=== PATIENT | male | born 1950 | race Caucasian/White ===

== ENCOUNTER 2019-07-18 22:46 | Emergency (ER) | payer MEDICARE, OTHER, SELFPAY ==
[2019-07-18 22:50] VITALS: BP 107/69; PULSE 90; RESP 16; TEMP 36.6; O2SAT 100; BMI 41.8
--- NOTE | 2019-07-18 22:51 | CTR_ITS ---
PROCEDURE INFORMATION: Exam: CT Abdomen And Pelvis With Contrast Exam date and time: 07/18/2019 11:11 PM Age: 69 years old Clinical indication: Other: Gi bleed TECHNIQUE: Imaging protocol: Computed tomography of the abdomen and pelvis with intravenous contrast. Total DLP: 2040.36 mGy-cm Radiation optimization: All CT scans at this facility use at least one of these dose optimization techniques: automated exposure control; mA and/or kV adjustment per patient size (includes targeted exams where dose is matched to clinical indication); or iterative reconstruction. Contrast material: OMNI 300; Contrast volume: 95 ml; Contrast route: IV; COMPARISON: No relevant prior studies available. FINDINGS: Visualized portions of the lung bases are clear. Status post cholecystectomy. The liver, spleen, pancreas, left adrenal gland, and kidneys are unremarkable. There is a 2 cm x 1.4 cm nodule in the right adrenal gland on series 2 image 24 with density 59 Hounsfield units. A normal-appearing appendix is seen in the right lower quadrant. Status post gastric bypass. No evidence of bowel obstruction. Scattered colonic diverticula without evidence of diverticulitis. No free intraperitoneal air or fluid identified. There is a 2.3 cm x 1.6 cm fluid collection in the subcutaneous fat of the right upper quadrant anterior abdominal wall on series 2 image 46. Hyperdense rim is present. This is concerning for abscess. Small ventral abdominal hernia in the right upper quadrant (series 2 image 43). This contains only fat. The bladder is unremarkable. Marked atherosclerotic aortoiliac calcification. No abdominal aortic aneurysm. Mild degenerative disc disease throughout the lower thoracic spine and the lumbar spine. Spinal canal stenosis at T9-T10 (mild), T10-T11 (mild), T12-L1 (mild), and L2-L3 (marked) related to this. CT/CT abdomen pelvis w con* [id number] IMPRESSION: 1. Small fluid collection in the subcutaneous fat of the right upper quadrant anterior abdominal wall. Hyperdense rim is present. This is concerning for abscess. 2. Small indeterminate nodule in the right adrenal gland. Consider 12 month follow-up adrenal CT. (Evelyn Epps, ACR White Paper, 2017) 3. Multiple areas of spinal canal stenosis in the lower thoracic spine and the lumbar spine, marked at L2-L3. Radiation Dose CTDIVOL = (mGy): DLP = 2040.36 (mGy-cm)
--- NOTE | 2019-07-18 22:52 | ED_ITS ---
Entered by Nevin Metzger, acting as scribe for Lenny Marie DO HPI - GI Bleed General: Chief complaint: GI Bleed Stated complaint: GI BLEED Time Seen by Provider: 07/18/19 22:51 Source: patient and EMS Mode of arrival: EMS Limitations: no limitations History of Present Illness: HPI Narrative: 69 yo m came to the er by ems for possile GI bleed. Onset was 10am this morning. Pts said that pt had a gastric bypass May 14. Pt states that he went to the bathroom and the blood filled up the toilet. Pts said that there was blood all over the toilet. Pt states that he has some mild abd pain at this time. Pt has some LLQ and RLQ pain. MD complaint: coffee ground emesis Onset (ago): day(s) (10AM ) Pain Consistency: intermittent Severity: moderate Relieving factors: none Exacerbating factors: none Associated symptoms: Reports abdominal pain, chills and nausea; Denies epistaxis, fever(s), headache(s), rash or vomiting Review of Systems Const: Reports: chills; Denies: fever Eyes: Denies: change in vision or blurry vision ENMT: Denies: nose bleeds Card: Denies: chest pain, palpitations, irregular heart rhythm, edema, swelling of feet/ankles, shortness of breath on exertion or shortness of breath when lying down Resp: Denies: shortness of breath, productive cough, non-productive cough or wheezing GI: Reports: abdominal pain and nausea; Denies: vomiting : Denies: difficulty urinating, painful urination, urinary frequency, urinary urgency or blood in urine Musc: Denies: neck pain, back pain, redness or joint warmth Skin/Breast: Denies: rash Neuro: Denies: headache Psych: Denies: anxiety PFSH ED PFSH: Statuses (acute, chronic, etc) shown below reflect problem list status as previously entered and may not be historically accurate Surgical History (Updated 07/19/19 @ 01:59 by Lenny Marie DO) Gastric bypass status for obesity (Acute) Social History Smoking and tobacco status: former smoker Physical Exam Const: COMMON NORMALS: alert GENERAL APPEARANCE: well developed ORIENTATION/CONSCIOUSNESS: Yes awake, Yes oriented to person, Yes oriented to place and Yes oriented to time HENMT: COMMON NORMALS: normocephalic, external ears normal, external nose normal and moist oral mucous membranes HEAD & SCALP: normocephalic; no scalp tenderness FACE & SINUS: normal facial exam NOSE: external nose normal and no nasal discharge EXTERNAL EAR: Yes external ears normal MOUTH: tongue normal TEETH & GINGIVA: no abnormal tooth and associated gingiva THROAT: posterior oropharynx normal; no peritonsillar mass Eye: COMMON NORMALS: PERRL, EOMs intact bilaterally and conjunctivae normal EYELID: eyelids normal CONJUNCTIVA: Yes conjunctivae normal PUPIL: Yes PERRL Neck/C-Spine: COMMON NORMALS: full ROM GENERAL: No anterior neck swelling and No tracheal deviation CERVICAL SPINE: Yes normal cervical lordosis, No cervical spine tenderness, No step off deformity, No paracervical muscle t enderness and No paracervical muscle spasm Chest: COMMONS NORMALS: inspection of chest normal CHEST: Yes symmetrical chest wall rise and No tenderness Resp: COMMON NORMALS: clear to auscultation bilaterally EFFORT & INSPECTION: No tachypneic, No respiratory distress, No retractions, No uses accessory muscles and No tracheal deviation AUSCULTATION: clear to auscultation bilaterally, no rhonchi, no wheezes and lung sounds not diminished Cardio: COMMON NORMALS: regular rate and regular rhythm RATE: regular rate RHYTHM: regular rhythm HEART SOUNDS: no murmurs PERIPHERAL PULSES: radial pulses present GI: INSPECTION: No abdominal distension AUSCULTATION: No hyperactive bowel sounds and No hypoactive bowel sounds PALPATION: Yes tender, No guarding and No rigid PERCUSSION: no dullness to percussion and no tympanic to percussion RECTAL EXAM: Yes heme positive stool gross blood (also black and clotted) : COMMON NORMALS: Yes no CVA tenderness BLADDER/KIDNEY EXAM: Yes no CVA tenderness Back/Pelvis: COMMON NORMALS: no CVA tenderness Neuro: SENSORIUM/ORIENTATION: Yes alert, Yes oriented to person, Yes oriented to place and Yes oriented to time Psych: COMMON NORMALS: mental status grossly normal and speech normal SPEECH: Yes normal speech Skin: COMMON NORMALS: no rashes or lesions noted GENERAL SKIN EXAM: no rashes or lesions noted Course Consultations: Consultation #1: [facility] LUCINA Musa Time: 01:52 Vital Signs: Vital signs: Vital Signs Temperature 97.8 F 07/18/19 22:50 Pulse Rate 88 07/18/19 23:29 Respiratory Rate 18 07/18/19 23:29 Blood Pressure 98/64 07/18/19 23:29 Pulse Oximetry 94 07/18/19 23:29 MDM - GI Bleed MDM Narrative: Medical decision making narrative: 69-year-old male with a history of gastric bypass surgery 2 months ago. He presents with black tarry stools since 10 AM. They became more loose, and more red as the day went on, culminating in significant old blood in the stool this evening. He was weak, pale, and sweaty. His blood pressure systolic was evidently in the 70s on scene when EMS arrived. He received a fluid bolus on arrival. He is now receiving 2 units of crossmatched packed RBCs. His blood pressures running around 100 systolic. His heart rates in the 70s/80s. His hemoglobin was 8.1. No acute ST changes on EKG. The patient is not complaining of chest pain. We have no ICU beds available at this facility. Since the patient did have a surgery at [facility], we spoke with their transfer team. CT here reveals no complication of the gastric bypass or other reason for bleed. Surgical team asked for him to be sent to their ER, which is in process currently. The patient is on a Protonix drip. Lab Data: Labs: Lab Results 07/18/19 07/18/19 07/18/19 Range/Units 23:03 23:03 23:03 WBC 9.3 (4.0-10.0) 10^3/ uL RBC 3.12 L (4.1-5.3) 10^6/u L Hgb 8.1 L (11.7-16.6) g/dL Hct 27.5 L (42.0-52.0) % MCV 88.1 (80-94) fL MCH 26.0 L (28.0-34.0) pg MCHC 29.5 L (30.0-36.0) g/dL RDW 14.3 (12.1-15.1) % Plt Count 388 (130-400) 10^3/c mm MPV 9.2 (7.4-10.4) fL Neut % (Auto) 76.0 % Lymph % (Auto) 18.3 % [place] % (Auto) 3.8 % Eos % (Auto) 1.1 % Baso % (Auto) 0.3 % Neut # (Auto) 7.1 (1.8-7.7) 10^3/u L Lymph # (Auto) 1.7 (0.8-4.8) 10^3/u L [place] # (Auto) 0.4 (0.2-0.9) 10^3/u L Eos # (Auto) 0.1 (0.0-0.8) 10^3/u L Baso # (Auto) 0.0 (0.0-0.1) 10^3/u L Nucleated RBC % (a uto) 0 % Nucleated RBCs # 0.0 /100WBC PT 15.20 H (10.5-13.3) SECO NDS INR 1.16 (0.8-1.2) APTT 24.8 (23.9-36.7) SECO NDS Sodium 136 (136-145) mmol/L Potassium 4.3 (3.5-5.1) mmol/L Chloride 100 (98-107) mmol/L Carbon Dioxide 18 L (22-29) mmol/L Anion Gap 22.3 H (5-19) BUN 27 H (8-23) mg/dL Creatinine 1.2 (0.7-1.2) mg/dL GFR Calculation 60.0 L (90-130) mL/min Glucose 236 H (74-106) mg/dL Calcium 9.3 (8.8-10.2) mg/Dl Phosphorus 5.3 H (2.5-4.5) mg/dL Magnesium 1.7 (1.7-2.3) mg/dL Total Bilirubin 0.3 (0.15-1.2) mg/dL AST 11 (0-40) U/L ALT 6 (0-41) U/L Alkaline Phosphata se 50 (40-130) IU/L Total Protein 5.7 L (6.6-8.7) g/dL Albumin 3.8 (3.5-5.2) g/dL Globulin 1.9 (1.3-4.6) g/dL Blood Type Antibody Screen Crossmatch 07/18/19 Range/Units 23:03 WBC (4.0-10.0) 10^3/ uL RBC (4.1-5.3) 10^6/u L Hgb (11.7-16.6) g/dL Hct (42.0-52.0) % MCV (80-94) fL MCH (28.0-34.0) pg MCHC (30.0-36.0) g/dL RDW (12.1-15.1) % Plt Count (130-400) 10^3/c mm MPV (7.4-10.4) fL Neut % (Auto) % Lymph % (Auto) % [place] % (Auto) % Eos % (Auto) % Baso % (Auto) % Neut # (Auto) (1.8-7.7) 10^3/u L Lymph # (Auto) (0.8-4.8) 10^3/u L [place] # (Auto) (0.2-0.9) 10^3/u L Eos # (Auto) (0.0-0.8) 10^3/u L Baso # (Auto) (0.0-0.1) 10^3/u L Nucleated RBC % (a uto) % Nucleated RBCs # /100WBC PT (10.5-13.3) SECO NDS INR (0.8-1.2) APTT (23.9-36.7) SECO NDS Sodium (136-145) mmol/L Potassium (3.5-5.1) mmol/L Chloride (98-107) mmol/L Carbon Dioxide (22-29) mmol/L Anion Gap (5-19) BUN (8-23) mg/dL Creatinine (0.7-1.2) mg/dL GFR Calculation (90-130) mL/min Glucose (74-106) mg/dL Calcium (8.8-10.2) mg/Dl Phosphorus (2.5-4.5) mg/dL Magnesium (1.7-2.3) mg/dL Total Bilirubin (0.15-1.2) mg/dL AST (0-40) U/L ALT (0-41) U/L Alkaline Phosphata se (40-130) IU/L Total Protein (6.6-8.7) g/dL Albumin (3.5-5.2) g/dL Globulin (1.3-4.6) g/dL Blood Type A Positive Antibody Screen Negative Crossmatch See Detail Critical Care Time Critical Care Time: Critical Care Time: Yes Total Critical Care Time: 45 Attestation: This case had a high probability of a clinically significant, sudden, or life threatening deterioration of this patient's condition which required my full and direct attention, intervention and personal management. Discharge Plan Discharge Prescriptions: No Action atorvastatin 40 mg tablet 40 mg PO DAILY RF: 0 clopidogrel 75 mg tablet 75 mg PO DAILY RF: 0 chlorthalidone 25 mg tablet 25 mg PO DAILY RF: 0 tamsulosin 0.4 mg capsule 0.4 mg PO DAILY RF: 0 gabapentin 100 mg capsule 100 mg PO TID RF: 0 duloxetine 30 mg capsule,delayed release(DR/EC) 30 mg PO BID RF: 0 Coding Level of Care Code ED Instrumentation Engineer for Chg Fwnathalie The documentation recorded by the Yassine espinoza Stephanie Lyn, accurately reflects the service I personally performed and the decisions made by Frank webb Jeremy John, DO Jul 18, 2019 22:46
[2019-07-18 22:59] VITALS: BP 102/61; PULSE 82; RESP 16; O2SAT 94
[2019-07-18] MEDS: sodium chloride 0.9% 1,000 ML 999 ML IV (23:00)
[2019-07-18 23:22] LABS: Basophils % 0.3 %; Eosinophils # 0.1 10^3/uL (0.0-0.8); Eosinophils % 1.1 %; Hematocrit 27.5 % (42.0-52.0); Hemoglobin 8.1 g/dL (11.7-16.6); Lymphocytes # 1.7 10^3/uL (0.8-4.8); Lymphocytes % 18.3 %; Mean Corpuscular HGB Conc 29.5 g/dL (30.0-36.0); Mean Corpuscular Volume 88.1 fL (80-94); Mean Platelet Volume 9.2 fL (7.4-10.4); Monocytes # 0.4 10^3/uL (0.2-0.9); Monocytes % 3.8 %; Neutrophils # 7.1 10^3/uL (1.8-7.7); Nucleated Red Blood Cells % 0 %; Platelet Count 388 10^3/cmm (130-400); Red Blood Count 3.12 10^6/uL (4.1-5.3); Red Cell Distribution Width 14.3 % (12.1-15.1); White Blood Count 9.3 10^3/uL (4.0-10.0)
[2019-07-18 23:29] VITALS: BP 98/64; PULSE 88; RESP 18; O2SAT 94
[2019-07-18 23:37] LABS: Alanine Aminotransferase 6 U/L (0-41); Albumin Level 3.8 g/dL (3.5-5.2); Alkaline Phosphatase 50 IU/L (40-130); Anion Gap 22.3 (5-19); Aspartate Amino Transferase 11 U/L (0-40); Blood Urea Nitrogen 27 mg/dL (8-23); Calcium 9.3 mg/Dl (8.8-10.2); Carbon Dioxide 18 mmol/L (22-29); Chloride 100 mmol/L (98-107); Globulin 1.9 g/dL (1.3-4.6); Glucose 236 mg/dL (74-106); Magnesium 1.7 mg/dL (1.7-2.3); Phosphorus 5.3 mg/dL (2.5-4.5); Potassium 4.3 mmol/L (3.5-5.1); Sodium 136 mmol/L (136-145); Total Bilirubin 0.3 mg/dL (0.15-1.2); Total Protein 5.7 g/dL (6.6-8.7)
[2019-07-18] MEDS: iohexol 300 mg/mL 100 mL Btl IV (23:43)
[2019-07-18 23:50] LABS: INR 1.16 (0.8-1.2); Partial Thromboplastin Time 24.8 SECONDS (23.9-36.7)
[2019-07-19] VITALS (7 sets, daily range): BP systolic 100–125; BP diastolic 65–100; PULSE 73–87; RESP 14–16; TEMP 36.5–37.2; O2SAT 97–99
[2019-07-19] MEDS: sodium chloride 0.9% 250 ML 999 ML ×2 (01:30→03:10)
[2019-07-19] MEDS: sodium chloride 0.9% 1,000 ML 999 ML IV (03:24)
== END 2019-07-19 03:41 | disposition short-term general hospital (02) ==
PROVIDERS: Emergency Provider Emergency Medicine; Family Provider Nurse Practitioner Family
DX: K92.2 Gastrointestinal hemorrhage, unspecified (principal); Z87.891 Personal history of nicotine dependence
CPT/HCPCS: 74177; 80053; 83735; 84100; 85025; 85610; 85730; 86850; 86900; 96360; 96361; 96365; 99282; C9113; J7030; J7050; P9016; Q9967

== ENCOUNTER → 2019-08-26 14:29 | Outpatient (BNVA) | payer MEDICARE, OTHER, SELFPAY | PROVIDERS: Family Provider Nurse Practitioner Family; Referring Provider Nurse Practitioner Family; Visit Provider Podiatrist Foot & Ankle Surgery | DX: M79.671 Pain in right foot (principal) | CPT/HCPCS: 73630 ==

== ENCOUNTER 2019-09-08 14:56 | Outpatient (CLI) | payer MEDICARE, OTHER, SELFPAY ==
--- NOTE | 2019-09-08 15:00 | USCV_ITS ---
Jorge Ventura Age: 69 Gender: M : 1950 Exam Date: 09/08/2019 15:02 Ordering Phys: Matt Storey DPM Technologist: Exam Location: [facility] [place]_ Indication: DIMINISHED PULSES RIGHT LEFT Brachial 140.00 mmHg Brachial 114.00 mmHg Pressure (mmHg) Waveform Pressure (mmHg) Waveform 108.00 Above Knee 123.00 132.00 Below Knee 124.00 129.00 VP OF PRODUCT 78.00 108.00 DPA 124.00 0.92 Ankle/Brachial Index 0.89 60.00 Pre-Exercise Toe Pressure 97.00 0.43 Pre-Exercise Toe/Brachial Index 0.69 FINDINGS Slightly diminished resting ABIs bilaterally Moderately diminished resting TBI on the right side Minimally diminished resting TBI on the left side CONCLUSIONS Abnormal RAZIA and TBIs bilaterally, suggestive of mild peripheral arterial disease on the left side and mild to moderate peripheral arterial disease on the right side Dr Anabelle Chirinos MD [facility] (Electronically Signed) Final Date: 08 September 2019 17:20 S
== END 2019-09-08 14:57 | disposition home or self-care (01) ==
LOC: RAD 15:03
PROVIDERS: Family Provider Nurse Practitioner Family; PCP Nurse Practitioner Family; Visit Provider Podiatrist Foot & Ankle Surgery
DX: I73.9 Peripheral vascular disease, unspecified (principal)
CPT/HCPCS: 93923

== ENCOUNTER → 2019-12-09 11:41 | Outpatient (BNVA) | payer MEDICARE, OTHER, SELFPAY | PROVIDERS: Family Provider Nurse Practitioner Family; PCP Nurse Practitioner Family; Visit Provider Podiatrist Foot & Ankle Surgery | DX: S99.921A Unspecified injury of right foot, initial encounter (principal); X58.XXXA Exposure to other specified factors, initial encounter | CPT/HCPCS: 73630 ==

== ENCOUNTER 2019-12-15 13:16 | Outpatient (CLI) | payer MEDICARE, OTHER, SELFPAY | END 2019-12-15 13:17 | disposition home or self-care (01) | LOC: WOUND 13:17 | PROVIDERS: Family Provider Nurse Practitioner Family; PCP Nurse Practitioner Family; Visit Provider Thoracic Surgery (Cardiothoracic Vascular Surgery) | DX: E11.621 Type 2 diabetes mellitus with foot ulcer (principal); L97.512 Non-pressure chronic ulcer of other part of right foot with fat layer exposed | CPT/HCPCS: 97597; G0463 ==

== ENCOUNTER 2019-12-22 14:22 | Outpatient (CLI) | payer MEDICARE, OTHER, SELFPAY | END 2019-12-22 14:23 | disposition home or self-care (01) | LOC: WOUND 14:25 | PROVIDERS: Family Provider Nurse Practitioner Family; PCP Nurse Practitioner Family; Visit Provider Thoracic Surgery (Cardiothoracic Vascular Surgery) | DX: E11.621 Type 2 diabetes mellitus with foot ulcer (principal); L97.512 Non-pressure chronic ulcer of other part of right foot with fat layer exposed | CPT/HCPCS: 99212 ==

== ENCOUNTER 2019-12-29 13:57 | Outpatient (CLI) | payer MEDICARE, OTHER, SELFPAY | END 2019-12-29 13:58 | disposition home or self-care (01) | LOC: WOUND 13:59 | PROVIDERS: Family Provider Nurse Practitioner Family; PCP Nurse Practitioner Family; Visit Provider Nurse Practitioner Family | DX: E11.621 Type 2 diabetes mellitus with foot ulcer (principal); L97.512 Non-pressure chronic ulcer of other part of right foot with fat layer exposed | CPT/HCPCS: 11042 ==

== ENCOUNTER 2020-01-05 14:13 | Outpatient (CLI) | payer MEDICARE, OTHER, SELFPAY | END 2020-01-05 14:14 | disposition home or self-care (01) | LOC: WOUND 14:16 | PROVIDERS: Family Provider Nurse Practitioner Family; PCP Nurse Practitioner Family; Visit Provider Thoracic Surgery (Cardiothoracic Vascular Surgery) | DX: E11.621 Type 2 diabetes mellitus with foot ulcer (principal); L97.512 Non-pressure chronic ulcer of other part of right foot with fat layer exposed | CPT/HCPCS: 99212; A6446 ==

== ENCOUNTER 2020-01-06 20:00 | Outpatient (CLI) | payer MEDICARE, OTHER, SELFPAY | END 2020-01-06 20:01 | disposition home or self-care (01) | LOC: SLEEP 01-07 09:20 | PROVIDERS: Family Provider Nurse Practitioner Family; PCP Nurse Practitioner Family; Visit Provider Nurse Practitioner Family | DX: G47.33 Obstructive sleep apnea (adult) (pediatric) | CPT/HCPCS: 95811 ==

== ENCOUNTER → 2020-01-10 12:14 | Outpatient (BNVA) | payer MEDICARE, OTHER, MEDICAID, SELFPAY | PROVIDERS: Family Provider Nurse Practitioner Family; PCP Nurse Practitioner Family; Visit Provider Podiatrist Foot & Ankle Surgery | DX: S99.921A Unspecified injury of right foot, initial encounter (principal) | CPT/HCPCS: 73630 ==

== ENCOUNTER 2020-01-21 06:45 | Day surgery (SDC) | payer MEDICARE, OTHER, SELFPAY ==
[2020-01-20 12:35] VITALS: BMI 38.9
[2020-01-21 07:03] VITALS: BP 131/62; PULSE 47; RESP 18; TEMP 36.3; O2SAT 98
[2020-01-21] MEDS: sodium chloride 0.9% 1,000 ML 30 ML IV (07:13)
[2020-01-21 07:17] LABS: Glucose Point of Care 108 mg/dL (70-110)
--- NOTE | 2020-01-21 07:23 | ANES.PREANE2 ---
Pre-Anesthetic Assessment Pre-Anesthetic Assessment: Height/Weight: Height 1.73 m Weight 116.12 kg Temp Pulse Resp BP Pulse Ox 97.4 F L 47 L 18 131/62 98 01/21/20 07:03 01/21/20 07:03 01/21/20 07:03 01/21/20 07:03 01/21/20 07:03 Preop Diagnosis: Infected hardware with osteomyelitis right foot Proposed Procedure: Operation Date: 01/21/20 08:10 Proposed Procedures p Incision And Debridement non invasive tissue down to bone 82422 [id number] 91161 L97.514(Right) - Matt Storey DPM s Deep Hardware removal insertion of antibiotic impregnated cement spacer(Right) - Matt Storey DPM Last intake: Intake Last Liquid Date 01/20/20 Last Liquid Time 21:00 Last Solid Date 01/20/20 Last Solid Time 21:00 Social: Social History: Tobacco (quit) and No alcohol Exam: Pre-Anes Outpt Exam: alert, oriented x 3, clear to auscultation bilaterally and regular rate & rhythm Airway: Submandibular: Other (small) Cervical ROM: WNL MP: 3 Dentition: False (upper and lower) History/ROS: No significant history except as noted Pulmonary: Pulmonary: KNIGHT and Sleep apnea CV/HEM: CV/HEM: CAD (stent 2007) and HTN : : None reported Hepatic: Hepatic: None reported GI: GI: None reported Metabolic: Metabolic: DM, Hyperlipidemia, Morbid obesity and Thyroid Musc/skel: Musc/skel: OA/DJD Neuropsych: Neuropsych: Neuropathy (bilat LE) and TIA Anesthetic Plan: ASA status: 3 Anesthesia: Anesthesia Evaluation and MAC Risk of > 500 ml blood loss (7ml/kg in children): No Meds/Allergies Current Medications: Current Medications Generic Name Dose Route Start Last Admin Trade Name Freq PRN Reason Stop Dose Admin Sodium Chloride 1,000 mls @ 30 ml s/hr 01/21/20 06:00 01/21/20 07:13 Sodium Chloride 0.9% IV 01/22/20 05:59 30 mls/hr .Q24H OMAR Administration PFSH Anesthesia PFSH: Medical History (Updated 01/21/20 @ 07:24 by Roc Salas MD) Diabetic peripheral neuropathy associated with type 2 diabetes mellitus Surgical History Gastric bypass status for obesity H/O gastric bypass H/O heart artery stent Family History Other Diabetes Denies family history of Cancer Social History Smoking and tobacco status: former smoker Alcohol intake: never Household members: spouse Marital status: Current occupational status: disabled Data Anesthesia Other Labs: Laboratory Results - last 48 hr 01/21/20 07:12 POC Glucose 108 Cardiac Studies: No Data to Display
[2020-01-21] MEDS: vancomycin 1,000 MG SDV 1000 MG XX (09:23)
--- NOTE | 2020-01-21 09:32 | P.HPUD_ITS ---
Surgery/Procedure H&P Update DATE OF PROCEDURE: January 21, 2020 DATE H&P PERFORMED: 01/10/20 H&P UPDATE INFORMATION: I have reviewed H&P completed within last 30 days, I have examined patient prior to procedure, No changes to prior documentation and H&P is in [facility] [place] on date indicated PREOP DIAGNOSIS: Infected hardware with osteomyelitis right foot PLANNED PROCEDURE: Operation Date: 01/21/20 08:10 Proposed Procedures p Incision And Debridement non invasive tissue down to bone 45052 [id number] 16497 L97.514(Right) - Matt Storey DPM s Deep Hardware removal insertion of antibiotic impregnated cement spacer(Right) - Matt Storey DPM
[2020-01-21 09:37] VITALS: BP 105/60; PULSE 46; RESP 16; TEMP 36.1; O2SAT 100
--- NOTE | 2020-01-21 09:49 | XRR_ITS ---
PROCEDURE INFORMATION: Exam: XR Right Foot Complete Exam date and time: 01/21/2020 10:13 AM Age: 69 years old Clinical indication: Condition or disease; Other: Post op hardware removal; Prior surgery; Surgery date: Post-operative (0-2 days); Surgery type: Infected hardware and implant removed from right foot due to wound. Osteomyelitis right first metatarsal TECHNIQUE: Imaging protocol: XR Right foot. Views: 3 or more views. COMPARISON: CR (LOW EXM, ) 01/10/2020 12:19 PM FINDINGS: Bones/joints: Severe degenerative changes midfoot forefoot articulation. Prior amputation distal aspect 2nd, 3rd, 4th, 5th metatarsals. Prior osteotomy and synthetic joint placement 1st metatarsophalangeal joint. Placement of spent between the above. Spur formation at the insertion of the Achilles' tendon and plantar aponeurosis. Soft tissues: Soft tissue swelling dorsally and volarly. XR/XR foot RT min 3V* [id number] IMPRESSION: Removal of the hardware previously placed at the 1st metatarsophalangeal joint. See above.
--- NOTE | 2020-01-21 09:50 | PM.OP ---
Operative Report Date of procedure: January 21, 2020 Pre-op Diagnosis: Infected hardware with osteomyelitis right foot. Osteomyelitis right first metatarsal Post-op diagnosis: same Post-op Findings: Same Procedure Done: Incision and debridement down to bone right foot. Removal of deep implant and hardware right foot. Bone biopsy right foot. Insertion of antibiotic impregnated cement spacer right foot. Implants: 2-0 Vicryl. 4-0 Vicryl. 4-0 nylon. Antibiotic impregnated cement spacer with vancomycin and tobramycin Specimens removed/disposition: Infected hardware right foot sent to microbiology for Gram stain and culture. Right first metatarsal bone sent to microbiology for Gram stain and culture. Pathology: none sent Surgeon: Matt Storey D.P.M. Garbage Collection Supervisor: Mikal Anesthesia: MAC Estimated blood loss: 5 mL Tourniquet time: Approximately 38 minutes IV fluids: None Urine output: None Complications: None Findings: Failed implant to the right first metatarsal phalangeal joint. Devitalized soft tissue and bone to the first metatarsal head. Condition: stable Disposition: PACU Brief History: Patient is a pleasant 69-year-old diabetic male with history of implant to the first metatarsal phalangeal joint of the right foot which had a recurrence of deformity and created a prominence, wound was formed and hardware exposed. He was referred to wound care, wound was plateaued and recommended hardware removal once signs of osteomyelitis were visualized on x-ray. Recommended debridement down to bone of nonviable tissue, hardware removal, impregnation of cement spacer and PICC line for 6 weeks minimum. Once infection is resolved will do more definitive staged procedure. Risks include pain, bleeding, numbness, persistent infection, need for amputation, need for antibiotics, further surgical debridement. Transfer pressure, recurrence of deformity, overcorrection of deformity, adverse reactions to antibiotics and need for further surgical intervention. Patient is agreeable wishes to proceed. Procedure: Under mild sedation the patient was brought to the operating room and placed on the operating table in supine position. A timeout was performed. Anesthesia was administered by the anesthesia service. Local anesthesia was injected by myself right Guzman block consisting of 30 cc of 0.5% Marcaine plain. Well-padded pneumatic tourniquet applied high calf. Right lower extremity was scrubbed, prepped and draped utilizing normal aseptic technique. Right foot was elevated and tourniquet inflated to 250 mmHg. Attention was directed to the right first metatarsal phalangeal joint where previous cicatrix was utilized directly over the previous incision and #15 blade was utilized to perform an incision through skin. Dissection carried down through subcutaneous tissue down the level of the joint capsule and periosteum utilizing care to retract to preserve neurovascular tendinous structures. All bleeders were ligated and cauterized as necessary. Implant was identified was failed medially especially with cortical blowout at the medial wall of the first metatarsal head. This was removed and passed from the operative field the implant was removed in toto and was sent to microbiology for Gram stain, culture and sensitivity. Irrigation was performed of the incision with saline and a bone sample of the head of the first metatarsal medially was also sent for Gram stain and culture. Debridement of nonviable epidermis, dermis, subcutaneous tissue, muscle tendon and bone was performed no further devitalized tissue was appreciated irrigation performed. Polymethylmethacrylate cement bone spacer impregnated with tobramycin and vancomycin fashion and approximately 1.5 cm x 1.5 cm cylindrical shaped to act as a interpositional spacer. This was well fitting. Incision was then closed with periosteum and capsular structure closed with 2-0 Vicryl. Subcutaneous tissue closed with 4-0 Vicryl. Skin closed with 4-0 nylon. Incision site was dressed with Adaptic, sterile 4 x 4's, Kerlix, ABD pad and Satya wrap. Cam boot was applied. Tourniquet was deflated and a prompt hyperemic response was noted to the distal digits of the right lower extremity. Patient tolerated the procedure well was transferred to the PACU vital signs stable and vascular status intact. Following a period of postoperative monitoring he will be discharged home. Was provided my cell phone number to contact with any postoperative questions or concerns. Recommend PICC line insertion today will begin ceftriaxone/Rocephin 2 g to be infused over 30 minutes daily will have this set up through home health. Diagnosis includes osteomyelitis to the right first metatarsal secondary to failed hardware with deep hardware infection. I will be trending patient's lab work weekly this will include BMP and CBC. Every 3 weeks will trend ESR and CRP. Will also follow-up with serial x-rays. Planning on 6 weeks of IV antibiotics. Recommending ceftriaxone 2 g to be infused daily for the next 5 days may extend versus making adjustments once bone culture is finalized.
[2020-01-21 10:11] VITALS: BP 122/60; PULSE 45; RESP 18; O2SAT 98
--- NOTE | 2020-01-21 10:54 | XR_ITS ---
WS: [id number] CHEST, 1 view. HISTORY: POST PICC PLACE COMPARISON: 12/13/2017 Interval placement of a RIGHT PICC line with tip terminating in the proximal SVC. No complications. Chronic emphysema with no pneumonia. No pleural effusion or pneumothorax. Cardiac size: Normal. Mediastinum/Aorta: Mild atherosclerosis aorta. Advanced degenerative changes at the glenohumeral joints. XR/XR chest 1V [id number] IMPRESSION: RIGHT PICC line terminates in the proximal SVC.
--- NOTE | 2020-01-23 10:30 | PC.NURSE ---
This nurse changed the patient's PICC line dressing on 01/23/20 at approximately 1030 according to our policy.
== END 2020-01-21 10:30 | disposition home or self-care (01) ==
PROVIDERS: PCP Nurse Practitioner Family; Visit Provider Podiatrist Foot & Ankle Surgery
PROC: (CPT 20240; principal; 2020-01-21 08:10)
PROC: (CPT 20240; 2020-01-21 08:10)
PROC: (CPT 20704; 2020-01-21 08:10)
DX: T84.84XA Pain due to internal orthopedic prosthetic devices, implants and grafts, initial encounter (principal); G47.30 Sleep apnea, unspecified; I25.10 Atherosclerotic heart disease of native coronary artery without angina pectoris; Z95.5 Presence of coronary angioplasty implant and graft; I10 Essential (primary) hypertension; E78.5 Hyperlipidemia, unspecified; E66.01 Morbid (severe) obesity due to excess calories; Z68.38 Body mass index [BMI] 38.0-38.9, adult; M19.90 Unspecified osteoarthritis, unspecified site; E11.40 Type 2 diabetes mellitus with diabetic neuropathy, unspecified; Z86.73 Personal history of transient ischemic attack (TIA), and cerebral infarction without residual deficits; Z98.84 Bariatric surgery status; Z87.891 Personal history of nicotine dependence
CPT/HCPCS: 20240; 20680; 12345; 36416; 36569; 71045; 71046; 73630; 82962; 87070; 87077; 87176; 87186; 87205; J0690; J2704; J3010; J3370; J3490; J7030

== ENCOUNTER 2020-01-27 12:22 | Outpatient (RCR) | payer MEDICARE, OTHER, SELFPAY ==
[2020-01-27] MEDS: cefTRIAXone 2,000 MG in sodium chloride 0.9% (plus) 50 ML 100 MG IV (12:54)
[2020-01-27 12:59] VITALS: BP 112/58; PULSE 47; RESP 18; TEMP 36.2; O2SAT 97
== END 2020-02-11 23:59 | disposition home or self-care (01) ==
LOC: OPS 12:22
PROVIDERS: PCP Nurse Practitioner Family; Visit Provider Podiatrist Foot & Ankle Surgery
DX: M86.171 Other acute osteomyelitis, right ankle and foot (principal)
CPT/HCPCS: 96365; J0696

== ENCOUNTER → 2020-02-03 10:55 | Outpatient (BNVA) | payer MEDICARE, OTHER, SELFPAY | PROVIDERS: PCP Nurse Practitioner Family; Visit Provider Podiatrist Foot & Ankle Surgery | DX: M21.41 Flat foot [pes planus] (acquired), right foot (principal); M86.9 Osteomyelitis, unspecified; M00.9 Pyogenic arthritis, unspecified; M20.41 Other hammer toe(s) (acquired), right foot; M21.42 Flat foot [pes planus] (acquired), left foot; M21.611 Bunion of right foot; M20.42 Other hammer toe(s) (acquired), left foot; M21.612 Bunion of left foot; E11.42 Type 2 diabetes mellitus with diabetic polyneuropathy | CPT/HCPCS: 73630 ==

== ENCOUNTER 2020-02-10 06:00 | Outpatient (RCR) | payer OTHER, MEDICARE, SELFPAY | END 2020-02-11 23:59 | disposition home or self-care (01) | LOC: SOT 06:00 | PROVIDERS: PCP Nurse Practitioner Family; Referring Provider Podiatrist Foot & Ankle Surgery; Visit Provider Podiatrist Foot & Ankle Surgery | DX: E11.42 Type 2 diabetes mellitus with diabetic polyneuropathy (principal); M00.879 Arthritis due to other bacteria, unspecified ankle and foot; E66.9 Obesity, unspecified; L97.514 Non-pressure chronic ulcer of other part of right foot with necrosis of bone | CPT/HCPCS: 97167; 97530 ==

== ENCOUNTER → 2020-02-17 13:11 | Outpatient (BNVA) | payer MEDICARE, OTHER, SELFPAY | PROVIDERS: PCP Nurse Practitioner Family; Visit Provider Podiatrist Foot & Ankle Surgery | DX: M21.41 Flat foot [pes planus] (acquired), right foot (principal); M21.42 Flat foot [pes planus] (acquired), left foot; M20.41 Other hammer toe(s) (acquired), right foot; M20.42 Other hammer toe(s) (acquired), left foot; M21.611 Bunion of right foot; M21.612 Bunion of left foot; E11.42 Type 2 diabetes mellitus with diabetic polyneuropathy; S99.929A Unspecified injury of unspecified foot, initial encounter; M86.9 Osteomyelitis, unspecified; M00.9 Pyogenic arthritis, unspecified | CPT/HCPCS: 73630 ==

== ENCOUNTER → 2020-03-02 14:49 | Outpatient (BNVA) | payer MEDICARE, OTHER, SELFPAY | PROVIDERS: PCP Nurse Practitioner Family; Visit Provider Podiatrist Foot & Ankle Surgery | DX: M21.41 Flat foot [pes planus] (acquired), right foot (principal); M21.42 Flat foot [pes planus] (acquired), left foot; M20.41 Other hammer toe(s) (acquired), right foot; M20.42 Other hammer toe(s) (acquired), left foot; M21.611 Bunion of right foot; M21.612 Bunion of left foot; E11.42 Type 2 diabetes mellitus with diabetic polyneuropathy; S99.929A Unspecified injury of unspecified foot, initial encounter; M86.9 Osteomyelitis, unspecified; Z48.89 Encounter for other specified surgical aftercare; M00.9 Pyogenic arthritis, unspecified | CPT/HCPCS: 73630 ==

== ENCOUNTER 2020-03-08 15:28 | Outpatient (CLI) | payer MEDICARE, OTHER, SELFPAY ==
--- NOTE | 2020-03-08 15:44 | XR_ITS ---
WS: [id number] LEFT SHOULDER: 3 VIEW(S) TECHNIQUE: Internal and external rotation with Y view. HISTORY: PAIN IN LEFT SHOULDER COMPARISON: None available. Mild narrowing of the AC joint with small osteophytes. Hypertrophic osteophyte extends inferiorly fro m the clavicle towards the rotator cuff. Marked narrowing of the glenohumeral joint. Sclerosis with cortical surface irregularity. Small osteo phyte from the medial inferior humeral head. XR/XR shoulder LT min 2V* [id number] IMPRESSION: 1. Moderate to severe glenohumeral joint arthritis. 2. Mild AC joint arthritis with osteophyte extending towards the rotator cuff.
== END 2020-03-08 15:29 | disposition home or self-care (01) ==
LOC: RADWPI 15:33
PROVIDERS: Family Provider Nurse Practitioner Family; PCP Nurse Practitioner Family; Visit Provider Nurse Practitioner
DX: M25.712 Osteophyte, left shoulder (principal); M19.012 Primary osteoarthritis, left shoulder
CPT/HCPCS: 73030

== ENCOUNTER 2020-03-09 06:30 | Day surgery (SDC) | payer MEDICARE, OTHER, SELFPAY ==
[2020-03-08 11:15] VITALS: BMI 38.5
[2020-03-09] VITALS (9 sets, daily range): BP systolic 121–163; BP diastolic 52–99; PULSE 48–56; RESP 16–18; TEMP 36.3–36.4; O2SAT 95–100
--- NOTE | 2020-03-09 | SCC_ITS ---
Procedure Done: Right first metatarsal phalangeal joint arthrodesis CPT 53021 9 seconds of fluoroscopic guidance, for a cumulative dose of 0.135 mGy, was provided to Dr. Storey by the radiology department. C-arm images of the RIGHT foot were saved for the patient's permanent record. [facility]
[2020-03-09] MEDS: sodium chloride 0.9% 1,000 ML 30 ML IV (06:58)
--- NOTE | 2020-03-09 07:26 | P.HPUD_ITS ---
Surgery/Procedure H&P Update DATE OF PROCEDURE: March 09, 2020 DATE H&P PERFORMED: 03/02/20 H&P UPDATE INFORMATION: I have reviewed H&P completed within last 30 days, I have examined patient prior to procedure, No changes to prior documentation and H&P is in [facility] [place] on date indicated PREOP DIAGNOSIS: Hallux abductovalgus deformity, right, failed joint implant, right first metatarsal phalangeal joint PLANNED PROCEDURE: Operation Date: 03/09/20 08:00 Proposed Procedures p Right first metatarsal phalangeal joint arthrodesis 62340(Right) - Matt Storey DPM
--- NOTE | 2020-03-09 07:45 | ANES.PREANE2 ---
Pre-Anesthetic Assessment Pre-Anesthetic Assessment: Height/Weight: Height 1.73 m Weight 114.759 kg Temp Pulse Resp BP Pulse Ox 97.3 F L 48 L 18 121/66 98 03/09/20 06:45 03/09/20 06:45 03/09/20 06:45 03/09/20 06:45 03/09/20 06:45 Preop Diagnosis: Hallux abductovalgus deformity, right, failed joint implant, right first metatarsal phalangeal joint Proposed Procedure: Operation Date: 03/09/20 08:00 Proposed Procedures p Right first metatarsal phalangeal joint arthrodesis 08310(Right) - Matt Storey DPM Was Beta Alyssa taken within 24 hours: N/A Last intake: Intake Last Liquid Date 03/08/20 Last Liquid Time 22:00 Last Solid Date 03/08/20 Last Solid Time 17:00 Social: Social History: No alcohol and No tobacco Exam: Pre-Anes Outpt Exam: alert, oriented x 3, clear to auscultation bilaterally and regular rate & rhythm Airway: Submandibular: Other (Receeding mandible with limited TMD) Cervical ROM: Other (Limited CROM) MP: 3 Pulmonary: Pulmonary: Sleep apnea CV/HEM: CV/HEM: CHF and HTN : : None reported Hepatic: Hepatic: None reported GI: GI: None reported Metabolic: Metabolic: DM Musc/skel: Musc/skel: OA/DJD Neuropsych: Neuropsych: None reported Anesthetic Plan: ASA status: 3 Anesthesia: MAC Meds/Allergies Current Medications: Current Medications Generic Name Dose Route Start Last Admin Trade Name Freq PRN Reason Stop Dose Admin Sodium Chloride 1,000 mls @ 30 ml s/hr 03/09/20 06:30 03/09/20 06:58 Sodium Chloride 0.9% IV 03/10/20 06:29 30 mls/hr .Q24H OMAR Administration PFSH Anesthesia PFSH: Medical History (Updated 03/08/20 @ 11:19 by Melani Pope RN) Diabetic peripheral neuropathy associated with type 2 diabetes mellitus Surgical History (Updated 03/08/20 @ 11:20 by Melani Pope RN) Gastric bypass status for obesity H/O gastric bypass H/O heart artery stent Family History Other Diabetes Denies family history of Cancer Social History Smoking and tobacco status: former smoker Alcohol intake: never Household members: spouse Marital status: Current occupational status: disabled Data Anesthesia Cardiac Studies: No Data to Display
--- NOTE | 2020-03-09 09:48 | XR_ITS ---
WS: [id number] Right foot, 3 views, 03/09/2020 Clinical Data: post op Comparison: Right foot, 03/02/2020. Findings: The patient has undergone a fusion of the right first MP joint with a small orthopedic plate fixed wi th at least 5 orthopedic screws. The extensive findings involving the rest the foot remain unchanged. There is been resection of the heads of the second through fifth metatarsals. There is osteoarthriti c change at the articulations between the bases of the second through fifth metatarsals and the tarsa l bones. There is osteoarthritic change of the medial aspect of the ankle joint. There is a Achilles spur and a small plantar spur. There is a small spur on the lateral aspect of the calcaneus XR/XR foot RT min 3V* [id number] Impression: 1. Internal fixation of right first MP joint. 2. Extensive bony changes throughout the right foot remain unchanged.
--- NOTE | 2020-03-09 12:55 | P.OP_ITS ---
Operative Report Date of procedure: March 09, 2020 Pre-op Diagnosis: Hallux abductovalgus deformity, right, failed joint implant, right first metatarsal phalangeal joint Post-op diagnosis: same Post-op Findings: None Procedure Done: Right first metatarsal phalangeal joint arthrodesis CPT 53783 Implants: [place] 28 length spanning first metatarsal phalangeal joint arthrodesis plate. Combination of locking and nonlocking screws 3.5 mm provided by [place] [employer]. Length restoring graft, allograft provided by [place] [employer]. Demineralized bone matrix 5 cc utilized at the arthrodesis site provided by [place] [employer]. 3-0 Vicryl, 4-0 Vicryl, 3-0 nylon. Pathology: none sent Surgeon: Matt Storey D.P.M. Industrial Cleaning Technician: Burton Anesthesia: MAC Estimated blood loss: 5 mL Tourniquet time: See intraoperative documentation IV fluids: None Urine output: None Complications: None Findings: No obvious signs of osteomyelitis, first metatarsal and proximal phalanx base at the right foot or above normal bone density in color. Condition: stable Disposition: PACU Procedure: Under mild sedation the patient was brought to the operating room and placed on the operating table in supine position. A timeout was performed. Anesthesia was then administered by the anesthesia service. Local anesthesia was injected by myself consisting of 30 cc of 0.5% Marcaine plainRight Guzman block fashion. Well-padded pneumatic tourniquet was applied to the right ankle. The right lower extremity was scrubbed, prepped and draped utilizing normal aseptic technique. Attention was directed to the dorsum of the right foot where a linear lo ngitudinal incision was made medial and parallel to the extensor hallucis longus tendon over the previous well-healed cicatrix. Incision was carried down through skin and subcutaneous tissue utilizing a combination of blunt and sharp technique. Care was taken to retract and preserve neurovascular and tendinous structures. All bleeders were ligated and cauterized as necessary. New 15 blade and pickups utilized to perform sharp dissection through subcutaneous tissue followed by a linear periosteal incision on the dorsum of the first metatarsal and base of the proximal phalanx which were reflected and released of the soft tissue and periosteal attachments. Cement bone spacer impregnated with antibiotics was excised and removed from the right foot this was passed from the operative field to the back table. The distal aspect of the first metatarsal appeared viable with excellent bone density and normal color. Incision site was flushed with copious amounts of sterile saline solution. A conical reamer was utilized to denude the cartilage of the proximal phalanx base of the right hallux down to bleeding bone. Incision site was flushed with copious amounts of sterile saline solution. Subchondral drilling performed with a K wire both at the distal aspect of the first metatarsal as well as the base of the proximal phalanx. Allograft bone utilized as a length restoring graft with a flush flat surface at the base facing proximally at the first metatarsal head with excellent bony apposition and compression noted and clinical distal surface to have excellent bone to bone contact at the proximal phalanx base. Next a graft spanning plate was placed dorsally at the arthrodesis site and temporarily fixated. Patient had significant metatarsus adductus on metatarsals 1 through 5. The first metatarsal was able to be semi-reduced however to maintain a rectus hallux the plate had to be positioned in the most correctly aligned position as as possible given the scenario of his anatomic deformity of metatarsus adductus. Next utilizing standard AO technique a combination of locking and nonlocking 3.5 millimeter screws were inserted from dorsal to plantar with excellent bony apposition and compression noted at the arthrodesis site. Temporary fixation was removed. Positioning confirmed with intraoperative fluoroscopy. The incision site was flushed with saline solution. Any bony voids or deficits or Areas were packed with demineralized bone matrix provided by [place] [employer]. Fluoroscopy utilized to confirm placement of hardware in all 3 cardinal planes. After final saline flush the incision was closed. Periosteal and subcutaneous tissue closed utilizing 3-0 Vicryl. Subcutaneous tissue further closed with 4-0 Vicryl and skin closed with 3-0 nylon. Incision site was dressed with Adaptic, sterile 4 x 4's, Kerlix and Satya wrap followed by application of cam boot. Tourniquet was released and a prompt hyperemic response was noted to the distal digits of the right foot. Patient tolerated the procedure well and was transferred to PACU with vital signs stable and vascular status intact. Following a period of postoperative monitoring he will be discharged home he has a PICC line in place will continue with IV antibiotics 2 g of ceftriaxone infused once daily for the next 2 weeks. He is fully aware to remain strict nonweightbearing and elevate his right foot while at rest. He is to keep his postoperative dressings clean, dry and intact until follow-up visit Friday next week 10 AM in podiatry clinic. He was provided a prescription for hydrocodone 7.5/325 to be taken every 4 hours as needed for pain. He will resume his clopidogrel starting tomorrow. He is provided my cell phone number and will contact me with any postoperative questions or concerns.
== END 2020-03-09 11:05 | disposition home or self-care (01) ==
PROVIDERS: Family Provider Nurse Practitioner Family; PCP Nurse Practitioner Family; Visit Provider Podiatrist Foot & Ankle Surgery
PROC: (CPT 28740; principal; 2020-03-09 08:00)
DX: M20.5X1 Other deformities of toe(s) (acquired), right foot (principal); G47.30 Sleep apnea, unspecified; I11.0 Hypertensive heart disease with heart failure; I50.9 Heart failure, unspecified; E11.42 Type 2 diabetes mellitus with diabetic polyneuropathy; Z87.891 Personal history of nicotine dependence
CPT/HCPCS: 28750; 12345; 73630; 76000; C1713; J0690; J2001; J2704; J3010; J3490; J7030

== ENCOUNTER 2020-03-21 17:06 | Outpatient (CLI) | payer MEDICARE, OTHER, MEDICAID, SELFPAY ==
--- NOTE | 2020-03-21 | MR_ITS ---
WS: [id number] MRI LEFT SHOULDER NONCONTRAST TECHNIQUE: Sagittal T2, coronal T1, T2 and proton density imaging. Axial gradient PDE imaging. CLINICAL INFORMATION: CHRONIC PAIN LT SHOULDER COMPARISON: None. FINDINGS: Moderate degenerative arthritis at the AC joint with narrowing of the subacromial space. Degenerative arthritis glenohumeral joint with hypertrophic spurring along the medial humeral head. Edema at the AC joint with a small amount of subacromial/subdeltoid fluid. A few calcified loose bodies in the gle nohumeral joint. Near complete loss of subacromial space with chronic thinning and atrophy of the sup raspinatus. Chronic appearing high-grade full-thickness tear involving the supraspinatus with retract ion to the glenohumeral joint. Chronic thinning of the infraspinatus with intrasubstance tear. Teres minor appears intact. Chronic appearing high-grade tear involving the subscapularis with T2 sig nal abnormality and atrophy. Biceps tendon is not visualized in the proximal bicipital groove and is chronically torn. Tiny biceps tendon visualized distally. Chronic degenerative fraying of the glenoid labrum. Subdeltoid fluid and edema extending into the overlying deltoid musculature. MR/MR shoulder LT wo con* [id number] IMPRESSION: 1. Advanced arthritis AC joint with loss of the subacromial space. Subacromial and subdeltoid fluid extending into the deltoid muscle. 2. High-grade full-thickness tear involving the supraspinatus with retraction of the tendon to the glenohumeral joint. 3. Intrasubstance tear with atrophy involving the infraspinatus. Full-thicknes s tear involving the subscapularis with no normal tendon visualized. 4. Chronic tear of the proximal biceps tendon. 5. Advanced hypertrophic glenohumeral joint with hypertrophic spurring. A few loose bodies in the glenohumeral joint.
== END 2020-03-21 17:07 | disposition home or self-care (01) ==
LOC: RADSHAW 17:15
PROVIDERS: PCP Nurse Practitioner Family; Visit Provider Nurse Practitioner
DX: G89.29 Other chronic pain (principal); M13.812 Other specified arthritis, left shoulder; M75.102 Unspecified rotator cuff tear or rupture of left shoulder, not specified as traumatic; S46.912A Strain of unspecified muscle, fascia and tendon at shoulder and upper arm level, left arm, initial encounter; S46.212A Strain of muscle, fascia and tendon of other parts of biceps, left arm, initial encounter; X58.XXXA Exposure to other specified factors, initial encounter
CPT/HCPCS: 73221

== ENCOUNTER 2020-03-26 13:46 | Emergency (ER) | payer MEDICARE, OTHER, MEDICAID, SELFPAY ==
[2020-03-26 13:58] VITALS: BP 133/64; PULSE 68; RESP 17; TEMP 36.8; O2SAT 99; BMI 36.8
[2020-03-26 14:24] LABS: Basophils # 0.1 10^3/uL (0.0-0.1); Basophils % 0.7 %; Eosinophils # 0.1 10^3/uL (0.0-0.8); Eosinophils % 1.8 %; Hematocrit 33.3 % (42.0-52.0); Hemoglobin 9.9 g/dL (11.7-16.6); Lymphocytes # 2.6 10^3/uL (0.8-4.8); Lymphocytes % 35.8 %; Mean Corpuscular HGB Conc 29.7 g/dL (30.0-36.0); Mean Corpuscular Hemoglobin 23.1 pg (28.0-34.0); Mean Corpuscular Volume 77.8 fL (80-94); Mean Platelet Volume 8.1 fL (7.4-10.4); Monocytes # 0.6 10^3/uL (0.2-0.9); Monocytes % 8.4 %; Nucleated Red Blood Cells % 0 %; Platelet Count 395 10^3/cmm (130-400); Red Blood Count 4.28 10^6/uL (4.1-5.3); Red Cell Distribution Width 17.8 % (12.1-15.1); White Blood Count 7.2 10^3/uL (4.0-10.0)
[2020-03-26 14:38] LABS: INR 0.99 (0.8-1.2)
--- NOTE | 2020-03-26 14:50 | W.ED.GIBLEED ---
HPI - GI Bleed General: Chief complaint: GI Bleed Stated complaint: BLOODY STOOL Time Seen by Provider: 03/26/20 14:12 History of Present Illness: HPI Narrative: This patient is a 69-year-old male who presents today with GI bleeding. He has had 3 episodes of maroon stools starting last night. He has had this happen one time before, in July. He had a gastric bypass in May of last year. The bleeding in July was caused by an ulcer that had formed at the anastomosis. The procedure and follow-up procedures were done at [facility] by Dr. Gant. He required 8 units of blood to be transfused at that time. He is on Plavix due to a history of heart disease. The gastric bypass was done for weight loss purposes and he is lost to 140 pounds. MD complaint: melena Onset (ago): hour(s) (18) Severity: mild Context: history of GI bleed Associated symptoms: Reports abdominal pain (Some mild tenderness on the left side of his abdomen, worse when he bends over) and malaise; Denies chills, easy bruising, fever(s), headache(s) or rash Review of Systems General: Reports: 10 or more systems reviewed and unremarkable except in HPI and below Const: Reports: malaise; Denies: fever(s), chills or fatigue Eyes: Denies: change in vision ENMT: Denies: odynophagia Card: Denies: chest pain or swelling of feet/ankles Resp: Reports: dyspnea (Slightly); Denies: productive cough or non-productive cough GI: Reports: abdominal pain (Some mild tenderness on the left side of his abdomen, worse when he bends over) and hematochezia : Denies: flank pain Musc: Denies: neck pain or back pain Skin/Breast: Denies: rash Neuro: Denies: headache(s), numbness in extremities or weakness in extremities Tone/Lymph: Denies: easy bruising or easy bleeding PFSH ED PFSH: Medical History Diabetic peripheral neuropathy associated with type 2 diabetes mellitus Surgical History Gastric bypass status for obesity H/O gastric bypass H/O heart artery stent Family History Other Diabetes Denies family history of Cancer Social History Smoking and tobacco status: former smoker Alcohol intake: never Household members: spouse Marital status: Current occupational status: disabled Physical Exam Const: COMMON NORMALS: no acute distress, patient oriented x3, no limitations and alert GENERAL APPEARANCE: cooperative and comfortable HENMT: HEAD & SCALP: normal to inspection FACE & SINUS: normal facial exam Eye: GENERAL EYE: appearance normal, both eyes and all related structures Neck/C-Spine: COMMON NORMALS: supple, no meningeal signs and no JVD Chest: COMMONS NORMALS: normal inspection of the chest Resp: COMMON NORMALS: normal respiratory effort, No use of accessory muscles and clear to auscultation bilaterally AUSCULTATION: clear to auscultation bilaterally Cardio: COMMON NORMALS: no JVD, regular rate, regular rhythm and No murmurs present (Cardio) RATE: regular rate RHYTHM: regular rhythm GI: COMMON NORMALS: Normal to inspection, nondistended, normoactive bowel sounds present and Soft to palpation INSPECTION: Yes normal to inspection AUSCULTATION: Yes normoactive bowel sounds PALPATION: Yes Soft to palpation and Yes Tenderness to palpation present (GI) (Mild in the right upper quadrant and left lateral flank) Back/Pelvis: COMMON NORMALS: thoracic and lumbar spine normal to inspection Extremity: COMMON NORMALS: normal to inspection Neuro: COMMON NORMALS: patient oriented x3, moves all extremities, no focal motor deficits and no sensory deficits noted SENSORIUM/ORIENTATION: Yes alert MENINGEAL SIGNS: Yes no meningeal signs Psych: COMMON NORMALS: mental status grossly normal, cooperative and normal affect Skin: COMMON NORMALS: no rashes or lesions noted and turgor normal GENERAL SKIN EXAM: no rashes or lesions noted and turgor normal Course ED course: Patient with stable vital signs. Hemoglobin is 9.9. BUN is elevated at 25 with a normal creatinine of 1.0. The last time he had the symptoms it was a significant bleeding ulcer related to his gastric bypass surgery. He and his have already spoken with Dr. Gant's nurse practitioner and they were told to come to the ER here and get the preliminary things done. I spoke to Dr. Gant he asked me to transfer the patient to [facility] through the ER. Dr. Case accepted to the ER. Vital Signs: Vital signs: Vital Signs Temperature 98.3 F 03/26/20 13:58 Pulse Rate 56 L 03/26/20 16:27 Respiratory Rate 16 03/26/20 16:27 Blood Pressure 133/98 03/26/20 16:27 Pulse Oximetry 92 03/26/20 16:27 MDM - GI Bleed Lab Data: Labs: Lab Results 03/26/20 03/26/20 03/26/20 Range/Units 14:17 14:17 14:17 WBC 7.2 (4.0-10.0) 10^3/ uL RBC 4.28 (4.1-5.3) 10^6/u L Hgb 9.9 L (11.7-16.6) g/dL Hct 33.3 L (42.0-52.0) % MCV 77.8 L (80-94) fL MCH 23.1 L (28.0-34.0) pg MCHC 29.7 L (30.0-36.0) g/dL RDW 17.8 H (12.1-15.1) % Plt Count 395 (130-400) 10^3/c mm MPV 8.1 (7.4-10.4) fL Neut % (Auto) 53.0 % Lymph % (Auto) 35.8 % [place] % (Auto) 8.4 % Eos % (Auto) 1.8 % Baso % (Auto) 0.7 % Neut # (Auto) 3.80 (1.8-7.7) 10^3/u L Lymph # (Auto) 2.6 (0.8-4.8) 10^3/u L [place] # (Auto) 0.6 (0.2-0.9) 10^3/u L Eos # (Auto) 0.1 (0.0-0.8) 10^3/u L Baso # (Auto) 0.1 (0.0-0.1) 10^3/u L Nucleated RBC % (a uto) 0 % Nucleated RBCs # 0.0 /100WBC PT 13.40 (12.1-14.9) SECO NDS INR 0.99 (0.8-1.2) Sodium 141 (136-145) mmol/L Potassium 4.0 (3.5-5.1) mmol/L Chloride 104 (98-107) mmol/L Carbon Dioxide 25 (22-29) mmol/L Anion Gap 16.0 (5-19) BUN 25 H (8-23) mg/dL Creatinine 1.0 (0.7-1.2) mg/dL GFR Calculation 74.1 L (90-130) mL/min Glucose 119 H (65-115) mg/dL Calculated Osmolal ity 290 (285-295) mOsm/k g Calcium 9.0 (8.5-10.5) mg/dL Total Bilirubin 0.2 (0.15-1.2) mg/dL AST 12 (0-40) U/L ALT 7 (0-41) U/L Alkaline Phosphata se 60 (40-130) IU/L Total Protein 7.0 (6.6-8.7) g/dL Albumin 3.7 (3.5-5.2) g/dL Globulin 3.3 (1.3-4.6) g/dL Discharge Plan Discharge Patient Disposition: Xfer Other Referrals: Licha Victor FNP [Primary Care Provider] - Discharge Date/Time: 03/26/20 16:28 Coding Level of Care Code ED Devops Engineer for Stefanog Fwd Exam Comprehensive
[2020-03-26 15:13] LABS: Alanine Aminotransferase 7 U/L (0-41); Albumin Level 3.7 g/dL (3.5-5.2); Alkaline Phosphatase 60 IU/L (40-130); Aspartate Amino Transferase 12 U/L (0-40); Blood Urea Nitrogen 25 mg/dL (8-23); Carbon Dioxide 25 mmol/L (22-29); Chloride 104 mmol/L (98-107); Globulin 3.3 g/dL (1.3-4.6); Glomerular Filtration Rate 74.1 mL/min (90-130); Glucose 119 mg/dL (65-115); Osmolality Calculated 290 mOsm/kg (285-295); Sodium 141 mmol/L (136-145); Total Bilirubin 0.2 mg/dL (0.15-1.2)
[2020-03-26 16:27] VITALS: BP 133/98; PULSE 56; RESP 16; O2SAT 92
== END 2020-03-26 16:28 | disposition other institution (70) ==
PROVIDERS: Emergency Medicine; Emergency Provider Emergency Medicine; PCP Nurse Practitioner Family
DX: K92.1 Melena (principal); E11.42 Type 2 diabetes mellitus with diabetic polyneuropathy; Z87.891 Personal history of nicotine dependence
CPT/HCPCS: 12345; 36415; 80053; 85025; 85610; 99283

== ENCOUNTER → 2020-03-30 10:20 | Outpatient (BNVA) | payer MEDICARE, OTHER, MEDICAID, SELFPAY | PROVIDERS: PCP Nurse Practitioner Family; Referring Provider Nurse Practitioner; Visit Provider Specialist | DX: M25.512 Pain in left shoulder (principal) | CPT/HCPCS: 73030 ==

== ENCOUNTER → 2020-04-10 16:27 | Outpatient (BNVA) | payer MEDICARE, OTHER, MEDICAID, SELFPAY | PROVIDERS: PCP Nurse Practitioner Family; Visit Provider Podiatrist Foot & Ankle Surgery | DX: Z98.890 Other specified postprocedural states (principal) | CPT/HCPCS: 73630 ==

== ENCOUNTER → 2020-04-28 08:36 | Outpatient (BNVA) | payer MEDICARE, OTHER, SELFPAY | PROVIDERS: PCP Nurse Practitioner Family; Referring Provider Specialist; Visit Provider Anesthesiology Pain Medicine | DX: M47.812 Spondylosis without myelopathy or radiculopathy, cervical region (principal); M54.12 Radiculopathy, cervical region; Z79.899 Other long term (current) drug therapy | CPT/HCPCS: 99204 ==

== ENCOUNTER 2020-05-01 15:46 | Outpatient (CLI) | payer MEDICARE, OTHER, MEDICAID, SELFPAY ==
--- NOTE | 2020-05-01 16:00 | XRR_ITS ---
PROCEDURE INFORMATION: Exam: XR Cervical Spine, 2 or 3 Views Exam date and time: 05/01/2020 4:01 PM Age: 70 years old Clinical indication: Patient HX: Neck pain radiating to back /headache TECHNIQUE: Imaging protocol: XR of the cervical spine, 2 or 3 views. COMPARISON: No relevant prior studies available. FINDINGS: Vertebrae: Normal. No acute fracture. There is loss of cervical lordosis consistent with muscle spasm. Moderate osteoarthritis is seen with intervertebral disc space narrowing and bone bridging at multiple levels. Soft tissues: Unremarkable. XR/XR cervical spine fl/ex [id number] IMPRESSION: 1. No acute bone abnormality. 2. Loss of cervical lordosis 3. Osteoarthritis
== END 2020-05-01 15:47 | disposition home or self-care (01) ==
PROVIDERS: PCP Nurse Practitioner Family; Visit Provider Anesthesiology Pain Medicine
DX: R51.9 Headache, unspecified (principal); M47.812 Spondylosis without myelopathy or radiculopathy, cervical region
CPT/HCPCS: 72040

== ENCOUNTER 2020-05-01 17:20 | Outpatient (CLI) | payer MEDICARE, OTHER, MEDICAID, SELFPAY ==
--- NOTE | 2020-05-01 17:30 | MR_ITS ---
WS: [id number] MRI CERVICAL SPINE NONCONTRAST TECHNIQUE: Sagittal T1, T2 and STIR imaging. Axial T2, gradient, and fiesta imaging. CLINICAL INFORMATION: M54.12 Radiculopathy, cervical region COMPARISON: None. FINDINGS: Straightening of the normal cervical lordosis. Mild disc bulging mid cervical spine at C4-C6. Cord si gnal is normal. C2-C3: Mild bilateral bony foraminal narrowing. Mild facet arthropathy. C3-C4: Small central disc protrusion with mild central canal stenosis. Slight contact of the cervical cord. Mild to moderate left and no significant right foraminal narrowing. Moderate left facet arthro nova. C4-C5: Disc osteophyte complex with mild central canal stenosis. Slight contact of the cervical cord. Mild bilateral foraminal narrowing. Mild facet arthropathy. C5-C6: Small central disc osteophyte protrusion with slight contact of the cervical cord. Moderate ce ntral canal stenosis. Moderate bilateral bony foraminal narrowing with mild facet arthropathy. C6-C7: Disc osteophyte complex with endplate ridging. Moderate central canal stenosis. Mild bilateral bony foraminal narrowing. C7-T1: Tiny shallow central protrusion. Mild to moderate left and no significant right foraminal narr owing. Mild facet arthropathy. Tiny central protrusions in the upper thoracic spine at T1-2 and T2-3. Moderate right T1-2 and T2-3 f oraminal narrowing. Visualized brain stem structures: Normal. Prevertebral soft tissues: Normal. Left thyroid nodule measuring 12.5 mm. MR/MR cervical spin wo con* [id number] IMPRESSION: 1. Straightening with reversal normal cervical lordosis. 2. Mild to moderate central canal stenosis with small central disc osteophyte protrusions worse at C4-C5 C5-C6 and C6-C7. Slight contact indentation on cervi ismba cord. Moderate central canal stenosis C5-6 3. Multilevel moderate bony foraminal narrowing worse at bilateral C5-C6, righ t C6-C7 and left C7-T1.
== END 2020-05-01 17:21 | disposition home or self-care (01) ==
PROVIDERS: PCP Nurse Practitioner Family; Visit Provider Anesthesiology Pain Medicine
DX: M54.12 Radiculopathy, cervical region (principal); M48.02 Spinal stenosis, cervical region; M50.221 Other cervical disc displacement at C4-C5 level; R51.9 Headache, unspecified; M47.812 Spondylosis without myelopathy or radiculopathy, cervical region
CPT/HCPCS: 72040; 72141; 73630

== ENCOUNTER → 2020-05-12 09:39 | Outpatient (BNVA) | payer MEDICARE, OTHER, SELFPAY | PROVIDERS: PCP Nurse Practitioner Family; Visit Provider Anesthesiology Pain Medicine | DX: M47.812 Spondylosis without myelopathy or radiculopathy, cervical region (principal); M50.90 Cervical disc disorder, unspecified, unspecified cervical region | CPT/HCPCS: 99214 ==

== ENCOUNTER → 2020-05-17 11:25 | Outpatient (BNVA) | payer MEDICARE, OTHER, SELFPAY | PROVIDERS: PCP Nurse Practitioner Family; Visit Provider Podiatrist Foot & Ankle Surgery | DX: Z98.890 Other specified postprocedural states (principal); S99.921A Unspecified injury of right foot, initial encounter | CPT/HCPCS: 73630 ==

== ENCOUNTER 2020-05-17 15:30 | Outpatient (CLI) | payer MEDICARE, OTHER, SELFPAY | END 2020-05-17 15:31 | disposition home or self-care (01) | LOC: SPT 15:31 | PROVIDERS: PCP Nurse Practitioner Family; Visit Provider Podiatrist Foot & Ankle Surgery | DX: Z46.89 Encounter for fitting and adjustment of other specified devices (principal) | CPT/HCPCS: 97760; L4361 ==

== ENCOUNTER → 2020-06-05 12:53 | Outpatient (BNVA) | payer MEDICARE, OTHER, SELFPAY | PROVIDERS: PCP Nurse Practitioner Family; Visit Provider Anesthesiology Pain Medicine | DX: M50.90 Cervical disc disorder, unspecified, unspecified cervical region (principal) | CPT/HCPCS: 62321; J1100 ==

== ENCOUNTER → 2020-06-06 15:28 | Outpatient (BNVA) | payer MEDICARE, OTHER, SELFPAY | PROVIDERS: PCP Nurse Practitioner Family; Visit Provider Podiatrist Foot & Ankle Surgery | DX: Z98.890 Other specified postprocedural states (principal); E11.42 Type 2 diabetes mellitus with diabetic polyneuropathy; S99.921A Unspecified injury of right foot, initial encounter | CPT/HCPCS: 73630 ==

== ENCOUNTER → 2020-06-21 09:35 | Outpatient (BNVA) | payer MEDICARE, OTHER, SELFPAY | PROVIDERS: PCP Nurse Practitioner Family; Visit Provider Anesthesiology Pain Medicine | DX: M47.812 Spondylosis without myelopathy or radiculopathy, cervical region (principal); M50.90 Cervical disc disorder, unspecified, unspecified cervical region | CPT/HCPCS: 99213; 99214 ==

== ENCOUNTER → 2020-06-27 14:22 | Outpatient (BNVA) | payer MEDICARE, OTHER, MEDICAID, SELFPAY | PROVIDERS: PCP Nurse Practitioner Family; Visit Provider Anesthesiology Pain Medicine | DX: M47.812 Spondylosis without myelopathy or radiculopathy, cervical region (principal) | CPT/HCPCS: 64490; 64491; 64492; J3490 ==

== ENCOUNTER → 2020-07-03 14:35 | Outpatient (BNVA) | payer MEDICARE, OTHER, MEDICAID, SELFPAY | PROVIDERS: PCP Nurse Practitioner Family; Visit Provider Specialist | DX: M25.519 Pain in unspecified shoulder (principal); R20.0 Anesthesia of skin; R20.2 Paresthesia of skin; G56.03 Carpal tunnel syndrome, bilateral upper limbs; Z87.891 Personal history of nicotine dependence | CPT/HCPCS: 95886; 95910; G0463 ==

== ENCOUNTER → 2020-07-04 13:59 | Outpatient (BNVA) | payer MEDICARE, OTHER, SELFPAY | PROVIDERS: PCP Nurse Practitioner Family; Visit Provider Anesthesiology Pain Medicine | DX: M47.812 Spondylosis without myelopathy or radiculopathy, cervical region (principal) | CPT/HCPCS: 64490; 64491; 64492; J3490 ==

== ENCOUNTER → 2020-07-18 09:32 | Outpatient (BNVA) | payer OTHER, SELFPAY | PROVIDERS: PCP Nurse Practitioner Family; Visit Provider Anesthesiology Pain Medicine | DX: M47.812 Spondylosis without myelopathy or radiculopathy, cervical region (principal); M50.90 Cervical disc disorder, unspecified, unspecified cervical region | CPT/HCPCS: 99213; 99214 ==

== ENCOUNTER 2020-07-19 15:07 | Outpatient (CLI) | payer OTHER, SELFPAY | END 2020-07-19 15:08 | disposition home or self-care (01) | LOC: SPT 15:08 | PROVIDERS: PCP Nurse Practitioner Family; Visit Provider Specialist | DX: Z46.89 Encounter for fitting and adjustment of other specified devices (principal); G56.03 Carpal tunnel syndrome, bilateral upper limbs | CPT/HCPCS: 97760; L3908 ==

== ENCOUNTER → 2020-08-01 12:30 | Outpatient (BNVA) | payer OTHER, SELFPAY | PROVIDERS: PCP Nurse Practitioner Family; Visit Provider Anesthesiology Pain Medicine | DX: M47.812 Spondylosis without myelopathy or radiculopathy, cervical region (principal) | CPT/HCPCS: 64633; 64634; J1030 ==

== ENCOUNTER → 2020-08-06 12:21 | Outpatient (BNVA) | payer OTHER, SELFPAY | PROVIDERS: PCP Nurse Practitioner Family; Visit Provider Specialist | DX: Z01.812 Encounter for preprocedural laboratory examination (principal); Z20.828 Contact with and (suspected) exposure to other viral communicable diseases | CPT/HCPCS: 87635 ==

== ENCOUNTER 2020-08-11 05:55 | Day surgery (SDC) | payer OTHER, SELFPAY ==
[2020-08-10 13:52] VITALS: BMI 39.5
[2020-08-11] MEDS: CELEcoxib 200 mg Capsule 400 MG PO (06:27)
[2020-08-11] MEDS: sodium chloride 0.9% 1,000 ML 30 ML IV (06:28)
[2020-08-11 06:37] LABS: Basophils # 0.1 10^3/uL (0.0-0.1); Basophils % 0.8 %; Eosinophils # 0.2 10^3/uL (0.0-0.8); Eosinophils % 3.3 %; Hematocrit 31.9 % (42.0-52.0); Hemoglobin 8.8 g/dL (11.7-16.6); Lymphocytes # 2.7 10^3/uL (0.8-4.8); Lymphocytes % 37.2 %; Mean Corpuscular HGB Conc 27.6 g/dL (30.0-36.0); Mean Corpuscular Hemoglobin 18.4 pg (28.0-34.0); Mean Corpuscular Volume 66.9 fL (80-94); Mean Platelet Volume 9.1 fL (7.4-10.4); Monocytes # 0.7 10^3/uL (0.2-0.9); Monocytes % 9.9 %; Neutrophils # 3.57 10^3/uL (1.8-7.7); Neutrophils % 48.7 %; Nucleated Red Blood Cells % 0 %; Platelet Count 302 10^3/cmm (130-400); Red Blood Count 4.77 10^6/uL (4.1-5.3); Red Cell Distribution Width 18.8 % (12.1-15.1); White Blood Count 7.3 10^3/uL (4.0-10.0)
--- NOTE | 2020-08-11 06:41 | ANES.PREANE2 ---
Pre-Anesthetic Assessment Pre-Anesthetic Assessment: Height/Weight: Height 1.73 m Weight 117.934 kg Preop Diagnosis: Right carpal tunnel syndrome Proposed Procedure: Operation Date: 08/11/20 07:00 Proposed Procedures p right Carpal Tunnel Release [id number] G56.00(Right) - Becca Naranjo MD Was Beta Alyssa taken within 24 hours: N/A Last intake: Intake Last Liquid Date 08/10/20 Last Solid Date 08/10/20 Social: Social History: No alcohol and No tobacco Exam: Pre-Anes Outpt Exam: alert, oriented x 3, clear to auscultation bilaterally and regular rate & rhythm Airway: Submandibular: WNL Cervical ROM: WNL MP: 2 Dentition: False CV/HEM: CV/HEM: CAD, HTN and CA Metabolic: Metabolic: DM, Morbid obesity and Thyroid Neuropsych: Neuropsych: TIA Anesthetic Plan: ASA status: 3 Anesthesia: MAC and Regional (specify below) (Nagi block) Risk of > 500 ml blood loss (7ml/kg in children): No Meds/Allergies Current Medications: Current Medications Generic Name Dose Route Start Last Admin Trade Name Freq PRN Reason Stop Dose Admin Sodium Chloride 1,000 mls @ 30 ml s/hr 08/11/20 06:15 08/11/20 06:28 Sodium Chloride 0.9% IV 08/12/20 06:14 30 mls/hr .Q24H OMAR Administration PFSH Anesthesia PFSH: Medical History Diabetic peripheral neuropathy associated with type 2 diabetes mellitus History of hypothyroidism History of prediabetes Hx of myocardial infarction Hx of primary hypertension Hx of sleep apnea Hx-TIA (transient ischemic attack) Surgical History Gastric bypass status for obesity H/O gastric bypass H/O heart artery stent Hx of cholecystectomy Hx of tonsillectomy Hx of vasectomy Family History Other Diabetes Denies family history of Cancer Social History Smoking and tobacco status: former smoker Alcohol intake: current Alcohol intake frequency: few times a month Caregiver/support person: Yes Lives independently: Yes Household members: spouse Marital status: Current occupational status: disabled History of recent travel: No Data Anesthesia CBC & Chem 7: 08/11/20 06:25 08/11/20 06:25 Other Labs: Laboratory Results - last 48 hr 08/11/20 06:25 WBC 7.3 RBC 4.77 Hgb 8.8 L Hct 31.9 L MCV 66.9 L MCH 18.4 L MCHC 27.6 L RDW 18.8 H Plt Count 302 MPV 9.1 Neut % (Auto) 48.7 Lymph % (Auto) 37.2 [place] % (Auto) 9.9 Eos % (Auto) 3.3 Baso % (Auto) 0.8 Neut # (Auto) 3.57 Lymph # (Auto) 2.7 [place] # (Auto) 0.7 Eos # (Auto) 0.2 Baso # (Auto) 0.1 Nucleated RBC % (auto) 0 Nucleated RBCs # 0.0 Cardiac Studies: No Data to Display
[2020-08-11 06:54] LABS: Alanine Aminotransferase 6 U/L (0-41); Albumin Level 3.8 g/dL (3.5-5.2); Alkaline Phosphatase 61 IU/L (40-130); Aspartate Amino Transferase 13 U/L (0-40); Blood Urea Nitrogen 18 mg/dL (8-23); Calcium 8.9 mg/dL (8.5-10.5); Carbon Dioxide 25 mmol/L (22-29); Chloride 105 mmol/L (98-107); Creatinine Clr Calc Pharmacy 95.2925; Globulin 2.9 g/dL (1.3-4.6); Glomerular Filtration Rate 83.4 mL/min (90-130); Glucose 106 mg/dL (65-115); Osmolality Calculated 292 mOsm/kg (285-295); Sodium 140 mmol/L (136-145); Total Bilirubin 0.6 mg/dL (0.15-1.2); Total Protein 6.7 g/dL (6.6-8.7)
--- NOTE | 2020-08-11 06:55 | W.PM.OPSUD ---
Surgery/Procedure H&P Update DATE OF PROCEDURE: August 11, 2020 DATE H&P PERFORMED: 07/19/20 H&P UPDATE INFORMATION: I have reviewed H&P completed within last 30 days, I have examined patient prior to procedure, No changes to prior documentation and H&P is in [facility] EMR on date indicated PREOP DIAGNOSIS: Right carpal tunnel syndrome PLANNED PROCEDURE: Operation Date: 08/11/20 07:00 Proposed Procedures p right Carpal Tunnel Release [id number] G56.00(Right) - Becca Naranjo MD Related Problem List Diagnoses (1) Carpal tunnel syndrome of right wrist:
[2020-08-11 08:02] VITALS: BP 107/71; PULSE 66; RESP 18; TEMP 36.2; O2SAT 94
[2020-08-11 08:18] VITALS: BP 118/78; PULSE 66; RESP 18; O2SAT 94
--- NOTE | 2020-08-11 08:18 | P.OP_ITS ---
Operative Report Date of procedure: August 11, 2020 Pre-op Diagnosis: Right carpal tunnel syndrome Post-op diagnosis: same Post-op Findings: Compressed median nerve with discoloration Procedure Done: Right carpal tunnel release Implants: None Specimens removed/disposition: None Pathology: none sent Surgeon: Becca Naranjo Ophthalmology Surgical Technician: None Anesthesia: MAC (With Nagi block, ASA 3) Estimated blood loss (mL): 3 Tourniquet time (min): 37 Tourniquet time: At 250 mmHg (Petronila block) IV fluids (mL): 700 Urine output (mL): 0 Urine output: No Mas Complications: None Findings: Significant median nerve compression with hypertrophic synovium in the carpal canal Condition: stable Disposition: same day Brief History: This 70-year-old gentleman presented with complaints of severe right hand pain consistent with carpal tunnel syndrome. Evaluation demonstrated that he did indeed have carpal tunnel syndrome and after discussion, he wished to proceed with carpal tunnel release. Therefore, the patient was scheduled for the above procedure. Risks and complications were discussed with him. Consent was signed preoperatively. Procedure: The patient was brought to the operating theater. The patient had a Petronila block with MAC. The tourniquet was elevated to 250 mmHg for a total tourniquet time of 37 minutes. The patient was also given Ancef 2 g preoperatively. The arm was then prepped and draped with DuraPrep in usual fashion with the arm draped free. A surgical pause was performed. At the time, the surgical pause, we confirmed the site and side of surgery. We also confirmed the patient's identity, appropriate and timely administration of preoperative antibiotics and preoperative surgical markings. An incision was then made along the thenar crease. The incision crossed the wrist joint in a curvilinear fashion. Dissection continued through skin and soft tissues using a scalpel. The palmaris longus was identified along with the trans verse carpal ligament. Each of these was released carefully to avoid injury to the median nerve. We were able to dissect gently into the carpal canal which was noted to be quite tight with significant compression across the median nerve. The nerve was visualized and was an hourglass shape with purplish discoloration. The canal was subsequently palpated to assure there was no bony encroachment upon the canal. There was a quite thickened fibrous tissue within the canal, and this was opened longitudinally as well. The canal was then palpated distally and proximally to assure that my small finger was passed easily without impingement. Finding this to be so, attention was directed to closure. The wound was irrigated with ropivacaine plain. It was then closed with 3-0 nylon in an interrupted mattress fashion. Sterile dressing was then placed consisting of Xeroform gauze, fluffed fluffs, sterile soft roll, a volar splint, and an Satya wrap. The tourniquet was released after 37 minutes. There were no complications. There were no specimens. The procedure was well tolerated. Plan is the patient will be discharged home. Associated Problem List Diagnoses (1) Carpal tunnel syndrome of right wrist:
--- NOTE | 2020-08-11 09:32 | ANE.PACU2 ---
Inpatient post-anesthesia follow up: Airway intact: Yes Vital signs: Temperature 97.1 F Pulse Rate 66 Respiratory Rate 18 Blood Pressure 118/78 Pulse Oximetry 94 Oxygen Delivery Me thod Room Air Oxygen Flow Rate Fraction of Inspir ed Oxygen Hydration adequate: Yes Nausea and vomiting: No Pain level: 1 Mental status: Baseline
== END 2020-08-11 09:00 | disposition home or self-care (01) ==
PROVIDERS: PCP Nurse Practitioner Family; Visit Provider Specialist
PROC: (CPT 64721; principal; 2020-08-11 07:00)
DX: G56.01 Carpal tunnel syndrome, right upper limb (principal); I25.10 Atherosclerotic heart disease of native coronary artery without angina pectoris; I10 Essential (primary) hypertension; I25.2 Old myocardial infarction; E11.9 Type 2 diabetes mellitus without complications; E66.01 Morbid (severe) obesity due to excess calories; Z68.39 Body mass index [BMI] 39.0-39.9, adult; Z86.73 Personal history of transient ischemic attack (TIA), and cerebral infarction without residual deficits; E03.9 Hypothyroidism, unspecified; G47.30 Sleep apnea, unspecified; Z95.5 Presence of coronary angioplasty implant and graft; Z87.891 Personal history of nicotine dependence
CPT/HCPCS: 64721; 12345; 36415; 80053; 85025; 96365; J0131; J0690; J2704; J3010; J3490; J7030

== ENCOUNTER → 2020-08-17 13:42 | Outpatient (BNVA) | payer OTHER, SELFPAY | PROVIDERS: PCP Nurse Practitioner Family; Referring Provider Nurse Practitioner Family; Visit Provider Internal Medicine | DX: E03.9 Hypothyroidism, unspecified (principal); E11.42 Type 2 diabetes mellitus with diabetic polyneuropathy; E11.59 Type 2 diabetes mellitus with other circulatory complications; I25.10 Atherosclerotic heart disease of native coronary artery without angina pectoris; E66.01 Morbid (severe) obesity due to excess calories; Z68.41 Body mass index [BMI] 40.0-44.9, adult; E78.2 Mixed hyperlipidemia; I10 Essential (primary) hypertension | CPT/HCPCS: 99205 ==

== ENCOUNTER 2020-08-17 14:41 | Outpatient (CLI) | payer OTHER, MEDICAID, SELFPAY ==
[2020-08-17 15:49] LABS: Chol HDL Ratio 2.62 mg/dL (1.0-5.00); Cholesterol 123 mg/dL (0-200); Free T4 Free Thyroxine 1.24 ng/dL (0.82-1.77); HDL Cholesterol 47 mg/dL (60-100); LDL Cholesterol Calculated 52 mg/dL (50-129); LDL HDL Ratio 1.11 RATIO (0.00-3.22); Triglycerides 118 mg/dL (0-150)
[2020-08-17 17:14] LABS: Estmated Average Glucose 117; Hemoglobin A1C 5.7 % (4.0-6.0)
== END 2020-08-17 14:42 | disposition home or self-care (01) ==
PROVIDERS: PCP Nurse Practitioner Family; Visit Provider Internal Medicine
DX: E11.42 Type 2 diabetes mellitus with diabetic polyneuropathy (principal); E03.9 Hypothyroidism, unspecified; E78.5 Hyperlipidemia, unspecified
CPT/HCPCS: 36415; 80061; 83036; 84439; 84443

== ENCOUNTER → 2020-09-04 10:19 | Outpatient (BNVA) | payer OTHER, SELFPAY | PROVIDERS: PCP Nurse Practitioner Family; Visit Provider Specialist | DX: Z20.822 Contact with and (suspected) exposure to COVID-19 (principal); G56.02 Carpal tunnel syndrome, left upper limb | CPT/HCPCS: 87635 ==

== ENCOUNTER → 2020-09-05 14:55 | Outpatient (BNVA) | payer OTHER, SELFPAY | PROVIDERS: PCP Nurse Practitioner Family; Visit Provider Podiatrist Foot & Ankle Surgery | DX: Z47.89 Encounter for other orthopedic aftercare (principal); M20.41 Other hammer toe(s) (acquired), right foot; M20.42 Other hammer toe(s) (acquired), left foot; M21.41 Flat foot [pes planus] (acquired), right foot; M21.42 Flat foot [pes planus] (acquired), left foot; M21.611 Bunion of right foot; M21.612 Bunion of left foot | CPT/HCPCS: 73630 ==

== ENCOUNTER 2020-09-08 05:44 | Day surgery (SDC) | payer OTHER, SELFPAY ==
[2020-09-07 16:58] VITALS: BMI 38.4
[2020-09-08 05:58] VITALS: BP 135/77; PULSE 55; RESP 18; TEMP 36.2; O2SAT 97
--- NOTE | 2020-09-08 06:29 | ANES.PREANE2 ---
Pre-Anesthetic Assessment Pre-Anesthetic Assessment: Height/Weight: Height 1.75 m Weight 117.934 kg Temp Pulse Resp BP Pulse Ox 97.2 F L 55 L 18 135/77 97 09/08/20 05:58 09/08/20 05:58 09/08/20 05:58 09/08/20 05:58 09/08/20 05:58 Preop Diagnosis: Left carpal tunnel syndrome Proposed Procedure: Operation Date: 09/08/20 07:00 Proposed Procedures p Left Carpal Tunnel Release 48852 G56.00(Left) - Becca Naranjo MD Was Beta Alyssa taken within 24 hours: N/A Last intake: Intake Last Liquid Date 09/07/20 Last Solid Date 09/07/20 Social: Social History: No alcohol and No tobacco Exam: Pre-Anes Outpt Exam: alert, oriented x 3, clear to auscultation bilaterally and regular rate & rhythm Airway: Submandibular: WNL Cervical ROM: WNL MP: 2 Dentition: False CV/HEM: CV/HEM: CAD, HTN and CT Metabolic: Metabolic: DM, Morbid obesity and Thyroid Musc/skel: Musc/skel: OA/DJD Neuropsych: Neuropsych: Neuropathy and TIA Anesthetic Plan: ASA status: 3 Anesthesia: MAC and Regional (specify below) (Nagi g[place]) Risk of > 500 ml blood loss (7ml/kg in children): No PFSH Anesthesia PFSH: Medical History Coronary artery disease Diabetic peripheral neuropathy associated with type 2 diabetes mellitus History of hypothyroidism History of prediabetes HTN (hypertension) with goal to be determined Hx of myocardial infarction Hx of primary hypertension Hx of sleep apnea Hx-TIA (transient ischemic attack) Hyperlipidemia LDL goal <100 Surgical History (Updated 08/26/20 @ 16:16 by Ofelia James MD) Gastric bypass status for obesity H/O gastric bypass H/O heart artery stent Hx of cholecystectomy Hx of tonsillectomy Hx of vasectomy Family History Mother No problems noted. Father CAD (coronary artery disease) Other Diabetes Denies family history of Cancer Social History Smoking and tobacco status: former smoker Alcohol intake: current Alcohol intake frequency: few times a month Caregiver/support person: Yes Lives independently: Yes Household members: spouse Marital status: Current occupational status: disabled History of recent travel: No Data Anesthesia Cardiac Studies: No Data to Display
[2020-09-08] MEDS: sodium chloride 0.9% 1,000 ML 30 ML IV (06:45)
[2020-09-08] MEDS: CELEcoxib 200 mg Capsule 400 MG PO (06:45)
--- NOTE | 2020-09-08 06:55 | P.HPUD_ITS ---
Surgery/Procedure H&P Update DATE OF PROCEDURE: September 08, 2020 DATE H&P PERFORMED: 08/24/20 H&P UPDATE INFORMATION: I have reviewed H&P completed within last 30 days, I have examined patient prior to procedure, No changes to prior documentation and H&P is in [facility] EMR on date indicated PREOP DIAGNOSIS: Left carpal tunnel syndrome PLANNED PROCEDURE: Operation Date: 09/08/20 07:00 Proposed Procedures p Left Carpal Tunnel Release 38674 G56.00(Left) - Becca Naranjo MD Related Problem List Diagnoses (1) Carpal tunnel syndrome of left wrist:
[2020-09-08 08:04] VITALS: BP 104/74; PULSE 54; RESP 16; TEMP 36.1; O2SAT 97
[2020-09-08 08:19] VITALS: BP 114/74; PULSE 52; RESP 16; TEMP 36.4; O2SAT 97
--- NOTE | 2020-09-08 08:26 | P.OP_ITS ---
Operative Report Date of procedure: September 08, 2020 Pre-op Diagnosis: Left carpal tunnel syndrome Post-op diagnosis: same Post-op Findings: Severe compression across the carpal canal Procedure Done: Left carpal tunnel release Pathology: none sent Surgeon: Becca Naranjo Team Physician: None Anesthesia: MAC (With [place] block) Estimated blood loss (mL): 3 Tourniquet time (min): 36 Tourniquet time: At 250 mmHg IV fluids (mL): 300 Complications: None Findings: Severe compression across the carpal canal. Brief History: This 70-year-old gentleman presented with complaints of severe left hand pain consistent with carpal tunnel syndrome. He was diagnosed with bilateral carpal tunnel syndrome, and he is S/P Right carpal tunnel release. He wishs to now proceed with left carpal tunnel release. Therefore, the patient was scheduled for the above procedure. Risks and complications were discussed with him. Consent was signed preoperatively. Procedure: The patient was brought to the operating theater. The patient had a [place] block with MAC. The tourniquet was elevated to 250 mmHg for a total tourniquet time of 36 minutes. The patient was also given Ancef 2 g preoperatively. The arm was then prepped and draped with DuraPrep in usual fashion with the arm draped free. A surgical pause was performed. At the time, the surgical pause, we confirmed the site and side of surgery. We also confirmed the patient's identity, appropriate and timely administration of preoperative antibiotics and preoperative surgical markings. An incision was then made along the thenar crease. The incision crossed the wrist joint in a curvilinear fashion. Dissection continued through skin and soft tissues using a scalpel. The palmaris longus was identified along with the trans verse carpal ligament. Each of these was released carefully to avoid injury to the median nerve. We were able to dissect gently into the carpal canal which was noted to be quite tight with significant compression across the median nerve. The nerve was visualized and was an hourglass shape with purplish discoloration. The canal was subsequently palpated to assure there was no bony encroachment upon the canal. There was a quite thickened fibrous tissue within the canal, and this was opened longitudinally as well. The canal was then palpated distally and proximally to assure that my small finger was passed easily without impingement. Finding this to be so, attention was directed to closure. The wound was irrigated with ropivacaine plain. It was then closed with 3-0 nylon in an interrupted mattress fashion. Sterile dressing was then placed consisting of Xeroform gauze, fluffed fluffs, sterile soft roll, a volar splint, and an Satya wrap. The tourniquet was released after 37 minutes. There were no complications. There were no specimens. The procedure was well tolerated. Plan is the patient will be discharged home. Associated Problem List Diagnoses (1) Carpal tunnel syndrome of left wrist:
--- NOTE | 2020-09-08 08:38 | ANE.PACU2 ---
Inpatient post-anesthesia follow up: Airway intact: Yes Vital signs: Temperature 97.5 F Pulse Rate 52 Respiratory Rate 16 Blood Pressure 114/74 Pulse Oximetry 97 Oxygen Delivery Me thod Room Air Oxygen Flow Rate Fraction of Inspir ed Oxygen Hydration adequate: Yes Nausea and vomiting: No Pain level: 1 Mental status: Baseline
== END 2020-09-08 08:50 | disposition home or self-care (01) ==
PROVIDERS: PCP Nurse Practitioner Family; Visit Provider Specialist
PROC: (CPT 64721; principal; 2020-09-08 07:00)
DX: G56.02 Carpal tunnel syndrome, left upper limb (principal); I25.10 Atherosclerotic heart disease of native coronary artery without angina pectoris; I10 Essential (primary) hypertension; I25.2 Old myocardial infarction; M19.90 Unspecified osteoarthritis, unspecified site; E11.40 Type 2 diabetes mellitus with diabetic neuropathy, unspecified; Z86.73 Personal history of transient ischemic attack (TIA), and cerebral infarction without residual deficits; Z87.891 Personal history of nicotine dependence
CPT/HCPCS: 64721; 96365; J0131; J0690; J3010; J3490; J7030

== ENCOUNTER → 2020-09-27 12:51 | Outpatient (BNVA) | payer OTHER, MEDICAID, SELFPAY | PROVIDERS: PCP Nurse Practitioner Family; Visit Provider Anesthesiology Pain Medicine | DX: M47.812 Spondylosis without myelopathy or radiculopathy, cervical region (principal) | CPT/HCPCS: 64490; 64491; 64492; J3490 ==

== ENCOUNTER → 2020-10-12 13:14 | Outpatient (BNVA) | payer OTHER, SELFPAY | PROVIDERS: PCP Nurse Practitioner Family; Visit Provider Anesthesiology Pain Medicine | DX: G89.29 Other chronic pain (principal); M47.812 Spondylosis without myelopathy or radiculopathy, cervical region; M50.90 Cervical disc disorder, unspecified, unspecified cervical region; Z79.891 Long term (current) use of opiate analgesic | CPT/HCPCS: 99214 ==

== ENCOUNTER → 2020-10-24 12:50 | Outpatient (BNVA) | payer OTHER, SELFPAY | PROVIDERS: PCP Nurse Practitioner Family; Visit Provider Anesthesiology Pain Medicine | DX: M47.812 Spondylosis without myelopathy or radiculopathy, cervical region (principal); Z79.891 Long term (current) use of opiate analgesic | CPT/HCPCS: 64633; 64634; J1030 ==

== ENCOUNTER → 2020-11-07 09:52 | Outpatient (BNVA) | payer OTHER, MEDICAID, SELFPAY | PROVIDERS: PCP Nurse Practitioner Family; Visit Provider Anesthesiology Pain Medicine | DX: M54.9 Dorsalgia, unspecified (principal); M47.812 Spondylosis without myelopathy or radiculopathy, cervical region; M50.90 Cervical disc disorder, unspecified, unspecified cervical region; M19.012 Primary osteoarthritis, left shoulder; Z79.891 Long term (current) use of opiate analgesic | CPT/HCPCS: 99213; 99214 ==

== ENCOUNTER → 2020-11-14 12:39 | Outpatient (BNVA) | payer OTHER, SELFPAY | PROVIDERS: PCP Nurse Practitioner Family; Visit Provider Anesthesiology Pain Medicine | DX: M19.012 Primary osteoarthritis, left shoulder (principal); M54.2 Cervicalgia; Z79.891 Long term (current) use of opiate analgesic | CPT/HCPCS: 20610; J1030; J3490 ==

== ENCOUNTER → 2020-11-27 09:39 | Outpatient (BNVA) | payer OTHER, SELFPAY | PROVIDERS: PCP Nurse Practitioner Family; Visit Provider Anesthesiology Pain Medicine | DX: M54.9 Dorsalgia, unspecified (principal); M47.812 Spondylosis without myelopathy or radiculopathy, cervical region; M50.90 Cervical disc disorder, unspecified, unspecified cervical region; M19.012 Primary osteoarthritis, left shoulder; Z79.891 Long term (current) use of opiate analgesic | CPT/HCPCS: 99214 ==

== ENCOUNTER → 2020-12-05 08:28 | Outpatient (BNVA) | payer OTHER, MEDICAID, SELFPAY | PROVIDERS: PCP Nurse Practitioner Family; Referring Provider Nurse Practitioner Family; Visit Provider Urology | DX: Z12.5 Encounter for screening for malignant neoplasm of prostate (principal); N40.1 Benign prostatic hyperplasia with lower urinary tract symptoms | CPT/HCPCS: 81003; G0103 ==

== ENCOUNTER → 2021-02-15 13:08 | Outpatient (BNVA) | payer MEDICARE, MEDICAID, SELFPAY | PROVIDERS: PCP Nurse Practitioner Family; Visit Provider Orthopaedic Surgery | DX: M54.9 Dorsalgia, unspecified (principal) | CPT/HCPCS: 72100 ==

== ENCOUNTER → 2021-02-21 12:47 | Outpatient (BNVA) | payer MEDICARE, MEDICAID, SELFPAY | PROVIDERS: PCP Nurse Practitioner Family; Visit Provider Anesthesiology Pain Medicine | DX: M47.812 Spondylosis without myelopathy or radiculopathy, cervical region (principal); M50.90 Cervical disc disorder, unspecified, unspecified cervical region; M19.012 Primary osteoarthritis, left shoulder | CPT/HCPCS: 99214 ==

== ENCOUNTER 2021-02-28 15:45 | Outpatient (CLI) | payer MEDICARE, MEDICAID, SELFPAY ==
--- NOTE | 2021-02-28 16:00 | MR_ITS ---
WS: [id number] MRI LUMBAR SPINE NONCONTRAST HISTORY: M48.061 - Spinal stenosis, lumbar region without neurogenic claudication COMPARISON: Radiograph 02/15/2021 TECHNIQUE: Sagittal and axial multisequence imaging is submitted. Straightening reversal the cervical lordosis centered at C5-6. Multiple disc bulges and protrusions t hroughout the thoracic spine. No high-grade stenosis evident. Straightening of the normal lumbar lordosis. L4 anterolisthesis by 4 mm. No fractures within the lumb ar spine. Moderate degenerative disc disease and disc space narrowing throughout the lumbar spine. Conus terminates normally at L1. T12-L1: Annular disc bulge with central disc protrusion. Mild narrowing of the central canal. L1-L2: Mild diffuse annular disc bulging with moderate ligamentum flavum hypertrophy and facet arthri tis. Mild central, bilateral subarticular recess and foraminal stenosis. L2-L3: Diffuse annular disc bulging and osteophytic ridging with moderate to severe ligamentum flavum hypertrophy and facet arthritis. LEFT foraminal disc protrusion with significant contact on the LEFT L3 nerve root. There is moderate central, bilateral subarticular recess and foraminal stenosis. Grea test stenosis in the LEFT foramen. L3-L4: Diffuse annular disc bulging and mild osteophytic ridging. Moderate ligamentum flavum hypertro phy and facet arthritis. Moderate to severe central and bilateral subarticular recess and foraminal s tenosis. There is significant contact and deformity of the L4 nerve roots bilaterally. L4-L5: Diffuse annular disc bulging and osteophytic ridging. Marked ligamentum flavum hypertrophy and facet arthritis. Severe central and bilateral subarticular recess stenosis and mild foraminal stenos is. Significant contact upon the L5 nerve roots bilaterally in the subarticular recesses. L5-S1: Mild LEFT foraminal stenosis predominantly due to facet hypertrophy. Very mild asymmetric disc bulging. No protrusion identified. Paravertebral soft tissues are normal. MR/MR lumbar spine wo con* [id number] IMPRESSION: 1. Advanced multilevel degenerative disc disease and facet arthritis throughou t the lumbar spine. 2. Severe central and bilateral subarticular recess and mild foraminal stenosi s L4-5 with significant contact on the L5 nerve roots. 3. Moderate to severe central and bilateral subarticular recess and foraminal stenosis at L3-4 with significant contact on the L4 nerve roots bilaterally. 4. Moderate central, bilateral subarticular recess and foraminal stenosis at L 2-3, greatest on the LEFT. 5. Mild central, bilateral subarticular recess and foraminal stenosis at L1-2.
== END 2021-02-28 15:46 | disposition home or self-care (01) ==
LOC: RADSHAW 15:52
PROVIDERS: PCP Nurse Practitioner Family; Visit Provider Orthopaedic Surgery
DX: M48.061 Spinal stenosis, lumbar region without neurogenic claudication (principal); M51.36 Other intervertebral disc degeneration, lumbar region; M47.816 Spondylosis without myelopathy or radiculopathy, lumbar region
CPT/HCPCS: 72148

== ENCOUNTER → 2021-03-05 14:27 | Outpatient (BNVA) | payer MEDICARE, MEDICAID, SELFPAY | PROVIDERS: PCP Nurse Practitioner Family; Visit Provider Specialist | DX: M25.512 Pain in left shoulder (principal) | CPT/HCPCS: 73030 ==

== ENCOUNTER → 2021-03-21 10:42 | Outpatient (BNVA) | payer MEDICARE, MEDICAID, SELFPAY | PROVIDERS: PCP Nurse Practitioner Family; Visit Provider Family Medicine | DX: I10 Essential (primary) hypertension (principal); E78.5 Hyperlipidemia, unspecified; E61.1 Iron deficiency; K29.70 Gastritis, unspecified, without bleeding; E11.9 Type 2 diabetes mellitus without complications; E03.9 Hypothyroidism, unspecified | CPT/HCPCS: 80053; 80061; 83036; 83540; 83735; 84439; 84443; 85025 ==

== ENCOUNTER → 2021-03-26 13:15 | Outpatient (BNVA) | payer MEDICARE, SELFPAY | PROVIDERS: PCP Nurse Practitioner Family; Visit Provider Orthopaedic Surgery | DX: Z01.812 Encounter for preprocedural laboratory examination (principal); Z20.822 Contact with and (suspected) exposure to COVID-19 | CPT/HCPCS: 87635 ==

== ENCOUNTER 2021-03-30 05:45 | Day surgery (SDC) | payer MEDICARE, MEDICAID, SELFPAY ==
[2021-03-27 09:38] VITALS: BMI 39.5
--- NOTE | 2021-03-27 09:44 | ECG_ITS ---
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 Measurements Intervals [place] Rate: 48 P: 11 DC: 227 QRS: -2 QRSD: 100 T: 29 QT: 502 QTc: 452 Interpretive Statements SINUS BRADYCARDIA WITH FIRST DEGREE AV BLOCK LOW QRS VOLTAGE IN PRECORDIAL LEADS [QRS DEFLECTION < 1.0 mV IN CHEST LEADS] POSSIBLE LATERAL MYOCARDIAL INFARCTION , PROBABLY OLD [30 ms Q WAVE IN I/aVL/V5/V6] Compared to ECG 12/13/2017 13:57:00 Low QRS voltage now present Myocardial infarct finding now present Electronically Signed On 03-27-2021 23:49:59 CDT by Anabelle Chirinos M.D. [id number]
--- NOTE | 2021-03-27 12:01 | ANES.PREANE2 ---
Pre-Anesthetic Assessment Pre-Anesthetic Assessment: Height/Weight: Height 1.75 m Weight 121.563 kg Preop Diagnosis: Left carpal tunnel syndrome Proposed Procedure: Operation Date: 03/30/21 11:45 Proposed Procedures p ACDF 5 56 with allograt [id number] 14752(x2) 27527 Y07.12(Not Applicable) - Williams H Sushma, DO Was Beta Alyssa taken within 24 hours: Yes Was Clonidine taken within 24 hours: N/A Social: Social History: No alcohol and No tobacco Exam: Pre-Anes Outpt Exam: alert, oriented x 3, clear to auscultation bilaterally and regular rate & rhythm Airway: Submandibular: WNL Cervical ROM: Other (Some limitation with pain) MP: 2 Dentition: False (upper) Pulmonary: Pulmonary: Sleep apnea CV/HEM: CV/HEM: CAD and HTN GI: GI: GERD Metabolic: Metabolic: Morbid obesity and Thyroid Musc/skel: Musc/skel: OA/DJD Anesthetic Plan: ASA status: 3 Anesthesia: General Risk of > 500 ml blood loss (7ml/kg in children): No PFSH Anesthesia PFSH: Medical History (Updated 03/24/21 @ 22:41 by Arlette Singleton MD) BPH loc w urin obs/LUTS Mild lower urinary tract symptoms with good response to TAMSULOSIN. Low objective risk. No evidence of prostate cancer. Coronary artery disease Diabetic peripheral neuropathy associated with type 2 diabetes mellitus History of hypothyroidism History of prediabetes HTN (hypertension) with goal to be determined Hx of myocardial infarction Hx of primary hypertension Hx of sleep apnea Hx-TIA (transient ischemic attack) Hyperlipidemia LDL goal <100 Surgical History Gastric bypass status for obesity H/O gastric bypass H/O heart artery stent Hx of cholecystectomy Hx of tonsillectomy Hx of vasectomy Family History Mother No problems noted. Father CAD (coronary artery disease) Other Diabetes Social History Smoking and tobacco status: former smoker Alcohol intake: current Alcohol intake frequency: few times a month Marital status: Current occupational status: disabled History of recent travel: No Data Anesthesia Cardiac Studies: No Data to Display
[2021-03-30] VITALS (8 sets, daily range): BP systolic 118–173; BP diastolic 62–90; PULSE 46–66; RESP 17–22; TEMP 36.2–36.6; O2SAT 92–97
--- NOTE | 2021-03-30 | SCC_ITS ---
Procedure Done: 1. Anterior diskectomy C5/6 2. Anterior discectomy C6/7 3. Insertion of cage C5/6 4. Insertion of Cage C6/7 5. Instrumentation with anterior plate from C5-C7 6. Use of allograft 33.2 seconds of fluoroscopic guidance, for a cumulative dose of 6.89 mGy, was provided to Dr. Ordaz by the radiology department. C-arm images of the cervical spine were saved for the patient's permanent record. LÓPEZD
--- NOTE | 2021-03-30 | XR_ITS ---
WS: [id number] XR cervical spine 3V* [id number] REASON FOR EXAM: acdf FINDINGS: Multiple films during cervical surgery. Anterior discectomy with anterior plate and screw fixation C4, C5, C6 with interbody fusion devices a t C4-C5 and C5-C6. Surgical appliances are in proper position and alignment. XR/XR cervical spine 3V* [id number] IMPRESSION: Anterior fusion and discectomy as above.
--- NOTE | 2021-03-30 06:28 | W.PM.OPSUD ---
Surgery/Procedure H&P Update DATE OF PROCEDURE: March 30, 2021 DATE H&P PERFORMED: 03/15/21 H&P UPDATE INFORMATION: I have reviewed H&P completed within last 30 days, I have examined patient prior to procedure and No changes to prior documentation PREOP DIAGNOSIS: cervical spondylosis with myelopathy PLANNED PROCEDURE: Operation Date: 03/30/21 07:00 Proposed Procedures p ACDF 10/16 11/16 with allograt [id number] 32482(x2) 47961 G17.12(Not Applicable) - Williams Ordaz DO
[2021-03-30 06:32] LABS: Glucose Point of Care 105 mg/dL (70-110)
[2021-03-30] MEDS: sodium chloride 0.9% 1,000 ML 30 ML IV (06:34)
--- NOTE | 2021-03-30 07:09 | P.ANESUD_ITS ---
Pre-Anesthetic Update Pre-Anesthetic Assessment: Date of Surgery/Procedure: 03/30/21 Preop Lissette gnosis: cervical spondylosis with myelopathy Proposed Procedure: Operation Date: 03/30/21 07:00 Proposed Procedures p ACDF 4/5 5/6 with allograt [id number] 13194(s2) 44796 Y97.12(Not Applicable) - Williams Ordaz DO Last Intake: Intake Last Liquid Date 03/29/21 Last Liquid Time 22:00 Last Solid Date 03/29/21 Last Solid Time 20:00 Labs Last 48hrs: Laboratory Results - last 48 hr 03/30/21 06:30 POC Glucose 105 Vitals: Temperature 97.2 F L 03/30/21 06:10 Temperature Source Temporal Artery S can 03/30/21 06:10 Pulse Rate 51 L 03/30/21 06:10 Respiratory Rate 17 03/30/21 06:10 Blood Pressure 118/62 03/30/21 06:10 Blood Pressure Brittany n 80 03/30/21 06:10 Pulse Oximetry 96 03/30/21 06:10 Oxygen Delivery Me thod 03/30/21 06:17 Cardiac Studies: No Data to Display
--- NOTE | 2021-03-30 07:45 | SUR.OPER ---
family updated of surgical status
--- NOTE | 2021-03-30 08:44 | SUR.OPER ---
family updated of surgical status
--- NOTE | 2021-03-30 09:29 | P.OP_ITS ---
Operative Report Date of procedure: March 30, 2021 Pre-op Diagnosis: cervical spondylosis with myelopathy Post-op diagnosis: same Procedure Done: 1. Anterior diskectomy C5/6 2. Anterior discectomy C6/7 3. Insertion of cage C5/6 4. Insertion of Cage C6/7 5. Instrumentation with anterior plate from C5-C7 6. Use of allograft Surgeon: Williams Ordaz Technologist Development: Dion Kaba Technologist Development: TENZIN Ashley assisted with the pertinent parts of procedure. He helped position. He helped close. He helped with retraction and suction. As well as placing the cage at each level in the plate at each level. Anesthesia: General Estimated blood loss (mL): 20 Condition: stable Disposition: PACU Procedure: 1. Anterior diskectomy C5/6 2. Anterior discectomy C6/7 3. Insertion of cage C5/6 4. Insertion of Cage C6/7 5. Instrumentation with anterior plate from C5-C7 6. Use of allograft The patient was taken to the operating room, where he underwent general endotracheal anesthesia without complications. He was then positioned supine on the operating table, and all areas of impingement were well padded. The arms were carefully padded and tucked at his sides. A roll was placed between the shoulder blades.. An x-ray was done to determine the appropriate level for the skin incision. The entire neck was then sterilely prepped and draped in the usual fashion. Neuromonitoring was attached prior to prepping. A transverse skin incision was made and carried down to the platysma muscle. This was then split in line with its fibers. Blunt dissection was carried down medial to the carotid sheath and lateral to the trachea and esophagus until the anterior cervical spine was visualized. A needle was placed into a disc and an x-ray was done to determine its location. The longus colli muscles were then el evated bilaterally with the electrocautery unit. Self-retaining retractors were placed deep to the longus colli muscle. Attention was brought to the C4/5 level that was confirmed on x-ray. A caspar p in was placed into the C4 vertebrae and the C5 vertebrae. The disk space was then distracted. The microscope was then brought in. A radical anterior discectomies were performed at C4/5. This included complete removal of the anterior annulus, nucleus, and posterior annulus. The posterior longitudinal ligament was removed as were the posterior osteophytes. Foraminotomies were then accomplished bilaterally. This was done using a high speed jorge, kerrison rongeurs and curretes Once all of this was accomplished, the curved currette was used to check for any residual compression. The central canal was wide open as were the foramen. A high-speed bur was used to remove the cartilaginous endplates above and below the interspace. Bleeding cancellous bone was exposed. The disc space were measured and appropriate size cage were placed sterilely onto the field. Allograft graft was packed into the cages. The cage was then placed and there was good juxtaposition against the bleeding decorticated surfaces and good distraction of each interspace. Attention was brought to the next interspace. The Pearson pins were removed. Bone wax was used to prevent any bleeding from occurring at the pin sites. Attention was brought to the C5/6 level that was confirmed on x-ray. A caspar pin was placed into the C5 vertebrae and the C6 vertebrae. The disk space was then distracted. The microscope was then brought in. A radical anterior discectomies were performed at C5/6. This included complete removal of the anterior annulus, nucleus, and posterior annulus. The posterior longitudinal ligament was removed as were the posterior osteophytes. Foraminotomies were then accomplished bilaterally. This was done using a high speed jorge, kerrison rongeurs and curretes Once all of this was accomplished, the curved currette was used to check for any residual compression. The central canal was wide open as were the foramen. A high-speed bur was used to remove the cartilaginous endplates above and below the interspace. Bleeding cancellous bone was exposed. The disc space were measured and appropriate size cage were placed sterilely onto the field. Allograft graft was packed into the cages. The cage was then placed and there was good juxtaposition against the bleeding decorticated surfaces and good distraction of each interspace. Attention was brought to the next interspace. The Pearson pins were removed. Bone wax was used to prevent any bleeding from occurring at the pin sites. The appropriate size anterior cervical locking plate was chosen and bent into gentle lordosis. One screws were then placed into each of the vertebral bodies at C4, C5 and C6. There was excellent purchase. A final x-ray was done confirming good position of the hardware and Cages. The locking screws were then applied, also with excellent purchase. Following a final copious irrigation, there was good hemostasis and no dural leaks. The carotid pulse was strong. The wounds were then closed in layers using 2-0 Vicryl suture for the platysma muscle, 2-0 Vicryl suture for the subcutaneous tissue, and 4-0 monocryl suture in a subcuticular skin closure. Glue was placed followed by application of a sterile dressing. The drain was hooked to bulb suction. A soft collar was applied. The patient was then carefully returned to the supine position on his hospital bed where he was reversed and extubated and taken to the recovery room having tolerated the procedure well.
[2021-03-30] MEDS: HYDROcodone-acetaminophen 5-325 mg Tablet 1 TAB PO (10:30)
--- NOTE | 2021-03-30 13:39 | ANE.PACU2 ---
Inpatient post-anesthesia follow up: Airway intact: Yes Vital signs: Temperature 97.9 F Pulse Rate 46 Respiratory Rate 17 Blood Pressure 132/78 Pulse Oximetry 96 Oxygen Delivery Me thod Room Air Oxygen Flow Rate 8 Fraction of Inspir ed Oxygen Hydration adequate: Yes Nausea and vomiting: No Pain level: 3 Mental status: Baseline
== END 2021-03-30 11:20 | disposition home or self-care (01) ==
PROVIDERS: PCP Family Medicine; Visit Provider Orthopaedic Surgery
PROC: 0RB30ZZ Excision of Cervical Vertebral Disc, Open Approach (ICD-10-PCS; CPT 22551; principal; 2021-03-30 07:00)
DX: M47.12 Other spondylosis with myelopathy, cervical region (principal); Z79.82 Long term (current) use of aspirin; N40.1 Benign prostatic hyperplasia with lower urinary tract symptoms; N13.8 Other obstructive and reflux uropathy; I10 Essential (primary) hypertension; I25.2 Old myocardial infarction; G47.30 Sleep apnea, unspecified; E78.5 Hyperlipidemia, unspecified; Z87.891 Personal history of nicotine dependence; I25.10 Atherosclerotic heart disease of native coronary artery without angina pectoris; E66.01 Morbid (severe) obesity due to excess calories; Z68.39 Body mass index [BMI] 39.0-39.9, adult; M19.90 Unspecified osteoarthritis, unspecified site
CPT/HCPCS: 20930; 22551; 22552; 22845; 22853 ×2; 36416; 72040; 76000; 82962; 93005; 96365; C1713; C9359; J0330; J0690; J1100; J2405; J2704; J3010; J3490; J7030

== ENCOUNTER → 2021-04-30 10:01 | Outpatient (BNVA) | payer MEDICARE, MEDICAID, SELFPAY | PROVIDERS: PCP Family Medicine; Visit Provider Nurse Practitioner | DX: R41.3 Other amnesia (principal); R47.01 Aphasia; Z86.73 Personal history of transient ischemic attack (TIA), and cerebral infarction without residual deficits; Z87.891 Personal history of nicotine dependence | CPT/HCPCS: 82607; 86592; 96116; 99204 ==

== ENCOUNTER 2021-04-30 11:28 | Outpatient (CLI) | payer MEDICARE, MEDICAID, SELFPAY ==
[2021-04-30 12:49] LABS: Rapid Plasma Reagin Syphilis Nonreactive (Nonreactive)
[2021-04-30 12:50] LABS: Vitamin B12 262 pg/mL (232-1245)
== END 2021-04-30 11:29 | disposition home or self-care (01) ==
PROVIDERS: PCP Family Medicine; Visit Provider Nurse Practitioner
DX: R41.3 Other amnesia (principal)
CPT/HCPCS: 82607; 86592

== ENCOUNTER → 2021-05-17 13:50 | Outpatient (BNVA) | payer MEDICARE, MEDICAID, SELFPAY | PROVIDERS: PCP Family Medicine; Visit Provider Orthopaedic Surgery | DX: Z98.1 Arthrodesis status (principal) | CPT/HCPCS: 72040 ==

== ENCOUNTER 2021-06-25 11:21 | Outpatient (CLI) | payer MEDICARE, MEDICAID, SELFPAY ==
--- NOTE | 2021-06-25 11:29 | MR_ITS ---
WS: [id number] MRI HEAD WITH CONTRAST TECHNIQUE: Sagittal T1, T2 axial, T2 axial, axial susceptibility weighted imaging, axial diffusion we ighted images, and coronal T2 images were obtained. Pre and post-T1 axial and post T1 coronal images. ADC and FSPGR images. CLINICAL INFORMATION: R41.3 - Other amnesia COMPARISON: None. FINDINGS: No evidence of restricted diffusion to suggest acute ischemia. Ventricular system and basal cisterns are patent. Mild to moderate small vessel changes. Moderate parenchymal volume loss. Normal posterior fossa. Normal vascular flow voids at the skull base. No extra axial fluid collections. Moderate to a dvanced symmetric atrophy temporal lobes and hippocampal formations. Normal optic chiasm and pituitar y infundibulum. No hemosiderin on the susceptibly weighted images. No abnormal gadolinium enhancement. Normal dural v enous sinuses. MR/MR head wo/w con [id number] IMPRESSION: 1. No evidence of restricted diffusion to suggest acute ischemia. 2. [id number] small vessel changes with moderate parenchymal volume loss . 3. Moderate to advanced symmetric atrophy temporal lobes and hippocampal forma tions. 4. Normal optic chiasm and pituitary infundibulum. 5. No abnormal gadolinium enhancement.
[2021-06-25] MEDS: gadobenate dimeglumine 20 mL vial IV (12:46)
== END 2021-06-25 11:22 | disposition home or self-care (01) ==
LOC: RADSHAW 11:28
PROVIDERS: PCP Family Medicine; Visit Provider Nurse Practitioner
DX: R41.3 Other amnesia (principal); R41.89 Other symptoms and signs involving cognitive functions and awareness; R47.01 Aphasia; Z86.73 Personal history of transient ischemic attack (TIA), and cerebral infarction without residual deficits
CPT/HCPCS: 70553; A9577

== ENCOUNTER → 2021-06-26 12:59 | Outpatient (BNVA) | payer MEDICARE, MEDICAID, SELFPAY | PROVIDERS: PCP Family Medicine; Visit Provider Physician Assistant | DX: Z98.1 Arthrodesis status (principal) | CPT/HCPCS: 72040 ==

== ENCOUNTER → 2021-08-06 08:20 | Outpatient (BNVA) | payer MEDICARE, MEDICAID, SELFPAY | PROVIDERS: PCP Family Medicine; Visit Provider Specialist | DX: G31.84 Mild cognitive impairment of uncertain or unknown etiology (principal); G56.03 Carpal tunnel syndrome, bilateral upper limbs; R48.2 Apraxia; Z87.891 Personal history of nicotine dependence; F03.91 Unspecified dementia, unspecified severity, with behavioral disturbance | CPT/HCPCS: 36415; 82607; 83540; 96116; 99214; 99215 ==

== ENCOUNTER 2021-08-06 10:28 | Outpatient (CLI) | payer MEDICARE, MEDICAID, SELFPAY ==
[2021-08-06 11:42] LABS: Iron 50 ug/dL (59-158)
[2021-08-06 11:58] LABS: Vitamin B12 1052 pg/mL (232-1245)
== END 2021-08-06 10:29 | disposition home or self-care (01) ==
LOC: LAB 10:35
PROVIDERS: PCP Family Medicine; Visit Provider Specialist
DX: F03.91 Unspecified dementia, unspecified severity, with behavioral disturbance (principal)
CPT/HCPCS: 36415; 82607; 83540

== ENCOUNTER → 2021-08-23 08:25 | Outpatient (BNVA) | payer MEDICARE, MEDICAID, SELFPAY | PROVIDERS: PCP Family Medicine; Visit Provider Internal Medicine | DX: E11.42 Type 2 diabetes mellitus with diabetic polyneuropathy (principal); E11.59 Type 2 diabetes mellitus with other circulatory complications; E03.9 Hypothyroidism, unspecified; E78.2 Mixed hyperlipidemia; I25.10 Atherosclerotic heart disease of native coronary artery without angina pectoris; E66.01 Morbid (severe) obesity due to excess calories; Z68.41 Body mass index [BMI] 40.0-44.9, adult; Z87.891 Personal history of nicotine dependence; E11.9 Type 2 diabetes mellitus without complications | CPT/HCPCS: 36415; 80061; 83036; 84439; 84443; 99214 ==

== ENCOUNTER 2021-08-23 09:55 | Outpatient (CLI) | payer MEDICARE, MEDICAID, SELFPAY ==
[2021-08-23 10:51] LABS: Estmated Average Glucose 120; Hemoglobin A1C 5.8 % (4.0-6.0)
[2021-08-23 11:07] LABS: Chol HDL Ratio 2.86 mg/dL (1.0-5.00); Cholesterol 160 mg/dL (0-200); Free T4 Free Thyroxine 1.16 ng/dL (0.82-1.77); HDL Cholesterol 56 mg/dL (60-100); LDL Cholesterol Calculated 85 mg/dL (50-129); LDL HDL Ratio 1.52 RATIO (0.00-3.22); Thyroid Stimulating Hormone 2.85 uIU/mL (0.27-4.20); Triglycerides 94 mg/dL (0-150)
== END 2021-08-23 09:56 | disposition home or self-care (01) ==
PROVIDERS: PCP Family Medicine; Visit Provider Internal Medicine
DX: E03.9 Hypothyroidism, unspecified (principal); E11.9 Type 2 diabetes mellitus without complications; E78.2 Mixed hyperlipidemia
CPT/HCPCS: 36415; 80061; 83036; 84439; 84443

== ENCOUNTER 2022-01-15 12:24 | Outpatient (CLI) | payer MEDICARE, MEDICAID, SELFPAY ==
[2022-01-15 13:12] LABS: Prostate Specific Antigen 0.332 ng/mL (0-4)
== END 2022-01-15 12:25 | disposition home or self-care (01) ==
PROVIDERS: PCP Family Medicine; Visit Provider Urology
DX: Z12.5 Encounter for screening for malignant neoplasm of prostate (principal); N40.1 Benign prostatic hyperplasia with lower urinary tract symptoms
CPT/HCPCS: 51741; 51798; 81003; 84153; 99213

== ENCOUNTER → 2022-02-20 08:27 | Outpatient (BNVA) | payer MEDICARE, MEDICAID, SELFPAY | PROVIDERS: PCP Family Medicine; Visit Provider Internal Medicine | DX: E11.42 Type 2 diabetes mellitus with diabetic polyneuropathy (principal); E11.59 Type 2 diabetes mellitus with other circulatory complications; E03.9 Hypothyroidism, unspecified; E78.2 Mixed hyperlipidemia; I25.10 Atherosclerotic heart disease of native coronary artery without angina pectoris; E66.01 Morbid (severe) obesity due to excess calories; Z68.41 Body mass index [BMI] 40.0-44.9, adult; Z87.891 Personal history of nicotine dependence | CPT/HCPCS: 83036; 84439; 84443; 99214 ==

== ENCOUNTER → 2022-03-12 10:46 | Outpatient (BNVA) | payer MEDICARE, SELFPAY | PROVIDERS: PCP Family Medicine; Visit Provider Internal Medicine Cardiovascular Disease | DX: I25.10 Atherosclerotic heart disease of native coronary artery without angina pectoris (principal); E78.2 Mixed hyperlipidemia; Z98.84 Bariatric surgery status; I10 Essential (primary) hypertension; E66.01 Morbid (severe) obesity due to excess calories; Z68.41 Body mass index [BMI] 40.0-44.9, adult; E11.9 Type 2 diabetes mellitus without complications; Z79.84 Long term (current) use of oral hypoglycemic drugs; Z95.5 Presence of coronary angioplasty implant and graft; Z87.891 Personal history of nicotine dependence | CPT/HCPCS: 99213; 99214 ==

== ENCOUNTER → 2022-03-19 09:04 | Outpatient (BNVA) | payer MEDICARE, SELFPAY | PROVIDERS: PCP Family Medicine; Visit Provider Surgery | DX: Z12.11 Encounter for screening for malignant neoplasm of colon (principal) | CPT/HCPCS: 99213 ==

== ENCOUNTER → 2022-04-02 13:35 | Outpatient (BNVA) | payer MEDICARE, SELFPAY | PROVIDERS: PCP Family Medicine; Visit Provider Physician Assistant | DX: M47.812 Spondylosis without myelopathy or radiculopathy, cervical region (principal); Z47.89 Encounter for other orthopedic aftercare; Z98.1 Arthrodesis status | CPT/HCPCS: 72040; 99213; 99214 ==

== ENCOUNTER → 2022-04-08 09:40 | Outpatient (BNVA) | payer MEDICARE, SELFPAY | PROVIDERS: PCP Family Medicine; Visit Provider Anesthesiology Pain Medicine | DX: M79.18 Myalgia, other site (principal); M47.812 Spondylosis without myelopathy or radiculopathy, cervical region; M50.90 Cervical disc disorder, unspecified, unspecified cervical region; M19.012 Primary osteoarthritis, left shoulder | CPT/HCPCS: 20553; 99214 ==

== ENCOUNTER → 2022-05-07 10:40 | Outpatient (BNVA) | payer MEDICARE, SELFPAY | PROVIDERS: PCP Family Medicine; Visit Provider Anesthesiology Pain Medicine | DX: M47.812 Spondylosis without myelopathy or radiculopathy, cervical region (principal); M50.90 Cervical disc disorder, unspecified, unspecified cervical region; M19.012 Primary osteoarthritis, left shoulder; M54.9 Dorsalgia, unspecified; Z87.891 Personal history of nicotine dependence | CPT/HCPCS: 99214 ==

== ENCOUNTER 2022-05-07 19:53 | Emergency (ER) | payer MEDICARE, SELFPAY ==
[2022-05-07 20:04] VITALS: BP 113/57; PULSE 54; RESP 18; TEMP 36.6; O2SAT 95; BMI 40.3
--- NOTE | 2022-05-07 20:04 | CTR_ITS ---
PROCEDURE INFORMATION: Exam: CT Cervical Spine Without Contrast Exam date and time: 05/07/2022 8:15 PM Age: 72 years old Clinical indication: Injury or trauma; Fall; Blunt trauma; Prior surgery; Surgery date: 6+ months; Surgery type: Cervical fusion TECHNIQUE: Imaging protocol: Computed tomography of the cervical spine without contrast. Radiation optimization: All CT scans at this facility use at least one of these dose optimization techniques: automated exposure control; mA and/or kV adjustment per patient size (includes targeted exams where dose is matched to clinical indication); or iterative reconstruction. COMPARISON: MR cervical spin wo con* [id number] 05/01/2020 5:50 PM RADIATION DOSE METRICS: Total DLP (mGy-cm): 293.47 FINDINGS: Bones/joints: Intact ACDF hardware involving the C4-C6 segment with intervertebral disc spacers. No acute fracture. No malalignment. No significant disc protrusion. No severe spinal canal stenosis. Lungs: Lung apices are normal. Soft tissues: Unremarkable. CT/CT cervical spin wo con* [id number] IMPRESSION: No acute findings.
--- NOTE | 2022-05-07 20:04 | CTR_ITS ---
PROCEDURE INFORMATION: Exam: CT Head Without Contrast Exam date and time: 05/07/2022 8:12 PM Age: 72 years old Clinical indication: Injury or trauma; Fall; Blunt trauma (contusions or hematomas) TECHNIQUE: Imaging protocol: Computed tomography of the head without contrast. Radiation optimization: All CT scans at this facility use at least one of these dose optimization techniques: automated exposure control; mA and/or kV adjustment per patient size (includes targeted exams where dose is matched to clinical indication); or iterative reconstruction. COMPARISON: MR head wo/w con [id number] 06/25/2021 11:44 AM RADIATION DOSE METRICS: Total DLP (mGy-cm): 1192.58 FINDINGS: Brain: No hemorrhage. No edema. Moderate diffuse cerebral atrophy. No significant white matter disease. No mass effect. Cerebral ventricles: No ventriculomegaly. Paranasal sinuses: Visualized sinuses are unremarkable. No fluid levels. Mastoid air cells: Visualized mastoid air cells are well aerated. Bones/joints: Unremarkable. No acute fracture. Soft tissues: Unremarkable. CT/CT head wo con* [id number] IMPRESSION: No acute intracranial abnormality.
[2022-05-07 20:30] VITALS: BP 118/61; PULSE 54; RESP 16; O2SAT 96
--- NOTE | 2022-05-07 20:39 | XRR_ITS ---
PROCEDURE INFORMATION: Exam: XR Right Hip Exam date and time: 05/07/2022 8:45 PM Age: 72 years old Clinical indication: Hip pain; Right hip; Patient HX: Fall TECHNIQUE: Imaging protocol: Radiologic exam of the Right hip. Views: 1 view hip with pelvis when performed. COMPARISON: CT abdomen pelvis w con* [id number] 07/19/2019 12:12 AM FINDINGS: Bones/joints: Osseous structures are intact. No acute fracture. Soft tissues: Unremarkable. XR/XR hip RT 2-3V wo/w pel* [id number] IMPRESSION: No acute findings.
--- NOTE | 2022-05-07 20:39 | W.ED.FALL ---
HPI - Fall General: Chief Complaint: Fall Stated Complaint: Injury Fell Hit Head Time Seen by Provider: 05/07/22 20:07 Source: patient Mode of arrival: ambulatory Limitations: no limitations History of Present Illness: 72-year-old male states an hour ago he was taking trash down a set of stairs he states that he tripped and fell roughly 8 stairs states he has had neck pain along with some right hip pain he denies any worsening improving factors rates pain 8 out of 10 he is unsure if he had a loss of consciousness he is on Plavix denies any chest or abdominal pain. Associated symptoms-after fall: Reports headache(s) and neck pain; Denies abdominal pain or chest pain Review of Systems Const: Denies: fever(s), chills, body aches or change in appetite Eyes: Denies: blurry vision or eye discomfort ENMT: Denies: throat pain or dental pain Card: Denies: chest pain Resp: Denies: dyspnea GI: Denies: abdominal pain, nausea, vomiting or diarrhea : Denies: dysuria Musc: Reports: neck pain and extremity pain; Denies: back pain Skin/Breast: Denies: rash Neuro: Reports: headache(s) Psych: Denies: depression Tone/Lymph: Denies: easy bruising All/Imm: Denies: urticaria PFSH ED PFSH: Medical History BPH loc w urin obs/LUTS Mild lower urinary tract symptoms with good response to TAMSULOSIN. Low objective risk. No evidence of prostate cancer. Chronic neck pain Coronary artery disease Diabetic peripheral neuropathy associated with type 2 diabetes mellitus History of hypothyroidism History of prediabetes History of umbilical hernia HTN (hypertension) with goal to be determined Hx of myocardial infarction Hx of primary hypertension Hx of sleep apnea Hx-TIA (transient ischemic attack) Hyperlipidemia LDL goal <100 Surgical History Gastric bypass status for obesity H/O gastric bypass H/O heart artery stent History of left knee surgery Hx of cholecystectomy Hx of tonsillectomy Hx of vasectomy S/P cataract surgery Family History Mother No problems noted. Father CAD (coronary artery disease) Other Diabetes Social History Smoking and tobacco status: former smoker Second hand smoke exposure: No Alcohol intake: current Alcohol intake frequency: few times a month Alcohol type: beer Marital status: Current occupational status: disabled History of recent travel: Yes Details: [place] Out of state: Yes Physical Exam Const: COMMON NORMALS: no acute distress, patient oriented x3 and healthy appearing HENMT: COMMON NORMALS: normocephalic and atraumatic HEAD & SCALP: normocephalic and atraumatic Eye: COMMON NORMALS: Equal, round and reactive pupils present and EOMs intact bilaterally PUPIL: Yes Equal, round and reactive pupils present Neck/C-Spine: COMMON NORMALS: full ROM and supple Chest: COMMONS NORMALS: normal inspection of the chest and normal palpation of entire chest wall Resp: COMMON NORMALS: normal respiratory effort, No retractions, No use of accessory muscles and clear to auscultation bilaterally AUSCULTATION: clear to auscultation bilaterally Cardio: COMMON NORMALS: regular rate, regular rhythm and No murmurs present (Cardio) RATE: regular rate RHYTHM: regular rhythm GI: COMMON NORMALS: Normal to inspection, nondistended, normoactive bowel sounds present, Soft to palpation, non-tender and no masses PALPATION: Yes Soft to palpation Extremity: NARRATIVE EXTREMITY EXAM: tenderness over right hip with no obvious deformity Neuro: COMMON NORMALS: patient oriented x3, moves all extremities and no focal motor deficits Psych: COMMON NORMALS: mental status grossly normal, Normal thought process present and cooperative THOUGHT PROCESS: Normal thought process present Skin: COMMON NORMALS: no rashes or lesions noted and no wounds GENERAL SKIN EXAM: no rashes or lesions noted Course Vital Signs: Vital signs: Vital Signs Temperature 97.9 F 05/07/22 20:04 Pulse Rate 60 05/07/22 22:05 Respiratory Rate 18 05/07/22 22:05 Blood Pressure 123/66 05/07/22 22:05 Pulse Oximetry 97 05/07/22 22:05 Oxygen Delivery Me thod 05/07/22 22:05 MDM - Fall Medical Decision Making Patient presents with a closed head injury along with right hip contusion from a fall his x-ray of his hip is negative CT head and C-spine are negative he is able ambulate here without any difficulty he stable for discharge he is to follow-up his PCP and return if worsening. Lab Data Radiology Impressions Cervical Spine CT 05/07/22 20:04 IMPRESSION: No acute findings. Head CT 05/07/22 20:04 IMPRESSION: No acute intracranial abnormality. Hip/Pelvis X-Ray 05/07/22 20:39 IMPRESSION: No acute findings. Discharge Plan Discharge Patient Disposition: Home Clinical Impression: Contusion of hip Fall Qualifiers: Encounter type: initial encounter Qualified Code(s): W19.XXXA - Unspecified fall, initial encounter Closed head injury Qualifiers: Encounter type: initial encounter Qualified Code(s): S09.90XA - Unspecified injury of head, initial encounter Condition: Stable Prescriptions: New hydrocodone-acetaminophen 5-325 mg tablet 1 tab PO Q6H PRN (Reason: pain) Qty: 14 0RF No Action Adult 50 Plus Probiotic 4 billion cell capsule 4,000 mmu cells PO DAILY Rx Instructions: administer with a meal (DME) Bone growth stimulator E0748 See Rx Instructions .Route .MEDSUPPLY Qty: 1 0RF Rx Instructions: As directed (DME) Diabetic shoes See Rx Instructions .ROUTE .MEDSUPPLY Qty: 1 0RF Rx Instructions: With 3 pairs inserts tizanidine 2 mg tablet 2 mg PO BID PRN (Reason: muscle spasticity) 30 Days Qty: 60 2RF diclofenac sodium 75 mg tablet,delayed release (DR/EC) 75 mg PO BID Qty: 90 0RF carvedilol 6.25 mg tablet 6.25 mg PO BID Qty: 180 1RF Rx Instructions: must administer with a meal/food chlorthalidone 25 mg tablet 25 mg PO DAILY 90 Days Qty: 90 1RF duloxetine 30 mg capsule,delayed release(DR/EC) 30 mg PO BID 90 Days Qty: 180 1RF gabapentin 300 mg capsule 300 mg PO BID 90 Days Qty: 180 1RF pantoprazole [Protonix] 40 mg tablet,delayed release (DR/EC) 40 mg PO BID 90 Days Qty: 180 1RF levothyroxine 150 mcg tablet 150 mcg PO DAILY Qty: 90 3RF Rx Instructions: Take one tablet by mouth every AM. peg 3350-electrolytes [Golytely] 236-22.74-6.74 -5.86 gram recon soln 240 ml PO Q10M Qty: 4000 0RF Rx Instructions: until fecal effluent is clear (DME) Diabetic shoes with 3 inserts See Rx Instructions .ROUTE .MEDSUPPLY Qty: 1 0RF Rx Instructions: As directed RISA&O methylprednisolone acetate [Depo-Medrol] 80 mg/mL suspension 80 mg intra-articular ONCE Qty: 1 0RF methylprednisolone acetate [Depo-Medrol] 40 mg/mL suspension 40 mg intra-articular ONCE Qty: 1 0RF bupivacaine (PF) 0.25 % (2.5 mg/mL) solution 1 ml intra-articular ONCE Qty: 1 0RF galantamine 4 mg tablet 4 mg PO BID Qty: 60 3RF Rx Instructions: administer with AM and PM meals tamsulosin 0.4 mg capsule 0.4 mg PO DAILY 90 Days Qty: 90 1RF atorvastatin 40 mg tablet 40 mg PO DAILY Qty: 90 1RF clopidogrel 75 mg tablet 75 mg PO DAILY Qty: 90 1RF aspirin 81 mg Tablet 81 mg PO DAILY Discharge Orders: Discharge ED (Routine); Ordered 05/07/22 Ordered By: Ernie Verdin Referrals: Arlette Singleton MD [Primary Care Provider] - Discharge Diet: Advance as tolerated Discharge Activity: Resume usual activity Patient Instructions: Head Injury (ED), Opioid Safety Coding Level of Care Code ED Rubber Tubing Backer for Chg Fwd Exam Comprehensive
[2022-05-07] MEDS: HYDROcodone-acetaminophen 5-325 mg Tablet 1 TAB PO (20:53)
[2022-05-07 22:05] VITALS: BP 123/66; PULSE 60; RESP 18; O2SAT 97
== END 2022-05-07 22:11 | disposition home or self-care (01) ==
PROVIDERS: Emergency Provider Emergency Medicine; PCP Family Medicine
DX: S09.8XXA Other specified injuries of head, initial encounter (principal); S70.01XA Contusion of right hip, initial encounter; Z79.82 Long term (current) use of aspirin; Z79.02 Long term (current) use of antithrombotics/antiplatelets; Z87.891 Personal history of nicotine dependence; I25.10 Atherosclerotic heart disease of native coronary artery without angina pectoris; E11.40 Type 2 diabetes mellitus with diabetic neuropathy, unspecified; I10 Essential (primary) hypertension; I25.2 Old myocardial infarction; Z86.73 Personal history of transient ischemic attack (TIA), and cerebral infarction without residual deficits; E78.5 Hyperlipidemia, unspecified; W10.8XXA Fall (on) (from) other stairs and steps, initial encounter; M47.812 Spondylosis without myelopathy or radiculopathy, cervical region; M50.90 Cervical disc disorder, unspecified, unspecified cervical region; M19.012 Primary osteoarthritis, left shoulder; M54.9 Dorsalgia, unspecified
CPT/HCPCS: 70450; 72125; 73502; 99214; 99284

== ENCOUNTER → 2022-06-10 07:50 | Outpatient (BNVA) | payer MEDICARE, SELFPAY | PROVIDERS: PCP Family Medicine; Visit Provider Specialist | DX: R41.1 Anterograde amnesia (principal); R26.89 Other abnormalities of gait and mobility; R45.4 Irritability and anger; G44.321 Chronic post-traumatic headache, intractable; G43.711 Chronic migraine without aura, intractable, with status migrainosus; M47.812 Spondylosis without myelopathy or radiculopathy, cervical region; E11.40 Type 2 diabetes mellitus with diabetic neuropathy, unspecified; Z79.899 Other long term (current) drug therapy; Z91.81 History of falling | CPT/HCPCS: 96116; 99214 ==

== ENCOUNTER 2022-06-12 08:57 | Day surgery (SDC) | payer MEDICARE, SELFPAY ==
[2022-06-11 09:14] VITALS: BMI 41.5
[2022-06-12 10:13] VITALS: BP 134/68; PULSE 50; RESP 16; TEMP 36.5; O2SAT 94
[2022-06-12] MEDS: sodium chloride 0.9% 1,000 ML 30 ML IV (10:15)
--- NOTE | 2022-06-12 12:16 | P.ANESASSM_ITS ---
Pre-Anesthetic Assessment Height/Weight: Height 1.75 m Weight 127.459 kg Temp Pulse Resp BP Pulse Ox O2 Del Method 97.7 F 50 L 16 134/68 94 06/12/22 10:13 06/12/22 10:13 06/12/22 10:13 06/12/22 10:13 06/12/22 10:13 06/12/22 10:13 Preop Diagnosis: Screening Operation Date: 06/12/22 10:30 Proposed Procedures p Colonoscopy 24074,Z12.11(Not Applicable) - Ronal Chapman DO Familial anesthetic complications: None Was Beta Alyssa taken within 24 hours: Yes Was Clonidine taken within 24 hours: N/A Last intake: Intake Last Liquid Date 06/11/22 Last Liquid Time 22:30 Last Solid Date 06/10/22 Last Solid Time 18:00 Social No alcohol and No tobacco Exam alert, oriented x 3, clear to auscultation bilaterally and regular rate & rhythm Airway Submandibular: within normal limits Cervical ROM: within normal limits (Decreased ROM) Mallampati: Class III Dentition: false History/ROS No significant history except as noted and No significant complaints Pulmonary Sleep Apnea (Wears CPAP) Allergies CV/HEM Arrythmia (Bradycardia), Coronary Artery Disease, Hypertension and Myocardial Infarction (1 stent in 2007, 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.) None reported Hepatic None reported GI Gastroesophageal Reflux Disease Gastric bypass 2017, gastric bleeding postop required 9 units of blood Metabolic Hyperlipidemia, Morbid Obesity and Thyroid Disease Musc/skel Lower Back Pain, Osteoarthritis/DJD and Weakness Neuropsych Transient Ischemic Attack (8 years ago, memory loss, muscle weakness) Anesthetic Plan ASA status: 4 Anesthesia: General and MAC Risk of > 500 ml blood loss (7ml/kg in children): No Medications/Allergies Home Medications Medication Instructions Recorded Confirmed Last Taken Type Diabetic shoes #1 ea 06/06/20 06/11/22 Unknown Rx aspirin 81 mg tablet 81 mg PO DAILY 08/11/20 06/12/22 06/02/22 History lactobacillus combination no.9 4 4,000 mmu cells PO DAILY 08/22/20 06/12/22 06/02/22 History billion cell capsule (Adult 50 Plus Probiotic) Bone growth stimulator E0748 #1 ea 04/17/21 06/11/22 Unknown Rx tizanidine 2 mg tablet 2 mg PO BID PRN muscle spasticity 09/19/21 06/12/22 06/02/22 Rx 30 days #60 tabs Diabetic shoes with 3 inserts #1 ea 01/01/22 06/11/22 Unknown Rx atorvastatin 40 mg tablet 40 mg PO DAILY #90 tabs 03/01/22 06/12/22 06/02/22 Rx tamsulosin 0.4 mg capsule 0.4 mg PO DAILY 90 days #90 caps 03/01/22 06/12/22 06/02/22 Rx peg 3350-electrolytes 236 240 ml PO Q10M #4,000 mL 03/19/22 06/12/22 06/11/22 Rx gram-22.74 gram-6.74 gram-5.86 gram solution (Golytely) carvedilol 6.25 mg tablet 6.25 mg PO BID #180 tabs 03/20/22 06/12/22 06/12/22 Rx chlorthalidone 25 mg tablet 25 mg PO DAILY 90 days #90 tabs 03/20/22 06/12/22 06/02/22 Rx duloxetine 30 mg capsule,delayed 30 mg PO BID 90 days #180 caps 03/20/22 06/12/22 06/02/22 Rx release gabapentin 300 mg capsule 300 mg PO BID pain 90 days #180 03/20/22 06/12/22 06/02/22 Rx caps pantoprazole 40 mg tablet,delayed 40 mg PO BID 90 days #180 tabs 03/20/22 06/12/22 06/02/22 Rx release (Protonix) diclofenac sodium 75 mg 75 mg PO BID Arthritis pain #90 04/02/22 06/12/22 06/02/22 Rx tablet,delayed release tabs clopidogrel 75 mg tablet 75 mg PO DAILY #90 tabs 04/25/22 06/12/22 06/02/22 Rx hydrocodone 5 mg-acetaminophen 325 1 tab PO Q6H PRN pain #14 tabs 05/07/22 06/12/22 06/02/22 Rx mg tablet galantamine 8 mg tablet 8 mg PO BID #60 tabs 06/10/22 06/12/22 06/02/22 Rx venlafaxine 150 mg 150 mg PO DAILY #30 caps 06/10/22 06/12/22 06/02/22 Rx capsule,extended release 24 hr (Effexor XR) levothyroxine 150 mcg tablet 150 mcg PO DAILY 06/11/22 06/12/22 06/12/22 History Allergies Allergy/AdvReac Type Severity Reaction Status Date / Time No Known Allergies Allergy Verified 06/12/22 10:16 [facility] Anesthesia Medical History BPH loc w urin obs/LUTS Mild lower urinary tract symptoms with good response to TAMSULOSIN. Low objective risk. No evidence of prostate cancer. Chronic neck pain Coronary artery disease Diabetic peripheral neuropathy associated with type 2 diabetes mellitus History of hypothyroidism History of prediabetes History of umbilical hernia HTN (hypertension) with goal to be determined Hx of myocardial infarction Hx of primary hypertension Hx of sleep apnea Hx-TIA (transient ischemic attack) Hyperlipidemia LDL goal <100 Surgical History Gastric bypass status for obesity H/O gastric bypass H/O heart artery stent History of left knee surgery Hx of cholecystectomy Hx of tonsillectomy Hx of vasectomy S/P cataract surgery Family History Mother No problems noted. Father CAD (coronary artery disease) Other Diabetes Social History Smoking and tobacco status: former smoker Second hand smoke exposure: No Alcohol intake: current Alcohol intake frequency: few times a month Alcohol type: beer Marital status: Current occupational status: disabled History of recent travel: Yes Details: [place] Out of state: Yes Data Anesthesia Cardiac Studies: No Data to Display
[2022-06-12 12:53] VITALS: BP 91/60; PULSE 53; RESP 12; TEMP 36.1; O2SAT 93
[2022-06-12 13:01] VITALS: BP 122/69; PULSE 47; RESP 16; O2SAT 95
--- NOTE | 2022-06-12 14:57 | ANE.PACU2 ---
Inpatient post-anesthesia follow up: Airway intact: Yes Vital signs: Temperature 97.0 F Pulse Rate 47 Respiratory Rate 16 Blood Pressure 122/69 Pulse Oximetry 95 Oxygen Delivery Me thod Room Air Oxygen Flow Rate Fraction of Inspir ed Oxygen Hydration adequate: Yes Nausea and vomiting: No Pain level: 1 Mental status: Baseline
== END 2022-06-12 13:21 | disposition home or self-care (01) ==
PROVIDERS: PCP Family Medicine; Visit Provider Surgery
PROC: 0DJD8ZZ Inspection of Lower Intestinal Tract, Via Natural or Artificial Opening Endoscopic (ICD-10-PCS; CPT 45378; principal; 2022-06-12 10:30)
DX: Z12.11 Encounter for screening for malignant neoplasm of colon (principal); K57.30 Diverticulosis of large intestine without perforation or abscess without bleeding; N40.1 Benign prostatic hyperplasia with lower urinary tract symptoms; N13.8 Other obstructive and reflux uropathy; I25.10 Atherosclerotic heart disease of native coronary artery without angina pectoris; E03.9 Hypothyroidism, unspecified; I10 Essential (primary) hypertension; I25.2 Old myocardial infarction; G47.30 Sleep apnea, unspecified; Z86.73 Personal history of transient ischemic attack (TIA), and cerebral infarction without residual deficits; E78.5 Hyperlipidemia, unspecified; Z98.84 Bariatric surgery status; Z95.5 Presence of coronary angioplasty implant and graft; Z87.891 Personal history of nicotine dependence; K21.9 Gastro-esophageal reflux disease without esophagitis
CPT/HCPCS: G0121; J2704; J3490; J7030

== ENCOUNTER → 2022-07-25 12:23 | Outpatient (BNVA) | payer MEDICARE, MEDICAID, SELFPAY | PROVIDERS: PCP Family Medicine; Visit Provider Specialist | DX: G30.9 Alzheimer's disease, unspecified (principal); F02.80 Dementia in other diseases classified elsewhere, unspecified severity, without behavioral disturbance, psychotic disturbance, mood disturbance, and anxiety; G43.711 Chronic migraine without aura, intractable, with status migrainosus; R48.2 Apraxia; E11.42 Type 2 diabetes mellitus with diabetic polyneuropathy | CPT/HCPCS: 99214 ==

== ENCOUNTER → 2022-08-05 11:24 | Outpatient (BNVA) | payer MEDICARE, MEDICAID, SELFPAY | PROVIDERS: PCP Family Medicine; Visit Provider Family Medicine | DX: E11.42 Type 2 diabetes mellitus with diabetic polyneuropathy (principal); I10 Essential (primary) hypertension | CPT/HCPCS: 80053; 80061; 83036; 84439; 84443 ==

== ENCOUNTER → 2022-08-21 10:53 | Outpatient (BNVA) | payer MEDICARE, MEDICAID, SELFPAY | PROVIDERS: PCP Family Medicine; Visit Provider Anesthesiology Pain Medicine | DX: M47.812 Spondylosis without myelopathy or radiculopathy, cervical region (principal); M50.90 Cervical disc disorder, unspecified, unspecified cervical region; M19.012 Primary osteoarthritis, left shoulder; M54.9 Dorsalgia, unspecified; Z91.81 History of falling | CPT/HCPCS: 99214 ==

== ENCOUNTER → 2022-09-09 13:56 | Outpatient (BNVA) | payer MEDICARE, MEDICAID, SELFPAY | PROVIDERS: PCP Family Medicine; Visit Provider Anesthesiology Pain Medicine | DX: M54.12 Radiculopathy, cervical region (principal) | CPT/HCPCS: 64490; 64491; 64492; J3490 ==

== ENCOUNTER → 2022-10-01 11:18 | Outpatient (BNVA) | payer MEDICARE, MEDICAID, SELFPAY | PROVIDERS: PCP Family Medicine; Visit Provider Internal Medicine | DX: E11.59 Type 2 diabetes mellitus with other circulatory complications (principal); E78.2 Mixed hyperlipidemia; E78.5 Hyperlipidemia, unspecified; E03.9 Hypothyroidism, unspecified; I25.10 Atherosclerotic heart disease of native coronary artery without angina pectoris; E66.01 Morbid (severe) obesity due to excess calories; Z68.41 Body mass index [BMI] 40.0-44.9, adult; Z79.890 Hormone replacement therapy | CPT/HCPCS: 36415; 80053; 80061; 82044; 83036; 84439; 84443; 84480; 99214 ==

== ENCOUNTER → 2022-10-16 12:14 | Outpatient (BNVA) | payer MEDICARE, MEDICAID, SELFPAY | PROVIDERS: PCP Family Medicine; Visit Provider Podiatrist Foot & Ankle Surgery | DX: E11.42 Type 2 diabetes mellitus with diabetic polyneuropathy (principal); M20.41 Other hammer toe(s) (acquired), right foot; M20.42 Other hammer toe(s) (acquired), left foot; M21.611 Bunion of right foot; M21.612 Bunion of left foot; M21.6X1 Other acquired deformities of right foot; M21.6X2 Other acquired deformities of left foot; M21.41 Flat foot [pes planus] (acquired), right foot; M21.42 Flat foot [pes planus] (acquired), left foot | CPT/HCPCS: 99214 ==

== ENCOUNTER → 2022-10-21 14:12 | Outpatient (BNVA) | payer MEDICARE, MEDICAID, SELFPAY | PROVIDERS: PCP Family Medicine; Visit Provider Anesthesiology Pain Medicine | DX: M47.812 Spondylosis without myelopathy or radiculopathy, cervical region (principal) | CPT/HCPCS: 64490; 64491; 64492; J3490 ==

== ENCOUNTER → 2022-11-04 11:32 | Outpatient (BNVA) | payer MEDICARE, MEDICAID, SELFPAY | PROVIDERS: PCP Family Medicine; Visit Provider Anesthesiology Pain Medicine | DX: M47.812 Spondylosis without myelopathy or radiculopathy, cervical region (principal); M50.90 Cervical disc disorder, unspecified, unspecified cervical region; M19.012 Primary osteoarthritis, left shoulder | CPT/HCPCS: 99214 ==

== ENCOUNTER → 2022-11-12 09:39 | Outpatient (BNVA) | payer MEDICARE, MEDICAID, SELFPAY | PROVIDERS: PCP Family Medicine; Visit Provider Family Medicine | DX: J22 Unspecified acute lower respiratory infection (principal); B96.89 Other specified bacterial agents as the cause of diseases classified elsewhere; R60.0 Localized edema | CPT/HCPCS: 71046 ==

== ENCOUNTER → 2022-11-14 13:19 | Outpatient (BNVA) | payer MEDICARE, MEDICAID, SELFPAY | PROVIDERS: PCP Family Medicine; Visit Provider Internal Medicine | DX: E78.2 Mixed hyperlipidemia (principal); I25.10 Atherosclerotic heart disease of native coronary artery without angina pectoris; Z98.84 Bariatric surgery status; I10 Essential (primary) hypertension; E66.01 Morbid (severe) obesity due to excess calories; Z68.41 Body mass index [BMI] 40.0-44.9, adult; E11.9 Type 2 diabetes mellitus without complications; Z95.5 Presence of coronary angioplasty implant and graft; Z87.891 Personal history of nicotine dependence; Z79.84 Long term (current) use of oral hypoglycemic drugs | CPT/HCPCS: 99214 ==

== ENCOUNTER 2022-11-15 13:07 | Inpatient (IN) | payer MEDICARE, MEDICAID, SELFPAY ==
[2022-11-15] VITALS (13 sets, daily range): BP systolic 118–158; BP diastolic 69–96; PULSE 0–63; RESP 12–20; TEMP 36.6; O2SAT 96–100
--- NOTE | 2022-11-15 13:36 | CTR_ITS ---
PROCEDURE INFORMATION: Exam: CT Head Without Contrast Exam date and time: 11/15/2022 2:34 PM Age: 72 years old Clinical indication: Altered mental status/memory loss; Additional info: AMS TECHNIQUE: Imaging protocol: Computed tomography of the head without contrast. Radiation optimization: All CT scans at this facility use at least one of these dose optimization techniques: automated exposure control; mA and/or kV adjustment per patient size (includes targeted exams where dose is matched to clinical indication); or iterative reconstruction. REPORTING DATA: Count of CT and Cardiac NM exams in prior 12 months: This patient has received 2 known CTs and 0 known cardiac nuclear medicine studies in the 12 months prior to the current study. COMPARISON: CT head wo con* [id number] 05/07/2022 8:12 PM RADIATION DOSE METRICS: Total DLP (mGy-cm): 1206.31 FINDINGS: Brain: Normal. No hemorrhage. No space-occupying masses or areas of mass effect. No edema or midline shift. Cortical sulci are unremarkable for age. Cerebral ventricles: No ventriculomegaly. Paranasal sinuses: Visualized sinuses are unremarkable. No fluid levels. Mastoid air cells: Visualized mastoid air cells are well aerated. Bones/joints: Hyperostosis frontalis interna, unchanged, often incidental. No acute bony abnormalities. Soft tissues: Unremarkable. CT/CT head wo con* [id number] IMPRESSION: Negative CT examination of the head. No acute intracranial abnormalities.
--- NOTE | 2022-11-15 13:36 | XR_ITS ---
WS: [id number] Portable AP upright chest, 11/15/2022 Clinical Data: dyspnea/cough Comparison: Two-view chest, 11/12/2022 Findings: No nodules, masses or effusions are seen. The heart is normal. The pulmonary vascularity is not increased. No pneumonia or pneumothorax is seen. The aortic arch and descending thoracic aorta s how tortuosity. There are monitor leads on the chest wall. XR/XR chest 1V portable [id number] Impression: Atherosclerosis.
--- NOTE | 2022-11-15 13:38 | W.ED.AMS ---
HPI - Altered Mental Status General: Chief Complaint: Altered Mental Status Stated Complaint: weakness Time Seen by Provider: 11/15/22 13:24 Source: patient and family Mode of arrival: ambulatory History of Present Illness: 72-year-old male who presents to the emergency room with complaints of memory loss. He is chronically memory loss over the last couple of years but 3 days ago suddenly seemed to significantly worsen. He was recently seen for allergies and was started on an orsx-rke-gdaavil antihistamine. PFSH ED PFSH: Medical History BPH loc w urin obs/LUTS Mild lower urinary tract symptoms with good response to TAMSULOSIN. Low objective risk. No evidence of prostate cancer. Chronic neck pain Coronary artery disease Diabetic peripheral neuropathy associated with type 2 diabetes mellitus History of hypothyroidism History of prediabetes History of umbilical hernia HTN (hypertension) with goal to be determined Hx of myocardial infarction Hx of primary hypertension Hx of sleep apnea Hx-TIA (transient ischemic attack) Hyperlipidemia LDL goal <100 Psychiatric care Surgical History Gastric bypass status for obesity H/O gastric bypass H/O heart artery stent History of left knee surgery Hx of cholecystectomy Hx of tonsillectomy Hx of vasectomy S/P cataract surgery Family History Mother No problems noted. Father CAD (coronary artery disease) Other Diabetes Social History Smoking and tobacco status: former smoker Second hand smoke exposure: No Alcohol intake: current Alcohol intake frequency: few times a month Alcohol type: beer Substance/Drug Use: never Marital status: Current occupational status: disabled Course Vital Signs: Vital signs: Vital Signs Pulse Rate 47 L 11/15/22 13:23 Respiratory Rate 20 H 11/15/22 13:23 Blood Pressure 137/96 11/15/22 13:23 Pulse Oximetry 98 11/15/22 13:23 Oxygen Delivery Me thod Room Air 11/15/22 13:23 Discharge Plan Discharge Condition: Stable Prescriptions: No Action Adult 50 Plus Probiotic 4 billion cell capsule 4,000 mmu cells PO DAILY Rx Instructions: administer with a meal (DME) Bone growth stimulator E0748 See Rx Instructions .Route .MEDSUPPLY Qty: 1 0RF Rx Instructions: As directed [place] shoes See Rx Instructions .ROUTE .MEDSUPPLY Qty: 1 0RF Rx Instructions: With 3 pairs inserts albuterol sulfate 90 mcg/actuation HFA aerosol inhaler 2 puff inhalation Q6H PRN Rx Instructions: 2 puffs inhaled every 6 hours as needed fluticasone propionate 50 mcg/actuation spray,suspension 1 spray intranasal Q12H PRN Rx Instructions: administer into each nostril loratadine 10 mg tablet 10 mg PO DAILY PRN (Reason: allergy symptoms) 30 Days Qty: 30 1RF (DME) Diabetic shoes with 3 inserts See Rx Instructions .ROUTE .MEDSUPPLY Qty: 1 0RF Rx Instructions: As directed RISA&O atorvastatin 40 mg tablet 40 mg PO DAILY Qty: 90 1RF carvedilol 6.25 mg tablet 6.25 mg PO BID Qty: 180 1RF Rx Instructions: must administer with a meal/food chlorthalidone 25 mg tablet 25 mg PO DAILY 90 Days Qty: 90 1RF gabapentin 300 mg capsule 300 mg PO BID 90 Days Qty: 180 1RF tamsulosin 0.4 mg capsule 0.4 mg PO DAILY 90 Days Qty: 90 1RF pantoprazole [Protonix] 40 mg tablet,delayed release (DR/EC) 40 mg PO BID 90 Days Qty: 180 1RF tizanidine 2 mg tablet 2 mg PO BID PRN (Reason: muscle spasticity) 30 Days Qty: 60 2RF clopidogrel 75 mg tablet 75 mg PO DAILY Qty: 90 1RF Hold Instructions: Resume on 06/14/22. [place] Diabetic Shoes with 3 sets of Custom Molded Inserts See Rx Instructions .Route .MEDSUPPLY Qty: 1 0RF Rx Instructions: As directed HOME galantamine 8 mg tablet See Rx Instructions .ROUTE .COMPLEX Qty: 180 0RF Dose Instruction: TAKE 1 TABLET TWICE A DAY WITH MORNING AND EVENING MEALS Rx Instructions: TAKE 1 TABLET TWICE A DAY WITH MORNING AND EVENING MEALS bupivacaine (PF) 0.25 % (2.5 mg/mL) solution 1 ml intra-articular ONCE Qty: 1 0RF venlafaxine 150 mg capsule,extended release 24hr See Rx Instructions .ROUTE .COMPLEX Qty: 30 0RF Dose Instruction: TAKE 1 CAPSULE BY MOUTH EVERY DAY Rx Instructions: TAKE 1 CAPSULE BY MOUTH EVERY DAY aspirin 81 mg Tablet 81 mg PO DAILY levothyroxine 150 mcg tablet 150 mcg PO DAILY Rx Instructions: TAKE 1 TABLET BY MOUTH EVERY DAY EVERY MORNING Referrals: Arlette Singleton MD [Primary Care Provider] - Patient Instructions: Altered Mental Status (ED), Alcohol Intoxication (ED), Benzodiazepine Use Disorder (ED), Concussion (ED), Dementia (ED), Subarachnoid Hemorrhage (GEN), Hyponatremia (ED), Non-diabetic Hypoglycemia (ED), Hypoglycemia in a Person with Diabetes (ED) Coding Level of Care Code ED Hall Manager for Duran Perez
--- NOTE | 2022-11-15 13:53 | W.ED.NEUROSD ---
HPI - Neuro Symptoms/Deficit General: Chief Complaint: Altered Mental Status Stated Complaint: weakness Time Seen by Provider: 11/15/22 13:24 History of Present Illness: 72-year-old male who presents to the emergency room with complaints of memory loss. He is chronically memory loss over the last couple of years but 3 days ago suddenly seemed to significantly worsen. He was recently seen for allergies and was started on an [id number] antihistamine. He was seen today in with a walk-in clinic there is abnormal finger-nose testing concern he may have had a stroke recently in combination with his altered mental status. Onset (ago): day(s) Timing confirmed by: spouse Location: other (Recall, gait) Severity: mild Relieving factors: none Exacerbating factors: none Associated symptoms: Deny chest pain, cough, diaphoresis, fevers/chills, headache(s), anorexia, malaise, nausea, seizures, short of breath, syncope, tingling, vertigo, vomiting or weakness Treatments Prior to Arrival: none Review of Systems Const: Denies: fever(s), chills, fatigue, malaise or diaphoresis Card: Denies: chest pain, palpitations, irregular heart rhythm, edema or syncope Resp: Denies: dyspnea, productive cough or non-productive cough GI: Denies: abdominal pain, nausea or vomiting : Denies: flank pain, dysuria, urinary frequency or urinary urgency Musc: Denies: neck pain or back pain Skin/Breast: Denies: rash or pruritus Neuro: Denies: headache(s) or vertigo PFS ED PFSH: Medical History BPH loc w urin obs/LUTS Mild lower urinary tract symptoms with good response to TAMSULOSIN. Low objective risk. No evidence of prostate cancer. Chronic neck pain Coronary artery disease Diabetic peripheral neuropathy associated with type 2 diabetes mellitus History of hypothyroidism History of prediabetes History of umbilical hernia HTN (hypertension) with goal to be determined Hx of myocardial infarction Hx of primary hypertension Hx of sleep apnea Hx-TIA (transient ischemic attack) Hyperlipidemia LDL goal <100 Psychiatric care Surgical History Gastric bypass status for obesity H/O gastric bypass H/O heart artery stent History of left knee surgery Hx of cholecystectomy Hx of tonsillectomy Hx of vasectomy S/P cataract surgery Family History Mother No problems noted. Father CAD (coronary artery disease) Other Diabetes Social History Smoking and tobacco status: former smoker Second hand smoke exposure: No Alcohol intake: current Alcohol intake frequency: few times a month Alcohol type: beer Substance/Drug Use: never Marital status: Current occupational status: disabled NIH stroke score NIHSS: Level Of Consciousness - 1a: 0 Level Of Consciousness Questions - 1b: Both Correct Level Of Consciousness Commands - 1c: Both Correct Best Gaze - 2: Normal Visual [place] - 3: No Visual Loss Facial Palsy - 4: Normal Motor Arm Right - 5: No Drift Motor Arm Left - 5: No Drift Motor Leg Right - 6: No Drift Motor Leg Left - 6: No Drift Limb Ataxia - 7: Absent Sensory - 8: Normal Best Language - 9: No Aphasia Dysarthia - 10: Normal Extinction And Inattention - 11: 0 Score: Total Score: 0 Physical Exam Const: GENERAL APPEARANCE: cooperative and comfortable ORIENTATION/CONSCIOUSNESS: Yes awake, Yes oriented to person, Yes oriented to place and Yes oriented to time HENMT: COMMON NORMALS: normocephalic, atraumatic and hearing grossly normal bilaterally HEAD & SCALP: normocephalic and atraumatic Resp: COMMON NORMALS: normal respiratory effort, No retractions, No use of accessory muscles and clear to auscultation bilaterally AUSCULTATION: clear to auscultation bilaterally Cardio: COMMON NORMALS: regular rate, regular rhythm and No murmurs present (Cardio) RATE: regular rate RHYTHM: regular rhythm GI: COMMON NORMALS: Soft to palpation and No hepatosplenomegaly present AUSCULTATION: Yes normoactive bowel sounds PALPATION: Yes Soft to palpation, No Tenderness to palpation present (GI), No Guarding due to palpation present (GI) and Yes No hepatosplenomegaly present Extremity: COMMON NORMALS: normal to inspection, capillary refill normal, no clubbing, cyanosis or edema, no calf tenderness and no pedal edema Neuro: SENSORIUM/ORIENTATION: Yes oriented to person, Yes oriented to place and Yes oriented to time Skin: COMMON NORMALS: no rashes or lesions noted GENERAL SKIN EXAM: no rashes or lesions noted Course Vital Signs: Vital signs: Vital Signs Pulse Rate 49 L 11/15/22 15:27 Respiratory Rate 16 11/15/22 15:27 Blood Pressure 121/73 11/15/22 15:27 Pulse Oximetry 99 11/15/22 15:27 Oxygen Delivery Me thod Room Air 11/15/22 13:23 MDM - Neuro Symptoms/Deficit Medical Decision Making Patient reporting increased memory loss and weakness last few days. He is significantly bradycardic at times radiating down into the 30s. He has had a few arrhythmias as well. Some that looks like self terminating V. tach. He was asymptomatic with all these episodes since others were obviously artifactual. We will place patient on observation discussed Dr. Balderrama orders written he currently is on carvedilol dose may need to be adjusted. CT of the head did not show any acute bleed or subacute stroke. He has no focal neurologic deficits noted at this time. Medical Records I reviewed the patient's medical records. Lab Data I reviewed the patient's lab results. 11/15/22 13:45 11/15/22 13:45 Radiology Impressions Chest X-Ray 11/15/22 13:36 Impression: Atherosclerosis. Head CT 11/15/22 13:36 IMPRESSION: Negative CT examination of the head. No acute intracranial abnormalities. Laboratory Results WBC 7.9 10^3/uL (4.0-10.0) 11/15/22 13:45 RBC 5.15 10^6/uL (4.1-5.3) 11/15/22 13:45 Hgb 12.3 g/dL (11.7-16.6) 11/15/22 13:45 Hct 42.4 % (42.0-52.0) 11/15/22 13:45 MCV 82.3 fl (80-94) 11/15/22 13:45 MCH 23.9 pg (28.0-34.0) L 11/15/22 13:45 MCHC 29.0 g/dL (30.0-36.0) L 11/15/22 13:45 RDW 15.2 % (12.1-15.1) H 11/15/22 13:45 Plt Count 262 10^3/cmm (130-400) 11/15/22 13:45 MPV 9.6 fL (7.4-10.4) 11/15/22 13:45 Neut % (Auto) 53.6 % 11/15/22 13:45 Lymph % (Auto) 30.6 % 11/15/22 13:45 [place] % (Auto) 9.9 % 11/15/22 13:45 Eos % (Auto) 4.7 % 11/15/22 13:45 Baso % (Auto) 0.9 % 11/15/22 13:45 Neut # (Auto) 4.25 10^3/uL (1.8-7.7) 11/15/22 13:45 Lymph # (Auto) 2.4 10^3/uL (0.8-4.8) 11/15/22 13:45 [place] # (Auto) 0.8 10^3/uL (0.2-0.9) 11/15/22 13:45 Eos # (Auto) 0.4 10^3/uL (0.0-0.8) 11/15/22 13:45 Baso # (Auto) 0.1 10^3/uL (0.0-0.1) 11/15/22 13:45 Nucleated RBC % (auto) 0 % 11/15/22 13:45 Nucleated RBCs # 0.0 /100WBC 11/15/22 13:45 Sodium 144 mmol/L (136-145) 11/15/22 13:45 Potassium 3.5 mmol/L (3.5-5.1) 11/15/22 13:45 Chloride 108 mmol/L (98-107) H 11/15/22 13:45 Carbon Dioxide 26 mmol/L (22-29) 11/15/22 13:45 Anion Gap 13.5 (5-19) 11/15/22 13:45 BUN 13 mg/dL (8-23) 11/15/22 13:45 Creatinine 1.0 mg/dL (0.7-1.2) 11/15/22 13:45 GFR Calculation Not Reportable 11/15/22 13:45 Glucose 85 mg/dL (65-115) 11/15/22 13:45 Calculated Osmolality 297 mOsm/kg (285-295) H 11/15/22 13:45 Calcium 8.8 mg/dL (8.5-10.5) 11/15/22 13:45 Magnesium 1.8 mg/dL (1.7-2.3) 11/15/22 13:45 Total Bilirubin 0.5 mg/dL (0.15-1.2) 11/15/22 13:45 AST 13 U/L (0-40) 11/15/22 13:45 ALT 8 U/L (0-41) 11/15/22 13:45 Alkaline Phosphatase 75 U/L (40-130) 11/15/22 13:45 Troponin T Baseline 26 ng/L (0-15) H 11/15/22 13:45 Troponin T 120 Minute 26.99 ng/L (0-15) H 11/15/22 15:30 Delta Troponin T 0.99 ABS# (0-10) 11/15/22 15:30 Total Protein 6.7 g/dL (6.6-8.7) 11/15/22 13:45 Albumin 3.8 g/dL (3.5-5.2) 11/15/22 13:45 Globulin 2.9 g/dL (1.3-4.6) 11/15/22 13:45 Urine Color Yellow (Yellow) 11/15/22 13:56 Urine Appearance Clear (CLEAR) 11/15/22 13:56 Urine pH 5 (5-7) 11/15/22 13:56 Ur Specific [place] 1.020 (1.005-1.030) 11/15/22 13:56 Urine Protein Trace (Negative) 11/15/22 13:56 Urine Glucose (UA) Norm (Normal) 11/15/22 13:56 Urine Ketones Negative (Negative) 11/15/22 13:56 Urine Blood Neg (Negative) 11/15/22 13:56 Urine Nitrate Negative (Negative) 11/15/22 13:56 Urine Bilirubin 1+ (Negative) H 11/15/22 13:56 Urine Urobilinogen 1 mg/dL (Negative) H 11/15/22 13:56 Ur Leukocyte Esterase Negative (Negative) 11/15/22 13:56 Urine RBC 0-4 /hpf (0-2) H 11/15/22 13:56 Urine WBC 0-4 /hpf (0-5) H 11/15/22 13:56 Ur Squamous Epith Cells 0-4 /hpf (0-5) H 11/15/22 13:56 Amorphous Sediment Not Reportable 11/15/22 13:56 Urine Bacteria Trace /hpf (NONE) 11/15/22 13:56 Urine Mucus Trace /hpf 11/15/22 13:56 Discharge Plan Discharge Patient Disposition: Placed in Observation Clinical Impression: Bradycardia, Alzheimer disease, Generalized weakness Coding Level of Care Code ED Bottom Cementer for Duran Perez
[2022-11-15 13:54] LABS: Basophils # 0.1 10^3/uL (0.0-0.1); Basophils % 0.9 %; Eosinophils # 0.4 10^3/uL (0.0-0.8); Eosinophils % 4.7 %; Hematocrit 42.4 % (42.0-52.0); Hemoglobin 12.3 g/dL (11.7-16.6); Lymphocytes # 2.4 10^3/uL (0.8-4.8); Lymphocytes % 30.6 %; Mean Corpuscular Hemoglobin 23.9 pg (28.0-34.0); Mean Corpuscular Volume 82.3 fl (80-94); Mean Platelet Volume 9.6 fL (7.4-10.4); Monocytes # 0.8 10^3/uL (0.2-0.9); Monocytes % 9.9 %; Neutrophils # 4.25 10^3/uL (1.8-7.7); Neutrophils % 53.6 %; Nucleated Red Blood Cells % 0 %; Platelet Count 262 10^3/cmm (130-400); Red Blood Count 5.15 10^6/uL (4.1-5.3); Red Cell Distribution Width 15.2 % (12.1-15.1); White Blood Count 7.9 10^3/uL (4.0-10.0)
--- NOTE | 2022-11-15 14:08 | ECG_ITS ---
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 Measurements Intervals [place] Rate: 41 P: 59 DE: 258 QRS: 0 QRSD: 97 T: 44 QT: 504 QTc: 417 Interpretive Statements SINUS BRADYCARDIA WITH SINUS ARRHYTHMIA WITH FIRST DEGREE AV BLOCK Compared to ECG 03/27/2021 10:21:02 Myocardial infarct finding no longer present Electronically Signed On 11-15-2022 23:04:13 CDT by Johnnie Painter M.D. [id number]
[2022-11-15 14:12] LABS: Alanine Aminotransferase 8 U/L (0-41); Albumin Level 3.8 g/dL (3.5-5.2); Alkaline Phosphatase 75 U/L (40-130); Anion Gap 13.5 (5-19); Aspartate Amino Transferase 13 U/L (0-40); Blood Urea Nitrogen 13 mg/dL (8-23); Calcium 8.8 mg/dL (8.5-10.5); Carbon Dioxide 26 mmol/L (22-29); Chloride 108 mmol/L (98-107); Creatinine Clr Calc Pharmacy 87.0151; Globulin 2.9 g/dL (1.3-4.6); Glucose 85 mg/dL (65-115); Magnesium 1.8 mg/dL (1.7-2.3); Osmolality Calculated 297 mOsm/kg (285-295); Potassium 3.5 mmol/L (3.5-5.1); Sodium 144 mmol/L (136-145); Total Bilirubin 0.5 mg/dL (0.15-1.2); Total Protein 6.7 g/dL (6.6-8.7)
[2022-11-15 14:18] LABS: Add Urine Microscopic? YES; Bilirubin Urine 1+ (Negative); Blood Urine Neg (Negative); Glucose Urine UA Norm (Normal); Ketones Urine Negative (Negative); Leukocyte Esterase Urine Negative (Negative); Nitrate Urine Negative (Negative); Protein Urine Trace (Negative); Urine Appearance Clear (CLEAR); Urine Color Yellow (Yellow); Urobilinogen Urine 1 mg/dL (Negative); pH Urine 5 (5-7)
[2022-11-15 14:19] LABS: Add Urine Culture? No; Bacteria Urine TRACE /hpf; Mucus Urine TRACE /hpf; RBC Urine 0-4 /hpf (0-2); Squamous Epithelial Cell Urine 0-4 /hpf (0-5); WBC Urine 0-4 /hpf (0-5)
[2022-11-15 14:26] LABS: Troponin(5th) Baseline 26 ng/L (0-15)
--- NOTE | 2022-11-15 15:36 | ECG_ITS ---
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 Measurements Intervals [place] Rate: 49 P: -47 MS: 265 QRS: 7 QRSD: 102 T: 54 QT: 503 QTc: 458 Interpretive Statements SINUS BRADYCARDIA WITH FIRST DEGREE AV BLOCK PROBABLE LATERAL MYOCARDIAL INFARCTION , PROBABLY OLD [35 ms Q WAVE IN I/aVL/V5/V6] Compared to ECG 11/15/2022 14:08:15 Myocardial infarct finding now present Sinus arrhythmia no longer present Electronically Signed On 11-15-2022 23:06:08 CDT by Johnnie Painter M.D. [id number]
[2022-11-15 15:59] LABS: Troponin 5 2HR 26.99 ng/L (0-15)
[2022-11-15 16:00] LABS: Troponin 5 2HR Delta 0.99 ABS# (0-10)
--- NOTE | 2022-11-15 17:06 | P.HP_ITS ---
Providers/Chief Complaint Admitting Physician: Chaparrita Balderrama MD Primary Care Provider: Arlette Singleton MD Chief Complaint: weakness History of Present Illness Jorge Ventura is a 72 year old male with PMH CAD with stenting procedure several years ago, Alzheimer's dementia who is presenting today wth c/o pre syncopal episodes and intermittent confusion. States his symptoms started on Friday (today is Friday). He started to feel as if he is having increasing word finding diffculty, increased memory impairment and gait instability. He feels as if he becomes blank in mid conversation before relaizing he is talking to someone. States that he feels wobbly while walking, uses a cane at baseline however the gait unsteadiness is worse than usual. States that he is dizzy partularly when standing up from lying down position. States that his HR has recently been in the 40-50, on recent outpatient cardiology appt his HR was noted to be 78. There have been no recent changes in his medication. EKG shows slow A fib. Trop baseline 26 and at 2 hrs 26.99, no significant delta. Denies chest pain or dyspnea. Denies swelling or overy weight gain. ROS positive for diarrhea this week, currently frequency reduced to twice per day. Daniel any abdominal pain, nausea, diarhea or fever. Review of Systems General: Reports: 10 or more systems reviewed and unremarkable except in HPI and below Const: Denies: fever(s), chills or body aches Eyes: Denies: change in vision, blurry vision or photophobia ENMT: Reports: hoarseness; Denies: throat pain, enlarged tonsils, odynophagia or nasal congestion Card: Denies: chest pain, palpitations, irregular heart rhythm, edema, swelling of feet/ankles, lightheadedness, pre-syncope, dyspnea on exertion or orthopnea Resp: Denies: dyspnea, productive cough, non-productive cough, wheezing, stridor, pain on inspiration, change in phlegm color, hemoptysis or chest congestion GI: Denies: abdominal pain, nausea, vomiting, hematemesis, coffee ground emesis, dysphagia, heartburn, diarrhea, constipation, GI cramping, change in stool character, hematochezia or melena : Denies: flank pain, dysuria, urinary frequency, urinary urgency, urinary hesitancy or hematuria Musc: Denies: neck pain, back pain, extremity pain, joint swelling, joint warmth or deformity Neuro: Denies: headache(s), numbness in extremities, weakness in extremities, sensory changes, difficulty walking, frequent falls, dizziness, vertigo, behavioral changes, Slurred speech present or seizure-like activity Psych: Denies: anxiety, depression, suicidal ideation or homicidal ideation Endo: Denies: polyuria, polydipsia, tired all the time, cold intolerance or h ot flashes Tone/Lymph: Denies: easy bruising or easy bleeding Medications/Allergies Home Medications Medication Instructions Recorded Confirmed Last Taken Type Diabetic shoes #1 ea 06/06/20 11/15/22 Unknown Rx Bone growth stimulator [id number] #1 ea 04/17/21 11/15/22 Unknown Rx Diabetic shoes with 3 inserts #1 ea 01/01/22 11/15/22 Unknown Rx levothyroxine 150 mcg tablet 150 mcg PO DAILY 06/11/22 11/15/22 11/15/22 History atorvastatin 40 mg tablet 40 mg PO DAILY #90 tabs 08/05/22 11/15/22 11/15/22 Rx carvedilol 6.25 mg tablet 6.25 mg PO BID #180 tabs 08/05/22 11/15/22 11/15/22 Rx chlorthalidone 25 mg tablet 25 mg PO DAILY 90 days #90 tabs 08/05/22 11/15/22 11/15/22 Rx clopidogrel 75 mg tablet 75 mg PO DAILY #90 tabs 08/05/22 11/15/22 11/15/22 Rx gabapentin 300 mg capsule 300 mg PO BID pain 90 days #180 08/05/22 11/15/22 11/15/22 Rx caps pantoprazole 40 mg tablet,delayed 40 mg PO BID 90 days #180 tabs 08/05/22 11/15/22 11/15/22 Rx release (Protonix) tamsulosin 0.4 mg capsule 0.4 mg PO DAILY 90 days #90 caps 08/05/22 11/15/22 11/15/22 Rx tizanidine 2 mg tablet 2 mg PO BID PRN muscle spasticity 08/05/22 11/15/22 11/15/22 Rx 30 days #60 tabs galantamine 8 mg tablet See Rx Instructions .Route 09/02/22 11/15/22 11/15/22 Rx .COMPLEX #180 tabs Diabetic Shoes with 3 sets of #1 ea 10/16/22 11/15/22 Unknown Rx Custom Molded Insets loratadine 10 mg tablet 10 mg PO DAILY PRN allergy 11/12/22 11/15/22 Unknown Rx symptoms 30 days #30 tabs aspirin 81 mg tablet,delayed 81 mg PO DAILY 11/15/22 11/15/22 11/15/22 History release venlafaxine 150 mg 150 mg PO DAILY 11/15/22 11/15/22 11/15/22 History capsule,extended release 24 hr Allergies Allergy/AdvReac Type Severity Reaction Status Date / Time No Known Allergies Allergy Verified 11/15/22 11:02 PFSH Acute PFSH: Medical History BPH loc w urin obs/LUTS Mild lower urinary tract symptoms with good response to TAMSULOSIN. Low objective risk. No evidence of prostate cancer. Chronic neck pain Coronary artery disease Diabetic peripheral neuropathy associated with type 2 diabetes mellitus History of hypothyroidism History of prediabetes History of umbilical hernia HTN (hypertension) with goal to be determined Hx of myocardial infarction Hx of primary hypertension Hx of sleep apnea Hx-TIA (transient ischemic attack) Hyperlipidemia LDL goal <100 Psychiatric care Surgical History Gastric bypass status for obesity H/O gastric bypass H/O heart artery stent History of left knee surgery Hx of cholecystectomy Hx of tonsillectomy Hx of vasectomy S/P cataract surgery Family History Mother No problems noted. Father CAD (coronary artery disease) Other Diabetes Social History Smoking and tobacco status: former smoker Second hand smoke exposure: No Alcohol intake: current Alcohol intake frequency: few times a month Alcohol type: beer Substance/Drug Use: never Marital status: Current occupational status: disabled Vitals/I&O/Wt Last Vital Signs Pulse 48 L 11/15/22 16:40 Resp 14 11/15/22 16:40 BP 158/86 11/15/22 16:40 Pulse Ox 100 11/15/22 16:40 O2 Del Method Room Air 11/15/22 13:23 Weight last 48 hrs Weight 124.284 kg Physical Exam Narrative: General: No acute distress, AO x3 HEENT: PERRLA, pupils bilaterally equal and reactive, pallors not present Chest: Normal vesicular breath sounds, no added sounds, equal good air entry bilaterally CVS: S1-S2 regular, no murmurs, no tachycardia, no gallops, no rubs Abdomen: Soft, nontender, no organomegaly, bowel sounds present Neuro: No focal deficits, no facial deformity, AO x3, power 5/5 in all limbs EXT: no edema, clubbing, cyanosis Data 11/16/22 06:34 11/16/22 06:34 A&P Assessment and plan (1) Bradycardia: (2) Pre-syncope: (3) Alzheimer disease: (4) H/O heart artery stent: Plan Patient presenting with c/o dizziness, gait instability, memory disturbances worsened over the past week CT head upon admission negative for acute intracranial abnormalities He has no current focal deficits, low suspicion for CVA ; if symptoms persist after imprvement in HR, may need MR to assess posterior circulation CVA Symptoms appear to be pre syncopal with reported dizziness Bradycardia noted on EKG, admitted to [facility] on telemtery monitoring rhythm appears to be slow a fib Will hold carvedilol and await improvement in heart rate Started on IVF 100 cc/hr given ongoing diarrhea over the past week , will continue clinically currently euvolemic EKG without acute st-t wave changes, baseline trop 26, 2 hr 26.99, no sinifcnat delta, pending 6 hr trop screen for Pe with d dimer, low probability overall check TSH K within range check orthostatics Attestations Medical Necessity Statement*: anticipate less than 2 midnight stay currently Coding Level of Care Code Acute Code for Chg Fwd Diagnoses Bradycardia R00.1 Pre-syncope R55 Alzheimer disease G30.9; F02.80 H/O heart artery stent Z95.5
[2022-11-15] MEDS: gabapentin 300 mg Capsule PO (17:39)
[2022-11-15] MEDS: sodium chloride 0.9% 1,000 ML 100 ML IV (17:39)
--- NOTE | 2022-11-15 19:36 | ECG_ITS ---
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 Measurements Intervals [place] Rate: 40 P: 0 MA: 0 QRS: -3 QRSD: 103 T: 64 QT: 506 QTc: 416 Interpretive Statements ATRIAL FIBRILLATION WITH SLOW VENTRICULAR RESPONSE POSSIBLE LATERAL MYOCARDIAL INFARCTION , PROBABLY OLD [30 ms Q WAVE IN I/aVL/V5/V6] Compared to ECG 11/15/2022 15:24:05 Sinus bradycardia no longer present First degree AV block no longer present Myocardial infarct finding still present Electronically Signed On 11-15-2022 23:05:48 CDT by Johnnie Painter M.D. [id number]
[2022-11-15 20:37] LABS: Troponin 5 6HR 25.47 ng/L (0-15); Troponin 5 6HR Delta -0.53 ng/L (0-12)
[2022-11-15 20:42] LABS: D Dimer 0.43 ug/mIFEU (0-0.59)
[2022-11-15 21:18] LABS: Thyroid Stimulating Hormone 0.82 uIU/mL (0.27-4.20)
[2022-11-16] VITALS (62 sets, daily range): BP systolic 112–138; BP diastolic 62–75; PULSE 37–83; RESP 0–27; TEMP 36.6–37.2; O2SAT 92–99
[2022-11-16] MEDS: sodium chloride 0.9% 1,000 ML 100 ML IV ×3 (02:34→22:00)
[2022-11-16] MEDS: acetaminophen 325 mg Tablet 650 MG PO ×2 (02:37→20:06)
--- NOTE | 2022-11-16 06:00 | USCV_ITS ---
Jorge Ventura Age: 72 Gender: M : 1950 Exam Date: 11/16/2022 09:39 Ordering Phys: Chaparrita Balderrama MD Technologist: JEFF [place]am [place] [facility] [place]: syncope BP: / HR: 75 Rhythm: Other Technical Quality: Suboptimal MEASUREMENTS (Male / Female) Normal Values 2D ECHO LV Diastolic Diameter PLAX 5.4 cm 4.2 - 5.9 / 3.9 - 5.3 cm LV Systolic Diameter PLAX 3.8 cm IVS Diastolic Thickness 1.0 cm 0.6 - 1.0 / 0.6 - 0.9 cm IVS Systolic Thickness 1.3 cm LVPW Diastolic Thickness 1.1 cm 0.6 - 1.0 / 0.6 - 0.9 cm LVPW Systolic Thickness 1.3 cm LVOT Diameter 2.3 cm LV Ejection Fraction 2D Teich 57.2 % LV Ejection Fraction MOD 2C 53.2 % LV Ejection Fraction 2C AL 53.1 % LA Diameter 4.9 cm IVC Diameter 2.0 cm M-MODE Aortic Annulus Diameter 2.4 cm LA Ao Ratio MM 2.1 MV E Point Septal Separation 0.6 cm DOPPLER AV Peak Velocity 149.0 cm/s LVOT Peak Velocity 145.0 cm/s AV Area Cont Eq vti 3.8 cm squared AV Area Cont Eq pk 4.2 cm squared MV Area PHT 3.3 cm squared Mitral E to A Ratio 1.1 MV E' Velocity 66.0 cm/s Mitral E to MV E' Ratio 16.7 Mitral E to LV E' Lateral Ratio 14.5 Mitral E to LV E' Septal Ratio 19.9 TV Peak E Velocity 64.0 cm/s PV Peak Velocity 104.0 cm/s FINDINGS Left Ventricle Normal left ventricular size, systolic function and wall thickness, with no regional wall motion abnormalities. Grade I/IV diastolic dysfunction (abnormal relaxation filling pattern), normal to mildly elevated filling pressures. Left ventricular ejection fraction is estimated at 60 %. Right Ventricle Normal right ventricular size and systolic function. Right Atrium The right atrium is normal in size. Left Atrium Mildly increased left atrial size. Mitral Valve Structurally normal mitral valve. Trace mitral valve regurgitation. Aortic Valve Structurally normal trileaflet aortic valve. No aortic valve stenosis. Trace aortic valve regurgitation. Tricuspid Valve Structurally normal tricuspid valve. Trace tricuspid valve regurgitation. Pulmonic Valve Pulmonic valve not well visualized. Pericardium Normal pericardium without effusion. Aorta Normal ascending aorta dimension. IVC The inferior vena cava appears normal. CONCLUSIONS Normal left ventricular size, systolic function and wall thickness, with no regional wall motion abnormalities. Grade I/IV diastolic dysfunction (abnormal relaxation filling pattern), normal to mildly elevated filling pressures. Left ventricular ejection fraction is estimated at 60 %. Mildly increased left atrial size. Structurally normal mitral valve. Trace mitral valve regurgitation. Structurally normal trileaflet aortic valve. No aortic valve stenosis. Trace aortic valve regurgitation. There are no prior echocardiogram studies to compare. Dr. John Rizo MD (Electronically Signed) Final Date: 16 Nov 2022 14:44 S
[2022-11-16 07:57] LABS: Basophils % 0.6 %; Eosinophils # 0.4 10^3/uL (0.0-0.8); Eosinophils % 5.8 %; Hemoglobin 10.8 g/dL (11.7-16.6); Mean Corpuscular Hemoglobin 24.2 pg (28.0-34.0); Mean Corpuscular Volume 80.5 fl (80-94); Mean Platelet Volume 9.8 fL (7.4-10.4); Monocytes # 0.6 10^3/uL (0.2-0.9); Monocytes % 8.8 %; Neutrophils # 3.27 10^3/uL (1.8-7.7); Neutrophils % 52.6 %; Nucleated Red Blood Cells % 0 %; Platelet Count 246 10^3/cmm (130-400); Red Blood Count 4.47 10^6/uL (4.1-5.3); Red Cell Distribution Width 15.2 % (12.1-15.1); White Blood Count 6.2 10^3/uL (4.0-10.0)
[2022-11-16 08:18] LABS: Alanine Aminotransferase 7 U/L (0-41); Albumin Level 3.2 g/dL (3.5-5.2); Alkaline Phosphatase 65 U/L (40-130); Anion Gap 13.1 (5-19); Aspartate Amino Transferase 12 U/L (0-40); Blood Urea Nitrogen 14 mg/dL (8-23); Calcium 8.2 mg/dL (8.5-10.5); Carbon Dioxide 24 mmol/L (22-29); Chloride 106 mmol/L (98-107); Creatinine Clr Calc Pharmacy 87.0151; Globulin 2.6 g/dL (1.3-4.6); Glucose 89 mg/dL (65-115); Osmolality Calculated 290 mOsm/kg (285-295); Potassium 3.1 mmol/L (3.5-5.1); Sodium 140 mmol/L (136-145); Total Bilirubin 0.5 mg/dL (0.15-1.2); Total Protein 5.8 g/dL (6.6-8.7)
[2022-11-16] MEDS: tamsulosin 0.4 mg Capsule PO (10:11)
[2022-11-16] MEDS: levothyroxine 150 mcg Tablet PO (10:11)
[2022-11-16] MEDS: venlafaxine ER (24HR) 150 mg Capsule PO (10:12)
[2022-11-16] MEDS: gabapentin 300 mg Capsule PO ×2 (10:12→17:20)
[2022-11-16] MEDS: pantoprazole DR 40 mg Tablet PO (10:12)
[2022-11-16] MEDS: atorvastatin 40 mg Tablet PO (10:12)
[2022-11-16] MEDS: clopidogrel 75 mg Tablet PO (10:12)
[2022-11-16] MEDS: aspirin 81 mg EC Tablet PO (10:13)
--- NOTE | 2022-11-16 10:43 | ECG_ITS ---
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 Measurements Intervals [place] Rate: 39 P: 0 [place]: 0 QRS: -21 QRSD: 104 T: 0 QT: 508 QTc: 411 Interpretive Statements Sinus rhythm with likely second-degree AV block type II LOW QRS VOLTAGE IN PRECORDIAL LEADS [QRS DEFLECTION < 1.0 mV IN CHEST LEADS] PROBABLE LATERAL MYOCARDIAL INFARCTION , PROBABLY OLD [35 ms Q WAVE IN I/aVL/V5/V6] CRITICAL TEST RESULT Compared to ECG 11/15/2022 21:14:44 Low QRS voltage now present Myocardial infarct finding still present Electronically Signed On 11-17-2022 10:17:18 CDT by John Rizo M.D. [id number]
--- NOTE | 2022-11-16 11:59 | PM.PN ---
Subjective Subjective: HR 38-39 today, appear to have high degree AV blcok intermittently on tele. K at 3.1 today. No orthostatic drop in BP Medications: Reviewed: Yes Vitals/I&O/Wt Last Vital Signs Temp 98.2 F 11/16/22 08:00 Pulse 83 11/16/22 08:00 Resp 16 11/16/22 08:00 BP 119/62 11/16/22 08:00 Pulse Ox 95 11/16/22 04:00 O2 Del Method Nasal Cannula 11/16/22 04:00 11/15/22 11/16/22 11/16/22 22:59 06:59 14:59 Intake Total 532 / 532 991.667 / 1523.667 120 / 120 Balance 532 / 532 991.667 / 1523.667 120 / 120 Weight last 48 hrs Weight 124.284 kg Physical Exam Narrative: General: No acute distress, AO x3 HEENT: PERRLA, pupils bilaterally equal and reactive, pallors not present Chest: Normal vesicular breath sounds, no added sounds, equal good air entry bilaterally CVS: S1-S2 regular, no murmurs, no tachycardia, no gallops, no rubs Abdomen: Soft, nontender, no organomegaly, bowel sounds present Neuro: No focal deficits, no facial deformity, AO x3, power 5/5 in all limbs Data 11/16/22 06:34 11/16/22 06:34 A&P Assessment and plan (1) Bradycardia: (2) Pre-syncope: (3) Alzheimer disease: (4) H/O heart artery stent: Plan Patient presenting with c/o dizziness, gait instability, memory disturbances worsened over the past week CT head upon admission negative for acute intracranial abnormalities He has no current focal deficits, low suspicion for CVA ; if symptoms persist after imprvement in HR, may need MR to assess posterior circulation CVA Symptoms appear to be pre syncopal with reported dizziness Bradycardia noted on EKG, appears to have intermittent high degree AV block Consult cardiology continue to hold beta blockers additionally hold galantamine, bradyacrdia could be potential side effect echo pending EKG without acute st-t wave changes, baseline trop 26, 2 hr 26.99, 6 hr 25 negative d dimer, low probability PE TSH within range K at 3.1, replete orthostatics without significant drop in BP Attestations Medical Necessity Statement*: persisting bradyacrdia, herat block, cardiology consult, continued monitoring needed, change to inpatient Coding Level of Care Code Acute Code for Chg Fwd Diagnoses Bradycardia R00.1 Pre-syncope R55 Alzheimer disease G30.9; F02.80 H/O heart artery stent Z95.5
[2022-11-16] MEDS: potassium chloride ER 20 mEq Tablet 40 MEQ PO (12:16)
--- NOTE | 2022-11-16 16:21 | PM.CONSULT ---
Providers/Reason For Consult Consulting Physician/Specialty*: Cardiaovascular medicine Reason for Consult*: Bradycardia Requesting Physician: Hospitalist Attending Physician: Chaparrita Balderrama MD Primary Care Provider: Arlette Singleton MD History of Present Illness History of Present Illness Jorge Ventura is a 72 year old male who has a history of coronary disease with previous stenting, diabetes with peripheral neuropathy, thyroid disease, hypertension, prior myocardial infarction, sleep apnea, obesity, TIAs, dyslipidemia, status post bariatric surgery, prior tobacco abuse, chronic migraines and some mild cognitive difficulties. He and his are trying to raise a very small child who is probably less than a-year-old. This is a grandchild. He saw his primary seat cover maker Dr. Painter 2 days ago. He describes some wobbliness while walking. I do not think he was quite upfront in the office as he has been here. He was brought to the emergency room yesterday with weakness, presyncope, dizziness and some worsening confusion. The symptoms have been there for several weeks but they have worsened in the last 3 days. He describes an unsteadiness of his gait, some confusion and forgetfulness. He will describe having a conversation and suddenly going black during the conversation and recognizing that he goes away for a few seconds after he comes back. He has a hemoglobin of 10.8, potassium of 3.1 which has been replaced and troponins of 25 and 26. His chest x-ray has been negative. Head CT was negative. His EKG shows sinus rhythm with very brief episodes of second-degree AV block type II. The EKGs are difficult to interpret because of the low voltage however his telemetry monitoring strips show clear evidence of second-degree AV block type II and probably some rare episodes of third-degree heart block. Review of Systems Narrative: Review of systems is negative other than what is described in the history of present illness Medications/Allergies Home Medications Medication Instructions Recorded Confirmed Last Taken Type Diabetic shoes #1 ea 06/06/20 11/15/22 Unknown Rx Bone growth stimulator [id number] #1 ea 04/17/21 11/15/22 Unknown Rx Diabetic shoes with 3 inserts #1 ea 01/01/22 11/15/22 Unknown Rx levothyroxine 150 mcg tablet 150 mcg PO DAILY 06/11/22 11/15/22 11/15/22 History atorvastatin 40 mg tablet 40 mg PO DAILY #90 tabs 01/23/23 05/05/23 05/05/23 Rx carvedilol 6.25 mg tablet 6.25 mg PO BID #180 tabs 08/05/22 11/15/22 11/15/22 Rx chlorthalidone 25 mg tablet 25 mg PO DAILY 90 days #90 tabs 08/05/22 11/15/22 11/15/22 Rx clopidogrel 75 mg tablet 75 mg PO DAILY #90 tabs 08/05/22 11/15/22 11/15/22 Rx gabapentin 300 mg capsule 300 mg PO BID pain 90 days #180 08/05/22 11/15/22 11/15/22 Rx caps pantoprazole 40 mg tablet,delayed 40 mg PO BID 90 days #180 tabs 08/05/22 11/15/22 11/15/22 Rx release (Protonix) tamsulosin 0.4 mg capsule 0.4 mg PO DAILY 90 days #90 caps 08/05/22 11/15/22 11/15/22 Rx tizanidine 2 mg tablet 2 mg PO BID PRN muscle spasticity 08/05/22 11/15/22 11/15/22 Rx 30 days #60 tabs galantamine 8 mg tablet See Rx Instructions .Route 09/02/22 11/15/22 11/15/22 Rx .COMPLEX #180 tabs Diabetic Shoes with 3 sets of #1 ea 10/16/22 11/15/22 Unknown Rx Custom Molded Insets loratadine 10 mg tablet 10 mg PO DAILY PRN allergy 11/12/22 11/15/22 Unknown Rx symptoms 30 days #30 tabs aspirin 81 mg tablet,delayed 81 mg PO DAILY 11/15/22 11/15/22 11/15/22 History release venlafaxine 150 mg 150 mg PO DAILY 11/15/22 11/15/22 11/15/22 History capsule,extended release 24 hr Allergies Allergy/AdvReac Type Severity Reaction Status Date / Time No Known Allergies Allergy Verified 11/15/22 11:02 Current Medications Generic Name Dose Route Start Last Admin Trade Name Freq PRN Reason Stop Dose Admin Acetaminophen 650 mg 11/15/22 16:57 11/16/22 02:37 Acetaminophen 325 Mg Tablet PO 650 mg Q6H PRN Administration Mild/Mod Pain Or Temp >/= 101 Aspirin 81 mg 11/16/22 09:00 11/16/22 10:13 Aspirin 81 Mg Ec Tablet PO 81 mg DAILY OMAR Administration Atorvastatin Calcium 40 mg 11/16/22 09:00 11/16/22 10:12 Atorvastatin 40 Mg Tablet PO 40 mg DAILY OMAR Administration Clopidogrel Bisulfate 75 mg 11/16/22 09:00 11/16/22 10:12 Clopidogrel 75 Mg Tablet PO 75 mg DAILY OMAR Administration Gabapentin 300 mg 11/15/22 18:00 11/16/22 10:12 Gabapentin 300 Mg Capsule PO 300 mg BID OMAR Administration Sodium Chloride 1,000 mls @ 100 mls/hr 11/15/22 16:46 11/16/22 13:07 Sodium Chloride 0.9% IV 100 mls/hr .Q10H OMAR Administration Levothyroxine Sodium 150 mcg 11/16/22 09:00 11/16/22 10:11 Levothyroxine 150 Mcg Tablet PO 150 mcg DAILY OMAR Administration Non-Formulary Medication 8 mg 11/16/22 09:00 11/16/22 10:13 Galantamine PO 8 mg BID OMAR Administration Pantoprazole Sodium 40 mg 11/16/22 09:00 11/16/22 10:[address] 40 Mg Tablet PO 40 mg DAILY OMAR Administration Tamsulosin HCl 0.4 mg 11/16/22 09:00 11/16/22 10:11 Tamsulosin 0.4 Mg Capsule PO 0.4 mg DAILY OMAR Administration Venlafaxine HCl 150 mg 11/16/22 09:00 11/16/22 10:12 Venlafaxine Er (24hr) 150 Mg Capsule PO 150 mg DAILY OMAR Administration PFSH Acute PFSH: Medical History (Updated 11/16/22 @ 16:27 by John Rizo MD) BPH loc w urin obs/LUTS Mild lower urinary tract symptoms with good response to TAMSULOSIN. Low objective risk. No evidence of prostate cancer. Chronic neck pain Coronary artery disease Diabetic peripheral neuropathy associated with type 2 diabetes mellitus High degree atrioventricular block History of hypothyroidism History of prediabetes History of umbilical hernia HTN (hypertension) with goal to be determined Hx of myocardial infarction Hx of primary hypertension Hx of sleep apnea Hx-TIA (transient ischemic attack) Hyperlipidemia LDL goal <100 Psychiatric care Surgical History Gastric bypass status for obesity H/O gastric bypass H/O heart artery stent History of left knee surgery Hx of cholecystectomy Hx of tonsillectomy Hx of vasectomy S/P cataract surgery Family History Mother No problems noted. Father CAD (coronary artery disease) Other Diabetes Social History Smoking and tobacco status: former smoker Second hand smoke exposure: No Alcohol intake: current Alcohol intake frequency: few times a month Alcohol type: beer Substance/Drug Use: never Marital status: Current occupational status: disabled Vitals/I&O/Wt Last Vital Signs Temp 98.2 F 11/16/22 08:00 Pulse 43 L 11/16/22 14:00 Resp 16 11/16/22 08:00 BP 119/62 11/16/22 08:00 Pulse Ox 95 11/16/22 04:00 O2 Del Method Nasal Cannula 11/16/22 04:00 11/16/22 11/16/22 11/16/22 06:59 14:59 22:59 Intake Total 991.667 / 3378.067 0291 / 1120 Balance 991.667 / 5696.459 7965 / 1120 Weight last 48 hrs Weight 274 lb Physical Exam Narrative: GENERAL: In general he is awake and alert and conversant now. HEENT: Exam within normal limits. NECK: Supple without jugular vein distention. The carotid upstroke is normal without bruits. BACK: Exam normal. LUNGS: Clear. HEART: Regular rate and rhythm. ABDOMEN: Benign without organomegaly or tenderness. EXTREMITIES: No edema. NEUROLOGIC: Exam normal. SKIN: Unremarkable. Data 11/16/22 06:34 11/16/22 06:34 A&P Assessment and plan (1) Pre-syncope: (2) Bradycardia: (3) Chronic migraine without aura, intractable, with status migrainosus: (4) H/O heart artery stent: (5) Hyperlipemia, mixed: (6) Mild cognitive impairment with memory loss: (7) Hyperlipidemia LDL goal <100: (8) Coronary artery disease: Qualifiers: Coronary Disease-Associated Artery/Lesion type: [place] artery [place] vs. transplanted heart: [place] heart Associated angina: without angina Qualified Code(s): I25.10 - Atherosclerotic heart disease of [place] coronary artery without angina pectoris (9) H/O gastric bypass: (10) Hypertension: Qualifiers: Hypertension type: essential hypertension Qualified Code(s): I10 - Essential (primary) hypertension (11) Obesity: Qualifiers: Obesity type: unspecified obesity type Obesity classification: adult class 3 (BMI >= 40) Serious obesity comorbidity presence: with serious comorbidity Body mass index: BMI 40.0-44.9 Qualified Code(s): E66.01 - Morbid (severe) obesity due to excess calories; Z68.41 - Body mass index [BMI]40.0-44.9, adult (12) Diet-controlled type 2 diabetes mellitus: (13) High degree atrioventricular block: Plan He needs a permanent pacemaker. He is on no medications which will cause heart block or bradycardia. He previously was on carvedilol but that has been discontinued. We will try to get this done the first part of next week. Consult Attestations Medical Necessity Statement: Hospitalization for syncope and high degree AV block and Moderate Time for a total of 40 minutes, includes reviewing past or interval history, examining/interviewing patient, counseling patient/family/other support, updating patient/family/other support, discussing plan of care with staff, documenting encounter and coordinating care Diagnoses Pre-syncope R55 Bradycardia R00.1 Chronic migraine without aura, intractable, with status migrainosus G43.711 H/O heart artery stent Z95.5 Hyperlipemia, mixed E78.2 Mild cognitive impairment with memory loss G31.84 Hyperlipidemia LDL goal <100 E78.5 Coronary artery disease I25.10 Coronary Disease-Associated Artery/Lesion type: [place] artery [place] vs. transplanted heart: [place] heart Associated angina: without angina H/O gastric bypass Z98.84 Hypertension I10 Hypertension type: essential hypertension Obesity E66.01; Z68.41 Obesity type: unspecified obesity type Obesity classification: adult class 3 (BMI >= 40) Serious obesity comorbidity presence: with serious comorbidity Body mass index: BMI 40.0-44.9 Diet-controlled type 2 diabetes mellitus E11.9 High degree atrioventricular block I44.39
[2022-11-17] VITALS (23 sets, daily range): BP systolic 105–138; BP diastolic 51–76; PULSE 37–61; RESP 4–20; TEMP 36.5–36.7; O2SAT 91–98
[2022-11-17 05:48] LABS: Anion Gap 12.6 (5-19); Blood Urea Nitrogen 11 mg/dL (8-23); Calcium 8.3 mg/dL (8.5-10.5); Carbon Dioxide 23 mmol/L (22-29); Chloride 109 mmol/L (98-107); Glucose 89 mg/dL (65-115); Magnesium 1.8 mg/dL (1.7-2.3); Osmolality Calculated 291 mOsm/kg (285-295); Potassium 3.6 mmol/L (3.5-5.1); Sodium 141 mmol/L (136-145)
--- NOTE | 2022-11-17 08:40 | P.PN_ITS ---
Subjective Subjective: Jorge is had an uneventful night. He is asymptomatic. His blood pressure has been stable. His heart rate drops into the 20s and 30s at night. He has intermittent high degree AV block. Hemodynamically he has been completely stable. Vitals/I&O/Wt Last Vital Signs Temp 97.7 F 11/17/22 07:55 Pulse 53 L 11/17/22 07:55 Resp 18 11/17/22 07:55 BP 130/74 11/17/22 07:55 Pulse Ox 98 11/17/22 07:55 O2 Del Method CPAP 11/17/22 07:55 11/16/22 11/17/22 11/17/22 22:59 06:59 14:59 Intake Total 1128.333 / 2248.333 100 / 2348.333 Balance 1128.333 / 2248.333 100 / 2348.333 Weight last 48 hrs Weight 274 lb Physical Exam Narrative: GENERAL: In general he looks and feels well HEENT: Exam within normal limits. NECK: Supple without jugular vein distention. The carotid upstroke is normal without bruits. BACK: Exam normal. LUNGS: Clear. HEART: Regular rate and rhythm. ABDOMEN: Benign without organomegaly or tenderness. EXTREMITIES: No edema. NEUROLOGIC: Exam normal. SKIN: Unremarkable. Data 11/16/22 06:34 11/17/22 04:48 A&P Assessment and plan (1) High degree atrioventricular block: (2) Pre-syncope: (3) Bradycardia: (4) Generalized weakness: (5) H/O heart artery stent: (6) Hyperlipemia, mixed: (7) Mild cognitive impairment with memory loss: (8) Coronary artery disease: Qualifiers: Coronary Disease-Associated Artery/Lesion type: [place] artery [place] vs. transplanted heart: [place] heart Associated angina: without angina Qualified Code(s): I25.10 - Atherosclerotic heart disease of [place] coronary artery without angina pectoris (9) H/O gastric bypass: (10) Hypertension: Qualifiers: Hypertension type: essential hypertension Qualified Code(s): I10 - Essential (primary) hypertension (11) Obesity: Qualifiers: Obesity type: unspecified obesity type Obesity classification: adult class 3 (BMI >= 40) Serious obesity comorbidity presence: with serious comorbidity Body mass index: BMI 40.0-44.9 Qualified Code(s): E66.01 - Morbid (severe) obesity due to excess calories; Z68.41 - Body mass index [BMI]40.0- 44.9, adult (12) Diet-controlled type 2 diabetes mellitus: Plan He is stable. Pacemaker is soon as possible Attestations Medical Necessity Statement*: Hospitalization for management of high grade AV block which is symptomatic. and Moderate Time for a total of 20 minutes, includes reviewing past or interval history, examining/interviewing patient, counseling patient/family/other support, updating patient/family/other support, discussing plan of care with staff and documenting encounter Diagnoses High degree atrioventricular block I44.39 Pre-syncope R55 Bradycardia R00.1 Generalized weakness R53.1 H/O heart artery stent Z95.5 Hyperlipemia, mixed E78.2 Mild cognitive impairment with memory loss G31.84 Coronary artery disease I25.10 Coronary Disease-Associated Artery/Lesion type: [place] artery [place] vs. transplanted heart: [place] heart Associated angina: without angina H/O gastric bypass Z98.84 Hypertension I10 Hypertension type: essential hypertension Obesity E66.01; Z68.41 Obesity type: unspecified obesity type Obesity classification: adult class 3 (BMI >= 40) Serious obesity comorbidity presence: with serious comorbidity Body mass index: BMI 40.0-44.9 Diet-controlled type 2 diabetes mellitus E11.9
[2022-11-17] MEDS: levothyroxine 150 mcg Tablet PO (09:21)
[2022-11-17] MEDS: tamsulosin 0.4 mg Capsule PO (09:21)
[2022-11-17] MEDS: gabapentin 300 mg Capsule PO ×2 (09:21→17:15)
[2022-11-17] MEDS: pantoprazole DR 40 mg Tablet PO (09:21)
[2022-11-17] MEDS: aspirin 81 mg EC Tablet PO (09:22)
[2022-11-17] MEDS: venlafaxine ER (24HR) 150 mg Capsule PO (09:22)
[2022-11-17] MEDS: atorvastatin 40 mg Tablet PO (09:22)
[2022-11-17] MEDS: clopidogrel 75 mg Tablet PO (09:22)
[2022-11-17] MEDS: acetaminophen 325 mg Tablet 650 MG PO ×2 (09:52→17:17)
[2022-11-17] MEDS: sodium chloride 0.9% 1,000 ML 100 ML IV (09:52)
--- NOTE | 2022-11-17 16:25 | PC.NURSE ---
Patient asked to take a shower this morning but I told him I would feel more comfortable if he waited until after pacemaker was put in due to his episodes of bradycardia (HR in the 30s) and the inability to get the mobile telemetry wet. Did offer the patient some warm bath wipes. This afternoon rewriter asked the patient if he would like to get up and walk the halls, which would be permissable with the mobile telemetry and he declined but said he might like to later .
--- NOTE | 2022-11-17 16:43 | PM.PN ---
Subjective Subjective: c/o headache today, otherwise no acute complaints. c/o diarrhea today Medications: Reviewed: Yes Vitals/I&O/Wt Last Vital Signs Temp 97.7 F 11/17/22 07:55 Pulse 47 L 11/17/22 14:17 Resp 19 H 11/17/22 13:00 BP 118/51 11/17/22 13:51 Pulse Ox 95 11/17/22 13:00 O2 Del Method Room Air 11/17/22 13:47 11/17/22 11/17/22 11/17/22 06:59 14:59 22:59 Intake Total 100 / 2348.333 2585 / 2585 Output Total 300 / 300 Balance 100 / 2348.333 2285 / 2285 Physical Exam Narrative: General: No acute distress, AO x3 HEENT: PERRLA, pupils bilaterally equal and reactive, pallors not present Chest: Normal vesicular breath sounds, no added sounds, equal good air entry bilaterally CVS: S1-S2 regular, no murmurs, no tachycardia, no gallops, no rubs Abdomen: Soft, nontender, no organomegaly, bowel sounds present Neuro: No focal deficits, no facial deformity, AO x3, power 5/5 in all limbs Data 11/16/22 06:34 11/17/22 04:48 A&P Assessment and plan (1) Bradycardia: (2) Pre-syncope: (3) Alzheimer disease: (4) H/O heart artery stent: Plan Patient presenting with c/o dizziness, gait instability, memory disturbances worsened over the past week CT head upon admission negative for acute intracranial abnormalities He has no current focal deficits, low suspicion for CVA ; if symptoms persist after imprvement in HR, may need MR to assess posterior circulation CVA Symptoms appear to be pre syncopal with reported dizziness Bradycardia noted on EKG, telemetry shows intermittent high degree AV block appreciate cardiology recommendations planned for PPM continue to hold beta blockers hold plavix anticipating procedure, last cath 2007 additionally hold galantamine, bradyacrdia could be potential side effect echo pending EKG without acute st-t wave changes, baseline trop 26, 2 hr 26.99, 6 hr 25 negative d dimer, low probability PE TSH within range K within range today orthostatics without significant drop in BP Attestations Medical Necessity Statement*: planned PPM placement Coding Level of Care Code Acute Code for Chg Fwd Diagnoses Bradycardia R00.1 Pre-syncope R55 Alzheimer disease G30.9; F02.80 H/O heart artery stent Z95.5
[2022-11-18] VITALS (12 sets, daily range): BP systolic 110–150; BP diastolic 58–93; PULSE 38–54; RESP 13–19; TEMP 36.4–37.1; O2SAT 94–98
[2022-11-18 04:00] LABS: Basophils # 0.1 10^3/uL (0.0-0.1); Basophils % 0.9 %; Eosinophils # 0.3 10^3/uL (0.0-0.8); Eosinophils % 5.6 %; Hematocrit 36.4 % (42.0-52.0); Hemoglobin 10.8 g/dL (11.7-16.6); Lymphocytes # 2.4 10^3/uL (0.8-4.8); Mean Corpuscular HGB Conc 29.7 g/dL (30.0-36.0); Mean Corpuscular Hemoglobin 23.8 pg (28.0-34.0); Mean Corpuscular Volume 80.2 fl (80-94); Mean Platelet Volume 9.4 fL (7.4-10.4); Monocytes # 0.5 10^3/uL (0.2-0.9); Monocytes % 8.3 %; Neutrophils # 2.59 10^3/uL (1.8-7.7); Nucleated Red Blood Cells % 0 %; Platelet Count 219 10^3/cmm (130-400); Red Blood Count 4.54 10^6/uL (4.1-5.3); Red Cell Distribution Width 15.3 % (12.1-15.1); White Blood Count 5.9 10^3/uL (4.0-10.0)
[2022-11-18 04:26] LABS: Alanine Aminotransferase 6 U/L (0-41); Albumin Level 3.4 g/dL (3.5-5.2); Alkaline Phosphatase 59 U/L (40-130); Anion Gap 13.3 (5-19); Aspartate Amino Transferase 10 U/L (0-40); Blood Urea Nitrogen 11 mg/dL (8-23); Calcium 8.1 mg/dL (8.5-10.5); Carbon Dioxide 25 mmol/L (22-29); Chloride 108 mmol/L (98-107); Globulin 2.2 g/dL (1.3-4.6); Glucose 79 mg/dL (65-115); Magnesium 1.5 mg/dL (1.7-2.3); Osmolality Calculated 294 mOsm/kg (285-295); Potassium 3.3 mmol/L (3.5-5.1); Sodium 143 mmol/L (136-145); Total Bilirubin 0.4 mg/dL (0.15-1.2); Total Protein 5.6 g/dL (6.6-8.7)
--- NOTE | 2022-11-18 08:59 | P.PN_ITS ---
Subjective Subjective: Patient has intermittent high degree AV block. Currently asymptomatic. No chest pain. Vitals/I&O/Wt Last Vital Signs Temp 98.5 F 11/18/22 07:35 Pulse 38 L 11/18/22 07:35 Resp 13 11/18/22 07:35 BP 147/71 11/18/22 07:35 Pulse Ox 98 11/18/22 07:35 O2 Del Method CPAP 11/18/22 06:11 11/17/22 11/18/22 11/18/22 22:59 06:59 14:59 Intake Total 476 / 3061 Balance 476 / 2761 Physical Exam Narrative: GENERAL: Patient is alert, awake and oriented x3. [] NECK: No jugular vein distension. [] HEENT: No cyanosis. No icterus. No pallor. [] HEART: Regular S1 and S2. LUNGS: Clear to auscultate bilaterally. [] CENTRAL NERVOUS SYSTEM: Grossly nonfocal. [] EXTREMITIES: Lower extremities with 1+ edema bilaterally. Pulses palpable in the lower extremities, both dorsalis pedis and posterior tibial. [] Data 11/18/22 03:13 11/18/22 03:13 A&P Assessment and plan (1) High degree atrioventricular block: (2) Pre-syncope: (3) Bradycardia: (4) Generalized weakness: (5) H/O heart artery stent: (6) Hyperlipemia, mixed: (7) Mild cognitive impairment with memory loss: (8) Coronary artery disease: Qualifiers: Coronary Disease-Associated Artery/Lesion type: [place] artery [place] vs. transplanted heart: [place] heart Associated angina: without angina Qualified Code(s): I25.10 - Atherosclerotic heart disease of [place] coronary artery without angina pectoris (9) H/O gastric bypass: (10) Hypertension: Qualifiers: Hypertension type: essential hypertension Qualified Code(s): I10 - Essential (primary) hypertension (11) Obesity: Qualifiers: Obesity type: unspecified obesity type Obesity classification: adult class 3 (BMI >= 40) Serious obesity comorbidity presence: with serious comorbidity Body mass index: BMI 40.0-44.9 Qualified Code(s): E66.01 - Morbid (severe) obesity due to excess calories; Z68.41 - Body mass index [BMI]40.0- 44.9, adult (12) Diet-controlled type 2 diabetes mellitus: Plan Patient is hemodynamically stable. His beta-anthony has been held. He has intermittent high degree AV block. Plan for pacemaker placement. Dr. Chirinos has been consulted for pacemaker placement. Keep holding rate controlling agents. Tele monitoring Thank you for involving us with care of this patient. Please call with questions. Attestations Medical Necessity Statement*: Care expected to cross 2 midnights. Coding Level of Care Code Acute Code for [facility] Fwd Diagnoses High degree atrioventricular block I44.39 Pre-syncope R55 Bradycardia R00.1 Generalized weakness R53.1 H/O heart artery stent Z95.5 Hyperlipemia, mixed E78.2 Mild cognitive impairment with memory loss G31.84 Coronary artery disease I25.10 Coronary Disease-Associated Artery/Lesion type: [place] artery [place] vs. transplanted heart: [place] heart Associated angina: without angina H/O gastric bypass Z98.84 Hypertension I10 Hypertension type: essential hypertension Obesity E66.01; Z68.41 Obesity type: unspecified obesity type Obesity classification: adult class 3 (BMI >= 40) Serious obesity comorbidity presence: with serious comorbidity Body mass index: BMI 40.0-44.9 Diet-controlled type 2 diabetes mellitus E11.9
[2022-11-18] MEDS: lidocaine 1% 5 ML in potassium chloride premix 100 ML 26.25 ML IV (09:05)
[2022-11-18] MEDS: gabapentin 300 mg Capsule PO ×2 (09:05→17:42)
[2022-11-18] MEDS: aspirin 81 mg EC Tablet PO (09:05)
[2022-11-18] MEDS: pantoprazole DR 40 mg Tablet PO (09:05)
[2022-11-18] MEDS: venlafaxine ER (24HR) 150 mg Capsule PO (09:05)
[2022-11-18] MEDS: tamsulosin 0.4 mg Capsule PO (09:05)
[2022-11-18] MEDS: levothyroxine 150 mcg Tablet PO (09:05)
[2022-11-18] MEDS: atorvastatin 40 mg Tablet PO (09:05)
[2022-11-18] MEDS: magnesium sulfate premix 2 GM/50 ML PIGGYBACK IV (09:06)
--- NOTE | 2022-11-18 10:32 | PC.CHAP ---
Pastoral Care Encounter/Spiritual Assessment Type of Contact [] Declined email marketing assistant visit [] Patient/Family/Request visit [] Outpatient visit [] Follow-up visit [] Physician referral [] Code/Alert [x] Routine visit [] Staff referral [] Actively dying [] Patient sleeping [] Family support [] [] Out of room [] Palliative care [] [] Receiving care in room [] Pre-surgical visit [] Trauma [] Long length of stay [] ICU visit [] Other: Relational/Emotional Strength [x] Patient feels connected with others/family/visitors/staff [] Distress [] Loneliness/isolation [] Abandonment Spirituality of Patient [x] Person of Megha [] Attends Moravian of their Megha [x] Believes in Prayer [] Reads Bible or Jehovah'S Witness materials [] There are Spiritual issues to be addressed Director Of Field Sales Interventions [x] Prayer [] Active listening [] Non-anxious presence [] Spiritual/emotional support [] Crisis/trauma care [] Spiritual counseling [] Bereavement support [] Provided bereavement packet [] Provided Bible/devotional materials [] Provided toy/stuffed animal, coloring book to patient or family member [] Provided Communion [] Anointing/[place] [] Salvation [x] Completed spiritual assessment [] Other: Impact on Illness or Injury [] Angry [] Fearful [] Anxious [] Often cries [] Exhaustion [] Unable to work [] Unable to attend scientologist [] Unable to walk/stand [] Unable to read [] Unable to drive [] Unable to eat/drink [] Unable to sleep [] Unable to be with family [] Patient intubated [] Other: Summary Time spent with patient 10 min
--- NOTE | 2022-11-18 13:20 | P.CONIM_ITS ---
Providers/Reason For Consult Consulting Physician/Specialty*: BONNIE Chirinos MD/cardiology Reason for Consult*: Permanent pacemaker implantation Requesting Physician: Dr. Painter/Dr. Tran Attending Physician: Darius Fabian MD Primary Care Provider: Arlette Singleton MD History of Present Illness History of Present Illness Jorge Ventura is a 72 year old male is a 72-year-old white male, he is admitted to hospital with a diagnosis of symptomatic bradycardia. He is known to have atherosclerotic heart diseas, high blood pressure, dyslipidemia, sleep apnea, GERD and hypothyroidism. Patient was found to have intermittent high degree AV block on the monitor. The beta-anthony was held since hospital admission. Patient continued to be bradycardic with a heart rate dropping into the 30s and 40s. Dr. Painter evaluated this patient this morning. I was asked to consider a permanent pacer implantation on this patient for further management of his condition Patient denies any fever or chills. He has having a cough mostly dry for the last few days. He did not have any other signs of infection. The cough was thought to be allergic in nature. No unusual shortness of breath. He is known to have obstructive sleep apnea and is on CPAP. Patient known to have coronary disease and had PCI in 2007. Has not had any significant chest pain or any specific cardiac symptoms since then. He has been having episodes of dizziness/near syncopal episodes. He also has some worsening of his memory. He has underlying problems with dementia. According to his , there is a significant worsening of his memory for the last couple of weeks. Review of Systems Narrative: CONSTITUTIONAL: No fever or chills. EYES: No blurring of vision or other visual disturbances lately. ENT: No hoarseness of voice, auditory disturbances or sore throat. CARDIOVASCULAR: As mentioned above. RESPIRATORY: Sleep apnea and has some baseline shortness of breath. GASTROINTESTINAL: Had a gastric bypass surgery a year ago and lost 105 pounds, GENITOURINARY: No dysuria or hematuria. INTEGUMENTARY: No skin rashes or history of skin cancer. NEURO: History of dementia with worsening memory as mentioned above PSYCHIATRIC: No history of psychosis or major depression. HEMATOLOGIC: No bleeding disorders or significant anemia. ENDOCRINE: No history of polyuria or polydipsia. MUSCULOSKELETAL: No recent joint pain or swelling. ALLERGY/IMMUNOLOGY: As mentioned above. Medications/Allergies Home Medications Medication Instructions Recorded Confirmed Last Taken Type Diabetic shoes #1 ea 06/06/20 11/15/22 Unknown Rx Bone growth stimulator [id number] #1 ea 04/17/21 11/15/22 Unknown Rx Diabetic shoes with 3 inserts #1 ea 01/01/22 11/15/22 Unknown Rx levothyroxine 150 mcg tablet 150 mcg PO DAILY 06/11/22 11/15/22 11/15/22 History atorvastatin 40 mg tablet 40 mg PO DAILY #90 tabs 08/05/22 11/15/22 11/15/22 Rx carvedilol 6.25 mg tablet 6.25 mg PO BID #180 tabs 08/05/22 11/15/22 11/15/22 Rx chlorthalidone 25 mg tablet 25 mg PO DAILY 90 days #90 tabs 08/05/22 11/15/22 11/15/22 Rx clopidogrel 75 mg tablet 75 mg PO DAILY #90 tabs 08/05/22 11/15/22 11/15/22 Rx gabapentin 300 mg capsule 300 mg PO BID pain 90 days #180 08/05/22 11/15/22 11/15/22 Rx caps pantoprazole 40 mg tablet,delayed 40 mg PO BID 90 days #180 tabs 08/05/22 11/15/22 11/15/22 Rx release (Protonix) tamsulosin 0.4 mg capsule 0.4 mg PO DAILY 90 days #90 caps 08/05/22 11/15/22 11/15/22 Rx tizanidine 2 mg tablet 2 mg PO BID PRN muscle spasticity 08/05/22 11/15/22 11/15/22 Rx 30 days #60 tabs galantamine 8 mg tablet See Rx Instructions .Route 09/02/22 11/15/22 11/15/22 Rx .COMPLEX #180 tabs Diabetic Shoes with 3 sets of #1 ea 10/16/22 11/15/22 Unknown Rx Custom Molded Insets loratadine 10 mg tablet 10 mg PO DAILY PRN allergy 11/12/22 11/15/22 Unknown Rx symptoms 30 days #30 tabs aspirin 81 mg tablet,delayed 81 mg PO DAILY 11/15/22 11/15/22 11/15/22 History release venlafaxine 150 mg 150 mg PO DAILY 11/15/22 11/15/22 11/15/22 History capsule,extended release 24 hr Allergies Allergy/AdvReac Type Severity Reaction Status Date / Time No Known Allergies Allergy Verified 11/15/22 11:02 Current Medications Generic Name Dose Route Start Last Admin Trade Name Cayla PRN Reason Stop Dose Admin Acetaminophen 650 mg 11/15/22 16:57 11/17/22 17:17 Acetaminophen 325 Mg Tablet PO 650 mg Q6H PRN Administration Mild/Mod Pain Or Temp >/= 101 Aspirin 81 mg 11/16/22 09:00 11/18/22 09:05 Aspirin 81 Mg Ec Tablet PO 81 mg DAILY OMAR Administration Atorvastatin Calcium 40 mg 11/16/22 09:00 11/18/22 09:05 Atorvastatin 40 Mg Tablet PO 40 mg DAILY OMAR Administration Clopidogrel Bisulfate 75 mg 11/16/22 09:00 11/17/22 09:22 Clopidogrel 75 Mg Tablet PO 75 mg DAILY OMAR Administration Gabapentin 300 mg 11/15/22 18:00 11/18/22 09:05 Gabapentin 300 Mg Capsule PO 300 mg BID OMAR Administration Levothyroxine Sodium 150 mcg 11/16/22 09:00 11/18/22 09:05 Levothyroxine 150 Mcg Tablet PO 150 mcg DAILY OMAR Administration Non-Formulary Medication 8 mg 11/16/22 09:00 11/16/22 10:13 Galantamine PO 8 mg BID OMAR Administration Pantoprazole Sodium 40 mg 11/16/22 09:00 11/18/22 09:[address] 40 Mg Tablet PO 40 mg DAILY OMAR Administration Tamsulosin HCl 0.4 mg 11/16/22 09:00 11/18/22 09:05 Tamsulosin 0.4 Mg Capsule PO 0.4 mg DAILY OMAR Administration Venlafaxine HCl 150 mg 11/16/22 09:00 11/18/22 09:05 Venlafaxine Er (24hr) 150 Mg Capsule PO 150 mg DAILY OMAR Administration PFSH Acute PFSH: Medical History (Updated 11/18/22 @ 16:15 by Darius Fabian MD) BPH loc w urin obs/LUTS Mild lower urinary tract symptoms with good response to TAMSULOSIN. Low objective risk. No evidence of prostate cancer. Chronic neck pain Coronary artery disease Diabetic peripheral neuropathy associated with type 2 diabetes mellitus High degree atrioventricular block History of hypothyroidism History of prediabetes History of umbilical hernia HTN (hypertension) with goal to be determined Hx of myocardial infarction Hx of primary hypertension Hx of sleep apnea Hx-TIA (transient ischemic attack) Hyperlipidemia LDL goal <100 Psychiatric care Surgical History (Updated 11/18/22 @ 13:40 by Anabelle Chirinos MD) Gastric bypass status for obesity H/O gastric bypass H/O heart artery stent History of left knee surgery Hx of cholecystectomy Hx of tonsillectomy Hx of vasectomy S/P cataract surgery Family History Mother No problems noted. Father CAD (coronary artery disease) Other Diabetes Social History Smoking and tobacco status: former smoker Second hand smoke exposure: No Alcohol intake: current Alcohol intake frequency: few times a month Alcohol type: beer Substance/Drug Use: never Marital status: Current occupational status: disabled Vitals/I&O/Wt Last Vital Signs Temp 98.5 F 11/18/22 07:35 Pulse 38 L 11/18/22 07:35 Resp 13 11/18/22 07:35 BP 147/71 11/18/22 07:35 Pulse Ox 95 11/18/22 09:56 O2 Del Method Room Air 11/18/22 09:56 11/17/22 11/18/22 11/18/22 22:59 06:59 14:59 Intake Total 476 / 3061 50 / 50 Balance 476 / 2761 50 / 50 Physical Exam Narrative: GENERAL: The patient is alert and oriented times three. Not in any acute distress. Moderately obese HEENT: No significant pallor, icterus or lymphadenopathy.Oral cavity: There are no mucous membrane lesions. NECK: Trachea appears to be central. No masses noted. No JVD or thyromegaly appreciated. RESPIRATORY: Chest is symmetrical. No intercostals muscle retraction or any accessory muscle activation. There is no chest wall tenderness. Breath sounds are heard bilaterally. No rales or rhonchi heard. No evidence of any consolidation. BREASTS: Deferred. HEART: The heart sounds are normal. No S3 or S4. No significant murmurs. No pericardial rub ABDOMEN: No vessel pulsations or distention. No tenderness. No organomegaly appreciated. Bowel sounds are normally heard. : Deferred. RECTAL: Deferred. LYMPHATIC: No lymphadenopathy noted in the neck. EXTREMITIES: No edema or cyanosis. No clubbing. MUSCULOSKELETAL: No acute joint deformities or swelling SKIN: There are no significant rashes or ecchymosis NEUROPSYCHIATRIC: The patient is alert and oriented x3. Appears to be in a good mood. No tremors or rigidity noted. Data 11/18/22 03:13 11/18/22 03:13 Other Labs: Laboratory Last Values WBC 5.9 10^3/uL (4.0-10.0) 11/18/22 03:13 RBC 4.54 10^6/uL (4.1-5.3) 11/18/22 03:13 Hgb 10.8 g/dL (11.7-16.6) L 11/18/22 03:13 Hct 36.4 % (42.0-52.0) L 11/18/22 03:13 MCV 80.2 fl (80-94) 11/18/22 03:13 MCH 23.8 pg (28.0-34.0) L 11/18/22 03:13 MCHC 29.7 g/dL (30.0-36.0) L 11/18/22 03:13 RDW 15.3 % (12.1-15.1) H 11/18/22 03:13 Plt Count 219 10^3/cmm (130-400) 11/18/22 03:13 MPV 9.4 fL (7.4-10.4) 11/18/22 03:13 Neut % (Auto) 44.0 % 11/18/22 03:13 Lymph % (Auto) 41.0 % 11/18/22 03:13 [place] % (Auto) 8.3 % 11/18/22 03:13 Eos % (Auto) 5.6 % 11/18/22 03:13 Baso % (Auto) 0.9 % 11/18/22 03:13 Neut # (Auto) 2.59 10^3/uL (1.8-7.7) 11/18/22 03:13 Lymph # (Auto) 2.4 10^3/uL (0.8-4.8) 11/18/22 03:13 [place] # (Auto) 0.5 10^3/uL (0.2-0.9) 11/18/22 03:13 Eos # (Auto) 0.3 10^3/uL (0.0-0.8) 11/18/22 03:13 Baso # (Auto) 0.1 10^3/uL (0.0-0.1) 11/18/22 03:13 Nucleated RBC % (auto) 0 % 11/18/22 03:13 Nucleated RBCs # 0.0 /100WBC 11/18/22 03:13 D-Dimer 0.43 ug/mIFEU (0-0.59) 11/15/22 19:55 Sodium 143 mmol/L (136-145) 11/18/22 03:13 Potassium 3.3 mmol/L (3.5-5.1) L 11/18/22 03:13 Chloride 108 mmol/L (98-107) H 11/18/22 03:13 Carbon Dioxide 25 mmol/L (22-29) 11/18/22 03:13 Anion Gap 13.3 (5-19) 11/18/22 03:13 BUN 11 mg/dL (8-23) 11/18/22 03:13 Creatinine 0.8 mg/dL (0.7-1.2) 11/18/22 03:13 GFR Calculation Not Reportable 11/18/22 03:13 Glucose 79 mg/dL (65-115) 11/18/22 03:13 Calculated Osmolality 294 mOsm/kg (285-295) 11/18/22 03:13 Calcium 8.1 mg/dL (8.5-10.5) L 11/18/22 03:13 Magnesium 1.5 mg/dL (1.7-2.3) L 11/18/22 03:13 Total Bilirubin 0.4 mg/dL (0.15-1.2) 11/18/22 03:13 AST 10 U/L (0-40) 11/18/22 03:13 ALT 6 U/L (0-41) 11/18/22 03:13 Alkaline Phosphatase 59 U/L (40-130) 11/18/22 03:13 Troponin T Baseline 26 ng/L (0-15) H 11/15/22 13:45 Troponin T 120 Minute 26.99 ng/L (0-15) H 11/15/22 15:30 Delta Troponin T 0.99 ABS# (0-10) 11/15/22 15:30 Troponin T Hi Sens 6Hr 25.47 ng/L (0-15) H 11/15/22 19:55 Troponin T Hi Sens 6Hr Delta -0.53 ng/L (0-12) L 11/15/22 19:55 Total Protein 5.6 g/dL (6.6-8.7) L 11/18/22 03:13 Albumin 3.4 g/dL (3.5-5.2) L 11/18/22 03:13 Globulin 2.2 g/dL (1.3-4.6) 11/18/22 03:13 TSH 0.82 uIU/mL (0.27-4.20) 11/15/22 19:55 Urine Color Yellow (Yellow) 11/15/22 13:56 Urine Appearance Clear (CLEAR) 11/15/22 13:56 Urine pH 5 (5-7) 11/15/22 13:56 Ur Specific [place] 1.020 (1.005-1.030) 11/15/22 13:56 Urine Protein Trace (Negative) 11/15/22 13:56 Urine Glucose (UA) Norm (Normal) 11/15/22 13:56 Urine Ketones Negative (Negative) 11/15/22 13:56 Urine Blood Neg (Negative) 11/15/22 13:56 Urine Nitrate Negative (Negative) 11/15/22 13:56 Urine Bilirubin 1+ (Negative) H 11/15/22 13:56 Urine Urobilinogen 1 mg/dL (Negative) H 11/15/22 13:56 Ur Leukocyte Esterase Negative (Negative) 11/15/22 13:56 Urine RBC 0-4 /hpf (0-2) H 11/15/22 13:56 Urine WBC 0-4 /hpf (0-5) H 11/15/22 13:56 Ur Squamous Epith Cells 0-4 /hpf (0-5) H 11/15/22 13:56 Amorphous Sediment Not Reportable 11/15/22 13:56 Urine Bacteria Trace /hpf (NONE) 11/15/22 13:56 Urine Mucus Trace /hpf 11/15/22 13:56 Echo: My impression: Normal left ventricular size, systolic function and wall ?thickness, with no regional wall motion abnormalities. Grade ?I/IV diastolic dysfunction (abnormal relaxation filling ?pattern), normal to mildly elevated filling pressures. Left ?ventricular ejection fraction is estimated at 60 %. ?Mildly increased left atrial size. ?Structurally normal mitral valve. Trace mitral valve ?regurgitation. ?Structurally normal trileaflet aortic valve. No aortic valve ?stenosis. Trace aortic valve regurgitation. ?There are no prior echocardiogram studies to compare CXR: My impression: Normal cardiac silhouette. No lung infiltrate. No acute pathology noted EKG 1: My Interpretation: Sinus bradycardia with a sinus arrhythmia. First-degree AV block. Heart rate in the 40s. No acute ST-T changes. A&P Assessment and plan (1) Symptomatic bradycardia: Patient continues to have episodes of bradycardia with a heart rate in the 30s and 40s, even after stopping the beta-anthony for more than 48 hours. His clinical features are consistent with a sinus gauri dysfunction (2) High degree atrioventricular block: Patient has intermittent second-degree type II AV block. For further might have medical condition, a permanent pacer implantation would be appropriate. (3) Alzheimer disease: Continue on the current measures. (4) Hyperlipemia, mixed: Continue on the current measures. (5) Atherosclerosis of coronary artery of [place] heart without angina pectoris: Patient had a PCI in 2007. He has been taking Plavix. He is off Plavix for the last 2 days. May continue the baby aspirin. (6) Hypertension: The blood pressure is mostly under control. Qualifiers: Hypertension type: essential hypertension Qualified Code(s): I10 - Essential (primary) hypertension Plan The need for permanent pacemaker evaluation, risk and benefits were discussed with the patient and his in detail. The risk of bleeding, hematoma, vascular injury, myocardial perforation, pericardial tamponade pneumothorax, infection, renal failure and other concomitant complications were explained in detail. The patient and the understood this well and consented to proceed. We will make the arrangements to have it done as early as possible. Consult Attestations Medical Necessity Statement: Patient requires continued hospital stay for close monitoring and further management Coding Level of Care Code 45782 Diagnoses Symptomatic bradycardia R00.1 High degree atrioventricular block I44.39 Alzheimer disease G30.9; F02.80 Hyperlipemia, mixed E78.2 Atherosclerosis of coronary artery of [place] heart without angina pectoris I25.10 Hypertension I10 Hypertension type: essential hypertension
--- NOTE | 2022-11-18 14:51 | XRR_ITS ---
PROCEDURE INFORMATION: Exam: XR Chest Exam date and time: 11/18/2022 2:11 PM Age: 72 years old Clinical indication: Cough; Prior surgery; Surgery date: 6+ months; Surgery type: Heart stent TECHNIQUE: Imaging protocol: Radiologic exam of the chest. Views: 1 view. COMPARISON: CR XR chest 1V portable [id number] 11/15/2022 2:02 PM FINDINGS: Lungs: Unremarkable. No consolidation. Pleural spaces: Unremarkable. No pleural effusion. No pneumothorax. Heart/Mediastinum: Unremarkable. No cardiomegaly. Bones/joints: Unremarkable. XR/XR chest 1V portable [id number] IMPRESSION: No acute findings.
--- NOTE | 2022-11-18 14:52 | PM.PN ---
Subjective Subjective: Patient was seen and examined this morning, he has denied any chest pain shortness of breath, dizziness, maintaining a decent blood pressure.Patient is due for permanent pacemaker placement tomorrow afternoon.Hypokalemia and hypomagnesemia correction has been undertaken. Medications: Reviewed: Yes Medication Review Details: Generic Name Dose Route Start Last Admin Trade Name Simonq PRN Reason Stop Dose Admin Acetaminophen 650 mg 11/15/22 16:57 11/17/22 17:17 Acetaminophen 32 5 Mg Tablet PO 650 mg Q6H PRN Administration Mild/Mod Pain Or Temp >/= 101 Aspirin 81 mg 11/16/22 09:00 11/18/22 09:05 Aspirin 81 Mg Ec Tablet PO 81 mg DAILY OMAR Administration Atorvastatin Calci um 40 mg 11/16/22 09:00 11/18/22 09:05 Atorvastatin 40 Mg Tablet PO 40 mg DAILY OMAR Administration Clopidogrel Bisulf ate 75 mg 11/16/22 09:00 11/17/22 09:22 Clopidogrel 75 M g Tablet PO 75 mg DAILY OMAR Administration Gabapentin 300 mg 11/15/22 18:00 11/18/22 09:05 Gabapentin 300 M g Capsule PO 300 mg BID OMAR Administration Levothyroxine [place] um 150 mcg 11/16/22 09:00 11/18/22 09:05 Levothyroxine 15 0 Mcg Tablet PO 150 mcg DAILY OMAR Administration Non-Formulary Medi cation 8 mg 11/16/22 09:00 11/16/22 10:13 Galantamine PO 8 mg BID OMAR Administration Pantoprazole [place] m 40 mg 11/16/22 09:00 11/18/22 09:[address] 40 Mg Tablet PO 40 mg DAILY OMAR Administration Tamsulosin HCl 0.4 mg 11/16/22 09:00 11/18/22 09:05 Tamsulosin 0.4 M g Capsule PO 0.4 mg DAILY OMAR Administration Venlafaxine HCl 150 mg 11/16/22 09:00 11/18/22 09:05 Venlafaxine Er ( 24hr) 150 Mg Capsu le PO 150 mg DAILY OMAR Administration Vitals/I&O/Wt Last Vital Signs Temp 98.4 F 11/18/22 12:00 Pulse 54 L 11/18/22 12:00 Resp 16 11/18/22 12:00 BP 149/83 11/18/22 12:00 Pulse Ox 97 11/18/22 12:00 O2 Del Method Room Air 11/18/22 09:56 11/17/22 11/18/22 11/18/22 22:59 06:59 14:59 Intake Total 476 / 3061 395 / 395 Balance 476 / 2761 395 / 395 Physical Exam Const: COMMON NORMALS: patient oriented x3 HENMT: COMMON NORMALS: normocephalic and atraumatic HEAD & SCALP: normocephalic and atraumatic Resp: COMMON NORMALS: clear to auscultation bilaterally AUSCULTATION: clear to auscultation bilaterally Cardio: COMMON NORMALS: regular rate, S1 normal heart sound present and S2 normal heart sound present RATE: regular rate HEART SOUNDS: S1 normal heart sound present and S2 normal heart sound present GI: COMMON NORMALS: Normal to inspection, nondistended, normoactive bowel sounds present, Soft to palpation, non-tender, No hepatosplenomegaly present and no masses AUSCULTATION: Yes normoactive bowel sounds PALPATION: Yes Soft to palpation and Yes No hepatosplenomegaly present RECTAL EXAM: Yes deferred Extremity: COMMON NORMALS: no clubbing, cyanosis or edema and no pedal edema Neuro: COMMON NORMALS: patient oriented x3 Data 11/18/22 03:13 11/18/22 03:13 A&P Assessment and plan (1) Bradycardia: (2) Pre-syncope: (3) Alzheimer disease: (4) H/O heart artery stent: (5) Hypokalemia: (6) Hypomagnesemia: Plan Patient presenting with c/o dizziness, gait instability, memory disturbances worsened over the past week CT head upon admission negative for acute intracranial abnormalities He has no current focal deficits, low suspicion for CVA ; if symptoms persist after imprvement in HR, may need MR to assess posterior circulation CVA Symptoms appear to be pre syncopal with reported dizziness Bradycardia noted on EKG, telemetry shows intermittent high degree AV block appreciate cardiology recommendations planned for PPM continue to hold beta blockers hold plavix anticipating procedure, last cath 2007 additionally hold galantamine, bradyacrdia could be potential side effect echo pending EKG without acute st-t wave changes, baseline trop 26, 2 hr 26.99, 6 hr 25 negative d dimer, low probability PE TSH within range K within range today orthostatics without significant drop in BP Attestations Medical Necessity Statement*: Needs to be in hospital for placement of permanent pacemaker. Coding Level of Care Code Acute Code for Chg Fwd Diagnoses Bradycardia R00.1 Pre-syncope R55 Alzheimer disease G30.9; F02.80 H/O heart artery stent Z95.5 Hypokalemia E87.6 Hypomagnesemia E83.42
[2022-11-19] VITALS (14 sets, daily range): BP systolic 109–137; BP diastolic 61–83; PULSE 36–62; RESP 15–25; TEMP 36.7–37; O2SAT 94–99
[2022-11-19 04:44] LABS: Basophils # 0.1 10^3/uL (0.0-0.1); Basophils % 0.8 %; Eosinophils # 0.3 10^3/uL (0.0-0.8); Eosinophils % 5.2 %; Hematocrit 35.6 % (42.0-52.0); Hemoglobin 10.7 g/dL (11.7-16.6); Lymphocytes # 2.4 10^3/uL (0.8-4.8); Lymphocytes % 37.3 %; Mean Corpuscular HGB Conc 30.1 g/dL (30.0-36.0); Mean Corpuscular Hemoglobin 23.9 pg (28.0-34.0); Mean Corpuscular Volume 79.6 fl (80-94); Mean Platelet Volume 9.4 fL (7.4-10.4); Monocytes # 0.5 10^3/uL (0.2-0.9); Monocytes % 7.2 %; Neutrophils # 3.22 10^3/uL (1.8-7.7); Neutrophils % 49.3 %; Nucleated Red Blood Cells % 0 %; Platelet Count 209 10^3/cmm (130-400); Red Blood Count 4.47 10^6/uL (4.1-5.3); Red Cell Distribution Width 15.2 % (12.1-15.1); White Blood Count 6.5 10^3/uL (4.0-10.0)
[2022-11-19 05:10] LABS: Alanine Aminotransferase 7 U/L (0-41); Albumin Level 3.3 g/dL (3.5-5.2); Alkaline Phosphatase 60 U/L (40-130); Anion Gap 12.7 (5-19); Aspartate Amino Transferase 12 U/L (0-40); Blood Urea Nitrogen 12 mg/dL (8-23); Calcium 8.2 mg/dL (8.5-10.5); Carbon Dioxide 26 mmol/L (22-29); Chloride 107 mmol/L (98-107); Globulin 2.3 g/dL (1.3-4.6); Glucose 82 mg/dL (65-115); Magnesium 1.7 mg/dL (1.7-2.3); Osmolality Calculated 293 mOsm/kg (285-295); Potassium 3.7 mmol/L (3.5-5.1); Sodium 142 mmol/L (136-145); Total Bilirubin 0.4 mg/dL (0.15-1.2); Total Protein 5.6 g/dL (6.6-8.7)
[2022-11-19] MEDS: sodium chloride 0.9% 1,000 ML 75 ML IV (08:44)
--- NOTE | 2022-11-19 09:35 | P.PN_ITS ---
Subjective Subjective: Patient is feeling okay. He continues to have bradycardia, first-degree AV block and sinus pauses on the telemetry. Intermittent type II second-degree AV block. Denies any chest pain. No fever or chills. No unusual shortness of breath. Repeat chest x-ray from yesterday was unremarkable. Medications: Medication Review Details: Current Medications Acetaminophen (Acetaminophen 325 Mg Tablet) 650 mg PO Q6H PRN PRN Reason: Mild/Mod Pain Or Temp >/= 101 Last Admin: 11/17/22 17:17 Dose: 650 mg Aspirin (Aspirin 81 Mg Ec Tablet) 81 mg PO DAILY COUNT INCLUDES THE [facility] Last Admin: 11/18/22 09:05 Dose: 81 mg Atorvastatin Calcium (Atorvastatin 40 Mg Tablet) 40 mg PO DAILY COUNT INCLUDES THE [facility] Last Admin: 11/18/22 09:05 Dose: 40 mg Clopidogrel Bisulfate (Clopidogrel 75 Mg Tablet) 75 mg PO DAILY COUNT INCLUDES THE [facility] Last Admin: 11/17/22 09:22 Dose: 75 mg Gabapentin (Gabapentin 300 Mg Capsule) 300 mg PO BID COUNT INCLUDES THE [facility] Last Admin: 11/18/22 17:42 Dose: 300 mg Sodium Chloride (Sodium Chloride 0.9%) 1,000 mls @ 75 mls/hr IV .[id number] COUNT INCLUDES THE [facility] Last Admin: 11/19/22 08:44 Dose: 75 mls/hr Cefazolin Sodium 1,000 mg/ (Sodium Chloride) 50 mls @ 100 mls/hr IV [employer]; Protocol Stop: 11/19/22 12:29 Levothyroxine Sodium (Levothyroxine 150 Mcg Tablet) 150 mcg PO DAILY COUNT INCLUDES THE [facility] Last Admin: 11/18/22 09:05 Dose: 150 mcg Loratadine (Loratadine 10 Mg Tablet) 10 mg PO DAILY PRN PRN Reason: allergy symptoms Non-Formulary Medication (Galantamine) 8 mg PO BID COUNT INCLUDES THE [facility] Last Admin: 11/16/22 10:13 Dose: 8 mg Ondansetron HCl (Ondansetron 2 Mg/Ml Sdv 2 Ml) 4 mg IVP Q8H PRN PRN Reason: vomiting, or N/V if npo Pantoprazole Sodium (Pantoprazole Dr 40 Mg Tablet) 40 mg PO DAILY COUNT INCLUDES THE [facility] Last Admin: 11/18/22 09:05 Dose: 40 mg Tamsulosin HCl (Tamsulosin 0.4 Mg Capsule) 0.4 mg PO DAILY COUNT INCLUDES THE [facility] Last Admin: 11/18/22 09:05 Dose: 0.4 mg Tizanidine HCl (Tizanidine 4 Mg Tablet) 2 mg PO BID PRN PRN Reason: muscle spasticity Venlafaxine HCl (Venlafaxine Er (24hr) 150 Mg Capsule) 150 mg PO DAILY COUNT INCLUDES THE [facility] Last Admin: 11/18/22 09:05 Dose: 150 mg Vitals/I&O/Wt Last Vital Signs Temp 98.6 F 11/19/22 03:49 Pulse 52 L 11/19/22 08:00 Resp 16 11/19/22 08:00 BP 123/61 11/19/22 08:00 Pulse Ox 95 11/19/22 03:49 O2 Del Method CPAP 11/19/22 03:49 11/18/22 11/19/22 11/19/22 22:59 06:59 14:59 Intake Total 240 / 635 120 / 755 Balance 240 / 635 120 / 755 Physical Exam Narrative: GENERAL: The patient is alert and oriented times three. Not in any acute distress. Moderately obese HEENT: No significant pallor, icterus or lymphadenopathy.Oral cavity: There are no mucous membrane lesions. NECK: Trachea appears to be central. No masses noted. No JVD or thyromegaly appreciated. RESPIRATORY: Chest is symmetrical. No intercostals muscle retraction or any accessory muscle activation. There is no chest wall tenderness. Breath sounds are heard bilaterally. No rales or rhonchi heard. No evidence of any consolidation. BREASTS: Deferred. HEART: The heart sounds are normal. No S3 or S4. No significant murmurs. No pericardial rub ABDOMEN: No vessel pulsations or distention. No tenderness. No organomegaly appreciated. Bowel sounds are normally heard. : Deferred. RECTAL: Deferred. LYMPHATIC: No lymphadenopathy noted in the neck. EXTREMITIES: No edema or cyanosis. No clubbing. MUSCULOSKELETAL: No acute joint deformities or swelling SKIN: There are no significant rashes or ecchymosis NEUROPSYCHIATRIC: The patient is alert and oriented x3. Appears to be in a good mood. No tremors or rigidity noted. Data 11/19/22 04:22 11/19/22 04:22 Other Labs: Laboratory Last Values WBC 6.5 10^3/uL (4.0-10.0) 11/19/22 04:22 RBC 4.47 10^6/uL (4.1-5.3) 11/19/22 04:22 Hgb 10.7 g/dL (11.7-16.6) L 11/19/22 04:22 Hct 35.6 % (42.0-52.0) L 11/19/22 04:22 MCV 79.6 fl (80-94) L 11/19/22 04:22 MCH 23.9 pg (28.0-34.0) L 11/19/22 04:22 MCHC 30.1 g/dL (30.0-36.0) 11/19/22 04:22 RDW 15.2 % (12.1-15.1) H 11/19/22 04:22 Plt Count 209 10^3/cmm (130-400) 11/19/22 04:22 MPV 9.4 fL (7.4-10.4) 11/19/22 04:22 Neut % (Auto) 49.3 % 11/19/22 04:22 Lymph % (Auto) 37.3 % 11/19/22 04:22 [place] % (Auto) 7.2 % 11/19/22 04:22 Eos % (Auto) 5.2 % 11/19/22 04:22 Baso % (Auto) 0.8 % 11/19/22 04:22 Neut # (Auto) 3.22 10^3/uL (1.8-7.7) 11/19/22 04:22 Lymph # (Auto) 2.4 10^3/uL (0.8-4.8) 11/19/22 04:22 [place] # (Auto) 0.5 10^3/uL (0.2-0.9) 11/19/22 04:22 Eos # (Auto) 0.3 10^3/uL (0.0-0.8) 11/19/22 04:22 Baso # (Auto) 0.1 10^3/uL (0.0-0.1) 11/19/22 04:22 Nucleated RBC % (auto) 0 % 11/19/22 04:22 Nucleated RBCs # 0.0 /100WBC 11/19/22 04:22 D-Dimer 0.43 ug/mIFEU (0-0.59) 11/15/22 19:55 Sodium 142 mmol/L (136-145) 11/19/22 04:22 Potassium 3.7 mmol/L (3.5-5.1) 11/19/22 04:22 Chloride 107 mmol/L (98-107) 11/19/22 04:22 Carbon Dioxide 26 mmol/L (22-29) 11/19/22 04:22 Anion Gap 12.7 (5-19) 11/19/22 04:22 BUN 12 mg/dL (8-23) 11/19/22 04:22 Creatinine 0.9 mg/dL (0.7-1.2) 11/19/22 04:22 GFR Calculation Not Reportable 11/19/22 04:22 Glucose 82 mg/dL (65-115) 11/19/22 04:22 Calculated Osmolality 293 mOsm/kg (285-295) 11/19/22 04:22 Calcium 8.2 mg/dL (8.5-10.5) L 11/19/22 04:22 Magnesium 1.7 mg/dL (1.7-2.3) 11/19/22 04:22 Total Bilirubin 0.4 mg/dL (0.15-1.2) 11/19/22 04:22 AST 12 U/L (0-40) 11/19/22 04:22 ALT 7 U/L (0-41) 11/19/22 04:22 Alkaline Phosphatase 60 U/L (40-130) 11/19/22 04:22 Troponin T Baseline 26 ng/L (0-15) H 11/15/22 13:45 Troponin T 120 Minute 26.99 ng/L (0-15) H 11/15/22 15:30 Delta Troponin T 0.99 ABS# (0-10) 11/15/22 15:30 Troponin T Hi Sens 6Hr 25.47 ng/L (0-15) H 11/15/22 19:55 Troponin T Hi Sens 6Hr Delta -0.53 ng/L (0-12) L 11/15/22 19:55 Total Protein 5.6 g/dL (6.6-8.7) L 11/19/22 04:22 Albumin 3.3 g/dL (3.5-5.2) L 11/19/22 04:22 Globulin 2.3 g/dL (1.3-4.6) 11/19/22 04:22 TSH 0.82 uIU/mL (0.27-4.20) 11/15/22 19:55 Urine Color Yellow (Yellow) 11/15/22 13:56 Urine Appearance Clear (CLEAR) 11/15/22 13:56 Urine pH 5 (5-7) 11/15/22 13:56 Ur Specific [place] 1.020 (1.005-1.030) 11/15/22 13:56 Urine Protein Trace (Negative) 11/15/22 13:56 Urine Glucose (UA) Norm (Normal) 11/15/22 13:56 Urine Ketones Negative (Negative) 11/15/22 13:56 Urine Blood Neg (Negative) 11/15/22 13:56 Urine Nitrate Negative (Negative) 11/15/22 13:56 Urine Bilirubin 1+ (Negative) H 11/15/22 13:56 Urine Urobilinogen 1 mg/dL (Negative) H 11/15/22 13:56 Ur Leukocyte Esterase Negative (Negative) 11/15/22 13:56 Urine RBC 0-4 /hpf (0-2) H 11/15/22 13:56 Urine WBC 0-4 /hpf (0-5) H 11/15/22 13:56 Ur Squamous Epith Cells 0-4 /hpf (0-5) H 11/15/22 13:56 Amorphous Sediment Not Reportable 11/15/22 13:56 Urine Bacteria Trace /hpf (NONE) 11/15/22 13:56 Urine Mucus Trace /hpf 11/15/22 13:56 A&P Assessment and plan (1) Symptomatic bradycardia: Patient continues to have episodes of bradycardia with a heart rate in the 30s and 40s, even after stopping the beta-anthony for more than 48 hours. His clinical features are consistent with symptomatic bradycardia, sinus gauri dysfunction, intermittent second-degree type II AV block (2) Alzheimer disease: Continue on the current measures. (3) Hyperlipemia, mixed: Continue on the current measures. (4) Atherosclerosis of coronary artery of [place] heart without angina pectoris: Patient had a PCI in 2007. Currently is remaining asymptomatic he has been taking Plavix. He is off Plavix for the last 2 days. May continue the baby aspirin. (5) Hypertension: The blood pressure is mostly under control. Qualifiers: Hypertension type: essential hypertension Qualified Code(s): I10 - Essential (primary) hypertension Plan Patient is scheduled for the pacemaker implantation today. We will continue the n.p.o. Attestations Medical Necessity Statement*: Patient requires continued hospital stay for close monitoring and further management Coding Level of Care Code 60662 Diagnoses Symptomatic bradycardia R00.1 Alzheimer disease G30.9; F02.80 Hyperlipemia, mixed E78.2 Atherosclerosis of coronary artery of [place] heart without angina pectoris I25.10 Hypertension I10 Hypertension type: essential hypertension
[2022-11-19] MEDS: tamsulosin 0.4 mg Capsule PO (09:36)
[2022-11-19] MEDS: venlafaxine ER (24HR) 150 mg Capsule PO (09:36)
[2022-11-19] MEDS: pantoprazole DR 40 mg Tablet PO (09:36)
[2022-11-19] MEDS: atorvastatin 40 mg Tablet PO (09:36)
[2022-11-19] MEDS: levothyroxine 150 mcg Tablet PO (09:36)
[2022-11-19] MEDS: gabapentin 300 mg Capsule PO ×2 (09:36→17:35)
--- NOTE | 2022-11-19 09:39 | W.PM.OPSUD ---
Surgery/Procedure H&P Update DATE OF PROCEDURE: November 19, 2022 DATE H&P PERFORMED: 11/18/22 H&P UPDATE INFORMATION: I have reviewed H&P completed within last 30 days, I have examined patient prior to procedure and No changes to prior documentation PREOP DIAGNOSIS: Symptomatic bradycardia PRIMARY INDICATION FOR PROCEDURE: Dizziness /near syncopal episodes; sinus gauri dysfunction/sinus bradycardia/intermittent second-degree type II AV block PLANNED PROCEDURE: Transvenous permanent dual-chamber pacemaker [place] PATIENT REASSESSED PRIOR TO SEDATION, WITH NO CHANGE NOTED: Yes PHYSICAL EXAM: alert, oriented x 3, clear to auscultation bilaterally and regular rate & rhythm AIRWAY EVAL/ANESTHESIA PLAN: normal airway, see other exam findings, ASA III, Monitored Anesthesia, Local Anesthesia, Risks, benefits & alternatives of sedation and/or procedure discussed and Patient agrees to continue as planned
--- NOTE | 2022-11-19 11:21 | PC.SOCIAL ---
Pg 2 IMM Explained to pt Pg 2 IMM. No question voiced. Provided pt a copy. Initialed, dated, & timed a copy & placed in chart.
--- NOTE | 2022-11-19 11:54 | PC.NURSE ---
Patient left [facility] to go to research lab assistant.
--- NOTE | 2022-11-19 12:10 | PM.PN ---
Subjective Subjective: Patient was seen and examined this morning, currently he is feeling better. Medications: Reviewed: Yes Medication Review Details: Generic Name Dose Route Start Last Admin Trade Name Cayla PRN Reason Stop Dose Admin Acetaminophen 650 mg 11/15/22 16:57 11/17/22 17:17 Acetaminophen 32 5 Mg Tablet PO 650 mg Q6H PRN Administration Mild/Mod Pain Or Temp >/= 101 Aspirin 81 mg 11/16/22 09:00 11/18/22 09:05 Aspirin 81 Mg Ec Tablet PO 81 mg DAILY OMAR Administration Atorvastatin Calci um 40 mg 11/16/22 09:00 11/19/22 09:36 Atorvastatin 40 Mg Tablet PO 40 mg DAILY OMAR Administration Clopidogrel Bisulf ate 75 mg 11/16/22 09:00 11/17/22 09:22 Clopidogrel 75 M g Tablet PO 75 mg DAILY OMAR Administration Gabapentin 300 mg 11/15/22 18:00 11/19/22 09:36 Gabapentin 300 M g Capsule PO 300 mg BID OMAR Administration Sodium Chloride 1,000 mls @ 75 ml s/hr 11/18/22 13:30 11/19/22 08:44 Sodium Chloride 0.9% IV 75 mls/hr .[id number] OMAR Administration Levothyroxine Sodi um 150 mcg 11/16/22 09:00 11/19/22 09:36 Levothyroxine 15 0 Mcg Tablet PO 150 mcg DAILY OMAR Administration Non-Formulary Medi cation 8 mg 11/16/22 09:00 11/16/22 10:13 Galantamine PO 8 mg BID OMAR Administration Pantoprazole [place] m 40 mg 11/16/22 09:00 11/19/22 09:[address] 40 Mg Tablet PO 40 mg DAILY OMAR Administration Tamsulosin HCl 0.4 mg 11/16/22 09:00 11/19/22 09:36 Tamsulosin 0.4 M g Capsule PO 0.4 mg DAILY OMAR Administration Venlafaxine HCl 150 mg 11/16/22 09:00 11/19/22 09:36 Venlafaxine Er ( 24hr) 150 Mg Capsu le PO 150 mg DAILY OMAR Administration Vitals/I&O/Wt Last Vital Signs Temp 98.6 F 11/19/22 03:49 Pulse 51 L 11/19/22 10:08 Resp 16 11/19/22 10:08 BP 124/69 11/19/22 09:39 Pulse Ox 99 11/19/22 10:08 O2 Del Method Room Air 11/19/22 10:08 11/18/22 11/19/22 11/19/22 22:59 06:59 14:59 Intake Total 240 / 635 120 / 755 Balance 240 / 635 120 / 755 Physical Exam Const: COMMON NORMALS: patient oriented x3 HENMT: COMMON NORMALS: normocephalic and atraumatic HEAD & SCALP: normocephalic and atraumatic Resp: COMMON NORMALS: clear to auscultation bilaterally AUSCULTATION: clear to auscultation bilaterally Cardio: COMMON NORMALS: regular rate, S1 normal heart sound present and S2 normal heart sound present RATE: regular rate HEART SOUNDS: S1 normal heart sound present and S2 normal heart sound present GI: COMMON NORMALS: Normal to inspection, nondistended, normoactive bowel sounds present, Soft to palpation, non-tender, No hepatosplenomegaly present and no masses AUSCULTATION: Yes normoactive bowel sounds PALPATION: Yes Soft to palpation and Yes No hepatosplenomegaly present RECTAL EXAM: Yes deferred Extremity: COMMON NORMALS: no clubbing, cyanosis or edema and no pedal edema Neuro: COMMON NORMALS: patient oriented x3 Data 11/19/22 04:22 11/19/22 04:22 A&P Assessment and plan (1) Bradycardia: (2) Pre-syncope: (3) Alzheimer disease: (4) H/O heart artery stent: (5) Hypokalemia: (6) Hypomagnesemia: Plan Patient presenting with c/o dizziness, gait instability, memory disturbances worsened over the past week CT head upon admission negative for acute intracranial abnormalities He has no current focal deficits, low suspicion for CVA ; if symptoms persist after imprvement in HR, may need MR to assess posterior circulation CVA Symptoms appear to be pre syncopal with reported dizziness Bradycardia noted on EKG, telemetry shows intermittent high degree AV block appreciate cardiology recommendations planned for PPM continue to hold beta blockers hold plavix anticipating procedure, last cath 2007 additionally hold galantamine, bradyacrdia could be potential side effect echo pending EKG without acute st-t wave changes, baseline trop 26, 2 hr 26.99, 6 hr 25 negative d dimer, low probability PE TSH within range K within range today orthostatics without significant drop in BP Attestations Medical Necessity Statement*: Needs to be in hospital for permanent pacemaker placement Coding Level of Care Code Acute Code for Chg Fwd Diagnoses Bradycardia R00.1 Pre-syncope R55 Alzheimer disease G30.9; F02.80 H/O heart artery stent Z95.5 Hypokalemia E87.6 Hypomagnesemia E83.42
--- NOTE | 2022-11-19 13:51 | PC.NURSE ---
Patient returned from laboratory veterinarian at 1340
--- NOTE | 2022-11-19 14:01 | P.OP_ITS ---
Operative Report Date of procedure: November 19, 2022 Pre-op diagnosis: Preop Diagnosis Symptomatic bradycardia Procedure: LOCATION: Inpatient/cardiac catheterization lab PREOPERATIVE DIAGNOSES: Symptomatic bradycardia/sinus node dysfunction/intermittent second-degree type II AV block. POSTOPERATIVE DIAGNOSES: Same. COMPLICATIONS: None. ESTIMATED BLOOD LOSS: None BRIEF HISTORY: 72-year-old white male, is admitted to the hospital with complaints of dizziness/near syncope. Was found to have episodes of sinus p auses and second-degree type II AV block with underlying sinus bradycardia. A dual chamber permanent pacemaker implantation was recommended for AV synchrony and symptom relief The procedure was explained to the patient in detail with the risks and benefits. The risks of bleeding, hematoma, vascular injury, infection, pneumothorax, myocardial perforation and other concomitant complications were e xplained in detail, which the patient understood well and consented to proceed. PROCEDURE DESCRIPTION: The patient was brought to the Cardiac Catheterization Lab. The left and the right side of the neck and the subclavian area were cleaned and draped in a sterile fashion. 1% Xylocaine was used as the local anesthetic agent. Left subclavian venogram was performed by injecting 20 milliliters of Omnipaque through the left antecubital vein. A left subclavian venous access was obtained using a micropuncture needle system, under venographic guidance. . A two-inch long incision was made 2.0 centimeters below the midclavicular region. By sharp and blunt dissection, a pacemaker pocket was made. A second venous access was obtained using another micropuncture needle system. Over the first guidewire, a 7-[place] venous sheath with dilator was advanced. The venous dilator and the guidewire were taken out. A screw-in ventricular lead was advanced through the venous sheath and was positioned to wards the right ventricle. Under fluoroscopic guidance, the ventricular lead was positioned toward the right ventricular apex. Good pacing and sensing thresholds were obtained. The lead was secured to the endocardium by advancing the helix. The stability of the lead was tested by gentle twisting movements and also by asking the patient to take some deep breaths and cough. The venous sheath was peeled off, at this time. The lead was secured to the pectoralis fascia, by suturing with 1-0 Surgilon. Over the second guidewire, another 7- [place] venous sheath with dilator was advanced. The dilator and the guidewire were taken out. Under fluoroscopic guidance, an atrial lead (Medtronic), was advanced and positioned toward the right atrium. The lead was positioned in the right atrial appendage. Good pacing and sensing thresholds were obtained. The lead was secured to the endocardium by advancing the helix. Stability of the lead was tested by gentle twisting movements and also by asking the patient to take some deep breaths and cough. The venous sheath was peeled off, at this time. The lead was secured to the pectoralis fascia by suturing with 0-Surgilon. The pacemaker pocket was copiously irrigated with vancomycin solution. Complete hemostasis was achieved. Sponge counts were confirmed. The leads were attached to a Medtronic generator. The leads were positioned behind the generator and the generator was attached to the pectoralis fascia by suturing with 0-Surgilon. The pocket was closed in layers. Skin was approximated using 4-0 Vicryl. IMPLANTED DEVICES: ATRIAL LEAD: Model number: 5076/52 Serial number: [id number] Make: Medtronic VENTRICULAR LEAD: Model number: 5076/58 Serial number: [id number] Make: Medtronic GENERATOR Brand: [place] [facility]T [facility] Model number: W1 DR 01 Serial number: [id number] Make: Medtronic IMPLANTATION DATA: Through the device, the R-wave sensing was 7.9 millivolts with a lead impedance of 608 and a pacing threshold was 0.5 volts at 0.4 milliseconds. The atrial sensing was 2.8 millivolts with a lead impedance of 475 ohms and a pacing threshold of 1.0 volts at 0.4 milliseconds. The pacemaker was set for AAIR/DDDR mode with upper rate of 130 and a lower rate of 60. The atrial and ventricular output was kept at 3.5 V. Atrial sensitivity at 0.3 and ventricular sensitivity 0.9. A pressure dressing was applied over the pacemaker site. The patient was transferred to the Medical Floor in stable condition. A chest x-ray was ordered to confirm the lead position and also to rule out any pneumothorax.
[2022-11-19] MEDS: acetaminophen 325 mg Tablet 650 MG PO (14:54)
--- NOTE | 2022-11-19 16:00 | XRR_ITS ---
PROCEDURE INFORMATION: Exam: XR Chest Exam date and time: 11/19/2022 1:11 PM Age: 72 years old Clinical indication: Device placement; Cardiac pacemaker lead placement or adjustment; Prior surgery; Surgery date: Post-operative (0-2 days); Surgery type: Post permanent pacemaker placement; Visualize lead tip TECHNIQUE: Imaging protocol: Radiologic exam of the chest. Views: 1 view. COMPARISON: CR XR chest 1V portable [id number] 11/18/2022 2:11 PM FINDINGS: Tubes, catheters and devices: Atrioventricular pacemaker in satisfactory positioning. Lungs: Hyperinflation and mild interstitial prominence, without acute airspace disease. Pleural spaces: No pneumothorax or pleural effusion. Heart/Mediastinum: No cardiomegaly. Bones/joints: Degenerative change. Soft tissues: Soft tissue and skin fold overlying the left lung base. XR/XR chest 1V [id number] IMPRESSION: No postprocedural complication in the setting of pacemaker placement.
[2022-11-19] MEDS: ceFAZolin 2,000 MG in sodium chloride 0.9% (plus) 50 ML 100 MG IV (17:35)
[2022-11-19] MEDS: HYDROcodone-acetaminophen 5-325 mg Tablet 1 TAB PO ×2 (18:27→23:40)
[2022-11-20] MEDS: ceFAZolin 2,000 MG in sodium chloride 0.9% (plus) 50 ML 100 MG IV ×2 (02:35→11:17)
[2022-11-20 03:45] VITALS: BP 110/72; PULSE 62; RESP 15; TEMP 36.6; O2SAT 96
[2022-11-20] MEDS: HYDROcodone-acetaminophen 5-325 mg Tablet 1 TAB PO (03:45)
[2022-11-20 05:21] LABS: Basophils # 0.1 10^3/uL (0.0-0.1); Basophils % 0.7 %; Eosinophils # 0.4 10^3/uL (0.0-0.8); Eosinophils % 5.9 %; Hematocrit 36.5 % (42.0-52.0); Hemoglobin 10.9 g/dL (11.7-16.6); Lymphocytes # 2.3 10^3/uL (0.8-4.8); Lymphocytes % 33.6 %; Mean Corpuscular HGB Conc 29.9 g/dL (30.0-36.0); Mean Corpuscular Volume 80.4 fl (80-94); Mean Platelet Volume 9.4 fL (7.4-10.4); Monocytes # 0.7 10^3/uL (0.2-0.9); Monocytes % 9.7 %; Neutrophils # 3.35 10^3/uL (1.8-7.7); Neutrophils % 49.8 %; Nucleated Red Blood Cells % 0 %; Platelet Count 192 10^3/cmm (130-400); Red Blood Count 4.54 10^6/uL (4.1-5.3); Red Cell Distribution Width 15.5 % (12.1-15.1); White Blood Count 6.7 10^3/uL (4.0-10.0)
[2022-11-20 05:41] LABS: Alanine Aminotransferase 6 U/L (0-41); Albumin Level 3.2 g/dL (3.5-5.2); Alkaline Phosphatase 63 U/L (40-130); Anion Gap 10.9 (5-19); Aspartate Amino Transferase 13 U/L (0-40); Blood Urea Nitrogen 10 mg/dL (8-23); Calcium 8.4 mg/dL (8.5-10.5); Carbon Dioxide 29 mmol/L (22-29); Chloride 108 mmol/L (98-107); Creatinine Clr Calc Pharmacy 87.0151; Globulin 2.3 g/dL (1.3-4.6); Glucose 83 mg/dL (65-115); Magnesium 1.6 mg/dL (1.7-2.3); Osmolality Calculated 296 mOsm/kg (285-295); Potassium 3.9 mmol/L (3.5-5.1); Sodium 144 mmol/L (136-145); Total Bilirubin 0.4 mg/dL (0.15-1.2); Total Protein 5.5 g/dL (6.6-8.7)
[2022-11-20 05:46] VITALS: PULSE 60
--- NOTE | 2022-11-20 06:00 | ECG_ITS ---
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 Measurements Intervals [place] Rate: 63 P: 244 [place]: 194 QRS: -81 QRSD: 173 T: 87 QT: 505 QTc: 519 Interpretive Statements ELECTRONIC ATRIAL PACEMAKER ELECTRONIC VENTRICULAR PACEMAKER ABNORMAL RHYTHM ECG Compared to ECG 11/16/2022 10:43:35 Sinus rhythm no longer present Myocardial infarct finding no longer present Electronically Signed On 11-20-2022 21:18:37 CDT by Anabelle Chirinos M.D. [email or web address]
[2022-11-20 07:59] VITALS: BP 118/72; PULSE 60; RESP 16; O2SAT 98
[2022-11-20] MEDS: tamsulosin 0.4 mg Capsule PO (08:50)
[2022-11-20] MEDS: aspirin 81 mg EC Tablet PO (08:50)
[2022-11-20] MEDS: venlafaxine ER (24HR) 150 mg Capsule PO (08:50)
[2022-11-20] MEDS: atorvastatin 40 mg Tablet PO (08:50)
[2022-11-20] MEDS: magnesium sulfate premix 2 GM/50 ML PIGGYBACK IV (08:50)
[2022-11-20] MEDS: pantoprazole DR 40 mg Tablet PO (08:50)
[2022-11-20] MEDS: gabapentin 300 mg Capsule PO (08:50)
[2022-11-20] MEDS: levothyroxine 150 mcg Tablet PO (08:50)
--- NOTE | 2022-11-20 09:26 | PM.PN ---
Subjective Subjective: The patient is feeling okay. No hematoma bleeding at the pacemaker insertion site. Telemetry shows mostly AV paced rhythm. No significant arrhythmias are noted on the monitor. The pacemaker was interrogated this morning and was found to be functioning okay. Chest x-ray revealed normal positioning of the atrial and ventricular leads. Medications: Medication Review Details: Current Medications Acetaminophen (Acetaminophen 325 Mg Tablet) 650 mg PO Q6H PRN PRN Reason: Mild/Mod Pain Or Temp >/= 101 Last Admin: 11/19/22 14:54 Dose: 650 mg Hydrocodone Bitart/Acetaminophen (Hydrocodone-Acetaminophen 5-325 Mg Tablet) 1 tab PO Q4H PRN PRN Reason: MODERATE PAIN Last Admin: 11/20/22 03:45 Dose: 1 tab Aspirin (Aspirin 81 Mg Ec Tablet) 81 mg PO DAILY COUNT INCLUDES THE [facility] Last Admin: 11/20/22 08:50 Dose: 81 mg Atorvastatin Calcium (Atorvastatin 40 Mg Tablet) 40 mg PO DAILY COUNT INCLUDES THE [facility] Last Admin: 11/20/22 08:50 Dose: 40 mg Clopidogrel Bisulfate (Clopidogrel 75 Mg Tablet) 75 mg PO DAILY COUNT INCLUDES THE [facility] Last Admin: 11/17/22 09:22 Dose: 75 mg Gabapentin (Gabapentin 300 Mg Capsule) 300 mg PO BID COUNT INCLUDES THE [facility] Last Admin: 11/20/22 08:50 Dose: 300 mg Sodium Chloride (Sodium Chloride 0.9%) 1,000 mls @ 75 mls/hr IV .[id number] COUNT INCLUDES THE [facility] Last Infusion: 11/19/22 21:06 Dose: Infused Cefazolin Sodium 2,000 mg/ (Sodium Chloride) 50 mls @ 100 mls/hr IV Q8H COUNT INCLUDES THE [facility]; Protocol Stop: 11/20/22 10:59 Last Infusion: 11/20/22 03:08 Dose: Infused Levothyroxine Sodium (Levothyroxine 150 Mcg Tablet) 150 mcg PO DAILY COUNT INCLUDES THE [facility] Last Admin: 11/20/22 08:50 Dose: 150 mcg Loratadine (Loratadine 10 Mg Tablet) 10 mg PO DAILY PRN PRN Reason: allergy symptoms Non-Formulary Medication (Galantamine) 8 mg PO BID COUNT INCLUDES THE [facility] Last Admin: 11/16/22 10:13 Dose: 8 mg Ondansetron HCl (Ondansetron 2 Mg/Ml Sdv 2 Ml) 4 mg IVP Q8H PRN PRN Reason: vomiting, or N/V if npo Pantoprazole Sodium (Pantoprazole Dr 40 Mg Tablet) 40 mg PO DAILY COUNT INCLUDES THE [facility] Last Admin: 11/20/22 08:50 Dose: 40 mg Tamsulosin HCl (Tamsulosin 0.4 Mg Capsule) 0.4 mg PO DAILY COUNT INCLUDES THE [facility] Last Admin: 11/20/22 08:50 Dose: 0.4 mg Tizanidine HCl (Tizanidine 4 Mg Tablet) 2 mg PO BID PRN PRN Reason: muscle spasticity Venlafaxine HCl (Venlafaxine Er (24hr) 150 Mg Capsule) 150 mg PO DAILY COUNT INCLUDES THE [facility] Last Admin: 11/20/22 08:50 Dose: 150 mg Vitals/I&O/Wt Last Vital Signs Temp 97.9 F 11/20/22 03:45 Pulse 60 11/20/22 07:59 Resp 16 11/20/22 07:59 BP 118/72 11/20/22 07:59 Pulse Ox 98 11/20/22 07:59 O2 Del Method CPAP 11/20/22 03:45 11/19/22 11/20/22 11/20/22 22:59 06:59 14:59 Intake Total 1570 / 1570 450 / 2020 360 / 360 Balance 1570 / 1570 450 / 2020 360 / 360 Physical Exam Narrative: GENERAL: The patient is alert and oriented times three. Not in any acute distress. HEENT: No significant pallor, icterus or lymphadenopathy.Oral cavity: There are no mucous membrane lesions. NECK: Trachea appears to be central. No masses noted. No JVD or thyromegaly appreciated. RESPIRATORY: Chest is symmetrical. No intercostals muscle retraction or any accessory muscle activation. There is no chest wall tenderness. Breath sounds are heard bilaterally. No rales or rhonchi heard. No evidence of any consolidation. The pacemaker site appears to have no hematoma bleeding. BREASTS: Deferred. HEART: The heart sounds are normal. No S3 or S4. No significant murmurs. No pericardial rub ABDOMEN: No vessel pulsations or distention. No tenderness. No organomegaly appreciated. Bowel sounds are normally heard. : Deferred. RECTAL: Deferred. LYMPHATIC: No lymphadenopathy noted in the neck. EXTREMITIES: No edema or cyanosis. No clubbing. MUSCULOSKELETAL: No acute joint deformities or swelling SKIN: There are no significant rashes or ecchymosis NEUROPSYCHIATRIC: The patient is alert and oriented x3. Appears to be in a good mood. No tremors or rigidity noted. Data 11/20/22 05:09 11/20/22 05:09 Other Labs: Laboratory Last Values WBC 6.7 10^3/uL (4.0-10.0) 11/20/22 05:09 RBC 4.54 10^6/uL (4.1-5.3) 11/20/22 05:09 Hgb 10.9 g/dL (11.7-16.6) L 11/20/22 05:09 Hct 36.5 % (42.0-52.0) L 11/20/22 05:09 MCV 80.4 fl (80-94) 11/20/22 05:09 MCH 24.0 pg (28.0-34.0) L 11/20/22 05:09 MCHC 29.9 g/dL (30.0-36.0) L 11/20/22 05:09 RDW 15.5 % (12.1-15.1) H 11/20/22 05:09 Plt Count 192 10^3/cmm (130-400) 11/20/22 05:09 MPV 9.4 fL (7.4-10.4) 11/20/22 05:09 Neut % (Auto) 49.8 % 11/20/22 05:09 Lymph % (Auto) 33.6 % 11/20/22 05:09 [place] % (Auto) 9.7 % 11/20/22 05:09 Eos % (Auto) 5.9 % 11/20/22 05:09 Baso % (Auto) 0.7 % 11/20/22 05:09 Neut # (Auto) 3.35 10^3/uL (1.8-7.7) 11/20/22 05:09 Lymph # (Auto) 2.3 10^3/uL (0.8-4.8) 11/20/22 05:09 [place] # (Auto) 0.7 10^3/uL (0.2-0.9) 11/20/22 05:09 Eos # (Auto) 0.4 10^3/uL (0.0-0.8) 11/20/22 05:09 Baso # (Auto) 0.1 10^3/uL (0.0-0.1) 11/20/22 05:09 Nucleated RBC % (auto) 0 % 11/20/22 05:09 Nucleated RBCs # 0.0 /100WBC 11/20/22 05:09 D-Dimer 0.43 ug/mIFEU (0-0.59) 11/15/22 19:55 Sodium 144 mmol/L (136-145) 11/20/22 05:09 Potassium 3.9 mmol/L (3.5-5.1) 11/20/22 05:09 Chloride 108 mmol/L (98-107) H 11/20/22 05:09 Carbon Dioxide 29 mmol/L (22-29) 11/20/22 05:09 Anion Gap 10.9 (5-19) 11/20/22 05:09 BUN 10 mg/dL (8-23) 11/20/22 05:09 Creatinine 1.0 mg/dL (0.7-1.2) 11/20/22 05:09 GFR Calculation Not Reportable 11/20/22 05:09 Glucose 83 mg/dL (65-115) 11/20/22 05:09 Calculated Osmolality 296 mOsm/kg (285-295) H 11/20/22 05:09 Calcium 8.4 mg/dL (8.5-10.5) L 11/20/22 05:09 Magnesium 1.6 mg/dL (1.7-2.3) L 11/20/22 05:09 Total Bilirubin 0.4 mg/dL (0.15-1.2) 11/20/22 05:09 AST 13 U/L (0-40) 11/20/22 05:09 ALT 6 U/L (0-41) 11/20/22 05:09 Alkaline Phosphatase 63 U/L (40-130) 11/20/22 05:09 Troponin T Baseline 26 ng/L (0-15) H 11/15/22 13:45 Troponin T 120 Minute 26.99 ng/L (0-15) H 11/15/22 15:30 Delta Troponin T 0.99 ABS# (0-10) 11/15/22 15:30 Troponin T Hi Sens 6Hr 25.47 ng/L (0-15) H 11/15/22 19:55 Troponin T Hi Sens 6Hr Delta -0.53 ng/L (0-12) L 11/15/22 19:55 Total Protein 5.5 g/dL (6.6-8.7) L 11/20/22 05:09 Albumin 3.2 g/dL (3.5-5.2) L 11/20/22 05:09 Globulin 2.3 g/dL (1.3-4.6) 11/20/22 05:09 TSH 0.82 uIU/mL (0.27-4.20) 11/15/22 19:55 Urine Color Yellow (Yellow) 11/15/22 13:56 Urine Appearance Clear (CLEAR) 11/15/22 13:56 Urine pH 5 (5-7) 11/15/22 13:56 Ur Specific [place] 1.020 (1.005-1.030) 11/15/22 13:56 Urine Protein Trace (Negative) 11/15/22 13:56 Urine Glucose (UA) Norm (Normal) 11/15/22 13:56 Urine Ketones Negative (Negative) 11/15/22 13:56 Urine Blood Neg (Negative) 11/15/22 13:56 Urine Nitrate Negative (Negative) 11/15/22 13:56 Urine Bilirubin 1+ (Negative) H 11/15/22 13:56 Urine Urobilinogen 1 mg/dL (Negative) H 11/15/22 13:56 Ur Leukocyte Esterase Negative (Negative) 11/15/22 13:56 Urine RBC 0-4 /hpf (0-2) H 11/15/22 13:56 Urine WBC 0-4 /hpf (0-5) H 11/15/22 13:56 Ur Squamous Epith Cells 0-4 /hpf (0-5) H 11/15/22 13:56 Amorphous Sediment Not Reportable 11/15/22 13:56 Urine Bacteria Trace /hpf (NONE) 11/15/22 13:56 Urine Mucus Trace /hpf 11/15/22 13:56 Micro: Microbiology 11/19/22 09:15 C.difficile Toxin B Gene (PCR) - Final Stool - Stool Aspirate A&P Assessment and plan (1) Presence of permanent cardiac pacemaker: The pacemaker function was found to be appropriate based on the interrogation this morning. Patient may go home with antibiotics for 5 days along with a multivitamin for 2 weeks. Continue other current medications as the disease. We will be arranging for the in office and transtelephonic pacemaker follow-up interrogations. (2) Symptomatic bradycardia: Patient status post a permanent pacer implantation. Currently staying in a AV paced rhythm. Pacemaker function is appropriate. (3) Alzheimer disease: Continue on the current measures. (4) Hyperlipemia, mixed: Continue on the current measures. (5) Atherosclerosis of coronary artery of [place] heart without angina pectoris: Patient had a PCI in 2007. The Plavix may be restarted tomorrow. Make any other medication for the time being. (6) Hypertension: The blood pressure is mostly under control. Qualifiers: Hypertension type: essential hypertension Qualified Code(s): I10 - Essential (primary) hypertension Plan The patient is advised to take [Keflex 500] milligrams by mouth every six hours for five days; multivitamin one tablet by mouth daily for two weeks; Postpacemaker care instructions were given. Patient will be coming back to the office next week for a wound check and pacemaker interrogation. In the event of the patient developing any unusual pain, swelling or bleeding at the pacemaker site, is instructed to call us or come back to the hospital. Patient will be taking the antibiotics and the multivitamins as instructed. May continue taking the other medications as below. Attestations Medical Necessity Statement*: Possible discharge home today Coding Level of Care Code 98242 Diagnoses Presence of permanent cardiac pacemaker Z95.0 Symptomatic bradycardia R00.1 Alzheimer disease G30.9; F02.80 Hyperlipemia, mixed E78.2 Atherosclerosis of coronary artery of [place] heart without angina pectoris I25.10 Hypertension I10 Hypertension type: essential hypertension
--- NOTE | 2022-11-20 10:10 | PM.DCS ---
Discharge Providers Date of Admission: 11/15/22 16:46 Date of Discharge: November 20, 2022 Attending Provider at Admission: Chaparrita Balderarma MD Attending Provider at Discharge: Darius Fabian MD Primary Care Provider: Arlette Singleton MD Diagnoses at Discharge Discharge Diagnosis (1) Presence of permanent cardiac pacemaker: Status: Acute (2) Symptomatic bradycardia: Status: Acute (3) Alzheimer disease: Status: Acute (4) Hyperlipemia, mixed: Status: Acute (5) Atherosclerosis of coronary artery of [place] heart without angina pectoris: Status: Acute (6) Hypertension: Status: Acute Qualifiers: Hypertension type: essential hypertension Qualified Code(s): I10 - Essential (primary) hypertension Reason for Visit Reason for Visit: weakness Hospital Course Hospital Course HPI: Chaparrita Balderrama MD 72-year-old male with past medical history of coronary artery disease s/p PCI hypothyroidism, Alzheimer's dementia, hypertension presented with chief complaint of pre syncopal episodes and intermittent confusion. States his symptoms started on Friday, He started to feel as if he is having increasing word finding diffculty, increased memory impairment and gait instability. He feels as if he becomes blank in mid conversation before relaizing he is talking to someone.? States that he feels wobbly while walking, uses a cane at baseline however the gait unsteadiness is worse than usual. States that he is dizzy partularly when standing up from lying down position.Stated that his HR has recently been in the 40-50, on recent outpatient cardiology appt his HR was noted to be 78. There have been no recent changes in his medication. EKG shows slow A fib. Trop baseline 26 and at 2 hrs 26.99. Hospital course: He was admitted for the management of presyncopal episode, secondary to symptomatic bradycardia with high degree AV block,CT head without contrast: Failed to show any acute intracranial pathology. Beta-blockers were held initially during the hospital stay, cardiology was on board, status post permanent pacemaker placement, patient tolerated the procedure well, he was discharged in stable condition to home on oral antibiotics, as part of pacemaker placement protocol.He will continue to follow cardiology as outpatient. Physical Exam Const: COMMON NORMALS: patient oriented x3 HENMT: COMMON NORMALS: normocephalic and atraumatic HEAD & SCALP: normocephalic and atraumatic Resp: COMMON NORMALS: clear to auscultation bilaterally AUSCULTATION: clear to auscultation bilaterally Cardio: COMMON NORMALS: regular rate, S1 normal heart sound present and S2 normal heart sound present RATE: regular rate HEART SOUNDS: S1 normal heart sound present and S2 normal heart sound present GI: COMMON NORMALS: Normal to inspection, nondistended, normoactive bowel sounds present, Soft to palpation, non-tender, No hepatosplenomegaly present and no masses AUSCULTATION: Yes normoactive bowel sounds PALPATION: Yes Soft to palpation and Yes No hepatosplenomegaly present RECTAL EXAM: Yes deferred Extremity: COMMON NORMALS: no clubbing, cyanosis or edema and no pedal edema Neuro: COMMON NORMALS: patient oriented x3 Discharge Data Studies Completed and Pending Completed Studies During Hospitalization Category Date Time Status CT head wo con* [id number] Stat Cat Scan 11/15/22 13:36 Completed PROGRESSIVE CARE MANAGER request for service Routine Exams 11/19/22 12:00 Completed XR chest 1V [id number] Routine Exams 11/19/22 16:00 Completed XR chest 1V portable [id number] Routine Exams 11/18/22 14:51 Completed XR chest 1V portable [id number] Stat Exams 11/15/22 13:36 Completed CV. echo complete* [id number] Routine Ultrasound 11/16/22 06:00 Completed Pending at discharge Category Date Time Status C DIFF [Clostridioides Difficile PCR] Routine Lab 11/19/22 09:15 Results CBC Auto Diff [Complete Blood Count w/Auto] AM LABS Lab 11/21/22 04:00 Ordered CMP [Comprehensive Metabolic Panel] AM LABS Lab 11/21/22 04:00 Ordered Enteric Bacterial Panel by PCR Routine Lab 11/19/22 09:15 Results Radiology Impressions Head CT 11/15/22 13:36 IMPRESSION: Negative CT examination of the head. No acute intracranial abnormalities. Chest X-Ray 11/19/22 16:00 IMPRESSION: No postprocedural complication in the setting of pacemaker placement. Laboratory Results WBC 6.7 10^3/uL (4.0-10.0) 11/20/22 05:09 RBC 4.54 10^6/uL (4.1-5.3) 11/20/22 05:09 Hgb 10.9 g/dL (11.7-16.6) L 11/20/22 05:09 Hct 36.5 % (42.0-52.0) L 11/20/22 05:09 MCV 80.4 fl (80-94) 11/20/22 05:09 MCH 24.0 pg (28.0-34.0) L 11/20/22 05:09 MCHC 29.9 g/dL (30.0-36.0) L 11/20/22 05:09 RDW 15.5 % (12.1-15.1) H 11/20/22 05:09 Plt Count 192 10^3/cmm (130-400) 11/20/22 05:09 MPV 9.4 fL (7.4-10.4) 11/20/22 05:09 Neut % (Auto) 49.8 % 11/20/22 05:09 Lymph % (Auto) 33.6 % 11/20/22 05:09 [place] % (Auto) 9.7 % 11/20/22 05:09 Eos % (Auto) 5.9 % 11/20/22 05:09 Baso % (Auto) 0.7 % 11/20/22 05:09 Neut # (Auto) 3.35 10^3/uL (1.8-7.7) 11/20/22 05:09 Lymph # (Auto) 2.3 10^3/uL (0.8-4.8) 11/20/22 05:09 [place] # (Auto) 0.7 10^3/uL (0.2-0.9) 11/20/22 05:09 Eos # (Auto) 0.4 10^3/uL (0.0-0.8) 11/20/22 05:09 Baso # (Auto) 0.1 10^3/uL (0.0-0.1) 11/20/22 05:09 Nucleated RBC % (auto) 0 % 11/20/22 05:09 Nucleated RBCs # 0.0 /100WBC 11/20/22 05:09 D-Dimer 0.43 ug/mIFEU (0-0.59) 11/15/22 19:55 Sodium 144 mmol/L (136-145) 11/20/22 05:09 Potassium 3.9 mmol/L (3.5-5.1) 11/20/22 05:09 Chloride 108 mmol/L (98-107) H 11/20/22 05:09 Carbon Dioxide 29 mmol/L (22-29) 11/20/22 05:09 Anion Gap 10.9 (5-19) 11/20/22 05:09 BUN 10 mg/dL (8-23) 11/20/22 05:09 Creatinine 1.0 mg/dL (0.7-1.2) 11/20/22 05:09 GFR Calculation Not Reportable 11/20/22 05:09 Glucose 83 mg/dL (65-115) 11/20/22 05:09 Calculated Osmolality 296 mOsm/kg (285-295) H 11/20/22 05:09 Calcium 8.4 mg/dL (8.5-10.5) L 11/20/22 05:09 Magnesium 1.6 mg/dL (1.7-2.3) L 11/20/22 05:09 Total Bilirubin 0.4 mg/dL (0.15-1.2) 11/20/22 05:09 AST 13 U/L (0-40) 11/20/22 05:09 ALT 6 U/L (0-41) 11/20/22 05:09 Alkaline Phosphatase 63 U/L (40-130) 11/20/22 05:09 Troponin T Baseline 26 ng/L (0-15) H 11/15/22 13:45 Troponin T 120 Minute 26.99 ng/L (0-15) H 11/15/22 15:30 Delta Troponin T 0.99 ABS# (0-10) 11/15/22 15:30 Troponin T Hi Sens 6Hr 25.47 ng/L (0-15) H 11/15/22 19:55 Troponin T Hi Sens 6Hr Delta -0.53 ng/L (0-12) L 11/15/22 19:55 Total Protein 5.5 g/dL (6.6-8.7) L 11/20/22 05:09 Albumin 3.2 g/dL (3.5-5.2) L 11/20/22 05:09 Globulin 2.3 g/dL (1.3-4.6) 11/20/22 05:09 TSH 0.82 uIU/mL (0.27-4.20) 11/15/22 19:55 Urine Color Yellow (Yellow) 11/15/22 13:56 Urine Appearance Clear (CLEAR) 11/15/22 13:56 Urine pH 5 (5-7) 11/15/22 13:56 Ur Specific [place] 1.020 (1.005-1.030) 11/15/22 13:56 Urine Protein Trace (Negative) 11/15/22 13:56 Urine Glucose (UA) Norm (Normal) 11/15/22 13:56 Urine Ketones Negative (Negative) 11/15/22 13:56 Urine Blood Neg (Negative) 11/15/22 13:56 Urine Nitrate Negative (Negative) 11/15/22 13:56 Urine Bilirubin 1+ (Negative) H 11/15/22 13:56 Urine Urobilinogen 1 mg/dL (Negative) H 11/15/22 13:56 Ur Leukocyte Esterase Negative (Negative) 11/15/22 13:56 Urine RBC 0-4 /hpf (0-2) H 11/15/22 13:56 Urine WBC 0-4 /hpf (0-5) H 11/15/22 13:56 Ur Squamous Epith Cells 0-4 /hpf (0-5) H 11/15/22 13:56 Amorphous Sediment Not Reportable 11/15/22 13:56 Urine Bacteria Trace /hpf (NONE) 11/15/22 13:56 Urine Mucus Trace /hpf 11/15/22 13:56 Vitals Last Vital Signs Temp 97.9 F 11/20/22 03:45 Pulse 60 11/20/22 07:59 Resp 16 11/20/22 07:59 BP 118/72 11/20/22 07:59 Pulse Ox 98 11/20/22 07:59 O2 Del Method CPAP 11/20/22 03:45 Discharge Plan Discharge Patient Disposition: Home Condition: Stable Prescriptions: New multivitamin Tablet 1 tab PO DAILY 14 Days Qty: 14 0RF cephalexin 500 mg capsule 500 mg PO Q6H 5 Days Qty: 20 0RF Continued (DME) Bone growth stimulator [id number] See Rx Instructions .Route .MEDSUPPLY Qty: 1 0RF Rx Instructions: As directed (DME) Diabetic shoes See Rx Instructions .ROUTE .MEDSUPPLY Qty: 1 0RF Rx Instructions: With 3 pairs inserts loratadine 10 mg tablet 10 mg PO DAILY PRN (Reason: allergy symptoms) 30 Days Qty: 30 1RF (DME) Diabetic shoes with 3 inserts See Rx Instructions .ROUTE .MEDSUPPLY Qty: 1 0RF Rx Instructions: As directed RISA&O atorvastatin 40 mg tablet 40 mg PO DAILY Qty: 90 1RF carvedilol 6.25 mg tablet 6.25 mg PO BID Qty: 180 1RF Rx Instructions: must administer with a meal/food chlorthalidone 25 mg tablet 25 mg PO DAILY 90 Days Qty: 90 1RF gabapentin 300 mg capsule 300 mg PO BID 90 Days Qty: 180 1RF tamsulosin 0.4 mg capsule 0.4 mg PO DAILY 90 Days Qty: 90 1RF pantoprazole [Protonix] 40 mg tablet,delayed release (DR/EC) 40 mg PO BID 90 Days Qty: 180 1RF tizanidine 2 mg tablet 2 mg PO BID PRN (Reason: muscle spasticity) 30 Days Qty: 60 2RF (DME) Diabetic Shoes with 3 sets of Custom Molded Inserts See Rx Instructions .Route .MEDSUPPLY Qty: 1 0RF Rx Instructions: As directed HOME galantamine 8 mg tablet See Rx Instructions .ROUTE .COMPLEX Qty: 180 0RF Dose Instruction: TAKE 1 TABLET TWICE A DAY WITH MORNING AND EVENING MEALS Rx Instructions: TAKE 1 TABLET TWICE A DAY WITH MORNING AND EVENING MEALS levothyroxine 150 mcg tablet 150 mcg PO DAILY aspirin 81 mg Tablet,Delayed Release (Dr/Ec) 81 mg PO DAILY venlafaxine 150 mg capsule,extended release 24hr 150 mg PO DAILY Held clopidogrel 75 mg tablet 75 mg PO DAILY Qty: 90 1RF Hold Instructions: Resume on 11/21/22. Discharge Orders: Discharge Order (Routine); Ordered 11/20/22 Ordered By: Darius Fabian Referrals: Venecia Stevens FNP [Nurse Practitioner] - 11/27/22 10:45 am (Please follow-up with Venecia Stevens on November 27 at 10:45A.M. If you have any questions or need to reschedule. Please call ) Arlette Singleton MD [Primary Care Provider] - ([facility] has been contacted with your appointment information. They will contact you within 24 hours to schedule this appointment. If you have not heard from them within that timeframe. Please call ) Discharge Diet: Advance as tolerated Discharge Activity: Limit activity as instructed Patient Instructions: Cephalexin (By mouth) (Bio-Cef, Keflex), Multivitamins, Adult Formula (By mouth) (Daily Multiple Vitamins,..., Pacemaker (DC), Hyponatremia (ED), Benzodiazepine Use Disorder (ED), Dementia (ED), Non-diabetic Hypoglycemia (ED), Hypoglycemia in a Person with Diabetes (ED), Concussion (ED), Alcohol Intoxication (ED), Subarachnoid Hemorrhage (GEN), Altered Mental Status (ED), Opioid Safety, Post Pacemaker - [place] Activity Restrictions/Additional Instructions: Appointment the [facility] next Friday to be seen by the nurse practitioner for a wound check and pacemaker check. Appointment with me in the office in 1 month. Take the antibiotics and multivitamins as prescribed Limit the movements of the left shoulder to 45 degrees. Avoid any weight bearing in the left elbow for the next 6 weeks Do not lift anything, more than 5 pounds with the left hand for the next 6 weeks Discharge Attestations Time Spent in Discharge Care*: less than 30 min Quality Metrics Clinical Quality Measures [ No reported AMI, CVA or VTE this stay] Coding Level of Care Code Acute Code for Chg Fwd Diagnoses Presence of permanent cardiac pacemaker Z95.0 Symptomatic bradycardia R00.1 Alzheimer disease G30.9; F02.80 Hyperlipemia, mixed E78.2 Atherosclerosis of coronary artery of [place] heart without angina pectoris I25.10 Hypertension I10 Hypertension type: essential hypertension
--- NOTE | 2022-11-20 11:16 | PC.SOCIAL ---
IMM Updated Updated pt on IMM. No questions voiced. Provided pt a copy. Initialed, dated, & timed copy in chart.
[2022-11-20 14:00] VITALS: PULSE 62
[2022-11-20 15:33] VITALS: BP 120/64; PULSE 60; RESP 18; O2SAT 97
--- NOTE | 2022-11-20 15:56 | PC.OT ---
PATIENT D/C BEFORE EVALUATION COULD BE COMPLETED.
== END 2022-11-20 15:37 | disposition home or self-care (01) | DRG 243 ==
LOC: ER 16:18 → CSU 16:38
PROVIDERS: Family Medicine; Internal Medicine Cardiovascular Disease; Admitting Provider Student in an Organized Health Care Education/Training Program; Emergency Provider Family Medicine; PCP Family Medicine; Visit Provider Internal Medicine
PROC: 0JH606Z Insertion of Pacemaker, Dual Chamber into Chest Subcutaneous Tissue and Fascia, Open Approach (ICD-10-PCS; principal; 2022-11-19 12:00)
DX: I44.1 Atrioventricular block, second degree (principal); N13.8 Other obstructive and reflux uropathy; Z68.41 Body mass index [BMI] 40.0-44.9, adult; R00.1 Bradycardia, unspecified; G30.9 Alzheimer's disease, unspecified; F06.70 Mild neurocognitive disorder due to known physiological condition without behavioral disturbance; E78.2 Mixed hyperlipidemia; I25.10 Atherosclerotic heart disease of native coronary artery without angina pectoris; Z95.5 Presence of coronary angioplasty implant and graft; I10 Essential (primary) hypertension; Z79.82 Long term (current) use of aspirin; I48.91 Unspecified atrial fibrillation; N40.1 Benign prostatic hyperplasia with lower urinary tract symptoms; G89.29 Other chronic pain; M54.2 Cervicalgia; E11.42 Type 2 diabetes mellitus with diabetic polyneuropathy; I25.2 Old myocardial infarction; G47.30 Sleep apnea, unspecified; Z86.73 Personal history of transient ischemic attack (TIA), and cerebral infarction without residual deficits; Z98.84 Bariatric surgery status; Z87.891 Personal history of nicotine dependence; E83.42 Hypomagnesemia; E87.6 Hypokalemia; R19.7 Diarrhea, unspecified; E66.01 Morbid (severe) obesity due to excess calories; G43.011 Migraine without aura, intractable, with status migrainosus
CPT/HCPCS: 33208; 36415; 70450; 71045; 71046; 80048; 80053; 81001; 81015; 83735; 84443; 84484; 85025; 85378; 87493; 87506; 93005; 93306; 96361; 96365; 96367; 96376; 99152; 99153; 99214; 99285; A4216; C1769; C1779; C1786; C1894; C1898; G0378; J0461; J0690; J2250; J3010; J3370; J3475; J3480; J7030; J7050; Q9967

== ENCOUNTER → 2022-11-27 10:45 | Outpatient (BNVA) | payer MEDICARE, MEDICAID, SELFPAY | PROVIDERS: PCP Family Medicine; Visit Provider Nurse Practitioner Family | DX: Z95.0 Presence of cardiac pacemaker (principal) | CPT/HCPCS: 99214 ==

== ENCOUNTER → 2022-12-10 15:51 | Outpatient (BNVA) | payer MEDICARE, SELFPAY | PROVIDERS: PCP Family Medicine; Referring Provider Family Medicine; Visit Provider Dermatology | DX: L72.0 Epidermal cyst (principal); D23.62 Other benign neoplasm of skin of left upper limb, including shoulder; L82.1 Other seborrheic keratosis; L57.0 Actinic keratosis; L81.4 Other melanin hyperpigmentation; L57.8 Other skin changes due to chronic exposure to nonionizing radiation | CPT/HCPCS: 17000; 99203 ==

== ENCOUNTER → 2022-12-26 10:00 | Outpatient (BNVA) | payer MEDICARE, MEDICAID, SELFPAY | PROVIDERS: PCP Family Medicine; Visit Provider Family Medicine | DX: E03.9 Hypothyroidism, unspecified (principal); E78.2 Mixed hyperlipidemia; E11.9 Type 2 diabetes mellitus without complications | CPT/HCPCS: 83036; 84439; 84443; 84480 ==

== ENCOUNTER → 2023-01-08 10:52 | Outpatient (BNVA) | payer MEDICARE, MEDICAID, SELFPAY | PROVIDERS: PCP Family Medicine; Visit Provider Dermatology | DX: L72.0 Epidermal cyst (principal) | CPT/HCPCS: 99212 ==

== ENCOUNTER → 2023-02-04 11:00 | Outpatient (BNVA) | payer MEDICARE, MEDICAID, SELFPAY | PROVIDERS: PCP Family Medicine; Visit Provider Specialist | DX: G31.84 Mild cognitive impairment of uncertain or unknown etiology (principal); F41.8 Other specified anxiety disorders; G43.711 Chronic migraine without aura, intractable, with status migrainosus; Z87.891 Personal history of nicotine dependence; E03.9 Hypothyroidism, unspecified; E78.2 Mixed hyperlipidemia; I25.10 Atherosclerotic heart disease of native coronary artery without angina pectoris; E11.42 Type 2 diabetes mellitus with diabetic polyneuropathy; E11.59 Type 2 diabetes mellitus with other circulatory complications; E66.01 Morbid (severe) obesity due to excess calories; Z68.41 Body mass index [BMI] 40.0-44.9, adult; Z79.890 Hormone replacement therapy | CPT/HCPCS: 96116; 99214 ==

== ENCOUNTER → 2023-02-12 09:43 | Outpatient (BNVA) | payer MEDICARE, SELFPAY | PROVIDERS: PCP Family Medicine; Visit Provider Internal Medicine Cardiovascular Disease | DX: I95.1 Orthostatic hypotension (principal); E11.9 Type 2 diabetes mellitus without complications; Z95.0 Presence of cardiac pacemaker; E78.2 Mixed hyperlipidemia; E03.9 Hypothyroidism, unspecified; Z87.891 Personal history of nicotine dependence | CPT/HCPCS: 99214 ==

== ENCOUNTER → 2023-03-05 09:54 | Outpatient (BNVA) | payer OTHER, SELFPAY | PROVIDERS: PCP Family Medicine; Visit Provider Dermatology | DX: L82.0 Inflamed seborrheic keratosis (principal); L72.0 Epidermal cyst; D22.62 Melanocytic nevi of left upper limb, including shoulder; Z87.891 Personal history of nicotine dependence | CPT/HCPCS: 11102; 11103; 17110 ==

== ENCOUNTER → 2023-03-20 15:09 | Outpatient (BNVA) | payer MEDICARE, SELFPAY | PROVIDERS: PCP Family Medicine; Visit Provider Internal Medicine Cardiovascular Disease | DX: Z45.010 Encounter for checking and testing of cardiac pacemaker pulse generator [battery] (principal) | CPT/HCPCS: 93296 ==

== ENCOUNTER → 2023-03-24 10:01 | Outpatient (BNVA) | payer MEDICARE, MEDICAID, SELFPAY | PROVIDERS: PCP Family Medicine; Visit Provider Anesthesiology Pain Medicine | DX: Z98.1 Arthrodesis status; M47.12 Other spondylosis with myelopathy, cervical region; M75.122 Complete rotator cuff tear or rupture of left shoulder, not specified as traumatic; E11.42 Type 2 diabetes mellitus with diabetic polyneuropathy; M48.061 Spinal stenosis, lumbar region without neurogenic claudication; M51.36 Other intervertebral disc degeneration, lumbar region | CPT/HCPCS: 99214 ==

== ENCOUNTER → 2023-04-01 13:29 | Outpatient (BNVA) | payer MEDICARE, SELFPAY | PROVIDERS: PCP Family Medicine; Visit Provider Physician Assistant | DX: Z98.1 Arthrodesis status; M47.12 Other spondylosis with myelopathy, cervical region; Z95.0 Presence of cardiac pacemaker; M75.41 Impingement syndrome of right shoulder; M19.011 Primary osteoarthritis, right shoulder; M43.12 Spondylolisthesis, cervical region | CPT/HCPCS: 20610; 72050; 99214; J1040; J2795 ==

== ENCOUNTER 2023-04-04 10:10 | Outpatient (RCR) | payer MEDICARE, SELFPAY | END 2023-04-12 23:59 | disposition home or self-care (01) | LOC: SPT 10:10 | PROVIDERS: PCP Family Medicine; Visit Provider Orthopaedic Surgery | DX: Z98.1 Arthrodesis status (principal) | CPT/HCPCS: 97110; 97161; 97530 ==

== ENCOUNTER 2023-04-15 13:23 | Outpatient (RCR) | payer MEDICARE, MEDICAID, SELFPAY | END 2023-05-12 13:34 | disposition home or self-care (01) | LOC: SPT 13:23 | PROVIDERS: PCP Family Medicine; Visit Provider Orthopaedic Surgery | DX: E11.69 Type 2 diabetes mellitus with other specified complication (principal); E11.42 Type 2 diabetes mellitus with diabetic polyneuropathy; M20.41 Other hammer toe(s) (acquired), right foot; M20.42 Other hammer toe(s) (acquired), left foot; M21.611 Bunion of right foot; M21.612 Bunion of left foot; M21.6X1 Other acquired deformities of right foot; M21.6X2 Other acquired deformities of left foot; M21.41 Flat foot [pes planus] (acquired), right foot; M21.42 Flat foot [pes planus] (acquired), left foot; G31.84 Mild cognitive impairment of uncertain or unknown etiology; Z47.89 Encounter for other orthopedic aftercare | CPT/HCPCS: 97110; 97530; 99213 ==

== ENCOUNTER → 2023-04-16 09:14 | Outpatient (BNVA) | payer MEDICARE, MEDICAID, SELFPAY | PROVIDERS: PCP Family Medicine; Visit Provider Family Medicine | DX: G31.84 Mild cognitive impairment of uncertain or unknown etiology (principal); R53.83 Other fatigue; E11.9 Type 2 diabetes mellitus without complications; N40.1 Benign prostatic hyperplasia with lower urinary tract symptoms; E03.9 Hypothyroidism, unspecified; Z12.5 Encounter for screening for malignant neoplasm of prostate; R48.2 Apraxia; R29.6 Repeated falls; R46.89 Other symptoms and signs involving appearance and behavior | CPT/HCPCS: 80053; 81000; 82607; 82746; 83036; 83735; 84153; 84439; 84443; 84481; 85025 ==

== ENCOUNTER → 2023-04-22 09:05 | Outpatient (BNVA) | payer MEDICARE, MEDICAID, SELFPAY | PROVIDERS: PCP Family Medicine; Visit Provider Anesthesiology Pain Medicine | DX: Z98.1 Arthrodesis status; M47.12 Other spondylosis with myelopathy, cervical region; M75.122 Complete rotator cuff tear or rupture of left shoulder, not specified as traumatic; M48.061 Spinal stenosis, lumbar region without neurogenic claudication; M51.36 Other intervertebral disc degeneration, lumbar region | CPT/HCPCS: 99214 ==

== ENCOUNTER → 2023-05-06 11:31 | Outpatient (BNVA) | payer OTHER, SELFPAY | PROVIDERS: PCP Family Medicine; Visit Provider Specialist | DX: G31.84 Mild cognitive impairment of uncertain or unknown etiology (principal); F41.8 Other specified anxiety disorders; G43.711 Chronic migraine without aura, intractable, with status migrainosus; E11.40 Type 2 diabetes mellitus with diabetic neuropathy, unspecified | CPT/HCPCS: 99214 ==

== ENCOUNTER → 2023-07-23 09:28 | Outpatient (BNVA) | payer MEDICARE, MEDICAID, SELFPAY | PROVIDERS: PCP Family Medicine; Visit Provider Anesthesiology Pain Medicine | DX: M54.2 Cervicalgia (principal); M43.22 Fusion of spine, cervical region | CPT/HCPCS: 99214 ==

== ENCOUNTER → 2023-08-07 10:43 | Outpatient (BNVA) | payer OTHER, MEDICAID, SELFPAY | PROVIDERS: PCP Family Medicine; Visit Provider Internal Medicine | DX: E03.9 Hypothyroidism, unspecified; E78.2 Mixed hyperlipidemia; E11.42 Type 2 diabetes mellitus with diabetic polyneuropathy; E11.59 Type 2 diabetes mellitus with other circulatory complications; I25.10 Atherosclerotic heart disease of native coronary artery without angina pectoris; E66.01 Morbid (severe) obesity due to excess calories; Z68.41 Body mass index [BMI] 40.0-44.9, adult | CPT/HCPCS: 36415; 80053; 80061; 82044; 83036; 84439; 84443; 99214 ==

== ENCOUNTER → 2023-08-21 09:11 | Outpatient (BNVA) | payer OTHER, SELFPAY | PROVIDERS: PCP Family Medicine; Referring Provider Family Medicine; Visit Provider Family Medicine | DX: R53.83 Other fatigue (principal); E03.9 Hypothyroidism, unspecified | CPT/HCPCS: 84443; 85025 ==

== ENCOUNTER → 2023-09-16 13:10 | Outpatient (BNVA) | payer OTHER, MEDICAID, SELFPAY | PROVIDERS: PCP Family Medicine; Visit Provider Podiatrist Foot & Ankle Surgery | DX: E11.42 Type 2 diabetes mellitus with diabetic polyneuropathy (principal); M20.41 Other hammer toe(s) (acquired), right foot; M20.42 Other hammer toe(s) (acquired), left foot; M21.611 Bunion of right foot; M21.612 Bunion of left foot; M21.6X1 Other acquired deformities of right foot; M21.6X2 Other acquired deformities of left foot; M21.41 Flat foot [pes planus] (acquired), right foot; M21.42 Flat foot [pes planus] (acquired), left foot | CPT/HCPCS: 99213 ==

== ENCOUNTER → 2023-09-17 10:44 | Outpatient (BNVA) | payer MEDICARE, OTHER, MEDICAID, SELFPAY | PROVIDERS: PCP Family Medicine; Visit Provider Internal Medicine Cardiovascular Disease | DX: Z45.010 Encounter for checking and testing of cardiac pacemaker pulse generator [battery] (principal) | CPT/HCPCS: 93296 ==

== ENCOUNTER → 2023-09-24 15:19 | Outpatient (BNVA) | payer OTHER, SELFPAY | PROVIDERS: PCP Family Medicine; Visit Provider Internal Medicine Cardiovascular Disease | DX: I25.10 Atherosclerotic heart disease of native coronary artery without angina pectoris (principal); R06.02 Shortness of breath; I95.1 Orthostatic hypotension; Z95.0 Presence of cardiac pacemaker; E78.2 Mixed hyperlipidemia; E11.9 Type 2 diabetes mellitus without complications; E03.9 Hypothyroidism, unspecified; Z79.84 Long term (current) use of oral hypoglycemic drugs; Z87.891 Personal history of nicotine dependence | CPT/HCPCS: 99214 ==

== ENCOUNTER → 2023-10-01 11:26 | Outpatient (BNVA) | payer OTHER, SELFPAY | PROVIDERS: PCP Family Medicine; Visit Provider Family Medicine | DX: E03.9 Hypothyroidism, unspecified (principal); I25.10 Atherosclerotic heart disease of native coronary artery without angina pectoris; E78.2 Mixed hyperlipidemia; E11.9 Type 2 diabetes mellitus without complications; R53.83 Other fatigue; I10 Essential (primary) hypertension | CPT/HCPCS: 83036; 83540; 83735; 83880; 84439; 84443; 84481; 85007; 85027; 85651; 86038; 86140; 86618; 86666; 86757 ==

== ENCOUNTER 2023-10-02 12:45 | Emergency (ER) | payer OTHER, MEDICARE, MEDICAID, SELFPAY ==
[2023-10-02 12:49] VITALS: BP 119/70; PULSE 67; RESP 16; TEMP 37.1; O2SAT 98
--- NOTE | 2023-10-02 12:49 | ECG_ITS ---
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 Measurements Intervals [place] Rate: 63 P: 0 [place]: 0 QRS: -63 QRSD: 158 T: 54 QT: 448 QTc: 459 Interpretive Statements Possible atrial fibrillation with demand V paced ELECTRONIC VENTRICULAR PACEMAKER -- CONTOUR ANALYSIS BASED ON INTRINSIC RHYTHM LEFT AXIS DEVIATION [QRS AXIS < -30] RIGHT BUNDLE BRANCH BLOCK [120+ ms QRS DURATION, UPRIGHT V1, 40+ ms S IN I/aVL/V4/V5/V6] Compared to ECG 11/20/2022 06:00:57 Left-axis deviation now present Right bundle-branch block now present Atrial-paced complex(es) or rhythm no longer present Electronically Signed On 10-02-2023 22:10:38 CDT by Anabelle Chirinos M.D. [id number] trent
--- NOTE | 2023-10-02 12:57 | XR_ITS ---
WS: [id number] Portable AP upright chest, 10/02/2023 Clinical Data: chest pain Comparison: Portable chest, 11/19/2022 Findings: No nodules, masses or effusions are seen. The heart is normal. The pulmonary vascularity is not increased. No pneumonia or pneumothorax is seen. The aortic arch and descending thoracic aorta s how tortuosity. The permanent cardiac pacemaker remains in the same position. There are monitor leads on the chest wall. There are surgical clips in the left upper quadrant. Impression: Atherosclerosis and prominent cardiac pacemaker.
--- NOTE | 2023-10-02 13:11 | ED_ITS ---
HPI - Chest Pain 2 General: Chief Complaint: Chest Pain Stated Complaint: chest pains, sob Time Seen by Provider: 10/02/23 13:10 History of Present Illness: 73-year-old male patient comes in today with intermittent episodes shortness of breath with chest pressure for at least 1 month. Patient was treated for bronchitis 3 weeks ago with doxycycline and prednisone. Patient continued to have some discomfort after completion of treatment and they recommended further evaluation with cardiology. Patient was seen by primary care yesterday, Arlette Singleton, who ordered some labs and was going to reach out to cardiology to see about the stress test that had been ordered. Patient had received a call just here in the emergency department that they had the stress test set up for Friday morning. Patient was at [facility] with family and was coming out of the office when he had a short episode of chest pressure and mild shortness of breath. Patient at this time appears in no pain. Skin is warm and dry and color is pink. Patient has a history of diabetes mellitus that is diet controlled, hypertension, hypothyroidism, CAD, pacemaker placement, stent placement in 2007, KRISTIE with CPAP use. Review of Systems 2 Card: Reports: chest pain PFSH ED 2 PFSH: Medical History Atherosclerosis of coronary artery of [place] heart without angina pectoris Presence of permanent cardiac pacemaker Hypomagnesemia Hypokalemia Symptomatic bradycardia High degree atrioventricular block Pre-syncope Generalized weakness Bradycardia Psychiatric care Chronic migraine without aura, intractable, with status migrainosus Alzheimer disease Chronic neck pain History of umbilical hernia Hyperlipemia, mixed Mild cognitive impairment with memory loss BPH loc w urin obs/LUTS Mild lower urinary tract symptoms with good response to TAMSULOSIN. Low objective risk. No evidence of prostate cancer. HTN (hypertension) with goal to be determined Coronary artery disease Hypertension Obesity Diet-controlled type 2 diabetes mellitus History of prediabetes Hx of primary hypertension Hx of myocardial infarction Hx of sleep apnea History of hypothyroidism Hx-TIA (transient ischemic attack) Diabetic peripheral neuropathy associated with type 2 diabetes mellitus Surgical History S/P cataract surgery History of left knee surgery Hx of cholecystectomy Hx of tonsillectomy Hx of vasectomy H/O heart artery stent H/O gastric bypass Gastric bypass status for obesity Family History Mother No problems noted. Father CAD (coronary artery disease) Other Diabetes Social History Smoking and tobacco/nicotine status: former use of tobacco/nicotine Second hand smoke exposure: No Alcohol intake: current Alcohol intake frequency: few times a month Alcohol type: beer Substance/Drug Use: never Marital status: Current occupational status: disabled Physical Exam 2 Const: COMMON NORMALS: alert HENMT: COMMON NORMALS: normocephalic HEAD & SCALP: normocephalic Neck/C-Spine: COMMON NORMALS: full ROM Chest: COMMONS NORMALS: normal palpation of entire chest wall Resp: COMMON NORMALS: normal respiratory effort AUSCULTATION: diminished lung sounds Cardio: COMMON NORMALS: regular rate and regular rhythm RATE: regular rate RHYTHM: regular rhythm GI: COMMON NORMALS: Soft to palpation and non-tender PALPATION: Yes Soft to palpation Back/Pelvis: COMMON NORMALS: thoracic and lumbar spine normal to inspection Extremity: COMMON NORMALS: no pedal edema Neuro: SENSORIUM/ORIENTATION: Yes alert Skin: COMMON NORMALS: turgor normal GENERAL SKIN EXAM: turgor normal Course 2 Vital Signs: Vital signs: Vital Signs Temperature 98.8 F 10/02/23 12:49 Pulse Rate 70 10/02/23 14:56 Respiratory Rate 16 10/02/23 12:49 Blood Pressure 167/93 10/02/23 14:56 Pulse Oximetry 93 10/02/23 14:56 Oxygen Delivery Me thod Room Air 10/02/23 14:56 MDM - Chest Pain Medical Decision Making 73-year-old male patient comes in today with complaints of chest discomfort and episodes of shortness of breath over the last month. Patient appears nontoxic. Hands warm and dry color is pink. Vital signs are normal. Differential diagnosis includes ACS, CHF, anxiety, electrolyte imbalance. No change in troponin over 2 hours. EKG was without any significant change out for 2 hours. CBC and CMP were unremarkable. Chest x-ray showed no abnormality. Patient did have some mild anemia noted on his CBC. Patient also had a mild bump in his BNP in the 170s. No significant swelling or chest x-ray abnormality suggesting CHF. Patient does have appointment to get a stress test on Friday I think that would be the best course at this time for further evaluation of cardiac condition and to rule out any significant stenosis of the coronary artery. Patient was agreeable to plan and will follow-up for worsening symptoms. Lab Data 10/02/23 13:05 10/02/23 13:05 Laboratory Results WBC 6.38 10^3/uL (3.29-11.43) 10/02/23 13:05 RBC 5.04 10^6/uL (3.85-5.65) 10/02/23 13:05 Hgb 11.00 g/dL (11.27-16.99) L 10/02/23 13:05 Hct 37.8 % (37-53) 10/02/23 13:05 MCV 75.0 fl (82-101) L 10/02/23 13:05 MCH 21.8 pg (27-33) L 10/02/23 13:05 MCHC 29.1 g/dL (30-55) L 10/02/23 13:05 RDW 18.6 % (12.1-15.1) H 10/02/23 13:05 Plt Count 251 10^3/cmm (157-399) D 10/02/23 13:05 MPV 8.6 fL (7.4-10.4) 10/02/23 13:05 Neut % (Auto) 55.8 % 10/02/23 13:05 Lymph % (Auto) 28.7 % 10/02/23 13:05 [place] % (Auto) 10.8 % 10/02/23 13:05 Eos % (Auto) 3.8 % 10/02/23 13:05 Baso % (Auto) 0.6 % 10/02/23 13:05 Neut # (Auto) 3.56 10^3/uL (1.8-7.7) 10/02/23 13:05 Lymph # (Auto) 1.8 10^3/uL (0.8-4.8) 10/02/23 13:05 [place] # (Auto) 0.7 10^3/uL (0.2-0.9) 10/02/23 13:05 Eos # (Auto) 0.2 10^3/uL (0.0-0.8) 10/02/23 13:05 Baso # (Auto) 0.0 10^3/uL (0.0-0.1) 10/02/23 13:05 Nucleated RBC % (auto) 0 % 10/02/23 13:05 Nucleated RBCs # 0.0 /100WBC 10/02/23 13:05 Sodium 141 mmol/L (136-145) 10/02/23 13:05 Potassium 3.5 mmol/L (3.5-5.1) 10/02/23 13:05 Chloride 103 mmol/L (98-107) 10/02/23 13:05 Carbon Dioxide 26 mmol/L (22-29) 10/02/23 13:05 Anion Gap 15.5 (5-19) 10/02/23 13:05 BUN 15 mg/dL (8-23) 10/02/23 13:05 Creatinine 1.0 mg/dL (0.7-1.2) 10/02/23 13:05 GFR Calculation Not Reportable 10/02/23 13:05 Glucose 78 mg/dL (65-115) 10/02/23 13:05 Calculated Osmolality 292 mOsm/kg (285-295) 10/02/23 13:05 Calcium 8.3 mg/dL (8.5-10.5) L 10/02/23 13:05 Total Bilirubin 0.4 mg/dL (0.15-1.2) 10/02/23 13:05 AST 12 U/L (0-40) 10/02/23 13:05 ALT 8 U/L (0-41) 10/02/23 13:05 Alkaline Phosphatase 71 U/L (40-130) 10/02/23 13:05 Troponin T Baseline 35 ng/L (0-15) H 10/02/23 13:05 Troponin T 120 Minute 36.31 ng/L (0-15) H 10/02/23 15:01 Delta Troponin T 1.31 ABS# (0-10) 10/02/23 15:01 NT-Pro-B Natriuret Pep 172 pg/mL (0-125) H 10/02/23 13:05 Total Protein 6.3 g/dL (6.6-8.7) L 10/02/23 13:05 Albumin 3.7 g/dL (3.5-5.2) 10/02/23 13:05 Globulin 2.6 g/dL (1.3-4.6) 10/02/23 13:05 All radiology interpretation(s) finalized by discharge Discharge Plan Discharge Patient Disposition: Home Clinical Impression: Chest pain Qualifiers: Chest pain type: unspecified Qualified Code(s): R07.9 - Chest pain, unspecified Anemia Qualifiers: Anemia type: unspecified type Qualified Code(s): D64.9 - Anemia, unspecified Condition: Stable Prescriptions: No Action venlafaxine 150 mg capsule,extended release 24hr 150 mg PO QAM 90 Days Qty: 90 3RF tizanidine 2 mg tablet 2 mg PO BID PRN (Reason: muscle spasticity) 30 Days Qty: 60 2RF tamsulosin 0.4 mg capsule 0.4 mg PO DAILY 90 Days Qty: 90 1RF pantoprazole [Protonix] 40 mg tablet,delayed release (DR/EC) 40 mg PO BID 90 Days Qty: 180 1RF carvedilol 6.25 mg tablet 6.25 mg PO BID Qty: 180 1RF Rx Instructions: must administer with a meal/food chlorthalidone 25 mg tablet 25 mg PO DAILY 90 Days Qty: 90 1RF gabapentin 300 mg capsule 300 mg PO BID 90 Days Qty: 180 1RF (DME) Diabetic Shoes with Custom Molded Accommodative Inserts See Rx Instructions .Route .MEDSUPPLY Qty: 1 0RF Rx Instructions: As directed Daily Living Medical nitroglycerin [Nitrostat] 0.4 mg tablet, sublingual 0.4 mg sublingual Q5M PRN (Reason: chest pain) Qty: 30 3RF atorvastatin 40 mg tablet 40 mg PO DAILY Qty: 90 0RF clopidogrel 75 mg tablet 75 mg PO DAILY Qty: 90 1RF Hold Instructions: Resume on 11/21/22. galantamine 12 mg tablet 12 mg PO BID Qty: 180 3RF Rx Instructions: administer with AM and PM meals levothyroxine 150 mcg tablet 150 mcg PO DAILY Qty: 90 0RF aspirin 81 mg Tablet,Delayed Release (Dr/Ec) 81 mg PO DAILY Seroquel 25 mg tablet 25 mg PO QAM quetiapine 100 mg tablet 100 mg PO QPM clobetasol 0.05 % ointment 1 applic TOPICAL DAILY Discharge Orders: Discharge ED (Routine); Ordered 03/21/24 Ordered By: Juwan Hernandez Referrals: Arlette Singleton MD [Primary Care Provider] - Discharge Diet: Usual diet Discharge Activity: Increase activity as tolerated Patient Instructions: Chest Pain (ED) Activity Restrictions/Additional Instructions: Continue with routine care. Follow-up with dip tanker on Friday for stress test and further evaluation. Return to ER for worsening symptoms or new concerns. Coding Level of Care Code ED Caregivers Homecare for uDran Perez
[2023-10-02 13:13] LABS: Basophils % 0.6 %; Eosinophils # 0.2 10^3/uL (0.0-0.8); Eosinophils % 3.8 %; Hematocrit 37.8 % (37-53); Lymphocytes # 1.8 10^3/uL (0.8-4.8); Lymphocytes % 28.7 %; Mean Corpuscular HGB Conc 29.1 g/dL (30-55); Mean Corpuscular Hemoglobin 21.8 pg (27-33); Mean Platelet Volume 8.6 fL (7.4-10.4); Monocytes # 0.7 10^3/uL (0.2-0.9); Monocytes % 10.8 %; Neutrophils # 3.56 10^3/uL (1.8-7.7); Neutrophils % 55.8 %; Nucleated Red Blood Cells % 0 %; Platelet Count 251 10^3/cmm (157-399); Red Blood Count 5.04 10^6/uL (3.85-5.65); Red Cell Distribution Width 18.6 % (12.1-15.1); White Blood Count 6.38 10^3/uL (3.29-11.43)
[2023-10-02 13:24] VITALS: BP 167/93; PULSE 65; O2SAT 95
[2023-10-02 13:29] LABS: Troponin(5th) Baseline 35 ng/L (0-15)
[2023-10-02 13:32] LABS: Alanine Aminotransferase 8 U/L (0-41); Albumin Level 3.7 g/dL (3.5-5.2); Alkaline Phosphatase 71 U/L (40-130); Anion Gap 15.5 (5-19); Aspartate Amino Transferase 12 U/L (0-40); Blood Urea Nitrogen 15 mg/dL (8-23); Calcium 8.3 mg/dL (8.5-10.5); Carbon Dioxide 26 mmol/L (22-29); Chloride 103 mmol/L (98-107); Globulin 2.6 g/dL (1.3-4.6); Glucose 78 mg/dL (65-115); Osmolality Calculated 292 mOsm/kg (285-295); Potassium 3.5 mmol/L (3.5-5.1); Sodium 141 mmol/L (136-145); Total Bilirubin 0.4 mg/dL (0.15-1.2); Total Protein 6.3 g/dL (6.6-8.7)
[2023-10-02 14:02] LABS: NT Pro B Type Natriuretic Pept 172 pg/mL (0-125)
[2023-10-02 14:56] VITALS: BP 167/93; PULSE 70; O2SAT 93
--- NOTE | 2023-10-02 14:57 | ECG_ITS ---
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 Measurements Intervals [place] Rate: 59 P: 162 KS: 197 QRS: -74 QRSD: 159 T: 85 QT: 480 QTc: 479 Interpretive Statements ELECTRONIC ATRIAL PACEMAKER ELECTRONIC VENTRICULAR PACEMAKER ABNORMAL RHYTHM ECG Compared to ECG 10/02/2023 12:49:36 Left-axis deviation no longer present Right bundle-branch block no longer present Electronically Signed On 10-02-2023 22:18:12 CDT by Anabelle Chirinos M.D. [id number]
[2023-10-02 15:35] LABS: Troponin 5 2HR 36.31 ng/L (0-15); Troponin 5 2HR Delta 1.31 ABS# (0-10)
[2023-10-02 16:02] VITALS: BP 124/77; PULSE 62; O2SAT 95
== END 2023-10-02 16:03 | disposition home or self-care (01) ==
PROVIDERS: Emergency Medicine; Emergency Provider Nurse Practitioner Family; PCP Family Medicine
DX: R07.9 Chest pain, unspecified (principal); D64.9 Anemia, unspecified; Z79.02 Long term (current) use of antithrombotics/antiplatelets; Z79.82 Long term (current) use of aspirin; Z87.891 Personal history of nicotine dependence; I25.10 Atherosclerotic heart disease of native coronary artery without angina pectoris; Z95.0 Presence of cardiac pacemaker; G30.9 Alzheimer's disease, unspecified; F02.80 Dementia in other diseases classified elsewhere, unspecified severity, without behavioral disturbance, psychotic disturbance, mood disturbance, and anxiety; E78.2 Mixed hyperlipidemia; I10 Essential (primary) hypertension; I25.2 Old myocardial infarction; Z86.73 Personal history of transient ischemic attack (TIA), and cerebral infarction without residual deficits; E11.42 Type 2 diabetes mellitus with diabetic polyneuropathy
CPT/HCPCS: 36415; 71045; 80053; 83880; 84484; 85025; 93005; 99285

== ENCOUNTER 2023-10-06 07:46 | Outpatient (CLI) | payer MEDICARE, MEDICAID, SELFPAY ==
--- NOTE | 2023-10-06 08:13 | ECG_ITS ---
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 Interpretive Statements NAME OF STUDY: LEXISCAN SESTAMIBI STRESS TEST INDICATION: FATIGUE/KNIGHT, PROCEDURE: At the baseline, the EKG revealed atrial sensed, V paced paced rhythm. The baseline heart was 83 bpm with a blood pressue of 110/60 mm of Hg Lexiscan was infused over a period of 20 seconds. A total of 0.4 milligrams of Lexiscan was infused. The stress phase was continued for a total of 5 minutes. Heart rate at the end of the stress phase was 69 bpm with a blood pressure 94/51 mm of Hg. The EKG at the peak infusion revealed no significant changes. Sestamibi was injected 20 seconds after the Lexiscan infusion. Heart rate at the end of the recovery phase was 65 bpm with a blood pressure of 97/48 mm of Hg. CONCLUSION: 1. The EKG response to Lexiscan infusion is uninterpretable due to the pacing artifact 2. No LexiScan induced chest pain or cardiac arrhythmia 3. Normal blood pressure and heart rate response 4. Sestamibi/sestamibi perfusion scan pending; see separate report. Electronically Signed On 10-13-2023 8:38:53 CDT by Anabelle Chirinos M.D. [id number]
--- NOTE | 2023-10-06 08:13 | NMCV_ITS ---
NM ryan perf SPECT r/s* [id number] Jorge Ventura Age: 73 Gender: M : 1950 Exam Date: 10/06/2023 09:04 Ordering Phys: Anabelle Chirinos MD ([email or web address]) Technologist: STEVAN Hopper Exam Location: [facility] Indications: CORONARY ANGIOPLASTY STATUS STRESS TEST Please see separate [facility] for full findings IMAGE PROTOCOL Rest/Stress 1 Lexiscan Day Radiopharmaceutical Dose (mCi) Administration Site Administered by Rest: Tc-99m 10.7 IV STEVAN Hidalgo Sestamibi Stress:Tc-99m 32.8 IV STEVAN Hidalgo Sestamibi Rest: 06-Oct-2023 60 Discovery 630 Stress: 06-Oct-2023 30 Discovery 630 0.4mg Lexiscan. Images obtained in supine and prone position. SPECT RESULTS Technical Quality: Excellent Raw Data Analysis: Normal Image Corrections: No attenuation or motion correction applied Summed Stress Score: 6 Summed Rest Score: 5 Summed Difference Score: 2 PERFUSION FINDINGS Moderate area of moderately decreased tracer uptake was noted in the basal and apical inferior wall region. Subtle areas of reversibility was noted in the apical inferior region, with the supine imaging however with the prone imaging no significant reversible defects are noted FUNCTIONAL RESULTS (calculated via Gated SPECT) Stress Image LV EF (%): 65 Stress EDV (mL):107 TID: 1.03 Stress ESV (mL):37 FUNCTIONAL FINDINGS: Segmental wall motion analysis revealing no gross wall motion abnormalities IMPRESSIONS 1. Myocardial perfusion imaging revealing moderate area of moderately decreased tracer uptake in the inferior wall region with a subtle areas of reversibility suggesting myocardial scarring with areas of infarction ischemia in the distribution of the right coronary artery. However because of the inconsistency with the prone imaging, the reliability is questionable. 2. Normal LV ejection fraction of 65%. 3. LV wall motion analysis revealing no gross wall motion abnormalities. 4. Normal LV volume No similar previous studies are available for comparison Dr Anabelle Chirinos MD [facility] (Electronically Signed) Final Date: 06 October 2023 14:10 S
[2023-10-06 08:14] VITALS: BMI 43.2
[2023-10-06] MEDS: regadenoson 0.4 Mg/5 ml Syringe 0.400000000000000022 MG IVP (09:42)
[2023-10-06 09:59] VITALS: BP 94/56; PULSE 65
== END 2023-10-06 07:47 | disposition home or self-care (01) ==
LOC: CDL 07:47
PROVIDERS: PCP Family Medicine; Visit Provider Internal Medicine Cardiovascular Disease
DX: Z98.61 Coronary angioplasty status (principal)
CPT/HCPCS: 36415; 78452; 93017; 96374; A9500; J2785

== ENCOUNTER 2023-10-07 07:23 | Outpatient (CLI) | payer MEDICARE, MEDICAID, SELFPAY ==
--- NOTE | 2023-10-07 08:00 | USCV_ITS ---
Jorge Ventura Age: 73 Gender: M : 1950 Exam Date: 10/07/2023 07:38 Ordering Phys: Arlette Singleton MD Technologist: CAM [place] [facility] [place]ication: HEART DISEASE BP: 102 / 66 HR: 48 Rhythm: Sinus Technical Quality: Adequate MEASUREMENTS (Male / Female) Normal Values 2D ECHO LV Diastolic Diameter PLAX 3.4 cm 4.2 - 5.9 / 3.9 - 5.3 cm IVS Diastolic Thickness 1.3 cm 0.6 - 1.0 / 0.6 - 0.9 cm IVS Systolic Thickness 2.4 cm LVPW Diastolic Thickness 2.3 cm 0.6 - 1.0 / 0.6 - 0.9 cm LVPW Systolic Thickness 3.3 cm LVOT Diameter 2.0 cm LV Ejection Fraction 2D Teich 65.9 % LV Ejection Fraction MOD 2C 60.5 % LV Ejection Fraction 2C AL 63.4 % LA Diameter 3.6 cm RA Systolic Volume 4C AL 30.5 ml RA Systolic Volume 4C MOD 28.8 ml Aorta at Sinotubular Diameter 2.8 cm IVC Diameter 1.6 cm M-MODE LA Ao Ratio MM 1.2 AV Cusp Separation MM 1.5 cm DOPPLER AV Peak Velocity 148.0 cm/s LVOT Peak Velocity 113.0 cm/s AV Area Cont Eq vti 2.3 cm squared AV Area Cont Eq pk 2.4 cm squared MV Peak Velocity 91.0 cm/s MV Area PHT 3.0 cm squared Mitral E to A Ratio 1.0 TR Peak Velocity 168.0 cm/s TR Peak Gradient 11.3 mmHg TR Mean Velocity 151.0 cm/s TR Mean Gradient 9.3 mmHg TR Velocity Time Integral 52.9 cm TV Peak E Velocity 53.0 cm/s Right Atrial Pressure 3.0 mmHg Pulmonary Artery Systolic Pressu 14.3 mmHg PV Peak Velocity 109.0 cm/s RV Ejection Time 0.4 s FINDINGS Left Ventricle Normal left ventricular size and systolic function, EF 60%. Moderate left ventricular hypertrophy. Abnormal septal motion consistent with conduction abnormality. Grade I/IV diastolic dysfunction (abnormal relaxation filling pattern), normal to mildly elevated filling pressures. Right Ventricle The right ventricle is normal in size and function. Right Atrium The right atrium is normal in size. Left Atrium The left atrium is normal in size. Mitral Valve Mild mitral annular calcification. Aortic Valve No gross abnormalities noted Tricuspid Valve No gross abnormalities noted Pulmonic Valve Pulmonic valve not well visualized. Pericardium Normal pericardium without effusion. Aorta Normal ascending aorta dimension. IVC Inferior vena cava not visualized. CONCLUSIONS Normal left ventricular size and systolic function, EF 60%. Moderate left ventricular hypertrophy. Abnormal septal motion consistent with conduction abnormality. Grade I/IV diastolic dysfunction (abnormal relaxation filling pattern), normal to mildly elevated filling pressures. Mild mitral annular calcification. There is no pericardial effusion. There are no intracardiac masses. Compared to the study from 11/16/2022, there may not be a significant change Dr Anabelle Chirinos MD [facility] (Electronically Signed) Final Date: 09 October 2023 09:05 S
== END 2023-10-07 07:24 | disposition home or self-care (01) ==
LOC: RAD 07:23
PROVIDERS: PCP Family Medicine; Visit Provider Family Medicine
DX: I25.10 Atherosclerotic heart disease of native coronary artery without angina pectoris (principal); Z95.0 Presence of cardiac pacemaker
CPT/HCPCS: 93306

== ENCOUNTER 2023-10-09 06:45 | Outpatient (CLI) | payer OTHER, SELFPAY ==
--- NOTE | 2023-10-09 07:00 | CT_ITS ---
WS: [id number] CT HEAD NONCONTRAST HISTORY: R41.82 - Altered mental status, unspecified TECHNIQUE: Contiguous axial imaging performed through the brain in 2.5 mm imaging. Bone and soft tiss ue windows. Sagittal and coronal reformats reviewed. All CT scans at [facility] use at least one of these dose optimization techniques: automated exposure control; mA and/or kV adjustment per pa tient size (includes targeted exams where dose is matched to clinical indication); or iterative recon struction. DLP: 1162.98 mGy.cm COMPARISON: 11/15/2022 No acute intracranial hemorrhage, midline shift or mass effect. Mild atrophy and small vessel ischemic changes. There is no mass effect. No acute interval change. Mi ld cerebellar atrophy. Ventricles: Normal size with no hydrocephalus. No intra displacement of the cerebellar tonsils. Paranasal sinuses: As visualized are clear. Mastoid air cells: Well pneumatized. Calvarium and scalp: Skull is intact with no soft tissue edema or swelling. IMPRESSION: 1. No acute intracranial hemorrhage or edema. 2. Mild atrophy and small vessel ischemic disease. Similar to 11/15/2022.
== END 2023-10-09 06:46 | disposition home or self-care (01) ==
LOC: RAD 06:45
PROVIDERS: PCP Family Medicine; Visit Provider Family Medicine
DX: G31.9 Degenerative disease of nervous system, unspecified (principal); I67.82 Cerebral ischemia; R41.82 Altered mental status, unspecified
CPT/HCPCS: 70450

== ENCOUNTER → 2023-10-14 08:18 | Outpatient (BNVA) | payer OTHER, SELFPAY | PROVIDERS: PCP Family Medicine; Visit Provider Specialist | DX: E11.9 Type 2 diabetes mellitus without complications (principal); D64.9 Anemia, unspecified; I20.0 Unstable angina; G31.84 Mild cognitive impairment of uncertain or unknown etiology; G43.711 Chronic migraine without aura, intractable, with status migrainosus | CPT/HCPCS: 82607; 82728; 83540; 99215 ==

== ENCOUNTER 2023-10-22 07:23 | Outpatient (CLI) | payer MEDICARE, SELFPAY ==
--- NOTE | 2023-10-22 | XACV_ITS ---
Exam Room: 2 Ht: 170 cm Wt: 125 kg BSA: 2.50 m2 Gender: Male : 1950 Any Known Allergies: No known allergies Exam Priority: Routine Procedure(s): Procedure Description: Diagnostic procedure Procedure Description: Left Heart Catheterization Procedure Description: Left ventriculography Procedure Description: Coronary Angiography Diagnostic Cath Status: Elective Diagnostic Findings * The left main is a medium caliber vessel with no significant stenotic lesions. * The left underling artery is a medium caliber vessel which is appears to give off multiple diagonal branches. Mild diffuse intimal realities are noted in the mid and distal segment of the artery. No significant stenotic lesions. * The left circumflex artery is a medium caliber nondominant vessel with no significant stenotic lesions. * The right coronary artery is a medium caliber dominant vessel which was found to have a long stented segment at the midportion. The stent is widely open. Proximal to the stent, there was a 30% narrowing. The proximal right coronary artery was found to have minimal intimal irregularities. No severe stenotic lesions were noted. Conclusions 1. 1. Patent stented segment of the right coronary artery.2. Mild disease in the other vessels.3. LV ejection fraction 50%. Mild hypokinesia of the basal inferior wall segment. LVEDP of 17 mmHg. Diagnostic RX Recommendation: medical therapy and/or counseling LV EDP: 17 mmHg Ventriculography Ejection Fraction: 50.0 % Left Ventriculography Findings: * LV gram was performed the RODRIGUEZ projection. The LV cavity appeared to be of normal size. There was mild hypokinesia of the basal inferior wall segment. Overall ejection fraction around 50%. No significant mitral valve prolapse or mitral regurgitation. Pressures Phase:Rest AO : -3 / -44 ( -33 ) @ 1:54:00 PM 115 / 68 ( 84 ) @ 2:03:00 PM 123 / 69 ( 92 ) @ 2:03:00 PM LV : 137 / 8 / 17 @ 2:01:00 PM 123 / 8 / 23 @ 2:02:00 PM 127 / 10 / 17 @ 2:03:00 PM Valves Phase:DefaultPhase AV : 13.0 @ 1:27:48 PM 13.0 @ 1:27:48 PM AV Mean Gradient: 9.0 @ 1:27:48 PM 9.0 @ 1:27:48 PM Clinical Evaluation EBL: 5mL-10mL Procedural Details Procedure Consent Obtained. Current Diagnosis : Chest Pain. Pre-Procedure Time Out. Identified patient by full name and date of as verbalized by the patient/guarantor. Does the consent match the physician's order: Yes. Accurate & Complete Informed Consent: Yes. Inpatient/Outpatient History & Physical on Chart: Yes. If H&P is completed, is and addenduem needed: No; If yes, is the addendum complete: N/A. Visualize and Verify Site with Patient/Guarantor: N/A. Relevant Radiology Images available: Yes. Pre-op teaching completed and patient verbalized understanding. The risks, benefits, and alternatives of sedation and/or procedure were discussed by physician. The patient agrees to continue. Procedure started. [facility] Clinical Fraility Score: 3: Managing Well. Laboratory Coordinator Indications: Worsening Angina. Chest Pain Symptom Assessment: Atypical Angina. Correct patient, site and procedure confirmed by cath team. Current diagnosis: Chest Pain. PERRLA. Strong, equal hand technology risk intern bilaterally. Lungs clear x 5 lobes. IV Site on Arrival: 20 gauge in the right anticubital. IV Fluids: 0.9% NaCl at KVO. 0 mL infused prior to color laboratory technician. Pre Procedural Pulses: right dorsalis pedis was Doppled. Pre Procedural Pulses: left dorsalis pedis was 1+. Pre Procedural Pulses: right posterior tibial was Doppled. Pre Procedural Pulses: left posterior tibial was 1+. Pre Procedural Pulses: bilateral radial was 2+. Oxygen started at 2liters/min via nasal canula. right groin was prepped with chloroprep then draped in the usual sterile fashion. right radial was prepped with chloroprep then draped in the usual sterile fashion. Physician notified. Physician notified. Physician arrived. Baseline sample Acquired. HR: 70 BPM. Physician scrubbed in. Immediate Pre-Procedure Time Out. Correct Patient: Yes; Correct Procedure: Yes; Correct Site: Yes; Correct Patient Position: Yes; Correct Supplies: Yes; Dried Flammable Prep: Yes; Blood Products Available: N/A;. STEMI alert called overhead. The case is paused until we hear from the ED. The patient is being taken off the color laboratory technician table until after the STEMI case. Vital chart was stopped. Procedure started. The patient arrived from CPRU via wheelchair. Physician notified. Baseline sample Acquired. HR: 66 BPM. Baseline sample Acquired. HR: 76 BPM. Physician arrived. Physician scrubbed in. Immediate Time out performed again with color laboratory technician staff. Correct Patient: Yes; Correct Procedure: Yes; Correct Site: Yes; Correct Patient Position: Yes; Correct Supplies: Yes; Dried Flammable Prep: Yes; Blood Products Available: N/A;. Lidocaine 1% infiltrated to the right radial. An attempt to gain access to the right radial artery was unsuccessful. Manual pressure was held as needed to stop the bleeding. Unable to obtain radial access. MD attempting to gain access in the Femoral artery. Lidocaine 1% infiltrated to the right groin. Arterial access obtained with micropuncture set. A 5 equatorial guinean JL4 catheter in over wire. Multiple views taken of left coronary artery. Catheter removed over the standard wire. A 5 equatorial guinean JR4 catheter in over wire. Multiple views taken of right coronary artery. Catheter removed over the standard wire. A 5 equatorial guinean Angled Pig catheter in over wire. EDP Sample taken: LV 137/8,17; HR: 67 BPM; SpO2: 98%. LV gram performed in RODRIGUEZ @ 10 mL/second for a total of 30 mL. Patient EF: Normal. EDP Sample taken: LV 123/8,23; HR: 64 BPM; SpO2: 98%. Pullback taken: LV 127/10,17; AO 115/68(84); Mean: 9mmHg, Peak to Peak: 13mmHg, SEP: 19sec/min; HR: 63 BPM; SpO2: 98%. Catheter removed over the standard wire. Physcian Reivew of Films. Physician scrubbed out. Dr Painter in to place Mynx Closure device. Physician scrubbed in. A Right femoral angiogram was performed to determine safe placement of closure device. A Mynx was successful obtaining hemostatsis at the Right Femoral artery insertion site. Mynx placed without complications. No signs or symptoms of hematoma noted. Sterile dressing applied per usual sterile fashion. exp 10-11-25 lot [id number]. Post Procedure: Pulses reassessed and unchanged. PERRLA. Strong, equal hand technology risk intern bilaterally. No VTE prophylaxis required. Medication waste: Lido- 10 ml Nitro- 50 mg Heparin- 4500 units Fentanyl- 25 mcg Verapamil- 5 mg. Total IV fluids: 100 mL. Fluoro: 6:06. Contrast type used: Omnipaque 300 mg/mL, 150 mL bottle. [id number]. Post-op diagnosis: Patent stent; Mild CAD. Complications: None. Estimated blood loss: 5mL-10mL. Responsiveness - Normal response to verbal stimuli; alert and oriented, PERRLA. Airway - Unaffected, no intervention required; spontaneous ventilation. Circulation: W/N/L, pulses unchanged. Nausea/Vomiting: No. Procedure completed. Vital chart was stopped. Patient transferred by bed to 1st floor. MD scrubbed out post closure. Access Site Site: Right Femoral artery Sheath Size: 6 Fr Hemostasis Method: Mynx Hemostasis Success: Successful Procedure Medications Start: 9:41 AM Stop: 9:41 AM Medication: Versed Amount: 1 mg Route: I.V. Start: 9:42 AM Stop: 9:42 AM Medication: Fentanyl Amount: 25 mcg Route: I.V. Start: 12:26 PM Stop: 12:26 PM Medication: Versed 1 mg and Fentanyl 25 mcg Amount: 1 Route: I.V. Start: 12:48 PM Stop: 12:48 PM Medication: Heparin Amount: 1500 units Route: I.V. Start: 12:53 PM Stop: 12:53 PM Medication: Fentanyl Amount: 25 mcg Route: I.V. I, the attending physician, have reviewed and verified all procedure medications. Yes, all medications given per verbal order History/Risk Factors Hypertension: Yes Dyslipidemia: Yes Peripheral Arterial Disease (PAD): No Myocardial Infarction (MD): Yes Obesity: Yes Renal Disease: No Prior Interventions PCI: Yes CABG: No Valve Surgery: No Report Signatures Finalized by Dr Anabelle Chirinos MD [facility] on 10/22/2023 05:20 PM
[2023-10-22] MEDS: aspirin 325 mg Tablet PO (07:45)
[2023-10-22] MEDS: diphenhydrAMINE 50 mg Capsule PO (07:45)
[2023-10-22 07:51] LABS: Basophils # 0.1 10^3/uL (0.0-0.1); Eosinophils # 0.2 10^3/uL (0.0-0.8); Eosinophils % 4.1 %; Hematocrit 35.2 % (37-53); Lymphocytes # 1.9 10^3/uL (0.8-4.8); Mean Corpuscular HGB Conc 29.3 g/dL (30-55); Mean Corpuscular Volume 75.1 fl (82-101); Mean Platelet Volume 8.6 fL (7.4-10.4); Monocytes # 0.5 10^3/uL (0.2-0.9); Monocytes % 9.8 %; Neutrophils # 2.25 10^3/uL (1.8-7.7); Neutrophils % 45.9 %; Nucleated Red Blood Cells % 0 %; Platelet Count 200 10^3/cmm (157-399); Red Blood Count 4.69 10^6/uL (3.85-5.65); Red Cell Distribution Width 18.4 % (12.1-15.1)
[2023-10-22 08:04] VITALS: BP 124/73; PULSE 60; RESP 18; TEMP 36.7; O2SAT 94; BMI 43.2
[2023-10-22 08:12] LABS: Anion Gap 13.6 (5-19); Blood Urea Nitrogen 15 mg/dL (8-23); Calcium 8.5 mg/dL (8.5-10.5); Carbon Dioxide 25 mmol/L (22-29); Chloride 106 mmol/L (98-107); Creatinine Clr Calc Pharmacy 75.9134; Glucose 106 mg/dL (65-115); Osmolality Calculated 293 mOsm/kg (285-295); Potassium 3.6 mmol/L (3.5-5.1); Sodium 141 mmol/L (136-145)
--- NOTE | 2023-10-22 09:34 | W.PM.OPSUD ---
Surgery/Procedure H&P Update DATE OF PROCEDURE: October 22, 2023 DATE H&P PERFORMED: 09/24/23 H&P UPDATE INFORMATION: I have reviewed H&P completed within last 30 days, I have examined patient prior to procedure and No changes to prior documentation PREOP DIAGNOSIS: ASHD PRIMARY INDICATION FOR PROCEDURE: Chest tightness/abnormal Myocardial perfusion imaging/previous PCI PLANNED PROCEDURE: Operation Date: 10/22/23 08:30 Proposed Procedures p Cardiac Catheterization(Left) - Anabelle Chirinos MD PATIENT REASSESSED PRIOR TO SEDATION, WITH NO CHANGE NOTED: Yes PHYSICAL EXAM: alert, oriented x 3, clear to auscultation bilaterally and regular rate & rhythm AIRWAY EVAL/ANESTHESIA PLAN: normal airway, see other exam findings, ASA III, Monitored Anesthesia, Local Anesthesia, Risks, benefits & alternatives of sedation and/or procedure discussed and Patient agrees to continue as planned
[2023-10-22 13:19] VITALS: PULSE 63
[2023-10-22 13:45] VITALS: BP 99/64
[2023-10-22 14:00] VITALS: BP 120/62; PULSE 62; PULSE 63; RESP 16
[2023-10-22 14:15] VITALS: BP 110/71; PULSE 63; RESP 15
[2023-10-22 14:30] VITALS: BP 109/68; PULSE 67; RESP 12; O2SAT 96
== END 2023-10-22 18:45 | disposition home or self-care (01) ==
LOC: CCL 07:26 → CSU 13:45
PROVIDERS: Internal Medicine; PCP Family Medicine; Visit Provider Internal Medicine Cardiovascular Disease
DX: I25.10 Atherosclerotic heart disease of native coronary artery without angina pectoris (principal); I10 Essential (primary) hypertension; E66.9 Obesity, unspecified; Z68.41 Body mass index [BMI] 40.0-44.9, adult; E78.5 Hyperlipidemia, unspecified
CPT/HCPCS: 36415; 80048; 85025; 93458; 96365; 96374; 96375; 99152; 99153; C1760; C1769; C1887; C1894; G0269; J1644; J2250; J3010; J3490; J7030; Q0163; Q9967

== ENCOUNTER → 2023-11-05 13:34 | Outpatient (BNVA) | payer MEDICARE, SELFPAY | PROVIDERS: PCP Family Medicine; Visit Provider Nurse Practitioner Family | DX: I25.10 Atherosclerotic heart disease of native coronary artery without angina pectoris (principal); Z87.891 Personal history of nicotine dependence; I25.2 Old myocardial infarction; I10 Essential (primary) hypertension | CPT/HCPCS: 99213 ==

== ENCOUNTER → 2023-11-11 14:58 | Outpatient (BNVA) | payer MEDICARE, MEDICAID, SELFPAY | PROVIDERS: PCP Family Medicine; Visit Provider Orthopaedic Surgery | DX: Z98.1 Arthrodesis status (principal); M54.2 Cervicalgia | CPT/HCPCS: 72040; 99214 ==

== ENCOUNTER 2023-12-24 08:30 | Outpatient (CLI) | payer OTHER, SELFPAY ==
--- NOTE | 2023-12-24 09:00 | IR_ITS ---
WS: [id number] CERVICAL MYELOGRAM HISTORY: cervical pain COMPARISON: None available. FLUOROSCOPY TIME: 3min [id number] # of spot films: 1 Procedure, risks and complications were explained to the patient. Risks including bleeding, infection , headaches, allergic reaction and seizures. Consent has been obtained. Unsuccessful attempt at accessing the subarachnoid space in the lumbar spine. Several levels were att empted. Patient was unable to tolerate radiculopathy as needle approached the thecal sac. At no time was CSF noted within the needle hub. There is extensive osteophyte obstructing path of the needle. Al so on the prior MRI of the lumbar spine reviewed from 02/28/2021 which did demonstrate severe central and foraminal stenosis at multiple levels. IR/[place] cervical [id number] IMPRESSION: Unsuccessful attempt at a cervical myelogram. Unable to achieve access into the subarachnoid space of the lumbar spine due to severe stenosis as previously de scribed on a prior MRI. Multiple levels were attempted.
[2023-12-24] MEDS: iohexol 240 mg/mL 50 mL Btl INTRATHECA (12:46)
== END 2023-12-24 08:31 | disposition home or self-care (01) ==
LOC: RAD 08:31
PROVIDERS: PCP Family Medicine; Visit Provider Orthopaedic Surgery
DX: Z98.1 Arthrodesis status (principal); M54.2 Cervicalgia; M25.78 Osteophyte, vertebrae
CPT/HCPCS: 62302; Q9966

== ENCOUNTER → 2023-12-30 11:05 | Outpatient (BNVA) | payer OTHER, SELFPAY | PROVIDERS: PCP Family Medicine; Visit Provider Orthopaedic Surgery | DX: M54.2 Cervicalgia (principal) | CPT/HCPCS: 99213 ==

== ENCOUNTER 2024-01-14 07:35 | Outpatient (CLI) | payer OTHER, SELFPAY ==
--- NOTE | 2024-01-14 08:00 | CTR_ITS ---
PROCEDURE INFORMATION: Exam: CT Cervical Spine Without Contrast Exam date and time: 01/14/2024 7:59 AM Age: 73 years old Clinical indication: Neck pain; Prior surgery; Surgery date: 6+ months; Surgery type: Cervical fusion, pacemaker; Patient HX: Chronic upper back pain, pain left shoulder/arm TECHNIQUE: Imaging protocol: Computed tomography of the cervical spine without contrast. Radiation optimization: All CT scans at this facility use at least one of these dose optimization techniques: automated exposure control; mA and/or kV adjustment per patient size (includes targeted exams where dose is matched to clinical indication); or iterative reconstruction. COMPARISON: CT cervical spin wo con* [id number] 05/07/2022 8:15 PM RADIATION DOSE METRICS: Total DLP (mGy-cm): 288.17 FINDINGS: Bones: Examination of the reformatted images demonstrates slight anterolisthesis of C3 in relation to C4 likely related to degenerative facets. There are postoperative changes status post anterior fusion at C4-C5 and C5-C6. There is an anterior plate with multiple screws as well as interbody bone grafts. There is disc space narrowing most pronounced at C6-C7, C7-T1, T1-2 and T2-3 and to a lesser degree C3-C4. There are degenerative changes involving the facets at multiple levels. No fractures are appreciated. C2-C3: Marked there are degenerative changes involving the facets. There is mild bilateral bony foraminal narrowing worse on the left. No obvious soft disc protrusion is noted. C3-C4: Marked there is mild bony bar formation with mild resultant canal narrowing. There are degenerative changes involving the left facet. No bony foraminal narrowing is noted on the right. There is moderate bony foraminal narrowing on the left. C4-C5: Marked there are degenerative changes involving the facets. There is mild bilateral bony foraminal narrowing. The spinal canal appears to be patent. C5-C6: Marked there is bony bar formation with mild bony canal narrowing. There is uncovertebral joint spondylosis with degenerative changes involving the facets. There is moderate to severe bilateral bony foraminal narrowing worse on the left. C6-C7: Marked there is bony bunion formation with moderate resultant canal narrowing. There is uncovertebral joint spondylosis bilaterally with mild degenerative change involving the facets. There is relatively severe bony foraminal narrowing bilaterally worse on the right. C7-T1: Marked there is bony bar formation with mild bony foraminal narrowing. There are degenerative changes involving the facets. Neural foramina are patent. Lungs: Lung apices are normal. Soft tissues: Unremarkable. CT/CT cervical spin wo con* [id number] IMPRESSION: 1. Postoperative changes status post anterior fusion at C4-C5 and C5-C6. 2. Cervical spondylosis. Particulars at each level are given above.
== END 2024-01-14 07:36 | disposition home or self-care (01) ==
LOC: RAD 07:35
PROVIDERS: PCP Family Medicine; Visit Provider Orthopaedic Surgery
DX: M47.812 Spondylosis without myelopathy or radiculopathy, cervical region (principal); M50.30 Other cervical disc degeneration, unspecified cervical region; M50.321 Other cervical disc degeneration at C4-C5 level; M50.322 Other cervical disc degeneration at C5-C6 level; M50.223 Other cervical disc displacement at C6-C7 level; M50.33 Other cervical disc degeneration, cervicothoracic region; M43.22 Fusion of spine, cervical region
CPT/HCPCS: 72125

== ENCOUNTER → 2024-01-20 14:38 | Outpatient (BNVA) | payer OTHER, SELFPAY | PROVIDERS: PCP Family Medicine; Visit Provider Internal Medicine Cardiovascular Disease | DX: R06.02 Shortness of breath (principal) | CPT/HCPCS: 36415; 80048; 80053; 80061; 82044; 83036; 83880; 84439; 84443; 99214 ==

== ENCOUNTER 2024-02-03 14:43 | Outpatient (CLI) | payer OTHER, SELFPAY ==
[2024-02-03 15:30] LABS: Estmated Average Glucose 111; Hemoglobin A1C 5.5 % (4.0-6.0)
[2024-02-03 15:42] LABS: Free T4 Free Thyroxine 0.88 ng/dL (0.82-1.77); Thyroid Stimulating Hormone 8.95 uIU/mL (0.27-4.20)
== END 2024-02-03 14:44 | disposition home or self-care (01) ==
LOC: LAB 14:44
PROVIDERS: PCP Family Medicine; Visit Provider Internal Medicine
DX: E03.9 Hypothyroidism, unspecified (principal); E11.9 Type 2 diabetes mellitus without complications; E78.2 Mixed hyperlipidemia
CPT/HCPCS: 36415; 83036; 84439; 84443

== ENCOUNTER → 2024-02-04 10:50 | Outpatient (BNVA) | payer OTHER, SELFPAY | PROVIDERS: PCP Family Medicine; Visit Provider Internal Medicine Cardiovascular Disease | DX: Z45.010 Encounter for checking and testing of cardiac pacemaker pulse generator [battery] (principal) | CPT/HCPCS: 93296 ==

== ENCOUNTER → 2024-02-05 13:00 | Outpatient (BNVA) | payer OTHER, SELFPAY | PROVIDERS: PCP Family Medicine; Visit Provider Orthopaedic Surgery | DX: Z09 Encounter for follow-up examination after completed treatment for conditions other than malignant neoplasm (principal); M54.2 Cervicalgia; E03.9 Hypothyroidism, unspecified; E78.2 Mixed hyperlipidemia; E11.42 Type 2 diabetes mellitus with diabetic polyneuropathy; E11.59 Type 2 diabetes mellitus with other circulatory complications; I25.10 Atherosclerotic heart disease of native coronary artery without angina pectoris; E66.01 Morbid (severe) obesity due to excess calories; Z68.41 Body mass index [BMI] 40.0-44.9, adult; Z79.890 Hormone replacement therapy | CPT/HCPCS: 99214 ==

== ENCOUNTER → 2024-03-18 09:16 | Outpatient (BNVA) | payer OTHER, SELFPAY | PROVIDERS: PCP Family Medicine; Visit Provider Podiatrist Foot & Ankle Surgery | DX: E11.42 Type 2 diabetes mellitus with diabetic polyneuropathy (principal); L60.3 Nail dystrophy; G31.84 Mild cognitive impairment of uncertain or unknown etiology; G43.711 Chronic migraine without aura, intractable, with status migrainosus | CPT/HCPCS: 11721 ==

== ENCOUNTER → 2024-03-19 11:18 | Outpatient (BNVA) | payer OTHER, SELFPAY | PROVIDERS: PCP Family Medicine; Visit Provider Specialist | DX: E11.9 Type 2 diabetes mellitus without complications (principal); D64.9 Anemia, unspecified; G31.84 Mild cognitive impairment of uncertain or unknown etiology; G43.711 Chronic migraine without aura, intractable, with status migrainosus; F32.9 Major depressive disorder, single episode, unspecified | CPT/HCPCS: 99214 ==

== ENCOUNTER → 2024-04-21 13:47 | Outpatient (BNVA) | payer OTHER, MEDICAID, SELFPAY | PROVIDERS: PCP Family Medicine; Visit Provider Family Medicine | DX: E11.9 Type 2 diabetes mellitus without complications (principal); E03.9 Hypothyroidism, unspecified | CPT/HCPCS: 80048; 83036; 84439; 84443; 84481 ==

== ENCOUNTER 2024-04-27 08:53 | Outpatient (CLI) | payer OTHER, MEDICAID, SELFPAY ==
[2024-04-27 09:12] VITALS: PULSE 73; RESP 18; O2SAT 98
[2024-04-27] MEDS: albuterol 2.5 mg/3 mL Neb INHALATION (09:12)
[2024-04-27 09:16] VITALS: PULSE 70
== END 2024-04-27 08:54 | disposition home or self-care (01) ==
PROVIDERS: PCP Family Medicine; Visit Provider Family Medicine
DX: R06.02 Shortness of breath (principal); Z87.891 Personal history of nicotine dependence; R94.2 Abnormal results of pulmonary function studies
CPT/HCPCS: 94060; 94726; 94729; J7613

== ENCOUNTER → 2024-04-29 14:45 | Outpatient (BNVA) | payer OTHER, MEDICAID, SELFPAY | PROVIDERS: PCP Family Medicine; Visit Provider Specialist | DX: E11.9 Type 2 diabetes mellitus without complications (principal); D64.9 Anemia, unspecified; G31.84 Mild cognitive impairment of uncertain or unknown etiology; G43.711 Chronic migraine without aura, intractable, with status migrainosus | CPT/HCPCS: 96116; 99214; 99215 ==

== ENCOUNTER → 2024-07-28 10:56 | Outpatient (BNVA) | payer MEDICARE, SELFPAY | PROVIDERS: PCP Family Medicine; Visit Provider Anesthesiology Pain Medicine | DX: M54.50 Low back pain, unspecified (principal); M54.2 Cervicalgia | CPT/HCPCS: 72110; 99214 ==

== ENCOUNTER → 2024-08-04 08:38 | Outpatient (BNVA) | payer MEDICARE, MEDICAID, SELFPAY | PROVIDERS: PCP Family Medicine; Visit Provider Specialist | DX: G31.84 Mild cognitive impairment of uncertain or unknown etiology; E11.9 Type 2 diabetes mellitus without complications; D64.9 Anemia, unspecified; R26.9 Unspecified abnormalities of gait and mobility; R26.89 Other abnormalities of gait and mobility; G43.711 Chronic migraine without aura, intractable, with status migrainosus | CPT/HCPCS: 99215 ==

== ENCOUNTER → 2024-08-06 11:07 | Outpatient (BNVA) | payer MEDICARE, SELFPAY | PROVIDERS: PCP Family Medicine; Visit Provider Internal Medicine | DX: E11.9 Type 2 diabetes mellitus without complications (principal); E03.9 Hypothyroidism, unspecified; E78.2 Mixed hyperlipidemia; E11.42 Type 2 diabetes mellitus with diabetic polyneuropathy; E11.59 Type 2 diabetes mellitus with other circulatory complications; I25.10 Atherosclerotic heart disease of native coronary artery without angina pectoris; E66.01 Morbid (severe) obesity due to excess calories; Z68.41 Body mass index [BMI] 40.0-44.9, adult | CPT/HCPCS: 99214 ==

== ENCOUNTER → 2024-08-16 10:23 | Outpatient (BNVA) | payer MEDICARE, MEDICAID, SELFPAY | PROVIDERS: PCP Family Medicine; Visit Provider Anesthesiology Pain Medicine | DX: M54.2 Cervicalgia (principal) | CPT/HCPCS: 99214 ==

== ENCOUNTER → 2024-09-08 14:05 | Outpatient (BNVA) | payer MEDICARE, MEDICAID, SELFPAY | PROVIDERS: PCP Family Medicine; Visit Provider Podiatrist Foot & Ankle Surgery | DX: E11.42 Type 2 diabetes mellitus with diabetic polyneuropathy (principal); M21.611 Bunion of right foot; M21.612 Bunion of left foot; M20.41 Other hammer toe(s) (acquired), right foot; M20.42 Other hammer toe(s) (acquired), left foot; M21.41 Flat foot [pes planus] (acquired), right foot; M21.42 Flat foot [pes planus] (acquired), left foot | CPT/HCPCS: 99213 ==

== ENCOUNTER → 2024-09-13 13:35 | Outpatient (BNVA) | payer MEDICARE, MEDICAID, SELFPAY | PROVIDERS: PCP Family Medicine; Visit Provider Nurse Practitioner Family | DX: L81.4 Other melanin hyperpigmentation (principal); L91.0 Hypertrophic scar; L57.8 Other skin changes due to chronic exposure to nonionizing radiation; L57.0 Actinic keratosis | CPT/HCPCS: 17000; 99213 ==

== ENCOUNTER → 2024-09-28 13:49 | Outpatient (BNVA) | payer MEDICARE, SELFPAY | PROVIDERS: PCP Family Medicine; Visit Provider Podiatrist Foot & Ankle Surgery | DX: M79.671 Pain in right foot (principal); E11.42 Type 2 diabetes mellitus with diabetic polyneuropathy | CPT/HCPCS: 36415; 73630; 80053; 83036; 85025; 85651; 86140; 99213 ==

== ENCOUNTER → 2024-10-12 10:16 | Outpatient (BNVA) | payer MEDICARE, SELFPAY | PROVIDERS: PCP Family Medicine; Visit Provider Family Medicine | DX: E03.9 Hypothyroidism, unspecified (principal) | CPT/HCPCS: 84439; 84443; 84481 ==

== ENCOUNTER → 2024-11-04 13:37 | Outpatient (BNVA) | payer MEDICARE, SELFPAY | PROVIDERS: PCP Family Medicine; Visit Provider Specialist | DX: G31.84 Mild cognitive impairment of uncertain or unknown etiology (principal); G43.711 Chronic migraine without aura, intractable, with status migrainosus | CPT/HCPCS: 99214 ==

== ENCOUNTER → 2025-01-10 11:14 | Outpatient (BNVA) | payer MEDICARE, SELFPAY | PROVIDERS: PCP Family Medicine; Visit Provider Family Medicine | DX: I10 Essential (primary) hypertension (principal); E11.9 Type 2 diabetes mellitus without complications; I50.42 Chronic combined systolic (congestive) and diastolic (congestive) heart failure; E03.9 Hypothyroidism, unspecified; E78.2 Mixed hyperlipidemia | CPT/HCPCS: 80053; 80061; 82043; 83036; 83880; 84439; 84443; 84481; 85025 ==

== ENCOUNTER → 2025-02-08 10:25 | Outpatient (BNVA) | payer MEDICARE, SELFPAY | PROVIDERS: PCP Family Medicine; Visit Provider Anesthesiology Pain Medicine | DX: M54.50 Low back pain, unspecified (principal); M54.2 Cervicalgia | CPT/HCPCS: 99212 ==

== ENCOUNTER → 2025-03-21 13:21 | Outpatient (BNVA) | payer MEDICARE, SELFPAY | PROVIDERS: PCP Family Medicine; Visit Provider Family Medicine | DX: E11.9 Type 2 diabetes mellitus without complications (principal); I10 Essential (primary) hypertension | CPT/HCPCS: 80048; 83036; 84439; 84443 ==

== ENCOUNTER → 2025-03-23 11:09 | Outpatient (BNVA) | payer MEDICARE, SELFPAY | PROVIDERS: PCP Family Medicine; Visit Provider Internal Medicine Cardiovascular Disease | DX: Z45.018 Encounter for adjustment and management of other part of cardiac pacemaker (principal) | CPT/HCPCS: 93296 ==

== ENCOUNTER 2025-03-28 11:53 | Emergency (ER) | payer MEDICARE, SELFPAY ==
[2025-03-28 12:03] VITALS: BP 123/81; PULSE 75; RESP 16; TEMP 36.9; O2SAT 95; BMI 45.6
--- OUTSIDE RECORDS SUMMARY | 2025-03-28 12:07 | XMS_ITS | Encounter Summary ---
Author Organization [facility] Address [address] 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
--- OUTSIDE RECORDS SUMMARY | 2025-03-28 12:07 | XMS_ITS | Encounter Summary ---
Author Organization [facility] Address [address] [place] [address] Care Team Providers Care Manager Garage Name Role Phone Minoo Clinton [facility]3] Primary Care Provider Encounter Details Date Type Department Care Team (Late st Contact Info) Description 06/06/2008 Outpatient [facility] [address] [place] [address] AMBULANCE, [facility] Social History Tobacco Use Types Packs/Day Years Used Date Smoking Tobacco: Never Assessed Sex and Gender Information Value Date Recorded Sex Assigned at Not on file 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
--- OUTSIDE RECORDS SUMMARY | 2025-03-28 12:07 | XMS_ITS | Encounter Summary ---
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
--- OUTSIDE RECORDS SUMMARY | 2025-03-28 12:07 | XMS_ITS | Clinical Summary ---
Author Organization [facility] [address] [place] [address] Care Team Providers Care Salvage Inspector Name Role Phone [facility]o [facility] Primary Care Provider Allergies No known active allergies Medications 0mega-3 fatty acids-vitamin E (FISH OIL) 1,000 mg Oral CapIndications:In jury of lower back,Low back pain radiating to left leg Take 1,000 mg by mouth. Active GLUCOSAMINE HCL/GLUC GARCIA (GLUCOSAMINE COMPLEX ORAL)Indications: Injury of lower back,Low back pain radiating to left leg Take by mouth. Activ e aspirin (CONCHITA) 81 mg Oral Tab Take by mouth. Active diclofenac potassium (CATAFLAM) 50 mg Oral TabIndications:St rain of muscle of hip or thigh Take 1 Tab by mouth 2 times daily as needed for Pain. With meals 30 Tab 0 2 Active MULTIVITAMINS WITH FLUORIDE (MULTI-VITAMIN ORAL) Take by mouth daily. Active nitroglycerin (NITROSTAT) 0.[address] 1 Tab under tongue every 5 minutes as needed for Chest Pain. 25 Tab 12 3 Active fluticasone (FLONASE) 50 mcg/spray [place], Suspension Administer 2 Sprays in each nostril daily. 1 Gram 0 4 Active albuterol (PROVENTIL,VENTOL IN) 2.5 mg /3 mL (0.083 %) Solution for Nebulization 2 times daily. 4 Active LACTOBACILLUS COMBO NO.6 (PROBIOTIC COMPLEX ORAL) Take by mouth daily. Active clopidogrel (PLAVIX) 75 mg Tablet TAKE 1 TABLET BY MOUTH EVERY DAY 90 Tab 3 5 Active lisinopril (PRINIVIL) 10 mg tablet TAKE 1 TABLET BY MOUTH EVERY DAY 90 Tab 3 5 Active carvedilol (COREG) 6.25 mg tablet TAKE 1 TABLET BY MOUTH TWICE DAILY WITH MEALS. 180 Tab 0 5 Active atorvastatin (LIPITOR) 40 mg tablet TAKE 1 TABLET BY MOUTH DAILY LATE. 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 Gender Identity Not on file Sexual Orientation Not on file Last Filed Vital Signs Vital Sign Reading Time Taken Comments Blood Pressure 112/60 01/11/2014 3:20 PM CDT Pulse 56 01/11/2014 3:20 PM CDT Temperature 36.6 C (97.8 F) 12/21/2011 1:15 PM CDT Respiratory Rate 16 12/21/2011 1:15 PM CDT Oxygen Saturation 96% 12/21/2011 1:15 PM CDT Inhaled Oxygen Concentration - - Weight 148.4 kg (327 lb 3.2 oz) 01/11/2014 3:20 PM CDT Height 175.3 cm (5' 9 ) 01/11/2014 3:20 PM CDT Body Mass Index 48.32 01/11/2014 3:20 PM CDT Plan of Treatment Health Maintenance Due Date Last Done Comments DTAP/TDAP/TD VACCINES (1 - Tdap) 1969 COLORECTAL SCREENING 1995 Colorectal Cancer Screening 1995 FIT-DNA Q 3 years 1995 FIT/FOBT Q 1 year 1995 Flex Sig/CT Colonography Q 5 years 1995 PNEUMOCOCCAL VACCINE 50+ YEARS (1 of 1 - PCV) 04/10/20 00 ZOSTER VACCINE (1 of 2) 2000 RSV VACCINE (60+ or ) (1 - Risk 60-74 years 1-dose series) 2010 INFLUENZA VACCINE (#1) 2025 Insurance [employer] OPEN ACCESS MEDICARE PART A AND B WORKERS COMP Care Teams Salvage Inspector Relationship Specialty Start Date End Date Minoo Clinton [facility] PCP - General NURSE PRACTITIONER 08/17/13
--- OUTSIDE RECORDS SUMMARY | 2025-03-28 12:07 | XMS_ITS | Clinical Summary ---
Author Organization [facility] Address [address] Omer: Epic Prelude ADT FAREED INFANTE [address] Care Team Providers Care Funeral Attendant Name Role Phone [facility] Primary Care Provider Allergies No known active allergies Medications atorvastatin (LIPITOR) 40 mg tablet TAKE 1 TABLET BY MOUTH DAILY LATE. 90 Tablet 0 01/23/2015 Active clopidogreL (PLAVIX) 75 mg Tablet TAKE 1 TABLET BY MOUTH EVERY DAY 90 Tablet 3 11/14/2014 Active lisinopriL (PRINIVIL) 10 mg tablet TAKE 1 TABLET BY MOUTH EVERY DAY 90 Tablet 3 12/12/2014 Active carvediloL (COREG) 6.25 mg tablet TAKE 1 TABLET BY MOUTH TWICE DAILY WITH MEALS. 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
[2025-03-28 14:09] VITALS: BP 124/104; PULSE 85; O2SAT 99
--- NOTE | 2025-03-28 14:40 | W.ED.BACK ---
HPI - Back Pain/Injury General: Chief Complaint: Back Pain/Injury Stated Complaint: bloody stool Time Seen by Provider: 03/28/25 14:03 History of Present Illness: 74-year-old male presents emergency room he has had a couple of stools with bright red blood over the last 36 hours. No fever sweats or chills no abdominal pain. He previously had a gastric bypass no other previous surgeries. No recent surgeries. He is abdominal wall hernia. Denies dysuria urgency or frequency no fever sweats or chills. Associated symptoms: Deny abdominal pain, chills, dysuria, fever(s), nausea, urinary urgency or vomiting Related Data Home Medications ?Medication ?Instructions ?Recorded ?Confirmed aspirin 81 mg tablet,delayed 81 mg PO DAILY 11/15/22 03/28/25 release budesonide 160 mcg-glycopyr 9 2 inh inhalation BID 11/04/24 03/28/25 mcg-formot 4.8 mcg/actuation HFA inhaler (Breztri Aerosphere) spironolactone 25 mg tablet 12.5 mg PO DAILY 11/04/24 03/28/25 albuterol 90 mcg-budesonide 80 2 inh inhalation DAILY PRN 02/08/25 03/28/25 mcg/actuation HFA aerosol inhaler Shortness Of Breath furosemide 20 mg tablet (Lasix) 20 mg PO DAILY 02/08/25 03/28/25 clopidogrel 75 mg tablet 75 mg PO DAILY 03/28/25 03/28/25 ferrous sulfate 325 mg (65 mg 325 mg PO DAILY 03/28/25 03/28/25 iron) tablet galcanezumab-gnlm 120 mg/mL 120 mg SUBCUT .[id number] 03/28/25 03/28/25 subcutaneous pen injector (Emgality Pen) Previous Rx's ?Medication ?Instructions ?Recorded nitroglycerin 0.4 mg sublingual 0.4 mg sublingual Q5M PRN chest 09/24/23 tablet (Nitrostat) pain #30 tabs tizanidine 2 mg tablet 2 mg PO BID PRN muscle spasticity 07/27/24 30 days #60 tabs Diabetic Shoes with Custom Molded #1 ea 09/08/24 Accommodative Inserts venlafaxine 150 mg 150 mg PO QAM 90 days #90 caps 09/17/24 capsule,extended release 24 hr levothyroxine 150 mcg tablet 150 mcg PO .COMPLEX #112 tabs 10/12/24 galantamine 12 mg tablet 12 mg PO BID #180 tabs 11/04/24 memantine 10 mg tablet 10 mg PO BID #180 tabs 11/04/24 quetiapine 100 mg tablet 100 mg PO QPM #90 tabs 11/04/24 quetiapine 25 mg tablet (Seroquel) 25 mg PO QAM #90 tabs 11/04/24 atorvastatin 40 mg tablet 40 mg PO DAILY #90 tabs 01/10/25 carvedilol 6.25 mg tablet 6.25 mg PO BID #180 tabs 01/10/25 gabapentin 300 mg capsule 300 mg PO BID pain 90 days #180 01/10/25 caps pantoprazole 40 mg tablet,delayed 40 mg PO BID 90 days #180 tabs 01/10/25 release (Protonix) tamsulosin 0.4 mg capsule 0.4 mg PO DAILY 90 days #90 caps 01/10/25 chlorthalidone 50 mg tablet 50 mg PO DAILY 90 days #90 tabs 03/10/25 amoxicillin 875 mg-potassium 1 tab PO BID #14 tabs 03/28/25 clavulanate 125 mg tablet Allergies Allergy/AdvReac Type Severity Reaction Status Date / Time No Known Allergies Allergy Verified 03/21/25 13:41 Review of Systems Const: Denies: fever(s) or chills Card: Denies: chest pain Resp: Denies: dyspnea GI: Reports: hematochezia; Denies: abdominal pain, nausea, vomiting, hematemesis, coffee ground emesis, diarrhea or melena : Denies: dysuria, urinary frequency or urinary urgency Musc: Denies: neck pain or back pain Skin/Breast: Denies: rash PFSH ED PFSH: Medical History Hypertension Anemia Atherosclerosis of coronary artery of [place] heart without angina pectoris Presence of permanent cardiac pacemaker Hypomagnesemia Hypokalemia Symptomatic bradycardia High degree atrioventricular block Pre-syncope Generalized weakness Bradycardia Psychiatric care Chronic migraine without aura, intractable, with status migrainosus Alzheimer disease Chronic neck pain History of umbilical hernia Hyperlipemia, mixed Mild cognitive impairment with memory loss BPH loc w urin obs/LUTS Mild lower urinary tract symptoms with good response to TAMSULOSIN. Low objective risk. No evidence of prostate cancer. HTN (hypertension) with goal to be determined Coronary artery disease Obesity Diet-controlled type 2 diabetes mellitus Pt not longer traveling to see Endo History of prediabetes Hx of primary hypertension Hx of myocardial infarction Hx of sleep apnea History of hypothyroidism Hx-TIA (transient ischemic attack) Diabetic peripheral neuropathy associated with type 2 diabetes mellitus Surgical History S/P cataract surgery History of left knee surgery Hx of cholecystectomy Hx of tonsillectomy Hx of vasectomy H/O heart artery stent H/O gastric bypass Gastric bypass status for obesity Family History Mother No problems noted. Father CAD (coronary artery disease) Other Diabetes Presence of permanent cardiac pacemaker Social History Smoking and tobacco/nicotine status: unknown if used tobacco/nicotine Second hand smoke exposure: No Alcohol intake: current Alcohol intake frequency: few times a month Alcohol type: beer Substance/Drug Use: never Marital status: Current occupational status: disabled Physical Exam Const: GENERAL APPEARANCE: cooperative ORIENTATION/CONSCIOUSNESS: Yes awake, Yes oriented to person, Yes oriented to place and Yes oriented to time HENMT: COMMON NORMALS: normocephalic, atraumatic and hearing grossly normal bilaterally HEAD & SCALP: normocephalic and atraumatic Resp: COMMON NORMALS: normal respiratory effort, No retractions, No use of accessory muscles and clear to auscultation bilaterally AUSCULTATION: clear to auscultation bilaterally Cardio: COMMON NORMALS: regular rate, regular rhythm and No murmurs present (Cardio) RATE: regular rate RHYTHM: regular rhythm GI: COMMON NORMALS: Soft to palpation and No hepatosplenomegaly present AUSCULTATION: Yes normoactive bowel sounds PALPATION: Yes Soft to palpation, No Tenderness to palpation present (GI), No Guarding due to palpation present (GI) and Yes No hepatosplenomegaly present Extremity: COMMON NORMALS: normal to inspection, capillary refill normal, no clubbing, cyanosis or edema, no calf tenderness and no pedal edema Neuro: SENSORIUM/ORIENTATION: Yes oriented to person, Yes oriented to place and Yes oriented to time Skin: COMMON NORMALS: no rashes or lesions noted GENERAL SKIN EXAM: no rashes or lesions noted Course Vital Signs: Vital signs: Vital Signs Temperature 98.4 F 03/28/25 12:03 Pulse Rate 85 03/28/25 14:09 Respiratory Rate 16 03/28/25 12:03 Blood Pressure 124/104 03/28/25 14:09 Pulse Oximetry 99 03/28/25 14:09 Oxygen Delivery Me thod Room Air 03/28/25 14:09 MDM - Back Pain/Injury Medical Decision Making Laboratory test did not show any anemia no acute findings. CT shows ventral hernia there is some fat necrosis but this is stable and several years old by comparison on films. There are some stenosis to the SMA but this is unchanged he is not having any got angina at this time. She does have some diverticuli with no signs of diverticulitis. Suspect the bleeding may be from the diverticuli will prophylactically start him on Augmentin. His states he had a colonoscopy several years ago will refer him back to surgery. If he has worsening or change of symptoms increased bleeding return to the emergency room Medical Records I reviewed the patient's medical records. Labs I reviewed the patient's lab results. 03/28/25 15:04 03/28/25 15:04 Radiology Impressions Abdomen/Pelvis CT 03/28/25 14:41 IMPRESSION: 1. No acute abdominal or pelvic abnormalities are identified. 2. Sigmoid diverticulosis without acute diverticulitis. 3. No renal obstruction. 4. RIGHT ventral abdominal wall hernia containing fat only. Adjacent fat necrosis near the hernia sac. Fat necrosis is not acute on today's study. Necrosis was acute on 07/19/2019. 5. Very small caliber proximal SMA. Short segment stenosis but very similar to the study from 07/19/2019. The area of stenosis extends over a length of 2 cm. Decreased contrast opacification of the proximal SMA. There is no GI tract ischemia at this time. 6. Prior gastric bypass. 7. Prior cholecystectomy. 8. Stable 15 mm RIGHT adrenal mass. Chest X-Ray 03/28/25 14:41 IMPRESSION: Questionable opacities in the right lower lung. Possible acute/subacute pneumonitis. Laboratory Results WBC 7.58 10^3/uL (3.29-11.43) 03/28/25 15:04 RBC 4.47 10^6/uL (3.85-5.65) 03/28/25 15:04 Hgb 13.90 g/dL (11.27-16.99) 03/28/25 15:04 Hct 41.6 % (37-53) 03/28/25 15: MCV 93.1 fl (82-101) 03/28/25 15:04 MCH 31.1 pg (27-33) 03/28/25 15: MCHC 33.4 g/dL (30-55) 03/28/25 15: RDW 14.6 % (12.1-15.1) 03/28/25 15: Plt Count 199 10^3/cmm (157-399) 03/28/25: MPV 9.2 fL (7.4-10.4) 03/28/25 15: Neut % (Auto) 45.6 % 03/28/25: Lymph % (Auto) 42.6 % 03/28/25: [place] % (Auto) 8.2 % 03/28/25: Eos % (Auto) 2.6 % 03/28/25 15:04 Baso % (Auto) 0.7 % 03/28/25: Neut # (Auto) 3.46 10^3/uL (1.8-7.7) 03/28/25: Lymph # (Auto) 3.2 10^3/uL (0.8-4.8) 03/28/25 15: [place] # (Auto) 0.6 10^3/uL (0.2-0.9) 03/28/25: Eos # (Auto) 0.2 10^3/uL (0.0-0.8) 03/28/25: Baso # (Auto) 0.1 10^3/uL (0.0-0.1) 03/28/25: Nucleated RBC % (auto) 0 % 03/28/25: Nucleated RBCs # 0.0 /100WBC 03/28/25 15: PT 12.80 SECONDS (12.1-14.9) 03/28/25: INR 0.90 (0.8-1.2) 03/28/25 15:04 Sodium 146 mmol/L (136-145) H 03/28/25 15:04 Potassium 4.2 mmol/L (3.5-5.1) 03/28/25 15:04 Chloride 105 mmol/L (98-107) 03/28/25 15:04 Carbon Dioxide 31 mmol/L (22-29) H 03/28/25 15:04 Anion Gap 14.2 (5-19) 03/28/25 15:04 BUN 14 mg/dL (8-23) 03/28/25 15:04 Creatinine 1.2 mg/dL (0.7-1.2) 03/28/25 15:04 GFR Calculation Not Reportable 03/28/25 15:04 Glucose 112 mg/dL (65-115) 03/28/25 15:04 Calculated Osmolality 303 mOsm/kg (285-295) H 03/28/25 15:04 Calcium 8.8 mg/dL (8.5-10.5) 03/28/25 15:04 Total Bilirubin 0.7 mg/dL (0.15-1.2) 03/28/25 15:04 AST 12 U/L (0-40) 03/28/25 15:04 ALT 9 U/L (0-41) 03/28/25 15:04 Alkaline Phosphatase 73 U/L (40-130) 03/28/25 15:04 Total Protein 6.6 g/dL (6.6-8.7) 03/28/25 15:04 Albumin 4.0 g/dL (3.5-5.2) 03/28/25 15:04 Globulin 2.6 g/dL (1.3-4.6) 03/28/25 15:04 Urine Color Yellow (Yellow) 03/28/25 14:05 Urine Appearance Clear (CLEAR) 03/28/25 14:05 Urine pH 7.0 (5-7) 03/28/25 14:05 Ur Specific [place] 1.008 (1.005-1.030) 03/28/25 14:05 Urine Protein Negative (Negative) 03/28/25 14:05 Urine Glucose (UA) Negative (Normal) 03/28/25 14:05 Urine Ketones Negative (Negative) 03/28/25 14:05 Urine Blood Negative (Negative) 03/28/25 14:05 Urine Nitrate Negative (Negative) 03/28/25 14:05 Urine Bilirubin Negative (Negative) 03/28/25 14:05 Urine Urobilinogen 1.0 mg/dL (Negative) 03/28/25 14:05 Ur Leukocyte Esterase Negative (Negative) 03/28/25 14:05 Urine RBC 0-2 /hpf (0-2) 03/28/25 14:05 Urine WBC 0-5 /hpf (0-5) 03/28/25 14:05 Ur Squamous Epith Cells 0-5 /hpf (0-5) 03/28/25 14:05 Amorphous Sediment Not Reportable 03/28/25 14:05 Urine Bacteria None seen /hpf (NONE) 03/28/25 14:05 Hyaline Casts 0.40 /lpf 03/28/25 14:05 All radiology interpretation(s) finalized by discharge Discharge Plan Discharge Patient Disposition: Home Clinical Impression: Bright red rectal bleeding, Diverticulosis Condition: Stable Prescriptions: New amoxicillin-pot clavulanate 875-125 mg tablet 1 tab PO BID Qty: 14 0RF No Action spironolactone 25 mg tablet 12.5 mg PO DAILY Breztri Aerosphere 160-9-4.8 mcg/actuation HFA aerosol inhaler 2 inh inhalation BID galantamine 12 mg tablet 12 mg PO BID Qty: 180 3RF Rx Instructions: administer with AM and PM meals memantine 10 mg tablet 10 mg PO BID Qty: 180 3RF quetiapine 100 mg tablet 100 mg PO QPM Qty: 90 3RF quetiapine [Seroquel] 25 mg tablet 25 mg PO QAM Qty: 90 3RF levothyroxine 150 mcg tablet 150 mcg PO .COMPLEX Qty: 112 3RF Rx Instructions: Take one tablet by mouth Friday-Friday and 1.5 tablets on Friday. atorvastatin 40 mg tablet 40 mg PO DAILY Qty: 90 2RF carvedilol 6.25 mg tablet 6.25 mg PO BID Qty: 180 2RF Rx Instructions: must administer with a meal/food gabapentin 300 mg capsule 300 mg PO BID 90 Days Qty: 180 2RF pantoprazole [Protonix] 40 mg tablet,delayed release (DR/EC) 40 mg PO BID 90 Days Qty: 180 2RF tamsulosin 0.4 mg capsule 0.4 mg PO DAILY 90 Days Qty: 90 2RF nitroglycerin [Nitrostat] 0.4 mg tablet, sublingual 0.4 mg sublingual Q5M PRN (Reason: chest pain) Qty: 30 3RF (DME) Diabetic Shoes with Custom Molded Accommodative Inserts See Rx Instructions .Route .MEDSUPPLY Qty: 1 0RF Rx Instructions: As directed Daily Living Medical venlafaxine 150 mg capsule,extended release 24hr 150 mg PO QAM 90 Days Qty: 90 3RF furosemide [Lasix] 20 mg tablet 20 mg PO DAILY albuterol-budesonide 90-80 mcg/actuation HFA aerosol inhaler 2 inh inhalation DAILY PRN (Reason: Shortness Of Breath) chlorthalidone 50 mg tablet 50 mg PO DAILY 90 Days Qty: 90 2RF tizanidine 2 mg tablet 2 mg PO BID PRN (Reason: muscle spasticity) 30 Days Qty: 60 0RF aspirin 81 mg Tablet,Delayed Release (Dr/Ec) 81 mg PO DAILY ferrous sulfate 325 mg (65 mg iron) Tablet 325 mg PO DAILY clopidogrel 75 mg tablet 75 mg PO DAILY Emgality Pen 120 mg/mL pen injector 120 mg SUBCUT .[id number] Rx Instructions: on the Discharge Orders: Discharge ED (Routine); Ordered 03/28/25 Ordered By: Mike Monroe Referrals: Arlette Singleton MD [Primary Care Provider, Family Practice] Discharge Diet: Clear Liquid Discharge Activity: Resume usual activity Patient Instructions: Opioid Safety, Pain Management, Patient Portal & Ezio Instructions Activity Restrictions/Additional Instructions: Thank you for choosing [facility] for your healthcare needs today. It is very important that you follow up as instructed or that you return to the Emergency Department should you have concerns or if your condition changes or worsens in any way. Emergency department visits are focused on emergent conditions, in some cases you may require further evaluation on an outpatient basis. You were seen in the emergency room with complaints of rectal bleeding with bowel movements. Your Hemoccult of the stool was positive your hemoglobin and your CT did not show any acute condition at this time. Suspect the bleeding may be coming from diverticuli. Will prophylactically start you on Augmentin 875 twice a day. Case management make arrangements for you to follow-up with surgery as an outpatient. If your symptoms worsen or change return to the emergency room. (Please note that included in your discharge packet is information concerning opioid safety and pain management. This information is given to all patients were discharged from the ER regardless of their discharge diagnosis or the medicines they usually take or are prescribed.) Print Language: Faroese Coding Level of Care Code ED Supervisor Ditching for Duran Perez
--- NOTE | 2025-03-28 14:41 | ECG_ITS ---
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 Measurements Intervals [place] Rate: 75 P: 158 [place]: 177 QRS: -79 QRSD: 198 T: 91 QT: 496 QTc: 554 Interpretive Statements ELECTRONIC ATRIAL PACEMAKER ELECTRONIC VENTRICULAR PACEMAKER ABNORMAL RHYTHM ECG Compared to ECG 10/02/2023 14:59:31 No significant changes Electronically Signed On 03-29-2025 07:59:06 CDT by Anabelle Chirinos M.D. [email or web address]
--- NOTE | 2025-03-28 14:41 | CT_ITS ---
WS: [id number] CT ABDOMEN AND PELVIS WITH CONTRAST HISTORY: abd pain TECHNIQUE: Imaging performed of the abdomen and pelvis with IV contrast. Single phase imaging of the abdomen. Coronal and sagittal reformats are submitted. All CT scans at [facility] use at least one of these dose optimization techniques: automated exposure control; mA and/or kV adjustment per patient size (includes targeted exams where dose is matched to clinical indication); or iterative reconstruction. IV CONTRAST: Omnipaque 350; 100 mL IV. Oral contrast: No DLP: 1233.46 mGy.cm COMPARISON: 07/19/2019 Lower thorax: Lung bases are clear. Normal size heart. Cardiac pacer wires are noted in the RIGHT heart. No hiatal hernia. Liver/biliary system: Normal size with no intrahepatic dilatation. Gallbladder: Status post cholecystectomy. Pancreas: Normal size pancreas and pancreatic duct. No adjacent inflammation. Spleen: Normal size spleen. No mass or infarct. Adrenal glands: Stable 15 mm RIGHT adrenal nodule since 2019. Normal LEFT adrenal gland. Right kidney: Very minimal adjacent perinephric stranding. No obstruction. Left kidney: Very minimal adjacent perinephric stranding. No obstruction. Aorta: Mild atherosclerotic plaque within the aorta. Small caliber proximal SMA. Limited flow through the SMA. Approximately 2 cm from the origin of the SMA there is return to a normal caliber. Normal celiac axis. Lymphadenopathy: No adenopathy. Stable 15 mm celiac axis lymph node. Free fluid: None. GI tract: Prior gastric bypass surgery. No small bowel obstruction. No evidence for appendicitis. Mild scattered diverticular disease in the sigmoid colon. No evidence for acute diverticulitis. Abdominal wall: Ventral RIGHT lateral abdominal wall hernia contains fat only. No fluid within the hernia sac or GI tract. Focal fat necrosis measuring 1.8 cm is near the ventral abdominal wall closely associated with the hernia sac. Fat necrosis was acute on the study of 07/19/2019. Pelvis: No free fluid or adenopathy within the pelvis. Bilateral patent inguinal canals containing fat only. Bones: Advanced degenerative changes of the lumbar spine. Disc spaces are narrowed with facet joint arthritis. CT/CT abdomen pelvis w con* [id number] IMPRESSION: 1. No acute abdominal or pelvic abnormalities are identified. 2. Sigmoid diverticulosis without acute diverticulitis. 3. No renal obstruction. 4. RIGHT ventral abdominal wall hernia containing fat only. Adjacent fat necro sis near the hernia sac. Fat necrosis is not acute on today's study. Necrosis w as acute on 07/19/2019. 5. Very small caliber proximal SMA. Short segment stenosis but very similar to the study from 07/19/2019. The area of stenosis extends over a length of 2 cm. D ecreased contrast opacification of the proximal SMA. There is no GI tract [place] at this time. 6. Prior gastric bypass. 7. Prior cholecystectomy. 8. Stable 15 mm RIGHT adrenal mass.
--- NOTE | 2025-03-28 14:41 | XR_ITS ---
WS: [id number] XR chest 1V portable [id number] REASON FOR EXAM: dyspnea/cough FINDINGS: Cardiac device of the left chest with trans left subclavian vein leads to the right atrium and right ventricular apex. Moderate tortuosity and ectasia of the thoracic aorta with normal heart size. Possible reticular and groundglass opacities with volume loss in the right lower lung compared to the examination of 10/02/2023. Significant osteoarthritis in the right shoulder likely with complete rotator cuff tendon tear. Similar arthropathy on the left. XR/XR chest 1V portable [id number] IMPRESSION: Questionable opacities in the right lower lung. Possible acute/subacute pneumon itis.
[2025-03-28 14:52] LABS: Glucose Urine UA Negative (Normal); Nitrate Urine Negative (Negative); Specific Gravity, Urine 1.008 (1.005-1.030)
[2025-03-28 14:54] LABS: Add Urine Microscopic? YES
[2025-03-28 15:25] LABS: Hematocrit 41.6 % (37-53); Hemoglobin 13.90 g/dL (11.27-16.99); Mean Corpuscular HGB Conc 33.4 g/dL (30-55); Mean Corpuscular Hemoglobin 31.1 pg (27-33); Mean Corpuscular Volume 93.1 fl (82-101); Nucleated Red Blood Cells % 0 %; Platelet Count 199 10^3/cmm (157-399); Red Blood Count 4.47 10^6/uL (3.85-5.65); White Blood Count 7.58 10^3/uL (3.29-11.43)
[2025-03-28 15:30] VITALS: BP 126/74; PULSE 86; O2SAT 92
[2025-03-28 15:40] LABS: INR 0.90 (0.8-1.2); Prothrombin Time 12.80 SECONDS (12.1-14.9)
[2025-03-28 15:48] LABS: Alanine Aminotransferase 9 U/L (0-41); Albumin Level 4.0 g/dL (3.5-5.2); Alkaline Phosphatase 73 U/L (40-130); Anion Gap 14.2 (5-19); Aspartate Amino Transferase 12 U/L (0-40); Blood Urea Nitrogen 14 mg/dL (8-23); Calcium 8.8 mg/dL (8.5-10.5); Carbon Dioxide 31 mmol/L (22-29); Chloride 105 mmol/L (98-107); Creatinine Clr Calc Pharmacy 72.9294; Globulin 2.6 g/dL (1.3-4.6); Glucose 112 mg/dL (65-115); Osmolality Calculated 303 mOsm/kg (285-295); Potassium 4.2 mmol/L (3.5-5.1); Sodium 146 mmol/L (136-145); Total Protein 6.6 g/dL (6.6-8.7)
[2025-03-28 16:19] VITALS: BP 121/80; PULSE 81; O2SAT 94
== END 2025-03-28 16:20 | disposition home or self-care (01) ==
PROVIDERS: Emergency Provider Family Medicine; PCP Family Medicine
DX: K62.5 Hemorrhage of anus and rectum (principal); K57.90 Diverticulosis of intestine, part unspecified, without perforation or abscess without bleeding; Z79.82 Long term (current) use of aspirin; Z86.73 Personal history of transient ischemic attack (TIA), and cerebral infarction without residual deficits; I25.10 Atherosclerotic heart disease of native coronary artery without angina pectoris; Z95.0 Presence of cardiac pacemaker; E78.2 Mixed hyperlipidemia; I10 Essential (primary) hypertension; E11.42 Type 2 diabetes mellitus with diabetic polyneuropathy
CPT/HCPCS: 71045; 74177; 80053; 81001; 85025; 85610; 93005; 99285

== ENCOUNTER → 2025-04-01 11:19 | Outpatient (BNVA) | payer MEDICARE, SELFPAY | PROVIDERS: PCP Family Medicine; Visit Provider Internal Medicine Cardiovascular Disease | DX: I25.10 Atherosclerotic heart disease of native coronary artery without angina pectoris (principal); I11.0 Hypertensive heart disease with heart failure; I50.9 Heart failure, unspecified; E78.2 Mixed hyperlipidemia; Z09 Encounter for follow-up examination after completed treatment for conditions other than malignant neoplasm; Z95.0 Presence of cardiac pacemaker; Z86.73 Personal history of transient ischemic attack (TIA), and cerebral infarction without residual deficits; Z79.02 Long term (current) use of antithrombotics/antiplatelets; Z79.82 Long term (current) use of aspirin; I25.2 Old myocardial infarction | CPT/HCPCS: 99214 ==

== ENCOUNTER → 2025-04-08 10:54 | Outpatient (BNVA) | payer MEDICARE, SELFPAY | PROVIDERS: PCP Family Medicine; Visit Provider Student in an Organized Health Care Education/Training Program | DX: Z09 Encounter for follow-up examination after completed treatment for conditions other than malignant neoplasm (principal) | CPT/HCPCS: 99203 ==

== ENCOUNTER 2025-04-17 18:21 | Inpatient (IN) | payer MEDICARE, SELFPAY ==
[2025-04-17] VITALS (35 sets, daily range): BP systolic 97–160; BP diastolic 42–100; PULSE 70–84; RESP 10–28; TEMP 36.2–36.6; O2SAT 92–100; BMI 46.8
--- NOTE | 2025-04-17 18:24 | CTR_ITS ---
PROCEDURE INFORMATION: Exam: CT Head Without Contrast Exam date and time: 04/17/2025 6:21 PM Age: 75 years old Clinical indication: Stroke-like symptoms; Altered mental status/memory loss; Additional info: Symptoms of acute stroke TECHNIQUE: Imaging protocol: Computed tomography of the head without contrast. Radiation optimization: All CT scans at this facility use at least one of these dose optimization techniques: automated exposure control; mA and/or kV adjustment per patient size (includes targeted exams where dose is matched to clinical indication); or iterative reconstruction. Other technique: STROKE PROTOCOL was implemented. COMPARISON: CT head wo con* [id number] 10/09/2023 7:13 AM RADIATION DOSE METRICS: Total DLP (mGy-cm): 1202.68 FINDINGS: Brain: No evidence of intra-axial or extra-axial hemorrhage. No mass effect or midline shift. Miller-white differentiation is maintained. Basilar cisterns are patent. Partially empty sella. Cerebral ventricles: No hydrocephalus. Paranasal sinuses: The visualized paranasal sinuses are well aerated. Mastoid air cells: The visualized mastoids and middle ears are clear. Bones: Calvarium is intact. No evidence of acute fracture. Soft tissues: No gross soft tissue abnormality. There is bilateral proptosis. CT/CT head thrombolytic [id number] IMPRESSION: 1. No acute intracranial abnormality. ASSESSMENT: ASPECTS (Aliyah Stroke Program Early CT Score) is 10.
--- NOTE | 2025-04-17 18:24 | CTR_ITS ---
PROCEDURE INFORMATION: Exam: CTA Head With Contrast, Arteriography Exam date and time: 04/17/2025 6:32 PM Age: 75 years old Clinical indication: Stroke-like symptoms; Altered mental status/memory loss; RT upper extremity and RT lower extremity weakness; Additional info: R side weakness TECHNIQUE: Imaging protocol: Computed tomographic angiography of the head with contrast. Exam focused on the arteries. 3D rendering (Not supervised by radiologist): MIP and/or 3D reconstructed images were created by the technologist. Radiation optimization: All CT scans at this facility use at least one of these dose optimization techniques: automated exposure control; mA and/or kV adjustment per patient size (includes targeted exams where dose is matched to clinical indication); or iterative reconstruction. Contrast material: OMNI 350; Contrast volume: 100 ml; Contrast route: INTRAVENOUS (IV); COMPARISON: CT head thrombolytic [id number] 04/17/2025 6:21 PM RADIATION DOSE METRICS: Total DLP (mGy-cm): 1202.68 FINDINGS: ANTERIOR CIRCULATION: Right internal carotid artery: Patent. Right middle cerebral artery: Patent. Right anterior cerebral artery: Patent. Left internal carotid artery: Patent. Left middle cerebral artery: Patent. Left anterior cerebral artery: Patent. POSTERIOR CIRCULATION: Right vertebral artery: Patent. Left vertebral artery: Patent. Basilar artery: Patent. Right posterior cerebral artery: Patent. Left posterior cerebral artery: Patent. PROCEDURE INFORMATION: Exam: CTA Neck With Contrast Exam date and time: 04/17/2025 6:32 PM Age: 75 years old Clinical indication: Stroke-like symptoms; Altered mental status/memory loss; RT upper extremity and RT lower extremity weakness; Additional info: R side weakness TECHNIQUE: Imaging protocol: Computed tomographic angiography of the neck with contrast. Exam focused on the cervical segments of the vasculature. 3D rendering (Not supervised by radiologist): MIP and/or 3D reconstructed images were created by the technologist. Radiation optimization: All CT scans at this facility use at least one of these dose optimization techniques: automated exposure control; mA and/or kV adjustment per patient size (includes targeted exams where dose is matched to clinical indication); or iterative reconstruction. Contrast material: OMNI 350; Contrast volume: 100 ml; Contrast route: INTRAVENOUS (IV); COMPARISON: CT head thrombolytic [id number] 04/17/2025 6:21 PM RADIATION DOSE METRICS: Total DLP (mGy-cm): 1202.68 FINDINGS: Right common carotid artery: Patent. No evidence of hemodynamically significant stenosis. Right internal carotid artery: Patent. No evidence of hemodynamically significant stenosis. Right external carotid artery: Patent. Left common carotid artery: Patent. No evidence of hemodynamically significant stenosis. Left internal carotid artery: Patent. No evidence of hemodynamically significant stenosis. Left external carotid artery: Patent. Right vertebral artery: Patent. Left vertebral artery: Patent. Soft tissues: No gross soft tissue abnormality. No evidence of fluid collection or hematoma. Bones/joints: No evidence of acute fracture or subluxation of the cervical spine. C4-6 ACDF. Severe foraminal stenosis on the left at C3-C4. Moderate to severe C6-C7 central stenosis with possible indenting the cord. Consider correlation with follow-up nonemergent MRI to evaluate for neural impingement. CT/CT angio headneck* [id number] IMPRESSION: 1. No evidence of large vessel occlusion or acute thrombosis in the head. IMPRESSION: 1. No evidence of acute thrombosis or hemodynamically significant stenosis in the neck. REFERENCES: NASCET CRITERIA. The degree of stenosis in the cervical segment of the internal carotid artery is based on NASCET criteria. Normal is no stenosis. Mild is less than 50% stenosis. Moderate is 50-69% stenosis. Severe is 70% to 99% stenosis. Total occlusion is no detectable patent lumen.
--- OUTSIDE RECORDS SUMMARY | 2025-04-17 18:40 | XMS_ITS | Encounter Summary ---
Author Organization [facility] Address [address] [place] [address] Care Team Providers Care Financial Services Manager Name Role Phone Minoo Clinton [facility] Primary Care Provider Encounter Details Date Type Department Care Team (Late st Contact Info) Description 01/17/2008 Outpatient [facility] [address] [place] [address] AMBULANCE, [facility] Social History Tobacco Use Types Packs/Day Years Used Date Smoking Tobacco: Never Assessed Sex and Gender Information Value Date Recorded Sex Assigned at Not on file 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
--- OUTSIDE RECORDS SUMMARY | 2025-04-17 18:40 | XMS_ITS | Encounter Summary ---
Author Organization [facility] Address [address] 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
--- OUTSIDE RECORDS SUMMARY | 2025-04-17 18:40 | XMS_ITS | Clinical Summary ---
Author Organization [facility] [address] [place] [address] Care Team Providers Care Air Traffic Control Supervisor Name Role Phone [facility] Primary Care Provider Allergies No known active [...] 12 3 Active fluticasone (FLONASE) 50 mcg/spray Burns, Suspension Administer 2 Sprays in each nostril [...] Obesity, unspecified 10/20/2012 Sleep apnea 10/20/2012 Old [place] (myocardial infarction) 10/20/2012 Social History Tobacco Use Types Packs/Day Years Used Date Smoking Tobacco: Former Cigarettes Q uit: 12/19/2013 Smokeless Tobacco: Never Alcohol Use Standard Drinks/Week Comments Not Asked 0 (1 standard drink = 0.6 oz pur e alcohol) Sex and Gender Information Value Date Recorded Sex Assigned at Not on file 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
--- OUTSIDE RECORDS SUMMARY | 2025-04-17 18:40 | XMS_ITS | Clinical Summary ---
Author Organization [facility] Address [address] [place]: Epic Prelude ADT FAREED INF[place]TE [address] Care Team Providers Care Bobbin Winder Name Role Phone [facility] Primary Care Provider Allergies No known active [...] artery disease) 10/20/2012 Sleep apnea 10/20/2012 Old ID (myocardial infarction) 10/20/2012 Social History Tobacco Use Types Packs/Day Years Used Date Smoking Tobacco: Former Cigarettes Q uit: 12/19/2013 Smokeless Tobacco: Never Alcohol Use Standard Drinks/Week Comments Not Asked 0 (1 standard drink = 0.6 oz pur e alcohol) Sex and Gender Information Value Date Recorded Sex Assigned at Not on file Legal Sex Male 4:50 AM 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
--- OUTSIDE RECORDS SUMMARY | 2025-04-17 18:40 | XMS_ITS | Encounter Summary ---
Author Organization [facility] Address [address] [place] [address] Care Team Providers Care Soldering Machine Operator Automatic Name Role Phone Minoo Clinton [facility] Primary Care Provider Encounter Details Date Type Department Care Team (Late st Contact Info) Description 06/06/2008 Outpatient [facility] [address] [place] [address] AMBULANCE, [facility] Social History Tobacco Use Types Packs/Day Years Used Date Smoking Tobacco: Never Assessed Sex and Gender Information Value Date Recorded Sex Assigned at Not on file 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
[2025-04-17] MEDS: iohexol 350 mg/mL 500 mL Btl (per mL) IV (18:41)
--- NOTE | 2025-04-17 18:46 | ECG_ITS ---
[facility]: 2025-04[facility]17 Pat Name: Jorge Ventura Department: Room: Gender: Male Customer Experience Manager: : 1950 Requested By: Lenny Boyle Order Number: [id number] Jessie MD: Anabelle Chirinos M.D. Measurements Intervals [place] Rate: 71 P: 208 [place]: 177 QRS: -81 QRSD: 193 T: 93 QT: 485 QTc: 528 Interpretive Statements ELECTRONIC ATRIAL PACEMAKER ELECTRONIC VENTRICULAR PACEMAKER ABNORMAL RHYTHM ECG Compared to ECG 03/28/2025 15:15:17 No significant changes Electronically Signed On 04-17-2025 21:18:49 CDT by Anabelle Chirinos M.D. [email or web address]
--- NOTE | 2025-04-17 18:49 | W.ED.NEUROSD ---
HPI - Neuro Symptoms/Deficit General: Chief Complaint: Neuro Symptoms/Deficit Stated Complaint: right sided weakness Time Seen by Provider: 04/17/25 18:23 History of Present Illness: Patient is a 75yo male who presented to the emergency department via ambulance with right-sided weakness. The patient appears to have experienced an acute neurological event. He has some confusion and does not recall the ambulance ride to the hospital. His accompanied him. The patient reports he was feeling well earlier today but cannot provide details about the onset of symptoms. There appears to be some memory deficit and possible confusion associated with the event. He is now experiencing right sided weakness. No significant language deficit. No vision change. Some sensory change Related Data Home Medications ?Medication ?Instructions ?Recorded ?Confirmed aspirin 81 mg tablet,delayed 81 mg PO DAILY 11/15/22 04/08/25 release spironolactone 25 mg tablet 12.5 mg PO DAILY 11/04/24 04/08/25 albuterol 90 mcg-budesonide 80 2 inh inhalation DAILY PRN 02/08/25 04/08/25 mcg/actuation HFA aerosol inhaler Shortness Of Breath furosemide 20 mg tablet (Lasix) 20 mg PO DAILY 02/08/25 04/08/25 clopidogrel 75 mg tablet 75 mg PO DAILY 03/28/25 04/08/25 ferrous sulfate 325 mg (65 mg 325 mg PO DAILY 03/28/25 04/08/25 iron) tablet Previous Rx's ?Medication ?Instructions ?Recorded nitroglycerin 0.4 mg sublingual 0.4 mg sublingual Q5M PRN chest 09/24/23 tablet (Nitrostat) pain #30 tabs tizanidine 2 mg tablet 2 mg PO BID PRN muscle spasticity 07/27/24 30 days #60 tabs Diabetic Shoes with Custom Molded #1 ea 09/08/24 Accommodative Inserts venlafaxine 150 mg 150 mg PO QAM 90 days #90 caps 09/17/24 capsule,extended release 24 hr levothyroxine 150 mcg tablet 150 mcg PO .COMPLEX #112 tabs 10/12/24 galantamine 12 mg tablet 12 mg PO BID #180 tabs 11/04/24 memantine 10 mg tablet 10 mg PO BID #180 tabs 11/04/24 quetiapine 100 mg tablet 100 mg PO QPM #90 tabs 04/24/25 quetiapine 25 mg tablet (Seroquel) 25 mg PO QAM #90 tabs 11/04/24 atorvastatin 40 mg tablet 40 mg PO DAILY #90 tabs 01/10/25 carvedilol 6.25 mg tablet 6.25 mg PO BID #180 tabs 01/10/25 gabapentin 300 mg capsule 300 mg PO BID pain 90 days #180 01/10/25 caps pantoprazole 40 mg tablet,delayed 40 mg PO BID 90 days #180 tabs 01/10/25 release (Protonix) tamsulosin 0.4 mg capsule 0.4 mg PO DAILY 90 days #90 caps 01/10/25 chlorthalidone 50 mg tablet 50 mg PO DAILY 90 days #90 tabs 03/10/25 amoxicillin 875 mg-potassium 1 tab PO BID #14 tabs 03/28/25 clavulanate 125 mg tablet galcanezumab-gnlm 120 mg/mL See Rx Instructions .Route 04/06/25 subcutaneous pen injector .COMPLEX #1 mL (Emgality Pen) Allergies Allergy/AdvReac Type Severity Reaction Status Date / Time No Known Allergies Allergy Verified 04/17/25 18:54 PFSH ED PFSH: Medical History Hypertension Anemia Atherosclerosis of coronary artery of enterprise heart without angina pectoris Presence of permanent cardiac pacemaker Hypomagnesemia Hypokalemia Symptomatic bradycardia High degree atrioventricular block Pre-syncope Generalized weakness Bradycardia Psychiatric care Chronic migraine without aura, intractable, with status migrainosus Alzheimer disease Chronic neck pain History of umbilical hernia Hyperlipemia, mixed Mild cognitive impairment with memory loss BPH loc w urin obs/LUTS Mild lower urinary tract symptoms with good response to TAMSULOSIN. Low objective risk. No evidence of prostate cancer. HTN (hypertension) with goal to be determined Coronary artery disease Obesity Diet-controlled type 2 diabetes mellitus Pt not longer traveling to see Endo History of prediabetes Hx of primary hypertension Hx of myocardial infarction Hx of sleep apnea History of hypothyroidism Hx-TIA (transient ischemic attack) Diabetic peripheral neuropathy associated with type 2 diabetes mellitus Surgical History S/P cataract surgery History of left knee surgery Hx of cholecystectomy Hx of tonsillectomy Hx of vasectomy H/O heart artery stent H/O gastric bypass Gastric bypass status for obesity Family History Mother No problems noted. Father CAD (coronary artery disease) Other Diabetes Presence of permanent cardiac pacemaker Social History Smoking and tobacco/nicotine status: current every day tobacco/nicotine user Second hand smoke exposure: No Alcohol intake: current Alcohol intake frequency: few times a month Alcohol type: beer Substance/Drug Use: never Marital status: Current occupational status: disabled NIH stroke score NIHSS: Level Of Consciousness - 1a: 0 Level Of Consciousness Questions - 1b: Both Correct Level Of Consciousness Commands - 1c: Both Correct Best Gaze - 2: Normal Visual [place] - 3: No Visual Loss Facial Palsy - 4: Normal Motor Arm Right - 5: Drift Motor Arm Left - 5: No Drift Motor Leg Right - 6: Effort Against [place] Motor Leg Left - 6: No Drift Limb Ataxia - 7: Present In One Limb Sensory - 8: Mild To Moderate Loss Best Language - 9: No Aphasia Dysarthia - 10: Normal Extinction And Inattention - 11: 0 Score: Total Score: 5 Physical Exam Const: COMMON NORMALS: no acute distress GENERAL APPEARANCE: cooperative and ill appearing HENMT: COMMON NORMALS: normocephalic, atraumatic and Normal external nose present HEAD & SCALP: normocephalic and atraumatic FACE & SINUS: normal facial exam and face symmetric NOSE: Normal external nose present Eye: COMMON NORMALS: Equal, round and reactive pupils present and EOMs intact bilaterally PUPIL: Yes Equal, round and reactive pupils present Neck/C-Spine: GENERAL: Yes trachea midline Chest: CHEST: Yes Symmetrical chest wall rise Resp: COMMON NORMALS: normal respiratory effort, No retractions, No use of accessory muscles and clear to auscultation bilaterally AUSCULTATION: clear to auscultation bilaterally Cardio: COMMON NORMALS: regular rate and regular rhythm RATE: regular rate RHYTHM: regular rhythm GI: COMMON NORMALS: Normal to inspection, nondistended, normoactive bowel sounds present Extremity: COMMON NORMALS: no pedal edema Neuro: JONATHAN COMA SCALE: document GCS findings [place] coma scale eye opening: Spontaneous Jonathan coma scale verbal response: Orientated Jonathan coma scale motor response: Obey commands [place] coma scale total score: 15 SENSORY EXAM: Yes extremities (intact) Psych: COMMON NORMALS: speech normal SPEECH: Yes normal speech Skin: COMMON NORMALS: no rashes or lesions noted GENERAL SKIN EXAM: no rashes or lesions noted Course Vital Signs: Vital signs: Vital Signs Temperature 97.8 F 04/17/25 18:47 Pulse Rate 71 04/17/25 20:06 Respiratory Rate 16 04/17/25 20:06 Blood Pressure 124/80 04/17/25 20:06 Pulse Oximetry 95 04/17/25 19:55 Oxygen Delivery Me thod Room Air 04/17/25 19:55 MDM - Neuro Symptoms/Deficit Medical Decision Making Patient has an NIH score of 5. Onset was just over 4 hours ago. I have a call out to neurology. [facility] is covering our stroke service this weekend. Head CT is negative. CTA of the head is negative as well. The patient received tPA in July for similar symptoms. He is on aspirin and Plavix. He is not anticoagulated. He has no contraindications. His blood pressure currently is 116/75. He does have a pacer. His is available for questioning. She states that she could not wake him up for short period of time. That is when she called the ambulance. He is much more alert now, but still experiencing right sided weakness. Spoke with Dr. Chandra from neurology at [facility]. He agrees that with a stroke scale of 5, disabling symptoms, no contraindications, we can try TNKase. The patient tolerated it well before per his 's report. Weight is calculated. He is getting it now. Symptoms are actually somewhat improved. Spoke with hospitalist. He is stable for admission at this point. He will go to the ICU. Lab Data 04/17/25 18:57 04/17/25 18:[address] 04/17/25 18:24 IMPRESSION: 1. No acute intracranial abnormality. ASSESSMENT: ASPECTS ([place] Stroke Program Early CT Score) is 10. ADDENDUM: 04/17/25 4475 The findings were verbally communicated by telephone with Dr. GUZMAN at 6:45 PM CDT on 04/17/2025. Head/Neck CTA 04/17/25 18:24 IMPRESSION: 1. No evidence of large vessel occlusion or acute thrombosis in the head. IMPRESSION: 1. No evidence of acute thrombosis or hemodynamically significant stenosis in the neck. REFERENCES: NASCET CRITERIA. The degree of stenosis in the cervical segment of the internal carotid artery is based on NASCET criteria. Normal is no stenosis. Mild is less than 50% stenosis. Moderate is 50-69% stenosis. Severe is 70% to 99% stenosis. Total occlusion is no detectable patent lumen. ADDENDUM: 04/17/251900 The findings were verbally communicated by telephone with Dr. GUZMAN at 6:59 PM CDT on 04/17/2025. Laboratory Results WBC 7.61 10^3/uL (3.29-11.43) 04/17/25 18:57 RBC 4.20 10^6/uL (3.85-5.65) 04/17/25 18:57 Hgb 13.40 g/dL (11.27-16.99) 04/17/25 18:57 Hct 40.2 % (37-53) 04/17/25 18:57 MCV 95.7 fl (82-101) 04/17/25 18:57 MCH 31.9 pg (27-33) 04/17/25 18:57 MCHC 33.3 g/dL (30-55) 04/17/25 18:57 RDW 14.9 % (12.1-15.1) 04/17/25 18:57 Plt Count 194 10^3/cmm (157-399) 04/17/25 18:57 MPV 9.1 fL (7.4-10.4) 04/17/25 18:57 Neut % (Auto) 59.0 % 04/17/25 18:57 Lymph % (Auto) 29.4 % 04/17/25 18:57 Mck[place] % (Auto) 7.5 % 04/17/25 18:57 Eos % (Auto) 3.0 % 04/17/25 18:57 Baso % (Auto) 0.7 % 04/17/25 18:57 Neut # (Auto) 4.49 10^3/uL (1.8-7.7) 04/17/25 18:57 Lymph # (Auto) 2.2 10^3/uL (0.8-4.8) 04/17/25 18:57 [place] # (Auto) 0.6 10^3/uL (0.2-0.9) 04/17/25 18:57 Eos # (Auto) 0.2 10^3/uL (0.0-0.8) 04/17/25 18:57 Baso # (Auto) 0.1 10^3/uL (0.0-0.1) 04/17/25 18:57 Nucleated RBC % (auto) 0 % 04/17/25 18:57 Nucleated RBCs # 0.0 /100WBC 04/17/25 18:57 PT 13.20 SECONDS (12.1-14.9) 04/17/25 18:57 INR 0.94 (0.8-1.2) 04/17/25 18:57 APTT 25.5 SECONDS (23.9-36.7) 04/17/25 18:57 Sodium 141 mmol/L (136-145) 04/17/25 18:57 Potassium 4.0 mmol/L (3.5-5.1) 04/17/25 18:57 Chloride 102 mmol/L (98-107) 04/17/25 18:57 Carbon Dioxide 27 mmol/L (22-29) 04/17/25 18:57 Anion Gap 16.0 (5-19) 04/17/25 18:57 BUN 21 mg/dL (8-23) 04/17/25 18:57 Creatinine 1.3 mg/dL (0.7-1.2) H 04/17/25 18:57 GFR Calculation Not Reportable 04/17/25 18:57 Glucose 182 mg/dL (65-115) H 04/17/25 18:57 POC Glucose 185 mg/dL (70-110) H 04/17/25 18:59 Calculated Osmolality 300 mOsm/kg (285-295) H 04/17/25 18:57 Calcium 8.0 mg/dL (8.5-10.5) L 04/17/25 18:57 Total Bilirubin 0.5 mg/dL (0.15-1.2) 04/17/25 18:57 AST 11 U/L (0-40) 04/17/25 18:57 ALT 11 U/L (0-41) 04/17/25 18:57 Alkaline Phosphatase 71 U/L (40-130) 04/17/25 18:57 Total Protein 6.3 g/dL (6.6-8.7) L 04/17/25 18:57 Albumin 3.7 g/dL (3.5-5.2) 04/17/25 18:57 Globulin 2.6 g/dL (1.3-4.6) 04/17/25 18:57 All radiology interpretation(s) finalized by discharge Critical Care Time Critical Care Time: Critical Care Time: Yes Total Critical Care Time: 40 Attestation: This case had a high probability of a clinically significant, sudden, or life threatening deterioration of this patient's condition which required my full and direct attention, intervention and personal management. Time is independent of any procedures performed. Discharge Plan Discharge Patient Disposition: Admitted As Inpatient Clinical Impression: Cerebrovascular accident Condition: Fair Coding Level of Care Code ED Greenhouse Laborer for Duran Perez
[2025-04-17 19:07] LABS: Hematocrit 40.2 % (37-53); Hemoglobin 13.40 g/dL (11.27-16.99); Mean Corpuscular HGB Conc 33.3 g/dL (30-55); Mean Corpuscular Hemoglobin 31.9 pg (27-33); Mean Corpuscular Volume 95.7 fl (82-101); Nucleated Red Blood Cells % 0 %; Platelet Count 194 10^3/cmm (157-399); Red Blood Count 4.20 10^6/uL (3.85-5.65); White Blood Count 7.61 10^3/uL (3.29-11.43)
[2025-04-17 19:17] LABS: INR 0.94 (0.8-1.2); Prothrombin Time 13.20 SECONDS (12.1-14.9)
[2025-04-17 19:18] LABS: Partial Thromboplastin Time 25.5 SECONDS (23.9-36.7)
[2025-04-17] MEDS: tenecteplase 50mg Kit (STROKE) 25 MG IVP (19:19)
[2025-04-17 19:28] LABS: Alanine Aminotransferase 11 U/L (0-41); Albumin Level 3.7 g/dL (3.5-5.2); Alkaline Phosphatase 71 U/L (40-130); Anion Gap 16.0 (5-19); Aspartate Amino Transferase 11 U/L (0-40); Blood Urea Nitrogen 21 mg/dL (8-23); Calcium 8.0 mg/dL (8.5-10.5); Carbon Dioxide 27 mmol/L (22-29); Chloride 102 mmol/L (98-107); Globulin 2.6 g/dL (1.3-4.6); Glucose 182 mg/dL (65-115); Osmolality Calculated 300 mOsm/kg (285-295); Potassium 4.0 mmol/L (3.5-5.1); Sodium 141 mmol/L (136-145); Total Protein 6.3 g/dL (6.6-8.7)
[2025-04-17 19:30] LABS: Creatinine Clr Calc Pharmacy 66.7536
--- NOTE | 2025-04-17 20:09 | PM.HP ---
Providers/Chief Complaint Admitting Physician: Love Andrews MD Primary Care Provider: Arlette Singleton MD Chief Complaint: right sided weakness History of Present Illness As per the previous chart review and the patient:( the patient is a poor historian and does not remember much what happened however he remembers that he was weak and dizzy in the evening and brought by the EMS to the hospital, no family member or collateral history provided around therefore the history is as per previous documented note) Jorge Ventura is a 75 year old male with PMH of atherosclerotic heart disease, sleep apnea on CPAP machine HFpEF, pacemaker, h/o rectal bleeding on conservative management as per outpatient surgery plan after discussion with the family, dyslipidemia, HTN, multiple recurrent weaknesses/strokes with h/o TNK came through EMS due to right sided acute weakness. The patient felt weak on the right side and dizzy around evening time. But did not member what he was doing at the time when he felt dizzy. He was awake there was no postictal state. He did not report any slurred speech or difficulty in breathing. No chest pain, chest pressure, abdominal pain, presyncope or syncope like symptoms no fevers or chills. No history of recent orthopnea or PND. The patient is compliant to his medication and also CPAP machine at home. he was in window period and recieved TNK as per the recommendation of the neurologist at [facility] and clinical symptoms at presentation ( documented in the ER physician note ). Review of Systems General: Reports: 10 or more systems reviewed and unremarkable except in HPI and below Medications/Allergies Home Medications ?Medication ?Instructions ?Recorded ?Confirmed ?Last Taken ?Type aspirin 81 mg tablet,delayed 81 mg PO DAILY 11/15/22 04/08/25 03/28/25 History release nitroglycerin 0.4 mg sublingual 0.4 mg sublingual Q5M PRN chest 09/24/23 04/08/25 Unknown Rx tablet (Nitrostat) pain #30 tabs tizanidine 2 mg tablet 2 mg PO BID PRN muscle spasticity 07/27/24 04/08/25 Unknown Rx 30 days #60 tabs Diabetic Shoes with Custom Molded #1 ea 09/08/24 04/08/25 Unknown Rx Accommodative Inserts venlafaxine 150 mg 150 mg PO QAM 90 days #90 caps 09/17/24 04/08/25 03/28/25 Rx capsule,extended release 24 hr levothyroxine 150 mcg tablet 150 mcg PO .COMPLEX #112 tabs 10/12/24 04/08/25 03/28/25 Rx galantamine 12 mg tablet 12 mg PO BID #180 tabs 11/04/24 04/08/25 03/28/25 Rx memantine 10 mg tablet 10 mg PO BID #180 tabs 11/04/24 04/08/25 03/28/25 Rx quetiapine 100 mg tablet 100 mg PO QPM #90 tabs 11/04/24 04/08/25 03/27/25 Rx quetiapine 25 mg tablet (Seroquel) 25 mg PO QAM #90 tabs 11/04/24 04/08/25 03/28/25 Rx spironolactone 25 mg tablet 12.5 mg PO DAILY 11/04/24 04/08/25 03/28/25 History atorvastatin 40 mg tablet 40 mg PO DAILY #90 tabs 01/10/25 04/08/25 03/27/25 Rx carvedilol 6.25 mg tablet 6.25 mg PO BID #180 tabs 01/10/25 04/08/25 03/28/25 Rx gabapentin 300 mg capsule 300 mg PO BID pain 90 days #180 01/10/25 04/08/25 03/28/25 Rx caps pantoprazole 40 mg tablet,delayed 40 mg PO BID 90 days #180 tabs 01/10/25 04/08/25 03/28/25 Rx release (Protonix) tamsulosin 0.4 mg capsule 0.4 mg PO DAILY 90 days #90 caps 01/10/25 04/08/25 Unknown Rx albuterol 90 mcg-budesonide 80 2 inh inhalation DAILY PRN 02/08/25 04/08/25 Unknown History mcg/actuation HFA aerosol inhaler Shortness Of Breath furosemide 20 mg tablet (Lasix) 20 mg PO DAILY 02/08/25 04/08/25 03/28/25 History chlorthalidone 50 mg tablet 50 mg PO DAILY 90 days #90 tabs 03/10/25 04/08/25 03/28/25 Rx amoxicillin 875 mg-potassium 1 tab PO BID #14 tabs 03/28/25 04/08/25 Unknown Rx clavulanate 125 mg tablet clopidogrel 75 mg tablet 75 mg PO DAILY 03/28/25 04/08/25 03/28/25 History ferrous sulfate 325 mg (65 mg 325 mg PO DAILY 03/28/25 04/08/25 03/28/25 History iron) tablet galcanezumab-gnlm 120 mg/mL See Rx Instructions .Route 04/06/25 04/08/25 Unknown Rx subcutaneous pen injector .COMPLEX #1 mL (Emgality Pen) Allergies Allergy/AdvReac Type Severity Reaction Status Date / Time No Known Allergies Allergy Verified 04/17/25 18:54 PFSH Acute PFSH: Medical History (Updated 04/17/25 @ 20:17 by Love Andrews MD) Anemia Hypertension Atherosclerosis of coronary artery of [place] heart without angina pectoris Presence of permanent cardiac pacemaker Hypomagnesemia Hypokalemia Symptomatic bradycardia High degree atrioventricular block Pre-syncope Generalized weakness Bradycardia Psychiatric care Chronic migraine without aura, intractable, with status migrainosus Alzheimer disease Chronic neck pain History of umbilical hernia Hyperlipemia, mixed Mild cognitive impairment with memory loss BPH loc w urin obs/LUTS Mild lower urinary tract symptoms with good response to TAMSULOSIN. Low objective risk. No evidence of prostate cancer. HTN (hypertension) with goal to be determined Coronary artery disease Obesity Diet-controlled type 2 diabetes mellitus Pt not longer traveling to see Endo History of prediabetes Hx of primary hypertension Hx of myocardial infarction Hx of sleep apnea History of hypothyroidism Hx-TIA (transient ischemic attack) Diabetic peripheral neuropathy associated with type 2 diabetes mellitus Surgical History S/P cataract surgery History of left knee surgery Hx of cholecystectomy Hx of tonsillectomy Hx of vasectomy H/O heart artery stent H/O gastric bypass Gastric bypass status for obesity Family History Mother No problems noted. Father CAD (coronary artery disease) Other Diabetes Presence of permanent cardiac pacemaker Social History Smoking and tobacco/nicotine status: current every day tobacco/nicotine user Second hand smoke exposure: No Alcohol intake: current Alcohol intake frequency: few times a month Alcohol type: beer Substance/Drug Use: never Marital status: Current occupational status: disabled Vitals/I&O/Wt Last Vital Signs Temp 97.8 F 04/17/25 18:47 Pulse 71 04/17/25 20:06 Resp 16 04/17/25 20:06 BP 124/80 04/17/25 20:06 Pulse Ox 95 04/17/25 19:55 O2 Del Method Room Air 04/17/25 19:55 Weight last 48 hrs Weight 134.263 kg Physical Exam Narrative: General: Alert and oriented, lying comfortably without any distress HEENT: Normocephalic, atraumatic, grossly unremarkable exam Cardio: normal rate rhythm, normal S1-S2 without any murmurs, rubs, or gallops and JVD normal Respiratory: normal vascular breathing on auscultation without any wheezes, stridor, rhonchi GI: Abdomen soft, nontender, nondistended, normoactive bowel sounds present all 4 quadrants, Neuro: Grossly normal cranial nerves, sensory and motor examination, speech, coordination signs, equivocal reflexes. Gross clinical neuroexam unremarkable Behavior: Appropriate and cooperative Extremities: Adequate palpable pulses, trace pedal edema Data 04/17/25 18:57 04/17/25 18:57 A&P Assessment and plan 1. Cerebrovascular accident: - Patient received TNK in the ER, hold his aspirin and clopidogrel at the moment -Speech and swallow assessment -OT PT - MRI brain - TSH, lipid panel, HbA1c panel to be drawn after 24 hours - Avoid any neuropraxia at the moment status post TNK - Monitor neurological signs - Do not try to decrease the blood pressure, hold any antihypertensives at the moment unless the blood pressure is more than 220 systolic 2. ESTER (acute kidney injury): - Continue adequate hydration -Encourage oral intake after patient passes speech and swallow assessment 3. KRISTIE (obstructive sleep apnea): CPAP at contact manager for any drowsiness or symptoms of uncontrolled sleep apnea in the morning 4. Lumbar pain: - Adequate analgesia provided - Currently asymptomatic and monitor for any symptoms 5. Major depressive disorder: - Patient on venlafaxine 150 mg daily, quetiapine, resume after reconciliation 6. Hypertension: - Hold antihypertensive at the moment since the blood pressure is normal by itself - To resume according to the blood pressure after 24 to 48 hours of initial stroke - Monitor vitals 7. Atherosclerosis of coronary artery of [place] heart without angina pectoris: - Resume patient's aspirin and clopidogrel along with statins after 24 hours since the patient has 8. Diet-controlled type 2 diabetes mellitus: - Insulin sliding scale 9. Mild cognitive impairment with memory loss: - Patient on galantamine 12 mg twice daily and to resume after reconciliation 10. Gastric bypass status for obesity: Stable 11. Hypothyroid: - Continue home dose of levothyroxine 150 mcg as documented however need to reconcile before providing 12. Hyperlipemia, mixed: Continue home dose high intensity statins after medication reconciliation PDMP PDMP Reviewed: Not Reviewed Attestations Medical Necessity Statement*: Jorge Ventura's hospital stay will require greater than 2 midnights for management of acute stroke, needing work up, OT.PT and further assessment for safe disposition Time Spent in Patient Care: 16 - 35 minutes (>than 50% of time spent in counselling and/or direct pt care on unit). Other Attestations: Patient condition has been discussed at length with the patient/family, I have independently reviewed the chart labs imaging/diagnostics/EKG. the goals of care and code status with the patient/family/NOK/legal client care representative, and documented accordingly. The patient/family has been informed about the current condition and further plan of care. Agreed with the plan of care and understood without any language barrier. Every effort was made to ensure accuracy of underwriting director. Any obvious errors or omissions should be clarified with the author of the document. Coding Level of Care Code 68060 Diagnoses Cerebrovascular accident I63.9 ESTER (acute kidney injury) N17.9 KRISTIE (obstructive sleep apnea) G47.33 Lumbar pain M54.50 Major depressive disorder F32.9 Hypertension I10 Atherosclerosis of coronary artery of [place] heart without angina pectoris I25.10 Diet-controlled type 2 diabetes mellitus E11.9 Mild cognitive impairment with memory loss G31.84 Gastric bypass status for obesity Z98.84 Hypothyroid E03.9 Hyperlipemia, mixed E78.2
--- NOTE | 2025-04-17 20:15 | PC.NURSE ---
PT AT BEDSIDE REPORTS THAT PT HAS HAD A WEAKER R SIDE AFTER HIS STROKE IN JUL 2024 AND WAS UNABLE TO REGAIN FULL STRENGTH AFTER PT. ALSO REPORTS EARLY ONSET OF DEMENTIA AND PT HAS CONFUSION ON AND OFF.
[2025-04-17 20:24] LABS: Magnesium 2.0 mg/dL (1.7-2.3)
[2025-04-17] MEDS: pantoprazole 40 mg SDV IVP (20:32)
--- NOTE | 2025-04-17 21:46 | PC.NURSE ---
Patient arrived to ICU 3 at 2049. Alert and oriented. at bedside. Sign placed on patients door no sticks until 04/18/25 at 1920.
[2025-04-17 21:59] LABS: Add Urine Microscopic? NO
[2025-04-17 22:28] LABS: PCP Screen Urine Negative (Negative)
[2025-04-17 22:57] LABS: Glucose Urine UA Norm (Normal); Nitrate Urine Negative (Negative); Specific Gravity, Urine 1.005 (1.005-1.030)
[2025-04-17 22:59] LABS: Charge for UA Resulting for Rev
[2025-04-17 23:40] LABS: Cholesterol 146 mg/dL (0-200); HDL Cholesterol 41 mg/dL (60-100); Triglycerides 177 mg/dL (0-150)
[2025-04-18] VITALS (85 sets, daily range): BP systolic 86–150; BP diastolic 58–113; PULSE 69–80; RESP 11–29; TEMP 36–36.8; O2SAT 92–98; BMI 46.5
[2025-04-18 00:04] LABS: Estmated Average Glucose 126; Hemoglobin A1C 6.0 % (4.0-6.0)
--- NOTE | 2025-04-18 08:50 | PC.OT ---
OT EVALUATION ORDERS RECEIVED. PATIENT RECEIVED TKNASE ON 04/17 @ 1914 PER CHART REVIEW. WILL HOLD OT EVAL UNTIL AFTER THAT TIME PER PROTOCOL
--- NOTE | 2025-04-18 09:58 | PC.NURSE ---
institutional research coordinator rounds at 0900- gave patient stroke education book and we went over it together. Patient verbalized understanding. No stroke deficits noted during my visit. Patient states he is feeling much better but doesn't really remember the event.
--- NOTE | 2025-04-18 11:43 | P.PN_ITS ---
Subjective 2 Subjective: 75-year-old male received TNK yesterday for right-sided weakness NIH stroke scale of 5. Patient underwent CTA of the head showing no large vessel occlusion or acute thrombus in the head. Patient states that yesterday he was confused but is okay now. He denies that he is in any pain. He knows that it is April and Friday around 930 in 2024 he thought Brian was the president and when I told him he was not the president he could not tell me the name of the current president. Patient states he wishes his was here to help with his answers Vitals/I&O/Wt Last Vital Signs Temp 97.9 F 04/18/25 07:06 Pulse 77 04/18/25 07:06 Resp 14 04/18/25 07:06 BP 122/63 04/18/25 07:06 Pulse Ox 93 04/18/25 04:04 O2 Del Method Room Air 04/17/25 21:03 FiO2 21 04/18/25 01:23 04/17/25 04/18/25 04/18/25 22:59 06:59 14:59 Intake Total 1000 / 1000 Output Total 250 / 250 600 / 850 Balance -250 / -250 400 / 150 Weight last 48 hrs Weight 138.799 kg Weight 139.877 kg Weight 134.263 kg Physical Exam 2 Narrative: General Well-developed well-nourished oh beast male in no acute cardiopulmonary distress CV regular rate and rhythm Lungs clear to auscultation bilaterally Abdomen positive bowel sounds soft obese nontender Calves no tenderness cords pedal edema Neuro pupils are equally round and reactive to light accommodation motor strength 5/5 bilateral biceps, triceps, handgrips, straight leg raise ankle flexion and extension. Data 04/17/25 18:57 04/17/25 18:57 A&P Assessment and plan 1. Cerebrovascular accident: - Patient received TNK in the ER, hold his aspirin and clopidogrel at the moment -Speech and swallow assessment -OT PT - MRI brain results pending - TSH, lipid panel, HbA1c panel to be drawn after 24 hours - Avoid any neuropraxia at the moment status post TNK - Monitor neurological signs - Do not try to decrease the blood pressure, hold any antihypertensives at the moment unless the blood pressure is more than 220 systolic Increase activity and start diet patient is much improved and anticipate discharge tomorrow 2. ESTER (acute kidney injury): - Continue adequate hydration -Encourage oral intake after patient passes speech and swallow assessment Repeat BMP in the a.m. 3. KRISTIE (obstructive sleep apnea): CPAP at night. Patient states he uses nightly at home Monitor for any drowsiness or symptoms of uncontrolled sleep apnea in the morning 4. Lumbar pain: - Adequate analgesia provided - Currently asymptomatic and monitor for any symptoms 5. Recurrent major depressive disorder, in partial remission: - Patient on venlafaxine 150 mg daily, quetiapine, resume after reconciliation 6. Essential hypertension: - Hold antihypertensive at the moment since the blood pressure is normal by itself - To resume according to the blood pressure after 24 to 48 hours of initial stroke - Monitor vitals 7. Atherosclerosis of [place] coronary artery of [place] heart without angina pectoris: - Resume patient's aspirin and clopidogrel along with statins after 24 hours since the patient has 8. Diet-controlled type 2 diabetes mellitus: - Insulin sliding scale 9. Mild cognitive impairment with memory loss: - Patient on galantamine 12 mg twice daily and to resume after reconciliation 10. Gastric bypass status for obesity: Stable 11. Acquired hypothyroidism: - Continue home dose of levothyroxine 150 mcg as documented however need to reconcile before providing 12. Hyperlipemia, mixed: Continue home dose high intensity statins after medication reconciliation PDMP PDMP Reviewed: Not Reviewed Attestations 2 Medical Necessity Statement*: Patient remains in hospital post tPA and will require additional midnight Coding Level of Care Code 63053 Diagnoses Cerebrovascular accident I63.9 ESTER (acute kidney injury) N17.9 KRISTIE (obstructive sleep apnea) G47.33 Lumbar pain M54.50 Recurrent major depressive disorder, in partial remission F33.41 Major depression recurrence: recurrent Active/Remission status: in partial remission Essential hypertension I10 Hypertension type: essential hypertension Atherosclerosis of [place] coronary artery of [place] heart without angina pectoris I25.10 Coronary Disease-Associated Artery/Lesion type: [place] artery Diet-controlled type 2 diabetes mellitus E11.9 Mild cognitive impairment with memory loss G31.84 Gastric bypass status for obesity Z98.84 Acquired hypothyroidism E03.9 Hypothyroidism type: acquired Hyperlipemia, mixed E78.2 Time Spent (min) 35
[2025-04-18] MEDS: venlafaxine ER (24HR) 150 mg Capsule PO (16:24)
--- NOTE | 2025-04-18 18:20 | PC.NURSE ---
Addendum entered by Moy Snyder RN 04/18/25 19:09: Shift Summary: Up to a chair for most of the shift. Ambulated approximately 60 feet today with minimal assistance. Had an episode of confusion, lasted about an hour. Couldn't remember situation or location. Resolved after was at bedside and helped with re-orienteation. states this is very common at home. Restarted on some of his home meds. No bleeding post TNKASE observed. Original Note: Shift Summary: Up to a chair for most of the shift. Ambulated approximately 60 feet today with minimal assistance. Had an episode of confusion, lasted about an hour. Couldnt remember situation or location. Resolved after was at bedside and helpe dwith re-orienteation. states this is very. Restarted on some of his home meds. No bleeding post TNKASE observed.
--- NOTE | 2025-04-18 19:40 | CT_ITS ---
WS: [id number] CT HEAD TECHNIQUE: Noncontrast CT of the head obtained from the skullbase to the vertex. CLINICAL INFORMATION: Follow-up TNK COMPARISON: 04/17/2025 DLP: 1159.[address] scans at [facility] use at least one of these dose optimization techniques: automated exposure control; mA and/or kV adjustment per patient size (includes targeted exams where dose is matched to clinical indication); or iterative reconstruction. FINDINGS: No evidence of intracranial hemorrhage or mass effect. Ventricular system and basal cisterns are patent. Mild small vessel changes with mild parenchymal volume loss. No extra-axial fluid collections. No evidence of mass or mass effect. Vascular calcification. Paranasal sinuses and mastoid air cells are well aerated. .Normal visualized soft tissues. CT/CT head wo con* [id number] IMPRESSION: 1. No evidence of intracranial hemorrhage or mass effect. 2. No acute intracranial findings.
--- NOTE | 2025-04-18 23:16 | USCV_ITS ---
Jorge Ventura Age: 75 Gender: M : 1950 Exam Date: 04/18/2025 09:31 Ordering Phys: Love Andrews MD Technologist: NATACHA Exam Location: [facility] [place] Indication: Stroke workup BP: 120 / 84 HR: 72 Rhythm: Sinus Technical Quality: Adequate MEASUREMENTS (Male / Female) Normal Values 2D ECHO LV Diastolic Diameter PLAX 4.5 cm 4.2 - 5.9 / 3.9 - 5.3 cm IVS Diastolic Thickness 1.3 cm 0.6 - 1.0 / 0.6 - 0.9 cm IVS Systolic Thickness 2.0 cm LVPW Diastolic Thickness 1.7 cm 0.6 - 1.0 / 0.6 - 0.9 cm LVPW Systolic Thickness 2.2 cm LVOT Diameter 2.1 cm LV Ejection Fraction 2D Teich 55.8 % LV Ejection Fraction MOD 4C 61.4 % LV Ejection Fraction MOD 2C 57.0 % LV Ejection Fraction 2C AL 58.5 % LA Diameter 4.1 cm RA Systolic Volume 4C AL 43.1 ml RA Systolic Volume 4C MOD 40.9 ml LA Sys Volume AL 51.7 cm cubed LA Sys Volume Index AL 19.5 cm cubed/m squared Aorta at Sinotubular Diameter 2.9 cm M-MODE LA Ao Ratio MM 1.7 AV Cusp Separation MM 1.5 cm DOPPLER AV Peak Velocity 121.0 cm/s LVOT Peak Velocity 92.0 cm/s AV Area Cont Eq vti 3.2 cm squared AV Area Cont Eq pk 2.6 cm squared MV Peak Velocity 103.0 cm/s MV Area PHT 6.0 cm squared Mitral E to A Ratio 0.5 TR Peak Velocity 82.0 cm/s TR Peak Gradient 2.7 mmHg TV Peak E Velocity 56.0 cm/s PV Peak Velocity 91.0 cm/s FINDINGS Left Ventricle Normal left ventricular size and systolic function, EF 57%.no regional wall motion abnormalities.mild left ventricular hypertrophy. Grade I/IV diastolic dysfunction (abnormal relaxation filling pattern), normal to mildly elevated filling pressures. . Right Ventricle Normal right ventricular size and systolic function. Right Atrium Normal right atrial size. Left Atrium Normal left atrial size. IA Septum Appears to be intact Mitral Valve No gross abnormalities noted Aortic Valve Thickened aortic valve. Tricuspid Valve No gross abnormalities noted Pulmonic Valve Pulmonic valve not well visualized. Pericardium No pericardial effusion. Aorta Normal aortic annulus size. IVC Inferior vena cava not visualized. CONCLUSIONS Normal left ventricular size and systolic function, EF 57%.no regional wall motion abnormalities.mild left ventricular hypertrophy. Grade I/IV diastolic dysfunction (abnormal relaxation filling pattern), normal to mildly elevated filling pressures. . Thickened aortic valve. There is no pericardial effusion. There are no intracardiac masses. Compared to the study from 10/07/2023, there may not be a significant change Dr Anabelle Chirinos MD FAC (Electronically Signed) Final Date: 18 April 2025 22:47 S
[2025-04-19] VITALS (24 sets, daily range): BP systolic 104–152; BP diastolic 55–103; PULSE 68–85; RESP 14–22; TEMP 36.1–37; O2SAT 90–97
[2025-04-19 04:22] LABS: Hematocrit 41.2 % (37-53); Hemoglobin 13.90 g/dL (11.27-16.99); Mean Corpuscular HGB Conc 33.7 g/dL (30-55); Mean Corpuscular Hemoglobin 32.0 pg (27-33); Mean Corpuscular Volume 94.7 fl (82-101); Nucleated Red Blood Cells % 0 %; Platelet Count 207 10^3/cmm (157-399); Red Blood Count 4.35 10^6/uL (3.85-5.65); White Blood Count 7.12 10^3/uL (3.29-11.43)
[2025-04-19 04:43] LABS: Anion Gap 15.6 (5-19); Blood Urea Nitrogen 20 mg/dL (8-23); Calcium 8.8 mg/dL (8.5-10.5); Carbon Dioxide 26 mmol/L (22-29); Chloride 102 mmol/L (98-107); Creatinine Clr Calc Pharmacy 72.6432; Glucose 114 mg/dL (65-115); Osmolality Calculated 293 mOsm/kg (285-295); Potassium 3.6 mmol/L (3.5-5.1); Sodium 140 mmol/L (136-145)
[2025-04-19] MEDS: venlafaxine ER (24HR) 150 mg Capsule PO (05:49)
--- NOTE | 2025-04-19 15:09 | P.DS_ITS ---
Discharge Providers Date of Admission: 04/17/25 20:05 Date of Discharge: April 19, 2025 Attending Provider at Admission: Love Andrews MD Attending Provider at Discharge: Gildardo Robledo MD Primary Care Provider: Arlette Singleton MD Diagnoses at Discharge Discharge Diagnosis 1. Cerebrovascular accident: 2. ESTER (acute kidney injury): 3. KRISTIE (obstructive sleep apnea): 4. Atherosclerosis of [place] coronary artery of [place] heart without angina pectoris: 5. Diet-controlled type 2 diabetes mellitus: 6. Mild cognitive impairment with memory loss: 7. Gastric bypass status for obesity: 8. Acquired hypothyroidism: 9. Hyperlipemia, mixed: Reason for Visit Reason for Visit: right sided weakness Brief History: As per the previous chart review and the patient:( the patient is a poor historian and does not remember much what happened however he remembers that he was weak and dizzy in the evening and brought by the EMS to the hospital, no family member or collateral history provided around therefore the history is as per previous documented note) Jorge Ventura is a 75 year old male with PMH of atherosclerotic heart disease, sleep apnea on CPAP machine HFpEF, pacemaker, h/o rectal bleeding on conservative management as per outpatient surgery plan after discussion with the family, dyslipidemia, HTN, multiple recurrent weaknesses/strokes with h/o TNK came through EMS due to right sided acute weakness. The patient felt weak on the right side and dizzy around evening time. But did not member what he was doing at the time when he felt dizzy. He was awake there was no postictal state. He did not report any slurred speech or difficulty in breathing. No chest pain, chest pressure, abdominal pain, presyncope or syncope like symptoms no fevers or chills. No history of recent orthopnea or PND. The patient is compliant to his medication and also CPAP machine at home. he was in window period and recieved TNK as per the recommendation of the neurologist at [facility] and clinical symptoms at presentation ( documented in the ER physician note ). Hospital Course Hospital Course 75-year-old male with history of diabetes, hyperlipidemia, hypertension, morbid obesity status post gastric bypass surgery had right-sided weakness and confusion. NIH score was 5 but specific details on his right sided weakness was not clearly documented. He underwent thrombolytics and his subsequent CT scan at 24 hours showed no bleed. His speech therapy occupational and physical therapy exams all showed he did well. Patient states he walked in the ICU fernandez several times and did fine. He feels that he is better than even his baseline. I did counseled him that he needs to be on a weight loss diet as being morbidly obese has increased risk of having recurrent stroke. Furthermore any stroke deficit is exacerbated by being obese and unable to be managed at home. Patient voices interest in understanding. Counseled him to try and eat a 2000-calorie ADA diet and lose 1% of his body weight i.e. 3 pounds a week. Physical Exam Narrative: General Well-developed well-nourished oh beast male in no acute cardiopulmonary distress Oropharynx Mallampati 2 CV regular rate and rhythm Lungs clear to auscultation bilaterally Abdomen positive bowel sounds soft obese nontender Calves no tenderness cords pedal edema Neuro pupils are equally round and reactive to light accommodation motor strength 5/5 bilateral biceps, triceps, handgrips, face is symmetric tongue protrusion without deviation eye squint and opening all very strong patient is able to stand and's walk unaided Discharge Data Studies Completed and Pending Completed Studies During Hospitalization Category Date Time Status CT angio headneck* [id number] Stat Cat Scan 04/17/25 18:[address] head thrombolytic 85488 Stat Cat Scan 04/17/25 18:[address] head wo con* [id number] Routine Cat Scan 04/18/25 19:40 Completed CV. echo complete* [id number] Routine Ultrasound 04/18/25 23:16 Completed Radiology Impressions Head/Neck CTA 04/17/25 18:24 IMPRESSION: 1. No evidence of large vessel occlusion or acute thrombosis in the head. IMPRESSION: 1. No evidence of acute thrombosis or hemodynamically significant stenosis in the neck. REFERENCES: NASCET CRITERIA. The degree of stenosis in the cervical segment of the internal carotid artery is based on NASCET criteria. Normal is no stenosis. Mild is less than 50% stenosis. Moderate is 50-69% stenosis. Severe is 70% to 99% stenosis. Total occlusion is no detectable patent lumen. ADDENDUM: 04/17/251900 The findings were verbally communicated by telephone with Dr. GUZMAN at 6:59 PM CDT on 04/17/2025. Head CT 04/18/25 19:40 IMPRESSION: 1. No evidence of intracranial hemorrhage or mass effect. 2. No acute intracranial findings. Laboratory Results WBC 7.12 10^3/uL (3.29-11.43) 04/19/25 03:32 RBC 4.35 10^6/uL (3.85-5.65) 04/19/25 03:32 Hgb 13.90 g/dL (11.27-16.99) 04/19/25 03:32 Hct 41.2 % (37-53) 04/19/25 03:32 MCV 94.7 fl (82-101) 04/19/25 03:32 MCH 32.0 pg (27-33) 04/19/25 03:32 MCHC 33.7 g/dL (30-55) 04/19/25 03:32 RDW 14.7 % (12.1-15.1) 04/19/25 03:32 Plt Count 207 10^3/cmm (157-399) 04/19/25 03:32 MPV 9.0 fL (7.4-10.4) 04/19/25 03:32 Neut % (Auto) 48.3 % 04/19/25 03:32 Lymph % (Auto) 40.3 % 04/19/25 03:32 [place] % (Auto) 7.2 % 04/19/25 03:32 Eos % (Auto) 3.2 % 04/19/25 03:32 Baso % (Auto) 0.6 % 04/19/25 03:32 Neut # (Auto) 3.44 10^3/uL (1.8-7.7) 04/19/25 03:32 Lymph # (Auto) 2.9 10^3/uL (0.8-4.8) 04/19/25 03:32 [place]zel # (Auto) 0.5 10^3/uL (0.2-0.9) 04/19/25 03:32 Eos # (Auto) 0.2 10^3/uL (0.0-0.8) 04/19/25 03:32 Baso # (Auto) 0.0 10^3/uL (0.0-0.1) 04/19/25 03:32 Nucleated RBC % (auto) 0 % 04/19/25 03:32 Nucleated RBCs # 0.0 /100WBC 04/19/25 03:32 PT 13.20 SECONDS (12.1-14.9) 04/17/25 18:57 INR 0.94 (0.8-1.2) 04/17/25 18:57 APTT 25.5 SECONDS (23.9-36.7) 04/17/25 18:57 Sodium 140 mmol/L (136-145) 04/19/25 03:32 Potassium 3.6 mmol/L (3.5-5.1) 04/19/25 03:32 Chloride 102 mmol/L (98-107) 04/19/25 03:32 Carbon Dioxide 26 mmol/L (22-29) 04/19/25 03:32 Anion Gap 15.6 (5-19) 04/19/25 03:32 BUN 20 mg/dL (8-23) 04/19/25 03:32 Creatinine 1.2 mg/dL (0.7-1.2) 04/19/25 03:32 GFR Calculation Not Reportable 04/19/25 03:32 Glucose 114 mg/dL (65-115) 04/19/25 03:32 POC Glucose 185 mg/dL (70-110) H 04/17/25 18:59 Estimat Average Glucose 126 04/17/25 18:57 Hemoglobin A1c 6.0 % (4.0-6.0) 04/17/25 18:57 Calculated Osmolality 293 mOsm/kg (285-295) 04/19/25 03:32 Calcium 8.8 mg/dL (8.5-10.5) 04/19/25 03:32 Phosphorus 2.9 mg/dL (2.5-4.5) 04/17/25 18:57 Magnesium 2.0 mg/dL (1.7-2.3) 04/17/25 18:57 Total Bilirubin 0.5 mg/dL (0.15-1.2) 04/17/25 18:57 AST 11 U/L (0-40) 04/17/25 18:57 ALT 11 U/L (0-41) 04/17/25 18:57 Alkaline Phosphatase 71 U/L (40-130) 04/17/25 18:57 Total Protein 6.3 g/dL (6.6-8.7) L 04/17/25 18:57 Albumin 3.7 g/dL (3.5-5.2) 04/17/25 18:57 Globulin 2.6 g/dL (1.3-4.6) 04/17/25 18:57 Triglycerides 177 mg/dL (0-150) H 04/17/25 18:57 Cholesterol 146 mg/dL (0-200) 04/17/25 18:57 LDL Cholesterol, Calc 70 mg/dL (50-129) 04/17/25 18:57 HDL Cholesterol 41 mg/dL (60-100) L 04/17/25 18:57 LDL/HDL Ratio 1.71 RATIO (0.00-3.22) 04/17/25 18:57 Cholesterol/HDL Ratio 3.56 mg/dL (1.0-5.00) 04/17/25 18:57 Urine Color Yellow (Yellow) 04/17/25 21:50 Urine Appearance Clear (CLEAR) 04/17/25 21:50 Urine pH 7 (5-7) 04/17/25 21:50 Ur Specific [place] 1.005 (1.005-1.030) 04/17/25 21:50 Urine Protein Trace (Negative) 04/17/25 21:50 Urine Glucose (UA) Norm (Normal) 04/17/25 21:50 Urine Ketones Negative (Negative) 04/17/25 21:50 Urine Blood Neg (Negative) 04/17/25 21:50 Urine Nitrate Negative (Negative) 04/17/25 21:50 Urine Bilirubin Neg (Negative) 04/17/25 21:50 Urine Urobilinogen 1 mg/dL (Negative) H 04/17/25 21:50 Ur Leukocyte Esterase Negative (Negative) 04/17/25 21:50 Amorphous Sediment Not Reportable 04/17/25 21:50 Urine Opiates Screen Negative ng/mL (Negative) 04/17/25 21:50 Ur Barbiturates Screen Negative ng/mL (Negative) 04/17/25 21:50 Ur Phencyclidine Scrn Negative ng/mL (Negative) 04/17/25 21:50 Ur Amphetamines Screen Negative ng/mL (Negative) 04/17/25 21:50 U Benzodiazepines Scrn Negative ng/mL (Negative) 04/17/25 21:50 Urine Cocaine Screen Negative ng/mL (Negative) 04/17/25 21:50 U Marijuana (THC) Screen Negative ng/mL (Negative) 04/17/25 21:50 Vitals Last Vital Signs Temp 97.0 F L 04/19/25 09:00 Pulse 70 04/19/25 14:00 Resp 17 04/19/25 06:00 BP 135/87 04/19/25 14:30 Pulse Ox 93 04/19/25 14:00 O2 Del Method Room Air 04/19/25 14:00 FiO2 21 04/19/25 00:20 Discharge Plan Discharge Patient Disposition: Home Condition: Stable Prescriptions: Continued galantamine 12 mg tablet 12 mg PO BID Qty: 180 3RF Rx Instructions: administer with AM and PM meals memantine 10 mg tablet 10 mg PO BID Qty: 180 3RF quetiapine 100 mg tablet 100 mg PO QPM Qty: 90 3RF quetiapine [Seroquel] 25 mg tablet 25 mg PO QAM Qty: 90 3RF levothyroxine 150 mcg tablet 150 mcg PO .COMPLEX Qty: 112 3RF Rx Instructions: Take one tablet by mouth Friday-Friday and 1.5 tablets on Friday. atorvastatin 40 mg tablet 40 mg PO DAILY Qty: 90 2RF carvedilol 6.25 mg tablet 6.25 mg PO BID Qty: 180 2RF Rx Instructions: must administer with a meal/food gabapentin 300 mg capsule 300 mg PO BID 90 Days Qty: 180 2RF pantoprazole [Protonix] 40 mg tablet,delayed release (DR/EC) 40 mg PO BID 90 Days Qty: 180 2RF tamsulosin 0.4 mg capsule 0.4 mg PO DAILY 90 Days Qty: 90 2RF nitroglycerin [Nitrostat] 0.4 mg tablet, sublingual 0.4 mg sublingual Q5M PRN (Reason: chest pain) Qty: 30 3RF (DME) Diabetic Shoes with Custom Molded Accommodative Inserts See Rx Instructions .Route .MEDSUPPLY Qty: 1 0RF Rx Instructions: As directed Daily Living Medical venlafaxine 150 mg capsule,extended release 24hr 150 mg PO QAM 90 Days Qty: 90 3RF furosemide [Lasix] 20 mg tablet 20 mg PO DAILY albuterol-budesonide 90-80 mcg/actuation HFA aerosol inhaler 2 inh inhalation DAILY PRN (Reason: Shortness Of Breath) chlorthalidone 50 mg tablet 50 mg PO DAILY 90 Days Qty: 90 2RF tizanidine 2 mg tablet 2 mg PO BID PRN (Reason: muscle spasticity) 30 Days Qty: 60 0RF Emgality Pen 120 mg/mL pen injector See Rx Instructions .ROUTE .COMPLEX Qty: 1 6RF Dose Instruction: INJECT ONE pen UNDER THE SKIN ONCE EVERY 30 DAYS Rx Instructions: INJECT ONE pen UNDER THE SKIN ONCE EVERY 30 DAYS aspirin 81 mg Tablet,Delayed Release (Dr/Ec) 81 mg PO DAILY ferrous sulfate 325 mg (65 mg iron) Tablet 325 mg PO DAILY clopidogrel 75 mg tablet 75 mg PO DAILY Changed spironolactone 25 mg tablet 25 mg PO DAILY Qty: 30 0RF Discharge Order = DC NOW: Discharge Order (Routine); Ordered 04/19/25 Ordered By: Gildardo Robledo Referrals: Arlette Singleton MD [Primary Care Provider, [facility]] - 04/26/25 11:00 am Discharge Diet: Cardiac, Diabetic and Low Cholesterol Discharge Activity: Increase activity as tolerated Patient Instructions: Opioid Safety, Patient Portal & Ezio Instructions Activity Restrictions/Additional Instructions: Get a scale and weigh yourself with a goal to lose 1% of your body weight weekly Get a calorie counter ezio such as [employer] and eat less than 2000 simba a day If you are losing less than 2 pounds a week decrease your calories eaten by 100 simba daily. If you are losing greater than 3 pounds a week increase your calories by 100 daily. Try to get as much larger muscle exercise such as walking, sit ups, push-ups or squats as you can daily. Continue on your home medications as usual except change her spironolactone to a full 25 mg tablet daily. Follow-up with your primary care provider in 1 week. If you do not have contraindications and you are having trouble with too much hunger when counting your calories and trying to follow the diet you could talk with your physician about the possibility of a GLP-1 appetite suppressant such as semaglutide or tirzepatide. Do not drink any calories in the way of sodas, juices, milk, alcohol. If you have recurrent symptoms of stroke with limb weakness inability to talk come back to the emergency department Discharge Attestations Time Spent in Discharge Care*: greater than 30 min Quality Metrics Clinical Quality Measures [ Cerebrovascular Accident { Contraindication to Antithrombotic: None; antithrombotic prescribed; Contraindication to Anticoagulation: Overlap treatment not indicated; Contraindication to Statin: None; Statin prescribed; Symptom Onset Unknown: Yes; Reason stroke education not provided: Stroke education provided to patient; Rehab services assessed: Physical therapy, Occupational therapy, Speech therapy;}] Coding Level of Care Code 63449 Diagnoses Cerebrovascular accident I63.9 ESTER (acute kidney injury) N17.9 KRISTIE (obstructive sleep apnea) G47.33 Atherosclerosis of [place] coronary artery of [place] heart without angina pectoris I25.10 Coronary Disease-Associated Artery/Lesion type: [place] artery Diet-controlled type 2 diabetes mellitus E11.9 Mild cognitive impairment with memory loss G31.84 Gastric bypass status for obesity Z98.84 Acquired hypothyroidism E03.9 Hypothyroidism type: acquired Hyperlipemia, mixed E78.2 Time Spent (min) 45
--- NOTE | 2025-04-19 15:49 | PC.NURSE ---
Patient was discharged with all belongings and instructions. All prescriptions were sent to preferred pharmacy. All Ivs were discontinued. Patient was stable during discharge.
--- NOTE | 2025-04-29 12:09 | PC.NURSE ---
disability coordinator follow up phone call completed-spoke to who stated patient hasn't been doing well since dc- sleeping 20 hours a day, worsened memory issues, and it takes him 2 hours to at his meal often falling asleep during it, zoning out. His right arm weakness had improved, but he has right foot drop. His PCP ordered in home PT/OT. They have followed up with PCP and neurology- Dr. Ponce ordered and EEg and and MRI in [place] due to his pacemaker, he has a cardiology apt scheduled as well.
== END 2025-04-19 15:48 | disposition home or self-care (01) | DRG 62 ==
LOC: ER 20:19 → ICU 20:37
PROVIDERS: Admitting Provider Student in an Organized Health Care Education/Training Program; Emergency Provider Emergency Medicine; PCP Family Medicine; Visit Provider Internal Medicine
DX: I63.9 Cerebral infarction, unspecified (principal); G81.91 Hemiplegia, unspecified affecting right dominant side; I50.30 Unspecified diastolic (congestive) heart failure; N17.9 Acute kidney failure, unspecified; Z68.42 Body mass index [BMI] 45.0-49.9, adult; I11.0 Hypertensive heart disease with heart failure; F17.200 Nicotine dependence, unspecified, uncomplicated; R29.705 NIHSS score 5; G47.33 Obstructive sleep apnea (adult) (pediatric); I25.10 Atherosclerotic heart disease of native coronary artery without angina pectoris; Z95.5 Presence of coronary angioplasty implant and graft; E11.42 Type 2 diabetes mellitus with diabetic polyneuropathy; E66.01 Morbid (severe) obesity due to excess calories; Z98.84 Bariatric surgery status; E03.9 Hypothyroidism, unspecified; Z79.890 Hormone replacement therapy; Z79.82 Long term (current) use of aspirin; E78.2 Mixed hyperlipidemia; F32.9 Major depressive disorder, single episode, unspecified; M54.40 Lumbago with sciatica, unspecified side; Z83.3 Family history of diabetes mellitus; Z82.49 Family history of ischemic heart disease and other diseases of the circulatory system; Z90.49 Acquired absence of other specified parts of digestive tract; Z90.79 Acquired absence of other genital organ(s); D64.9 Anemia, unspecified; Z95.0 Presence of cardiac pacemaker; G43.901 Migraine, unspecified, not intractable, with status migrainosus; N40.0 Benign prostatic hyperplasia without lower urinary tract symptoms; Z79.02 Long term (current) use of antithrombotics/antiplatelets
CPT/HCPCS: 36415; 36416; 70450; 70496; 70498; 80048; 80053; 80061; 80306; 81003; 82962; 83036; 83735; 84100; 85025; 85610; 85730; 92523; 92610; 93005; 93306; 94660; 96372; 96374; 96375; 97116; 97161; 99291; 99292; J1650; J2470; J3101; J7120; J9999

== ENCOUNTER → 2025-04-27 09:40 | Outpatient (BNVA) | payer MEDICARE, SELFPAY | PROVIDERS: PCP Family Medicine; Referring Provider Family Medicine; Visit Provider Specialist | DX: I63.512 Cerebral infarction due to unspecified occlusion or stenosis of left middle cerebral artery (principal); G43.711 Chronic migraine without aura, intractable, with status migrainosus; R03.0 Elevated blood-pressure reading, without diagnosis of hypertension | CPT/HCPCS: 36415; 82542; 83520; 84443; 99215 ==

== ENCOUNTER → 2025-05-06 10:18 | Outpatient (BNVA) | payer MEDICARE, SELFPAY | PROVIDERS: PCP Family Medicine; Visit Provider Internal Medicine Cardiovascular Disease | DX: I25.118 Atherosclerotic heart disease of native coronary artery with other forms of angina pectoris (principal); E78.2 Mixed hyperlipidemia; Z95.0 Presence of cardiac pacemaker; I11.0 Hypertensive heart disease with heart failure; I50.42 Chronic combined systolic (congestive) and diastolic (congestive) heart failure; Z87.891 Personal history of nicotine dependence | CPT/HCPCS: 99214 ==

== ENCOUNTER 2025-06-01 20:16 | Outpatient (CLI) | payer MEDICARE, SELFPAY | END 2025-06-01 20:17 | disposition home or self-care (01) | LOC: SLEEP 20:17 | PROVIDERS: PCP Family Medicine; Referring Provider Internal Medicine; Visit Provider Internal Medicine Pulmonary Disease | DX: G47.33 Obstructive sleep apnea (adult) (pediatric) (principal) | CPT/HCPCS: 95811 ==

== ENCOUNTER → 2025-06-16 09:05 | Outpatient (BNVA) | payer MEDICARE, SELFPAY | PROVIDERS: PCP Family Medicine; Referring Provider Specialist; Visit Provider Specialist | DX: R41.3 Other amnesia (principal); G93.49 Other encephalopathy; G40.89 Other seizures | CPT/HCPCS: 95819 ==